=== PATIENT | female | born 1940 | race Caucasian/White ===

== ENCOUNTER 2016-06-22 13:06 | Inpatient (IN) | payer OTHER ==
--- NOTE | 2016-06-22 13:14 | PDOC ---
History of Present Illness - General Chief Complaint: Chest Pain Stated Complaint: CHEST PAIN Time Seen by Provider: 06/22/16 13:13 History Source: Patient - History of Present Illness Initial Comments: 06/22/16 14:48 75 year old female resident of [facility], presented to the ED with the chief complaints of left sided chest pain x 2 hours today. A/c to the patient, she never had chest pain before, chest pain lasting for an hour, on/off , its pressure type, non radiating, associated with nausea, no vomiting. Denies palpitation, SOB, Cough. No h/o cardiac problems in the past. Had complete cardiac workup done 2 yrs ago which was normal. Headache in the temporal area since yesterday, on/off. Denies dizziness, loc, trauma, abdominal pain. Past Medical Hx: Hypertension, HLD, Parkinsons Disease, Glaucoma Allergies: NKDA Past Surgical Hx: Back surgery x 10yrs ago Hospitalization: No recent hospitalization Social: Never smoked, no alcohol , no illicit drug use. PCP: Dr. Jake Marie Past History - Past Medical History Allergies/Adverse Reactions: Allergies Allergy/AdvReac Type Severity Reaction Status Date / Time No Known Drug Allergies Allergy Verified 01/21/14 00:40 Home Medications: Ambulatory Orders Acetylcyst/Wsrjijt17/Levomefol [Metafolbic Plus Caplet] 1 each PO DAILY Amlodipine Besylate [Norvasc -] 2.5 mg PO DAILY 06/22/16 Aspirin [ASA -] 81 mg PO DAILY 06/22/16 Carbidopa/Levodopa [Carbidopa-Levodopa 25-100 Tab] 1 each PO DAILY 06/22/16 Carbidopa/Levodopa/Entacapone [Xxjstbrlt-Gihxhhqs-Bjgw 125 mg] 06/22/16 Carbidopa/Levodopa/Entacapone [Eaapknfib-Bdnnhwbn-Lrwz 125 mg] 1 each PO DAILY 06/22/16 Cholecalciferol (Vitamin D3) [Vitamin D3] 400 unit PO DAILY 06/22/16 Donepezil HCl [Aricept -] 10 mg PO DAILY 06/22/16 Duloxetine HCl 60 mg PO DAILY 06/22/16 Gabapentin [Neurontin -] 400 mg PO Q8H 06/22/16 Hydrochlorothiazide 25 mg PO DAILY 06/22/16 Hydromorphone HCl [Exalgo] 16 mg PO DAILY 06/22/16 Latanoprost 0.005% Eye Drops [Xalatan 0.005% Eye Drops -] 1 drop HS 06/22/16 Magnesium Hydrox 2400MG/30Ml [Milk of Magnesia -] 30 ml PO ONCE 06/22/16 Mirtazapine [Remeron Soltab -] 15 mg PO DAILY 06/22/16 Rotigotine [Neupro] 1 each TD DAILY 06/22/16 Sennosides/Docusate Sodium [Senna S Tablet] 1 each PO TID 06/22/16 Simvastatin 20 mg PO DAILY 06/22/16 Tolterodine Tartrate LA [Detrol LA -] 2 mg PO DAILY 06/22/16 Tolterodine Tartrate LA [Detrol LA -] 4 mg PO DAILY 06/22/16 Anemia: No Asthma: No Cancer: No Cardiac Disorders: No CVA: No COPD: No CHF: No Dementia: Yes Diabetes: No GI Disorders: Yes Disorders: No HTN: Yes Hypercholesterolemia: Yes Liver Disease: No Seizures: No Thyroid Disease: No - Surgical History Abdominal Surgery: No Appendectomy: No Cardiac Surgery: No Cholecystectomy: No Lung Surgery: No Neurologic Surgery: No Orthopedic Surgery: No - Psycho/Social/Smoking Cessation Hx Anxiety: No Suicidal Ideation: No Smoking History: Never smoked 'Breaking Loose' booklet given: 05/28/13 Hx Alcohol Use: Yes (OCCASIONALLY) Drug/Substance Use Hx: No Substance Use Type: Alcohol Review of Systems - Review of Systems Able to Perform ROS?: Yes Comments:: ROS CONSTITUTIONAL: Absent: fever, chills, diaphoresis, generalized weakness, malaise, loss of appetite HEENT: Absent: rhinorrhea, nasal congestion, throat pain, throat swelling, difficulty swallowing, mouth swelling, ear pain, eye pain, visual Changes CARDIOVASCULAR: Present: Chest pain Absent: syncope, palpitations, irregular heart rate, lightheadedness, peripheral edema RESPIRATORY: Absent: cough, shortness of breath, dyspnea with exertion, orthopnea, wheezing, stridor, hemoptysis GASTROINTESTINAL: Absent: abdominal pain, abdominal distension, nausea, vomiting, diarrhea, constipation, melena, hematochezia GENITOURINARY: Absent: dysuria, frequency, urgency, hesitancy, hematuria, flank pain, genital pain MUSCULOSKELETAL: Absent: myalgia, arthralgia, joint swelling SKIN:~ Absent: rash, itching, pallor HEMATOLOGIC/IMMUNOLOGIC: Absent: easy bleeding, easy bruising, lymphadenopathy, frequent infections ENDOCRINE: Absent: unexplained weight gain, unexplained weight loss, heat intolerance, cold intolerance NEUROLOGIC: Absent: headache, focal weakness or paresthesias, dizziness, unsteady gait, seizure, mental status changes, bladder or bowel incontinence PSYCHIATRIC: Absent: anxiety, depression, suicidal or homicidal ideation, hallucinations. 06/22/16 15:11 PE: GENERAL: Head tremor, Awake, alert, and fully oriented, in no acute distress HEAD: No signs of trauma EYES: PERRLA, EOMI, sclera anicteric, conjunctiva clear ENT: Auricles normal inspection, hearing grossly normal, nares patent, oropharynx clear without exudates. Moist mucosa NECK: Normal ROM, supple, no lymphadenopathy, JVD, or masses LUNGS: Breath sounds equal, clear to auscultation bilaterally. No wheezes, and no crackles.. HEART: Regular rate and rhythm, normal S1 and S2, no murmurs, rubs or gallops ABDOMEN: Soft, nontender, normoactive bowel sounds. No guarding, no rebound. No masses EXTREMITIES: Cog wheel rigidity, no edema. No clubbing or cyanosis. No cords, erythema, or tenderness NEUROLOGICAL: Cranial nerves II through XII grossly intact. Normal speech, wheel chair bound SKIN: Warm, Dry, normal turgor, no rashes or lesions noted. Is the patient limited Guamanian proficient: No Heart Score/ECG Review - History History: Moderately suspicious - Electrocardiogram EKG: Normal - Age Age: >/= 65 - Risk Factors Risk Factors Heart Score: Yes Hx Hypercholesterolemia, Yes Hx Hypertension Based on the list above the patient has:: 1-2 risk factors - Troponin Troponin: </= normal limit - Score Heart Score - Total: 4 ED Treatment Course - LABORATORY CBC & Chemistry Diagram: 06/22/16 13:41 06/22/16 13:41 Medical Decision Making - Medical Decision Making 06/22/16 15:20 75 year old female resident of [facility], with PMHx of HTN, HLD, Parkinsons Disease, Glaucoma presented to the ED with the chief complaints of left sided chest pain x 2 hours today. # Chest pain Likely ACS: HEART score-4 Likely PE: H/o immobilization, chest pain Less likely Pneumonia-No cough, fever Less likely aortic dissection- BP no change in both arms, no symptoms suggestive Ordered CBC, CMP, UA, EKG, Cardiac enzymes 06/22/16 16:29 Patient reassessed. Chest pain resolved. Blood pressure improved, now normal. Sitting comfortably. Hemodynamically stable, saturation 95% on RA. EKG showed normal sinus. Would like to r/o PE-ordered CTA. # Chest pain- Now resolved Rule out ACS Rule out PE Discussed with Dr. Jake Marie As per Dr Marie's recommendation, ordered IV NS @ 75mls/hr, next set of cardiac enzymes ordered. Will admit the patient to telemetry for continuous cardiac monitoring Dr. Alonzo consult placed Would consider echo. Illness, Investigation and plan of care explained to the patient. She verbalized understanding. Case seen and discussed with Dr. Gunderson. *DC/Admit/Observation/Transfer Diagnosis at time of Disposition: Chest pain - Discharge Dispostion Condition at time of disposition: Guarded Admit: Yes
[2016-06-22 13:21] VITALS: BMI 24.3
[2016-06-22] MEDS ORDERED: ASPIRIN 325 MG TABLET PO ONE (13:35)
[2016-06-22] MEDS ORDERED: NITROGLYCERIN 2% OINTMENT - 1GM PACKET TD ONE ×2 (13:36→13:43)
[2016-06-22] MEDS ORDERED: ASPIRIN 325 MG TABLET ONE (13:43)
[2016-06-22 14:16] LABS: BASOPHIL 0.5 % (0-2.0); EOSINOPHIL 1.5 % (0-4.5); MCH 22.9 pg (25.7-33.7); MCHC 30.5 g/dl (32.0-36.0); MEAN PLT VOLUME 7.1 fl (7.5-11.1); NEUTROPHILS 73.2 % (42.8-82.8); PLATELET COUNT 502 K/MM3 (134-434); RDW 20.7 % (11.6-15.6); WHITE BLOOD COUNT 12.1 K/mm3 (4.0-10.0)
[2016-06-22 14:35] LABS: INR 1.2 (0.82-1.09); PROTHROMBIN TIME (PATIENT) 13.2 SEC (9.98-11.88)
[2016-06-22 14:37] LABS: ALBUMIN 2.8 g/dl (3.4-5.0); ANION GAP 11 (8-16); BILIRUBIN,TOTAL 0.4 mg/dL (0.2-1.0); CALCIUM 8.6 mg/dL (8.5-10.1); CO2 29 mmol/L (21-32); CREATININE 0.5 mg/dL (0.55-1.02); GLUCOSE,RANDOM 109 mg/dL (74-106); MAGNESIUM 2.3 mg/dL (1.8-2.4); SGPT/ALT < 6 U/L (12-78); TOT PROT 6.4 g/dl (6.4-8.2)
[2016-06-22 14:41] LABS: ALK PHOS 89 U/L (45-117); SGOT/AST 21 U/L (15-37); TROPONIN I < 0.02 ng/ml (0.00-0.05)
[2016-06-22] MEDS: SODIUM CHLORIDE 1,000 ML IV SCH (16:51)
--- NOTE | 2016-06-22 16:55 | PDOC ---
Attending Attestation - Resident Resident Name: Maryam Martinezny - ED Attending Attestation I have performed the following: I have examined & evaluated the patient, The case was reviewed & discussed with the resident, I agree w/resident's findings & plan, Exceptions are as noted - HPI HPI: 06/22/16 16:52 75-year-old female with history of advanced Parkinson's, hypertension and glaucoma presents with atraumatic, nonpleuritic chest pain and hypertension that had resolved upon arrival in the ER. - Physicial Exam PE: 06/22/16 16:53 Patient is awake and alert, hypertensive, afebrile with clear lungs, RRR, bilateral resting tremor and cogwheel rigidity to upper and lower extremities bilaterally. - Medical Decision Making 06/22/16 16:53 75-year-old female with history of Parkinson's disease, hypertension, poor mobility (wheelchair bound) presents with chest pain and hypertension. Differential diagnoses includes ACS versus PE versus pleurisy versus pneumonia. EKG shows no evidence of acute ischemia. Chest x-ray reveals no evidence of infiltrate or effusion. D-dimer is 1451. First set of cardiac enzymes is within normal limit. Patient has received aspirin and nitroglycerin with resolution of hypertension. Will obtain CTA of chest. Will admit for further evaluation and treatment.
[2016-06-22 19:09] LABS: ANISOCYTOSIS 2+; HYPOCHROMIA 1+; OVALOCYTES 1+; PLATELET ESTIMATE SLT INCREASED (NORMAL); POIKILOCYTOSIS 1+; POLYCHROMASIA 1+
--- NOTE | 2016-06-22 20:49 | HP ---
[id number] Chief Complaint: CP History of Present Illness: Pt developed SSCP at rest around 11 AM while sleeping in the wheelchair at [facility], Cp lasted for about 30 minutes, not associated with SOB, paipl, dizziness, radiation. Pt states that it is first time when has CP. Pt was transferred to ER. in ER pt had Chest CT with IV contrast and R/O PE. Pt was admitted to monitor bed. 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 - Smoking History Smoking history: Never smoked - Alcohol/Substance Use Hx Alcohol Use: Yes (OCCASIONALLY) Home Medications - Allergies Allergies/Adverse Reactions: Allergies Allergy/AdvReac Type Severity Reaction Status Date / Time No Known Drug Allergies Allergy Verified 01/21/14 00:40 - Home Medications Home Medications: Ambulatory Orders Acetylcyst/Nctgduz26/Levomefol [Metafolbic Plus Caplet] 1 each PO DAILY Amlodipine Besylate [Norvasc -] 2.5 mg PO DAILY 06/22/16 Aspirin [ASA -] 81 mg PO DAILY 06/22/16 Carbidopa/Levodopa [Carbidopa-Levodopa 25-100 Tab] 1 each PO DAILY 06/22/16 Carbidopa/Levodopa/Entacapone [Xnesxcedf-Qxepjfeg-Ktde 125 mg] 06/22/16 Carbidopa/Levodopa/Entacapone [Wrpfllndz-Qnkcmrqc-Fljb 125 mg] 1 each PO DAILY 06/22/16 Cholecalciferol (Vitamin D3) [Vitamin D3] 400 unit PO DAILY 06/22/16 Donepezil HCl [Aricept -] 10 mg PO DAILY 06/22/16 Duloxetine HCl 60 mg PO DAILY 06/22/16 Gabapentin [Neurontin -] 400 mg PO Q8H 06/22/16 Hydrochlorothiazide 25 mg PO DAILY 06/22/16 Hydromorphone HCl [Exalgo] 16 mg PO DAILY 06/22/16 Latanoprost 0.005% Eye Drops [Xalatan 0.005% Eye Drops -] 1 drop HS 06/22/16 Magnesium Hydrox 2400MG/30Ml [Milk of Magnesia -] 30 ml PO ONCE 06/22/16 Mirtazapine [Remeron Soltab -] 15 mg PO DAILY 06/22/16 Rotigotine [Neupro] 1 each TD DAILY 06/22/16 Sennosides/Docusate Sodium [Senna S Tablet] 1 each PO TID 06/22/16 Simvastatin 20 mg PO DAILY 06/22/16 Tolterodine Tartrate LA [Detrol LA -] 2 mg PO DAILY 06/22/16 Tolterodine Tartrate LA [Detrol LA -] 4 mg PO DAILY 06/22/16 Review of Systems - Review of Systems Constitutional: denies: Chills, Fever Eyes: denies: Blurred Vision, Recent Change in Vision HENT: denies: Ear Discharge, Ear Pain, Nasal Congestion, Throat Pain Neck: denies: Pain on Movement, Stiffness Cardiovascular: denies: Edema, Palpitations, Shortness of Breath Respiratory: denies: Cough, Hemoptysis, SOB, SOB on Exertion Gastrointestinal: reports: Vomiting. denies: Abdominal Pain, Diarrhea, Nausea Genitourinary: denies: Burning, Discharge Musculoskeletal: denies: Back Pain, Joint Swelling Integumentary: denies: Eczema, Pruritis, Rash Neurological: denies: Change in LOC, Confusion, Numbness, Tremors Endocrine: denies: Excessive Sweating, Intolerance to Cold Hematology/Lymphatic: denies: Easily Bruised, Excessive Bleeding Psychiatric: denies: Altered Sleep Pattern, Anxiety Physical Examination Vital Signs: Vital Signs Temperature 98 F 06/22/16 13:15 Pulse Rate 80 06/22/16 18:29 Respiratory Rate 18 06/22/16 18:29 Blood Pressure 112/64 06/22/16 18:29 O2 Sat by Pulse Oximetry (%) 92 L 06/22/16 18:29 Constitutional: Yes: No Distress, Calm Eyes: Yes: Conjunctiva Clear, EOM Intact, PERRL HENT: Yes: Normocephalic. No: Epistaxis, Rhinnorhea, Thrush Neck: Yes: Trachea Midline. No: Lymphadenopathy Cardiovascular: Yes: Regular Rate and Rhythm, S1, S2 Respiratory: Yes: Regular, CTA Bilaterally. No: Rales Gastrointestinal: Yes: Normal Bowel Sounds, Soft. No: Palpable Mass, Tenderness Musculoskeletal: No: Joint Stiffness, Joint Swelling Extremities: No: Cold, Cool, Cyanosis Edema: No Integumentary: No: Bruising, Erythema, Rash Neurological: Yes: Alert, Oriented, Other (motor and sensory symmetric bilat.) Psychiatric: Yes: Alert, Oriented Labs: reviewed Imaging - Results Chest X-ray: Report Reviewed Cat Scan: Report Reviewed Problem List - Problems (1) Chest pain Assessment/Plan: Admit to Telemetry Serial CE Cardiology Consult Check TSH Code(s): R07.9 - CHEST PAIN, UNSPECIFIED (2) HTN (hypertension) Assessment/Plan: to monitor Code(s): I10 - ESSENTIAL (PRIMARY) HYPERTENSION (3) Hyperlipemia Assessment/Plan: check level in AM Code(s): E78.5 - HYPERLIPIDEMIA, UNSPECIFIED (4) Parkinson disease Assessment/Plan: on treatment- to cont. Code(s): G20 - PARKINSON'S DISEASE (5) Impaired gait Assessment/Plan: Pt can transfer to wheelchair w/o help Code(s): R26.9 - UNSPECIFIED ABNORMALITIES OF GAIT AND MOBILITY
[2016-06-22] MEDS: HEPARIN NA (PORCINE) 5,000 UNITS/ML 1ML VIAL SQ SCH (21:39)
[2016-06-22] MEDS ORDERED: PATIENT'S OWN MEDICATION (NON-FORMULARY) (Magnesium Hydrox 2400mg/30ml 30 ML) PO SCH (22:30)
[2016-06-22 22:36] LABS: TROPONIN I < 0.02 ng/ml (0.00-0.05)
[2016-06-22] MEDS: LATANOPROST 0.005% OPHTH SOLN 2.5ML BOTTLE OU SCH (23:03)
[2016-06-22] MEDS: GABAPENTIN 400 MG CAPSULE (FP) PO SCH (23:03)
[2016-06-23] MEDS: GABAPENTIN 400 MG CAPSULE (FP) PO SCH ×3 (06:21→21:17)
[2016-06-23] MEDS: SENNOSIDES/DOCUSATE COMBO (SENNA PLUS) TABLET (UD) PO SCH ×3 (06:21→21:17)
[2016-06-23 08:11] LABS: MCH 22.8 pg (25.7-33.7); MCHC 30.8 g/dl (32.0-36.0); MEAN CELL VOLUME 74.1 fl (80-96); MEAN PLT VOLUME 7.3 fl (7.5-11.1); PLATELET COUNT 410 K/MM3 (134-434); RDW 21.2 % (11.6-15.6); WHITE BLOOD COUNT 8.6 K/mm3 (4.0-10.0)
[2016-06-23 08:53] LABS: CREATININE 0.4 mg/dL (0.55-1.02); FREE T4 1.08 ng/dl (0.76-1.46); THYROID STIMULATING HORMONE 1.58 uIU/ml (0.358-3.74)
--- NOTE | 2016-06-23 09:42 | CON.CARD ---
Consult Consult Specialty:: Cardiology Referred by:: Dr. Marie Reason for Consultation:: Chest pain - History of Present Illness Chief Complaint: chest pain History of Present Illness: 75 year old woman with a history of HTN, HLD, Parkinsons, sent from [facility] after complaining of chest pain. Pt. states that she was on her way to [facility] yesterday when she developed substernal/left sided chest pain. this lasted approx 2 hours and she was sent to the ER. She states that the pain resolved prior to arriving in the ER. she did have associated nausea and vomiting. also c /o constipation for the past few days. As per report she had some type of cardiac work up 2 years ago which was normal. 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 Cardio/Vascular: Yes: HTN - Alcohol/Substance Use Hx Alcohol Use: Yes (OCCASIONALLY) - Smoking History Smoking history: Never smoked - Social History Usual Living Arrangement: Half-Way ADL: Support Services History of Recent Travel: No Home Medications - Allergies Allergies/Adverse Reactions: Allergies Allergy/AdvReac Type Severity Reaction Status Date / Time No Known Drug Allergies Allergy Verified 01/21/14 00:40 - Home Medications Home Medications: Ambulatory Orders Acetylcyst/Qeehhse59/Levomefol [Metafolbic Plus Caplet] 1 each PO DAILY Amlodipine Besylate [Norvasc -] 2.5 mg PO DAILY 06/22/16 Aspirin [ASA -] 81 mg PO DAILY 06/22/16 Carbidopa/Levodopa [Carbidopa-Levodopa 25-100 Tab] 1 each PO DAILY 06/22/16 Carbidopa/Levodopa/Entacapone [Tvrwwwujd-Fiyvnxvj-Rchs 125 mg] 06/22/16 Carbidopa/Levodopa/Entacapone [Zhirbczol-Gxsjtmur-Fwxz 125 mg] 1 each PO DAILY 06/22/16 Cholecalciferol (Vitamin D3) [Vitamin D3] 400 unit PO DAILY 06/22/16 Donepezil HCl [Aricept -] 10 mg PO DAILY 06/22/16 Duloxetine HCl 60 mg PO DAILY 06/22/16 Gabapentin [Neurontin -] 400 mg PO Q8H 06/22/16 Hydrochlorothiazide 25 mg PO DAILY 06/22/16 Hydromorphone HCl [Exalgo] 16 mg PO DAILY 06/22/16 Latanoprost 0.005% Eye Drops [Xalatan 0.005% Eye Drops -] 1 drop HS 06/22/16 Magnesium Hydrox 2400MG/30Ml [Milk of Magnesia -] 30 ml PO ONCE 06/22/16 Mirtazapine [Remeron Soltab -] 15 mg PO DAILY 06/22/16 Rotigotine [Neupro] 1 each TD DAILY 06/22/16 Sennosides/Docusate Sodium [Senna S Tablet] 1 each PO TID 06/22/16 Simvastatin 20 mg PO DAILY 06/22/16 Tolterodine Tartrate LA [Detrol LA -] 2 mg PO DAILY 06/22/16 Tolterodine Tartrate LA [Detrol LA -] 4 mg PO DAILY 06/22/16 Family Disease History - Family Disease History Family History: Denies Review of Systems - Review of Systems Constitutional: denies: No Symptoms, Chills, Diaphoresis, Fever, Lethargy, Loss of Appetite, Malaise, Night Sweats, Unintentional Wgt. Loss, Weakness, Other Eyes: denies: No Symptoms, Blind Spots, Blurred Vision, Double Vision, Eye Pain , Floaters, Photophobia, Recent Change in Vision, Other HENT: denies: No Symptoms, Difficult Swallowing, Ear Discharge, Ear Pain, Epistaxis, Gingival Bleeding, Hearing Loss, Mouth Swelling, Nasal Congestion, Ocular Prosthesis, Throat Pain, Toothache, Ringing in Ears, Other Neck: denies: No Symptoms, Decreased ROM, Lumps, Pain on Movement, Stiffness, Swollen Glands, Tenderness, Other Cardiovascular: reports: Chest Pain. denies: No Symptoms, Edema, Palpitations, Shortness of Breath, Other Respiratory: denies: No Symptoms, Cough, Exercise Intolerance, Hemoptysis, Orthopnea, PND, Snoring, SOB, SOB on Exertion, Wheezing, Other Gastrointestinal: reports: Constipation, Nausea, Vomiting. denies: No Symptoms , Abdominal Pain, Bloating, Diarrhea, Dysphagia, Indigestion, Melena, Rectal Bleeding, Vomiting Blood, Other Genitourinary: denies: No Symptoms, Burning, Discharge, Dysuria, Flank Pain, Frequency, Hematuria, Incontinence, Lesions, Menses, Pain, Testicular Mass, Testicular Pain, Testicular Swelling, Urgency, Vaginal Bleeding, Other Breasts: denies: No Symptoms Reported, See HPI, Breast Implants, Discharge from Nipple, Lumps, Pain, Skin Changes, Other Musculoskeletal: denies: No Symptoms, Back Pain, Crepitus, Decreased ROM, Extremity Pain, Joint Pain, Joint Swelling, Muscle Pain, Muscle Cramps, Muscle Weakness, Other Integumentary: denies: No Symptoms, Blister, Bruising, Change in Color, Eczema, Erythema, Incision, Lesions, Lump, Pallor, Pruritis, Rash, Wound, Other Neurological: denies: No Symptoms, Change in LOC, Change in Speech, Confusion, Dizziness, Headache, Incoordination, Numbness, Parasthesia, Pre-Existing Deficit , Seizure, Syncope, Tremors, Unsteady Gait, Weakness, Other Endocrine: denies: No Symptoms, Excessive Sweating, Flushing, Increased Hunger, Increased Thirst, Intolerance to Cold, Intolerance to Heat, Unexplained Weight Gain, Unexplained Weight Loss, Other Hematology/Lymphatic: denies: No Symptoms, Easily Bruised, Excessive Bleeding, Swollen Glands, Other Psychiatric: denies: No Symptoms, Altered Sleep Pattern, Anxiety, Depression, Hallucinations, Panic, Paranoia, Suicidal, Other - Risk Factors Known Risk Factors: Yes: Age, Hypertension Vital Signs: Vital Signs Temperature 98.2 F 06/23/16 06:00 Pulse Rate 70 06/23/16 06:00 Respiratory Rate 16 06/23/16 06:00 Blood Pressure 139/69 06/23/16 06:00 O2 Sat by Pulse Oximetry (%) 98 06/23/16 04:50 Constitutional: Yes: Well Nourished, No Distress, Calm Eyes: Yes: WNL, Conjunctiva Clear, EOM Intact, PERRL HENT: Yes: WNL, Atraumatic, Normocephalic Neck: Yes: WNL, Supple, Trachea Midline Respiratory: Yes: Regular, CTA Bilaterally. No: Rales, Rhonchi, Wheezes Gastrointestinal: Yes: WNL, Normal Bowel Sounds, Soft. No: Distention, Tenderness Renal/: Yes: WNL Cardiovascular: Yes: Regular Rate and Rhythm. No: Bradycardia, Tachycardia, Pulse Irregular, Gallop, Rub, Varicosities JVD: No Carotid Bruit: No PMI: Non-Displaced Heart Sounds: Yes: S1, S2. No: Split S2, S3, S4, Clicks, Gallop, Rub, Bruit Murmur: No: Systolic Murmur, Diastolic Murmur Musculoskeletal: Yes: WNL Extremities: Yes: WNL Edema: No Peripheral Pulses WNL: Yes Peripheral Pulses: 2+ Left Doralis Pedis, 2+ Right Dorsalis Pedis Integumentary: Yes: WNL Neurological: Yes: Alert, Oriented Psychiatric: Yes: Alert, Oriented - Other Data Labs, Other Data: CBC, BMP 06/23/16 05:45 06/23/16 05:45 INR, PTT INR 1.20 (0.82-1.09) H 06/22/16 13:41 Troponin, BNP 06/22/16 22:05 Troponin I < 0.02 Troponin, BNP 06/22/16 22:05 Troponin I < 0.02 ekg-nsr 75bpm, IVCD, no sig ST abnl Imaging - Results Chest X-ray: Report Reviewed, Image Reviewed EKG: Report Reviewed, Image Reviewed Other: Report Reviewed, Image Reviewed (tele-nsr, pvcs, no sig arrhythmia) Problem List - Problems (1) Chest pain Code(s): R07.9 - CHEST PAIN, UNSPECIFIED (2) HTN (hypertension) Code(s): I10 - ESSENTIAL (PRIMARY) HYPERTENSION (3) Hyperlipemia Code(s): E78.5 - HYPERLIPIDEMIA, UNSPECIFIED Assessment/Plan 75 year old woman with a history of HTN, HLD, Parkinsons, sent from [facility] after complaining of chest pain, nausea, vomiting, constipation. Chest pain-atypical, but difficult to characterize, has several cardiac risk factors -no ischemia on ekg -no arrhythmia on telemetry -cardiac enzymes wnl x3 -cont tele for now -plan for echo and persantine nuclear stress test saturday to further evaluate for ischemia -cont ASA 81mg daily and Lipitor -would also treat constipation as may be contributing to symptoms HTN-well controlled -cont norvasc and HCTZ HLD -cont lipitor
[2016-06-23] MEDS ORDERED: PT OWN MED DRAWER 7, Y5N ONE (09:45)
[2016-06-23] MEDS: DONEPEZIL HCL 10 MG TABLET (FP) PO SCH (09:48)
[2016-06-23] MEDS: HEPARIN NA (PORCINE) 5,000 UNITS/ML 1ML VIAL SQ SCH ×2 (09:48→21:22)
[2016-06-23] MEDS: DULoxetine HCL 30 MG CAPSULE.DR (FP) PO SCH (09:48)
[2016-06-23] MEDS: amLODIPine BESYLATE 2.5 MG TABLET (FP) PO SCH (09:48)
[2016-06-23] MEDS: CARBIDOPA/LEVODOPA 25/100 TABLET (FP) PO SCH (09:48)
[2016-06-23] MEDS: HYDROCHLOROTHIAZIDE 25 MG TABLET (FP) PO SCH (09:49)
[2016-06-23] MEDS: ASPIRIN 81 MG CHEWABLE TABLETS PO SCH (09:49)
[2016-06-23] MEDS: TOLTERODINE TARTRATE LA 4 MG CAP.SR.24H (FP) PO SCH (09:49)
[2016-06-23] MEDS: CHOLECALCIFEROL (VITAMIN D3) 400 UNIT TABLET (FP) PO SCH (09:49)
[2016-06-23] MEDS ORDERED: HYDROMORPHONE HCL 16 MG PO SCH (10:00)
[2016-06-23] MEDS ORDERED: PATIENT'S OWN MEDICATION (NON-FORMULARY) (Rotigotine [Neupro] 1 EACH) TD SCH (10:00)
[2016-06-23] MEDS ORDERED: POLYETHYLENE GLYCOL 3350 119 GM BTL PO PRN (11:02)
--- NOTE | 2016-06-23 11:07 | PN ---
Progress Note, Physician Chief Complaint: in bed nad no CP or SOB currently; had BM no abdominal pain chart tests meds reviewed with pt - Current Medication List Current Medications: Active Medications Amlodipine Besylate (Norvasc -) 2.5 mg PO DAILY [facility] Last Admin: 06/23/16 09:48 Dose: 2.5 mg Aspirin (Asa -) 81 mg PO DAILY [facility] Last Admin: 06/23/16 09:49 Dose: 81 mg Atorvastatin Calcium (Lipitor -) 10 mg PO HS [facility] Carbidopa/Levodopa (Sinemet 25/100 -) 1 each PO DAILY [facility] Last Admin: 06/23/16 09:48 Dose: 1 each Cholecalciferol (Vitamin D3 -) 400 unit PO DAILY [facility] Last Admin: 06/23/16 09:49 Dose: 400 unit Donepezil HCl (Aricept -) 10 mg PO DAILY [facility] Last Admin: 06/23/16 09:48 Dose: 10 mg Duloxetine HCl (Cymbalta -) 60 mg PO DAILY [facility] Last Admin: 06/23/16 09:48 Dose: 60 mg Gabapentin (Neurontin -) 400 mg PO TID [facility] Last Admin: 06/23/16 06:21 Dose: 400 mg Heparin Sodium (Porcine) (Heparin -) 5,000 unit SQ BID [facility] Last Admin: 06/23/16 09:48 Dose: 5,000 unit Hydrochlorothiazide (Hctz -) 25 mg PO DAILY [facility] Last Admin: 06/23/16 09:49 Dose: 25 mg Sodium Chloride (Normal Saline -) 1,000 mls @ 75 mls/hr IV ASDIR [facility] Last Admin: 06/22/16 16:51 Dose: 75 mls/hr Latanoprost (Xalatan 0.005% Eye Drops -) 1 drop OU HS [facility] Last Admin: 06/22/16 23:03 Dose: Not Given Mirtazapine (Remeron -) 15 mg PO HS [facility] Non-Formulary Medication (Hydromorphone Hcl [Exalgo]) 16 mg PO DAILY [facility] Non-Formulary Medication (Rotigotine [Neupro]) 1 each TD DAILY [facility] Polyethylene Glycol (Miralax (For Daily Use) -) 17 gm PO DAILY PRN PRN Reason: CONSTIPATION Senna/Docusate Sodium (Pericolace -) 1 tablet PO TID [facility] Last Admin: 06/23/16 06:21 Dose: 1 tablet Tolterodine Tartrate (Detrol La -) 4 mg PO DAILY [facility] Last Admin: 06/23/16 09:49 Dose: 4 mg - Objective Vital Signs: Vital Signs Temperature 98.2 F 06/23/16 06:00 Pulse Rate 70 06/23/16 06:00 Respiratory Rate 16 06/23/16 06:00 Blood Pressure 139/69 06/23/16 06:00 O2 Sat by Pulse Oximetry (%) 98 06/23/16 04:50 Constitutional: Yes: No Distress, Calm Eyes: Yes: Conjunctiva Clear HENT: Yes: Atraumatic Neck: Yes: Supple Cardiovascular: Yes: Regular Rate and Rhythm Respiratory: Yes: CTA Bilaterally Gastrointestinal: Yes: Soft. No: Distention, Tenderness Genitourinary: No: CVA Tenderness - Left, CVA Tenderness - Right Musculoskeletal: No: Joint Stiffness, Joint Swelling Extremities: No: Cold, Cool Edema: No Peripheral Pulses WNL: Yes Integumentary: No: Rash, Venous Stasis Changes Neurological: Yes: WNL, Alert, Oriented ...Motor Strength: WNL Psychiatric: Yes: WNL, Alert, Oriented. No: Agitated, Suicidal Ideation Labs: CBC, BMP 06/23/16 05:45 06/23/16 05:45 INR, PTT INR 1.20 (0.82-1.09) H 06/22/16 13:41 - ....Imaging Other: Report Reviewed Assessment/Plan 75 year old woman with a history of HTN, HLD, Parkinson, sent from [facility] after complaining of chest pain, nausea, vomiting, constipation. Chest pain-atypical, but difficult to characterize, has several cardiac risk factors -no ischemia on ekg -no arrhythmia on telemetry -cardiac enzymes wnl x3 -cont tele for now -plan for echo and persantine nuclear stress test saturday to further evaluate for ischemia per cardiology -cont ASA 81mg daily and Lipitor -would also treat constipation as may be contributing to symptoms HTN-well controlled -cont norvasc and HCTZ HLD -cont lipitor Constipation: senna, miralax d/w pt and staff; d/w major case detective - suggested keep her in OBS until stress test done
--- NOTE | 2016-06-23 13:41 | EKG ---
Test Reason : Blood Pressure : / mmHG Vent. Rate : 078 BPM Atrial Rate : 078 BPM P-R Int : 160 ms QRS Dur : 104 ms QT Int : 382 ms P-R-T Axes : 074 -29 028 degrees QTc Int : 435 ms NORMAL SINUS RHYTHM NORMAL ECG NO PREVIOUS ECGS AVAILABLE Confirmed by BYRON LOPEZ MD ([id number]) on 06/23/2016 1:41:03 PM Referred By: Confirmed By:BYRON LOPEZ MD
[2016-06-23] MEDS: ATORVASTATIN CA 10 MG TABLET (FP) PO SCH (21:17)
[2016-06-23] MEDS: MIRTAZAPINE 15 MG TABLET (FP) PO SCH (21:17)
[2016-06-23] MEDS: LATANOPROST 0.005% OPHTH SOLN 2.5ML BOTTLE OU SCH (21:22)
[2016-06-23] MEDS: SODIUM CHLORIDE 1,000 ML IV SCH (23:37)
[2016-06-24] MEDS: GABAPENTIN 400 MG CAPSULE (FP) PO SCH ×3 (05:36→21:38)
[2016-06-24] MEDS: SENNOSIDES/DOCUSATE COMBO (SENNA PLUS) TABLET (UD) PO SCH ×3 (05:37→21:38)
[2016-06-24 08:39] LABS: BASOPHIL 0.6 % (0-2.0); EOSINOPHIL 2.3 % (0-4.5); MCH 22.8 pg (25.7-33.7); MCHC 30.6 g/dl (32.0-36.0); MEAN CELL VOLUME 74.3 fl (80-96); MEAN PLT VOLUME 7.3 fl (7.5-11.1); NEUTROPHILS 77.2 % (42.8-82.8); PLATELET COUNT 420 K/MM3 (134-434)
[2016-06-24 09:00] LABS: CALCIUM 8.1 mg/dL (8.5-10.1)
[2016-06-24 09:04] LABS: CREATININE 0.3 mg/dL (0.55-1.02)
[2016-06-24] MEDS: HEPARIN NA (PORCINE) 5,000 UNITS/ML 1ML VIAL SQ SCH ×2 (09:52→21:39)
[2016-06-24] MEDS: HYDROCHLOROTHIAZIDE 25 MG TABLET (FP) PO SCH (09:52)
[2016-06-24] MEDS: ASPIRIN 81 MG CHEWABLE TABLETS PO SCH (09:52)
[2016-06-24] MEDS: amLODIPine BESYLATE 2.5 MG TABLET (FP) PO SCH (09:52)
[2016-06-24] MEDS: CARBIDOPA/LEVODOPA 25/100 TABLET (FP) PO SCH (09:52)
[2016-06-24] MEDS: DULoxetine HCL 30 MG CAPSULE.DR (FP) PO SCH (09:52)
[2016-06-24] MEDS: DONEPEZIL HCL 10 MG TABLET (FP) PO SCH (09:52)
[2016-06-24] MEDS: CHOLECALCIFEROL (VITAMIN D3) 400 UNIT TABLET (FP) PO SCH (09:55)
[2016-06-24] MEDS: TOLTERODINE TARTRATE LA 4 MG CAP.SR.24H (FP) PO SCH (09:56)
--- NOTE | 2016-06-24 10:26 | PN ---
Progress Note, Physician History of Present Illness: seen and examined today in nad. no further chest pain. no overnight events. no new complaints. - Current Medication List Current Medications: Active Medications Amlodipine Besylate (Norvasc -) 2.5 mg PO DAILY [facility] Last Admin: 06/24/16 09:52 Dose: 2.5 mg Aspirin (Asa -) 81 mg PO DAILY [facility] Last Admin: 06/24/16 09:52 Dose: 81 mg Atorvastatin Calcium (Lipitor -) 10 mg PO HS [facility] Last Admin: 06/23/16 21:17 Dose: 10 mg Carbidopa/Levodopa (Sinemet 25/100 -) 1 each PO DAILY [facility] Last Admin: 06/24/16 09:52 Dose: 1 each Cholecalciferol (Vitamin D3 -) 400 unit PO DAILY [facility] Last Admin: 06/24/16 09:55 Dose: 400 unit Donepezil HCl (Aricept -) 10 mg PO DAILY [facility] Last Admin: 06/24/16 09:52 Dose: 10 mg Duloxetine HCl (Cymbalta -) 60 mg PO DAILY [facility] Last Admin: 06/24/16 09:52 Dose: 60 mg Gabapentin (Neurontin -) 400 mg PO TID [facility] Last Admin: 06/24/16 05:36 Dose: 400 mg Heparin Sodium (Porcine) (Heparin -) 5,000 unit SQ BID [facility] Last Admin: 06/24/16 09:52 Dose: 5,000 unit Hydrochlorothiazide (Hctz -) 25 mg PO DAILY [facility] Last Admin: 06/24/16 09:52 Dose: 25 mg Sodium Chloride (Normal Saline -) 1,000 mls @ 75 mls/hr IV ASDIR [facility] Last Admin: 06/23/16 23:37 Dose: 75 mls/hr Latanoprost (Xalatan 0.005% Eye Drops -) 1 drop OU HS [facility] Last Admin: 06/23/16 21:22 Dose: 1 drop Mirtazapine (Remeron -) 15 mg PO HS [facility] Last Admin: 06/23/16 21:17 Dose: 15 mg Non-Formulary Medication (Hydromorphone Hcl [Exalgo]) 16 mg PO DAILY [facility] Non-Formulary Medication (Rotigotine [Neupro]) 1 each TD DAILY [facility] Polyethylene Glycol (Miralax (For Daily Use) -) 17 gm PO DAILY PRN PRN Reason: CONSTIPATION Senna/Docusate Sodium (Pericolace -) 1 tablet PO TID [facility] Last Admin: 06/24/16 05:37 Dose: 1 tablet Tolterodine Tartrate (Detrol La -) 4 mg PO DAILY [facility] Last Admin: 06/24/16 09:56 Dose: 4 mg - Objective Vital Signs: Vital Signs Temperature 98.2 F 06/24/16 06:00 Pulse Rate 73 06/24/16 06:00 Respiratory Rate 16 06/24/16 06:00 Blood Pressure 140/70 06/24/16 06:00 O2 Sat by Pulse Oximetry (%) 98 06/23/16 20:46 Constitutional: Yes: Well Nourished, No Distress, Calm Eyes: Yes: WNL, Conjunctiva Clear, EOM Intact, PERRL HENT: Yes: WNL, Atraumatic, Normocephalic Neck: Yes: WNL, Supple, Trachea Midline Cardiovascular: Yes: Regular Rate and Rhythm, S1, S2. No: Bradycardia, Tachycardia, Pulse Irregular, Bruit, JVD, Gallop, Murmur, Rub, S3, S4, Varicosities Respiratory: Yes: Regular, CTA Bilaterally. No: Rales, Rhonchi, Wheezes Gastrointestinal: Yes: WNL, Normal Bowel Sounds, Soft. No: Distention, Tenderness Musculoskeletal: Yes: WNL Extremities: Yes: WNL Edema: No Peripheral Pulses WNL: Yes Peripheral Pulses: Left Doralis Pedis: 2+, Right Dorsalis Pedis: 2+ Integumentary: Yes: WNL Neurological: Yes: Alert, Oriented Psychiatric: Yes: Alert, Oriented Labs: CBC, BMP 06/24/16 05:45 06/24/16 05:45 INR, PTT INR 1.20 (0.82-1.09) H 06/22/16 13:41 - ....Imaging Chest X-ray: Report Reviewed, Image Reviewed EKG: Report Reviewed, Image Reviewed Other: Report Reviewed, Image Reviewed (tele-nsr, pvcs, couplets) Problem List - Problems (1) Chest pain Code(s): R07.9 - CHEST PAIN, UNSPECIFIED (2) HTN (hypertension) Code(s): I10 - ESSENTIAL (PRIMARY) HYPERTENSION (3) Hyperlipemia Code(s): E78.5 - HYPERLIPIDEMIA, UNSPECIFIED Assessment/Plan 75 year old woman with a history of HTN, HLD, Parkinsons, sent from [facility] after complaining of chest pain, nausea, vomiting, constipation. Chest pain-atypical, but difficult to characterize, has several cardiac risk factors -no ischemia on ekg -no sig arrhythmia on telemetry -cardiac enzymes wnl x3 -cont tele for now -plan for echo and persantine nuclear stress test tomorrow to further evaluate for ischemia -cont ASA 81mg daily and Lipitor HTN-well controlled -cont norvasc and HCTZ HLD -cont lipitor
[2016-06-24] MEDS: SODIUM CHLORIDE 1,000 ML IV SCH (19:04)
--- NOTE | 2016-06-24 20:06 | PN ---
Progress Note, Physician History of Present Illness: Pt. w/o CP, palp, SOB, dizziness, abd pain. - Current Medication List Current Medications: Active Medications Amlodipine Besylate (Norvasc -) 2.5 mg PO DAILY [facility] Last Admin: 06/24/16 09:52 Dose: 2.5 mg Aspirin (Asa -) 81 mg PO DAILY [facility] Last Admin: 06/24/16 09:52 Dose: 81 mg Atorvastatin Calcium (Lipitor -) 10 mg PO HS [facility] Last Admin: 06/23/16 21:17 Dose: 10 mg Carbidopa/Levodopa (Sinemet 25/100 -) 1 each PO DAILY [facility] Last Admin: 06/24/16 09:52 Dose: 1 each Cholecalciferol (Vitamin D3 -) 400 unit PO DAILY [facility] Last Admin: 06/24/16 09:55 Dose: 400 unit Donepezil HCl (Aricept -) 10 mg PO DAILY [facility] Last Admin: 06/24/16 09:52 Dose: 10 mg Duloxetine HCl (Cymbalta -) 60 mg PO DAILY [facility] Last Admin: 06/24/16 09:52 Dose: 60 mg Gabapentin (Neurontin -) 400 mg PO TID [facility] Last Admin: 06/24/16 14:03 Dose: 400 mg Heparin Sodium (Porcine) (Heparin -) 5,000 unit SQ BID [facility] Last Admin: 06/24/16 09:52 Dose: 5,000 unit Hydrochlorothiazide (Hctz -) 25 mg PO DAILY [facility] Last Admin: 06/24/16 09:52 Dose: 25 mg Sodium Chloride (Normal Saline -) 1,000 mls @ 75 mls/hr IV ASDIR [facility] Last Admin: 06/24/16 19:04 Dose: Not Given Latanoprost (Xalatan 0.005% Eye Drops -) 1 drop OU HS [facility] Last Admin: 06/23/16 21:22 Dose: 1 drop Mirtazapine (Remeron -) 15 mg PO HS [facility] Last Admin: 06/23/16 21:17 Dose: 15 mg Non-Formulary Medication (Hydromorphone Hcl [Exalgo]) 16 mg PO DAILY [facility] Non-Formulary Medication (Rotigotine [Neupro]) 1 each TD DAILY [facility] Polyethylene Glycol (Miralax (For Daily Use) -) 17 gm PO DAILY PRN PRN Reason: CONSTIPATION Senna/Docusate Sodium (Pericolace -) 1 tablet PO TID [facility] Last Admin: 06/24/16 14:03 Dose: 1 tablet Tolterodine Tartrate (Detrol La -) 4 mg PO DAILY [facility] Last Admin: 06/24/16 09:56 Dose: 4 mg - Objective Vital Signs: Vital Signs Temperature 97.9 F 06/24/16 17:15 Pulse Rate 82 06/24/16 17:15 Respiratory Rate 18 06/24/16 17:15 Blood Pressure 135/69 06/24/16 17:15 O2 Sat by Pulse Oximetry (%) 98 06/24/16 09:00 Constitutional: Yes: No Distress, Calm Cardiovascular: Yes: Regular Rate and Rhythm, S1, S2 Respiratory: Yes: Regular, CTA Bilaterally. No: Rales Gastrointestinal: Yes: Normal Bowel Sounds, Soft. No: Palpable Mass, Tenderness Edema: No Labs: CBC, BMP 06/24/16 05:45 06/24/16 05:45 INR, PTT INR 1.20 (0.82-1.09) H 06/22/16 13:41 Problem List - Problems (1) Chest pain Assessment/Plan: Admit to Telemetry Serial CE- negative Cardiology Consult and f/u appreciated Normal TSH, F t4 For ECHO and stress test in AM Code(s): R07.9 - CHEST PAIN, UNSPECIFIED (2) HTN (hypertension) Assessment/Plan: to monitor Code(s): I10 - ESSENTIAL (PRIMARY) HYPERTENSION (3) Hyperlipemia Assessment/Plan: check level in AM Code(s): E78.5 - HYPERLIPIDEMIA, UNSPECIFIED (4) Anemia Assessment/Plan: chronic Code(s): D64.9 - ANEMIA, UNSPECIFIED (5) Parkinson disease Code(s): G20 - PARKINSON'S DISEASE Assessment/Plan AM labs
[2016-06-24] MEDS: MIRTAZAPINE 15 MG TABLET (FP) PO SCH (21:38)
[2016-06-24] MEDS: ATORVASTATIN CA 10 MG TABLET (FP) PO SCH (21:38)
[2016-06-24] MEDS: LATANOPROST 0.005% OPHTH SOLN 2.5ML BOTTLE OU SCH (21:39)
[2016-06-25] MEDS: SENNOSIDES/DOCUSATE COMBO (SENNA PLUS) TABLET (UD) PO SCH ×3 (05:36→22:08)
[2016-06-25] MEDS: GABAPENTIN 400 MG CAPSULE (FP) PO SCH ×3 (05:38→22:08)
[2016-06-25 07:38] LABS: CALCIUM 8.3 mg/dL (8.5-10.1); CREATININE 0.4 mg/dL (0.55-1.02)
--- NOTE | 2016-06-25 10:26 | CONSULT ---
Consultation: REQUESTING PROVIDER: Dr Marie Neurology Consult CONSULT REQUEST: We have been asked to medically evaluate this patient for ( Altered mental status). HISTORY OF PRESENT ILLNESS: 76 year old female with pmh of HTN, HPLD, Parkinson, Glaucoma from [facility] recently admitted for Chest pain. We were consulted for change in mental status. Per nursing staff patient was sleepy, barely responding to verbal and tactile stimuli. By the time we saw the patient she was awake, alert and oriented to time, place and person. Denies new focal weakness, slurred speech, blurred vision, double vision, numbness, tingling, dizziness, nausea, vomiting. Pt said she has had weakness in right arm but does not recall for how long, she has had generalized weakness and need major assistance to get out of bed to chair. No fever, chills, no diarrhea, no cough, no dysuria, no chest pain, palpitation, no witnessed seizure like activity. PMH: HTN, HPLD, Parkinson, Glaucoma PSH: Back surgery 10 years ago Social History: No alcohol, no recreational drug, No smoking NKA Active Medications Generic Name Dose Route Start Last Admin Trade Name Freq PRN Reason Stop Dose Admin Amlodipine Besylate 2.5 mg 06/23/16 10:00 06/24/16 09:52 Norvasc - PO 2.5 mg DAILY [facility] Administration Aspirin 81 mg 06/23/16 10:00 06/24/16 09:52 Asa - PO 81 mg DAILY [facility] Administration Atorvastatin Calcium 10 mg 06/23/16 22:00 06/24/16 21:38 Lipitor - PO 10 mg HS [facility] Administration Carbidopa/Levodopa 1 each 06/23/16 10:00 06/24/16 09:52 Sinemet 25/100 - PO 1 each DAILY [facility] Administration Cholecalciferol 400 unit 06/23/16 10:00 06/24/16 09:55 Vitamin D3 - PO 400 unit DAILY [facility] Administration Donepezil HCl 10 mg 06/23/16 10:00 06/24/16 09:52 Aricept - PO 10 mg DAILY [facility] Administration Duloxetine HCl 60 mg 06/23/16 10:00 06/24/16 09:52 Cymbalta - PO 60 mg DAILY [facility] Administration Gabapentin 400 mg 06/22/16 23:00 06/25/16 05:38 Neurontin - PO 400 mg TID [facility] Administration Heparin Sodium (Porcine) 5,000 unit 06/22/16 22:00 06/24/16 21:39 Heparin - SQ 5,000 unit BID [facility] Administration Hydrochlorothiazide 25 mg 06/23/16 10:00 06/24/16 09:52 Hctz - PO 25 mg DAILY [facility] Administration Sodium Chloride 1,000 mls @ 75 mls/hr 06/22/16 16:30 06/24/16 19:04 Normal Saline - IV Not Given ASDIR [facility] Latanoprost 1 drop 06/22/16 23:00 06/24/16 21:39 Xalatan 0.005% Eye Drops - OU 1 drop HS [facility] Administration Mirtazapine 15 mg 06/23/16 22:00 06/24/16 21:38 Remeron - PO 15 mg HS [facility] Administration Non-Formulary Medication 16 mg 06/23/16 10:00 Hydromorphone Hcl [Exalgo] PO DAILY [facility] Non-Formulary Medication 1 each 06/23/16 10:00 Rotigotine [Neupro] TD DAILY [facility] Polyethylene Glycol 17 gm 06/23/16 11:02 Miralax (For Daily Use) - PO DAILY PRN CONSTIPATION Senna/Docusate Sodium 1 tablet 06/23/16 06:00 06/25/16 05:36 Pericolace - PO 1 tablet TID [facility] Administration Tolterodine Tartrate 4 mg 06/23/16 10:00 06/24/16 09:56 Detrol La - PO 4 mg DAILY [facility] Administration REVIEW OF SYSTEMS: CONSTITUTIONAL: Absent: fever, chills, diaphoresis, generalized weakness, malaise, loss of appetite, weight change HEENT: Absent: rhinorrhea, nasal congestion, throat pain, throat swelling, difficulty swallowing, mouth swelling, ear pain, eye pain, visual changes CARDIOVASCULAR: Absent: chest pain, syncope, palpitations, irregular heart rate, lightheadedness , peripheral edema RESPIRATORY: Absent: cough, shortness of breath, dyspnea with exertion, orthopnea, wheezing, stridor, hemoptysis GASTROINTESTINAL: Absent: abdominal pain, abdominal distension, nausea, vomiting, diarrhea, constipation, melena, hematochezia GENITOURINARY: Absent: dysuria, frequency, urgency, hesitancy, hematuria, flank pain, genital pain MUSCULOSKELETAL: Absent: myalgia, arthralgia, joint swelling, back pain, neck pain SKIN: Absent: rash, itching, pallor NEUROLOGIC: Absent: headache, focal weakness or paresthesias, dizziness, unsteady gait, seizure, mental status changes, bladder or bowel incontinence PSYCHIATRIC: Absent: anxiety, depression, suicidal or homicidal ideation, hallucinations. PHYSICAL EXAMINATION Vital Signs - 24 hr 06/24/16 06/24/16 06/24/16 15:25 17:15 20:36 Temperature 97.8 F 97.9 F Pulse Rate 78 82 Respiratory 20 18 18 Rate Blood Pressure 132/75 135/69 O2 Sat by Pulse 98 Oximetry (%) 06/24/16 06/25/16 20:37 04:46 Temperature 97.9 F 99.0 F Pulse Rate 76 78 Respiratory 16 18 Rate Blood Pressure 142/74 133/72 O2 Sat by Pulse Oximetry (%) GENERAL: Awake, alert, and fully oriented, in no acute distress. HEAD: Normal with no signs of trauma. EYES: Pupils unequal, right pupil round and sluggish reactive to light 4mm, Left Pupil oval shaped midpoint non-reative. extraocular movements intact, sclera anicteric, conjunctiva clear. No lid lag. EARS, NOSE, THROAT: Ears normal, nares patent, oropharynx clear without exudates. dry mucous membranes. NECK: Normal range of motion, supple without lymphadenopathy, JVD, or masses. LUNGS: Breath sounds equal, clear to auscultation bilaterally. No wheezes, and no crackles. No accessory muscle use. HEART: Regular rate and rhythm, normal S1 and S2 without murmur, rub or gallop. ABDOMEN: Soft, nontender, not distended, normoactive bowel sounds, no guarding, no rebound, no masses. No hepatomegaly or splenomegaly. Calix in place. MUSCULOSKELETAL: Swollen joints. Decreased range of motion at all joints. No bony deformities or tenderness. No CVA tenderness. UPPER EXTREMITIES: 2+ pulses, warm, well-perfused. No cyanosis. No clubbing. Cap refill <2 seconds. No peripheral edema. LOWER EXTREMITIES: 2+ pulses, warm, well-perfused. No calf tenderness. b/l knee swelling. No peripheral edema. NEUROLOGICAL: facial asymmetry, Cranial nerves II-XII intact otherwise. Normal speech. Strength 4/5 in b/l upper ext. Strength in b/l lower ext 3/5. resting tremors, bradykinesia and rigidity. No alteration in touch sensation in all ext. normoreflexic in all ext. Gait not observed. PSYCHIATRIC: Cooperative. Good eye contact. Appropriate mood and affect. SKIN: Warm, dry, normal turgor, no rashes or lesions noted. Laboratory Results - last 24 hr 06/25/16 05:35 Sodium 145 Potassium 3.9 Chloride 107 Carbon Dioxide 29 Anion Gap 9 BUN 10 D Creatinine 0.4 L D Random Glucose 104 Calcium 8.3 L Active Medications Generic Name Dose Route Start Last Admin Trade Name Freq PRN Reason Stop Dose Admin Amlodipine Besylate 2.5 mg 06/23/16 10:00 06/24/16 09:52 Norvasc - PO 2.5 mg DAILY [facility] Administration Aspirin 81 mg 06/23/16 10:00 06/24/16 09:52 Asa - PO 81 mg DAILY [facility] Administration Atorvastatin Calcium 10 mg 06/23/16 22:00 06/24/16 21:38 Lipitor - PO 10 mg HS [facility] Administration Carbidopa/Levodopa 1 each 06/23/16 10:00 06/24/16 09:52 Sinemet 25/100 - PO 1 each DAILY [facility] Administration Cholecalciferol 400 unit 06/23/16 10:00 06/24/16 09:55 Vitamin D3 - PO 400 unit DAILY [facility] Administration Donepezil HCl 10 mg 06/23/16 10:00 06/24/16 09:52 Aricept - PO 10 mg DAILY [facility] Administration Duloxetine HCl 60 mg 06/23/16 10:00 06/24/16 09:52 Cymbalta - PO 60 mg DAILY [facility] Administration Gabapentin 400 mg 06/22/16 23:00 06/25/16 05:38 Neurontin - PO 400 mg TID [facility] Administration Heparin Sodium (Porcine) 5,000 unit 06/22/16 22:00 06/24/16 21:39 Heparin - SQ 5,000 unit BID [facility] Administration Hydrochlorothiazide 25 mg 06/23/16 10:00 06/24/16 09:52 Hctz - PO 25 mg DAILY [facility] Administration Sodium Chloride 1,000 mls @ 75 mls/hr 06/22/16 16:30 06/24/16 19:04 Normal Saline - IV Not Given ASDIR [facility] Latanoprost 1 drop 06/22/16 23:00 06/24/16 21:39 Xalatan 0.005% Eye Drops - OU 1 drop HS [facility] Administration Mirtazapine 15 mg 06/23/16 22:00 06/24/16 21:38 Remeron - PO 15 mg HS [facility] Administration Non-Formulary Medication 16 mg 06/23/16 10:00 Hydromorphone Hcl [Exalgo] PO DAILY [facility] Non-Formulary Medication 1 each 06/23/16 10:00 Rotigotine [Neupro] TD DAILY [facility] Polyethylene Glycol 17 gm 06/23/16 11:02 Miralax (For Daily Use) - PO DAILY PRN CONSTIPATION Senna/Docusate Sodium 1 tablet 06/23/16 06:00 06/25/16 05:36 Pericolace - PO 1 tablet TID [facility] Administration Tolterodine Tartrate 4 mg 06/23/16 10:00 06/24/16 09:56 Detrol La - PO 4 mg DAILY [facility] Administration CBC, BMP 06/24/16 05:45 06/25/16 05:35 Chest PA 06/22/16: No evidence of pulmonary embolism or acute pathology within the chest. ASSESSMENT/PLAN: 76 year old female with pmh of HTN, HPLD, Parkinson, Glaucoma from [facility] recently admitted for Chest pain with temporary episode of increased sleepiness and poorly response. Worry about metabolic encephalopathy rt to infection. R/o CVA, pt has risk factors including HTN, HPLD, old age and possible prior CVA with Right arm weakness, facial asymmetry. Plan UA CT head w/o contrast r/o CVA neuro check q4h Continuous cardiac monitoring Vitals per Unit protocol MRI brain to rule CVA Avoid sedating medication Dispo: We will continue to follow the patient. Thank you for this consultative opportunity. Visit type - Emergency Visit Emergency Visit: Yes ED Registration Date: 06/22/16 Care time: The patient presented to the Emergency Department on the above date and was hospitalized for further evaluation of their emergent condition. - New Patient This patient is new to me today: Yes Date on this admission: 06/25/16 - Critical Care Critical Care patient: No
--- NOTE | 2016-06-25 11:27 | PN ---
Progress Note, Physician History of Present Illness: pt seen and examined this am. Pt difficult to wake up, opens eyes very briefly, limited responses to questions. - Current Medication List Current Medications: Active Medications Amlodipine Besylate (Norvasc -) 2.5 mg PO DAILY [facility] Last Admin: 06/24/16 09:52 Dose: 2.5 mg Aspirin (Asa -) 81 mg PO DAILY [facility] Last Admin: 06/24/16 09:52 Dose: 81 mg Atorvastatin Calcium (Lipitor -) 10 mg PO HS [facility] Last Admin: 06/24/16 21:38 Dose: 10 mg Carbidopa/Levodopa (Sinemet 25/100 -) 1 each PO DAILY [facility] Last Admin: 06/24/16 09:52 Dose: 1 each Cholecalciferol (Vitamin D3 -) 400 unit PO DAILY [facility] Last Admin: 06/24/16 09:55 Dose: 400 unit Donepezil HCl (Aricept -) 10 mg PO DAILY [facility] Last Admin: 06/24/16 09:52 Dose: 10 mg Duloxetine HCl (Cymbalta -) 60 mg PO DAILY [facility] Last Admin: 06/24/16 09:52 Dose: 60 mg Gabapentin (Neurontin -) 400 mg PO TID [facility] Last Admin: 06/25/16 05:38 Dose: 400 mg Heparin Sodium (Porcine) (Heparin -) 5,000 unit SQ BID [facility] Last Admin: 06/24/16 21:39 Dose: 5,000 unit Hydrochlorothiazide (Hctz -) 25 mg PO DAILY [facility] Last Admin: 06/24/16 09:52 Dose: 25 mg Sodium Chloride (Normal Saline -) 1,000 mls @ 75 mls/hr IV ASDIR [facility] Last Admin: 06/24/16 19:04 Dose: Not Given Latanoprost (Xalatan 0.005% Eye Drops -) 1 drop OU HS [facility] Last Admin: 06/24/16 21:39 Dose: 1 drop Mirtazapine (Remeron -) 15 mg PO HS [facility] Last Admin: 06/24/16 21:38 Dose: 15 mg Non-Formulary Medication (Hydromorphone Hcl [Exalgo]) 16 mg PO DAILY [facility] Non-Formulary Medication (Rotigotine [Neupro]) 1 each TD DAILY [facility] Polyethylene Glycol (Miralax (For Daily Use) -) 17 gm PO DAILY PRN PRN Reason: CONSTIPATION Senna/Docusate Sodium (Pericolace -) 1 tablet PO TID [facility] Last Admin: 06/25/16 05:36 Dose: 1 tablet Tolterodine Tartrate (Detrol La -) 4 mg PO DAILY [facility] Last Admin: 06/24/16 09:56 Dose: 4 mg - Objective Vital Signs: Vital Signs Temperature 99.0 F 06/25/16 04:46 Pulse Rate 78 06/25/16 04:46 Respiratory Rate 18 06/25/16 04:46 Blood Pressure 133/72 06/25/16 04:46 O2 Sat by Pulse Oximetry (%) 98 06/24/16 20:36 Constitutional: Yes: Well Nourished, No Distress, Calm Eyes: Yes: WNL, Conjunctiva Clear, EOM Intact, PERRL HENT: Yes: WNL, Atraumatic, Normocephalic Neck: Yes: WNL, Supple, Trachea Midline Cardiovascular: Yes: Regular Rate and Rhythm, S1, S2. No: Bradycardia, Tachycardia, Pulse Irregular, Bruit, JVD, Gallop, Murmur, Rub, S3, S4, Varicosities Respiratory: Yes: Regular, CTA Bilaterally. No: Rales, Rhonchi, Wheezes Gastrointestinal: Yes: WNL, Normal Bowel Sounds, Soft. No: Distention, Tenderness Musculoskeletal: Yes: Muscle Weakness Extremities: Yes: WNL Edema: No Peripheral Pulses WNL: Yes Peripheral Pulses: Left Doralis Pedis: 2+, Right Dorsalis Pedis: 2+ Integumentary: Yes: WNL Neurological: Yes: Lethargy. No: Alert, Oriented Psychiatric: No: Alert, Oriented Labs: CBC, BMP 06/24/16 05:45 06/25/16 05:35 INR, PTT INR 1.20 (0.82-1.09) H 06/22/16 13:41 - ....Imaging Chest X-ray: Report Reviewed, Image Reviewed EKG: Report Reviewed, Image Reviewed Other: Report Reviewed, Image Reviewed (tele-nsr, frequent pvcs, no sig arrhythmia) Problem List - Problems (1) Chest pain Code(s): R07.9 - CHEST PAIN, UNSPECIFIED (2) HTN (hypertension) Code(s): I10 - ESSENTIAL (PRIMARY) HYPERTENSION (3) Hyperlipemia Code(s): E78.5 - HYPERLIPIDEMIA, UNSPECIFIED Assessment/Plan 75 year old woman with a history of HTN, HLD, Parkinsons, sent from [facility] after complaining of chest pain, nausea, vomiting, constipation. AMS-change in mental status today from what it was each of past few days, pt lethargic today -stat head CT -neuro evaluation -monitor VS -check FS Chest pain-atypical, but difficult to characterize, has several cardiac risk factors -no ischemia on ekg -no sig arrhythmia on telemetry -cardiac enzymes wnl x3 -cont tele for now -plan was for echo and persantine nuclear stress test today to further evaluate for ischemia but will need to hold off on stress test until AMS is evaluated -cont ASA 81mg daily and Lipitor HTN-well controlled -cont norvasc and HCTZ HLD -cont lipitor
[2016-06-25 11:47] LABS: URINE APPEARANCE CLOUDY; URINE BILIRUBIN NEGATIVE (NEGATIVE); URINE BLOOD NEGATIVE (NEGATIVE); URINE COLOR YELLOW; URINE GLUCOSE (UA) NEGATIVE (NEGATIVE); URINE KETONE NEGATIVE (NEGATIVE); URINE NITRITE POSITIVE (NEGATIVE); URINE PROTEIN NEGATIVE (NEGATIVE); URINE UROBILINOGEN NEGATIVE E.U./dl (0.2-1.0)
--- NOTE | 2016-06-25 11:47 | CONSULT ---
Consult Consult Specialty:: Neurology Reason for Consultation:: Altered mental status - History of Present Illness History of Present Illness: 76 year old woman with history of parkinsons disease on sinemet, hypertension, glaucoma, admitted for chest pain. Neurology consulted for change in mental status. Per nursing staff patient was sleepy, barely responding to verbal and tactile stimuli. On examination, patient was awake, alert, oriented to time, place and person. Some right arm weakness was noted but unclear chronicity of symptoms. Patient underwent CT head which showed no acute changes. Appears to almost be at baseline now. - Past Medical History [employer]: Yes: Parkinson's Cardio/Vascular: Yes: HTN - Alcohol/Substance Use Hx Alcohol Use: Yes (OCCASIONALLY) - Smoking History Smoking history: Never smoked - Social History Usual Living Arrangement: [facility] ADL: Support Services History of Recent Travel: No Home Medications - Allergies Allergies/Adverse Reactions: Allergies Allergy/AdvReac Type Severity Reaction Status Date / Time No Known Drug Allergies Allergy Verified 01/21/14 00:40 - Home Medications Home Medications: Ambulatory Orders Acetylcyst/Dfcusfc67/Levomefol [Metafolbic Plus Caplet] 1 each PO DAILY Amlodipine Besylate [Norvasc -] 2.5 mg PO DAILY 06/22/16 Aspirin [ASA -] 81 mg PO DAILY 06/22/16 Carbidopa/Levodopa [Carbidopa-Levodopa 25-100 Tab] 1 each PO DAILY 06/22/16 Carbidopa/Levodopa/Entacapone [Yidiamrxv-Xrluqxok-Zftv 125 mg] 06/22/16 Carbidopa/Levodopa/Entacapone [Udhhnlxvk-Yrgdldia-Yivp 125 mg] 1 each PO DAILY 06/22/16 Cholecalciferol (Vitamin D3) [Vitamin D3] 400 unit PO DAILY 06/22/16 Donepezil HCl [Aricept -] 10 mg PO DAILY 06/22/16 Duloxetine HCl 60 mg PO DAILY 06/22/16 Gabapentin [Neurontin -] 400 mg PO Q8H 06/22/16 Hydrochlorothiazide 25 mg PO DAILY 06/22/16 Hydromorphone HCl [Exalgo] 16 mg PO DAILY 06/22/16 Latanoprost 0.005% Eye Drops [Xalatan 0.005% Eye Drops -] 1 drop HS 06/22/16 Magnesium Hydrox 2400MG/30Ml [Milk of Magnesia -] 30 ml PO ONCE 06/22/16 Mirtazapine [Remeron Soltab -] 15 mg PO DAILY 06/22/16 Rotigotine [Neupro] 1 each TD DAILY 06/22/16 Sennosides/Docusate Sodium [Senna S Tablet] 1 each PO TID 06/22/16 Simvastatin 20 mg PO DAILY 06/22/16 Tolterodine Tartrate LA [Detrol LA -] 2 mg PO DAILY 06/22/16 Tolterodine Tartrate LA [Detrol LA -] 4 mg PO DAILY 06/22/16 Review of Systems - Review of Systems Constitutional: reports: No Symptoms Eyes: reports: No Symptoms HENT: reports: No Symptoms Neck: reports: No Symptoms Cardiovascular: reports: No Symptoms Respiratory: reports: No Symptoms Musculoskeletal: reports: No Symptoms Neurological: reports: Change in LOC Physical Exam Vital Signs: Vital Signs Temperature 99.0 F 06/25/16 04:46 Pulse Rate 78 06/25/16 04:46 Respiratory Rate 18 06/25/16 04:46 Blood Pressure 133/72 06/25/16 04:46 O2 Sat by Pulse Oximetry (%) 98 06/24/16 20:36 Constitutional: Yes: No Distress, Calm HENT: Yes: Atraumatic, Normocephalic Respiratory: Yes: Regular Neurological: Yes: Other (Awake, alert, oriented to person and time CNII-XII mild asymmetric right facial, EOMI, visual gallagher full Motor mild weakness right upper extremity, slight drift of right arm, unclear chronicity of symptoms , bilateral resting tremor noted, mild rigidity bilateral upper extremities Sensory intact to light tough) Labs: CBC, BMP 06/24/16 05:45 06/25/16 05:35 Assessment/Plan 76 year old woman with history of parkinsons disease on sinemet, hypertension, glaucoma, admitted for chest pain. Neurology consulted for change in mental status. Per nursing staff patient was sleepy, barely responding to verbal and tactile stimuli. On examination, patient was awake, alert, oriented to time, place and person. Some right arm weakness was noted but unclear chronicity of symptoms. Patient underwent CT head which showed no acute changes. Mentation appears to be at baseline. Altered mental status Patients mental status improved, appears to be at baseline CT head no acute changes Recommend MRI brain without contrast given ?right arm weakness unclear chronicity, if MRI brain negative no further neuro workup needed Recommend avoiding polypharmacy, limiting pain meds which can contribute to AMS Infectious workup u/a, chest xray
[2016-06-25 11:51] LABS: URINE LEUK ESTERASE 3+ (NEGATIVE)
[2016-06-25 11:59] LABS: URINE RBC 2 /hpf (0-3); URINE WBC 114 /hpf (3-5)
[2016-06-25] MEDS ORDERED: PT OWN MED DRAWER 7, Y5N ONE ×3 (14:41→21:56)
--- NOTE | 2016-06-25 14:49 | PN ---
Progress Note, Physician History of Present Illness: Pt. w/o CP, palp, SOB, dizziness, nausea, vomiting. Pt with abd discomfort, feel then needs to go for BM but not able. I was aware of AM events - Current Medication List Current Medications: Active Medications Amlodipine Besylate (Norvasc -) 2.5 mg PO DAILY [facility] Last Admin: 06/24/16 09:52 Dose: 2.5 mg Aspirin (Asa -) 81 mg PO DAILY [facility] Last Admin: 06/24/16 09:52 Dose: 81 mg Atorvastatin Calcium (Lipitor -) 10 mg PO HS [facility] Last Admin: 06/24/16 21:38 Dose: 10 mg Carbidopa/Levodopa (Sinemet 25/100 -) 1 each PO DAILY [facility] Last Admin: 06/24/16 09:52 Dose: 1 each Ceftriaxone Sodium (Rocephin 1gm Ivpb (Pre-Docked)) 1 gm IVPB DAILY [facility] PRN Reason: Protocol Cholecalciferol (Vitamin D3 -) 400 unit PO DAILY [facility] Last Admin: 06/24/16 09:55 Dose: 400 unit Donepezil HCl (Aricept -) 10 mg PO DAILY [facility] Last Admin: 06/24/16 09:52 Dose: 10 mg Duloxetine HCl (Cymbalta -) 60 mg PO DAILY [facility] Last Admin: 06/24/16 09:52 Dose: 60 mg Gabapentin (Neurontin -) 400 mg PO TID [facility] Last Admin: 06/25/16 05:38 Dose: 400 mg Heparin Sodium (Porcine) (Heparin -) 5,000 unit SQ BID [facility] Last Admin: 06/24/16 21:39 Dose: 5,000 unit Hydrochlorothiazide (Hctz -) 25 mg PO DAILY [facility] Last Admin: 06/24/16 09:52 Dose: 25 mg Sodium Chloride (Normal Saline -) 1,000 mls @ 75 mls/hr IV ASDIR [facility] Last Admin: 06/24/16 19:04 Dose: Not Given Latanoprost (Xalatan 0.005% Eye Drops -) 1 drop OU HS [facility] Last Admin: 06/24/16 21:39 Dose: 1 drop Mirtazapine (Remeron -) 15 mg PO HS [facility] Last Admin: 06/24/16 21:38 Dose: 15 mg Non-Formulary Medication (Hydromorphone Hcl [Exalgo]) 16 mg PO DAILY [facility] Non-Formulary Medication (Rotigotine [Neupro]) 1 each TD DAILY [facility] Polyethylene Glycol (Miralax (For Daily Use) -) 17 gm PO DAILY PRN PRN Reason: CONSTIPATION Senna/Docusate Sodium (Pericolace -) 1 tablet PO TID [facility] Last Admin: 06/25/16 05:36 Dose: 1 tablet Tolterodine Tartrate (Detrol La -) 4 mg PO DAILY [facility] Last Admin: 06/24/16 09:56 Dose: 4 mg - Objective Vital Signs: Vital Signs Temperature 98.8 F 06/25/16 10:00 Pulse Rate 66 06/25/16 10:00 Respiratory Rate 18 06/25/16 10:00 Blood Pressure 128/63 06/25/16 10:00 O2 Sat by Pulse Oximetry (%) 98 06/24/16 20:36 Constitutional: Yes: No Distress, Calm Cardiovascular: Yes: Regular Rate and Rhythm, S1, S2 Respiratory: Yes: Regular, CTA Bilaterally Gastrointestinal: Yes: Normal Bowel Sounds, Soft. No: Palpable Mass, Tenderness Edema: No Neurological: Yes: Alert, Oriented, Other (MS at baseline now- Sr. Annia at bedside and confirms it) Labs: CBC, BMP 06/24/16 05:45 06/25/16 05:35 INR, PTT INR 1.20 (0.82-1.09) H 06/22/16 13:41 - ....Imaging Cat Scan: Report Reviewed Problem List - Problems (1) Chest pain Assessment/Plan: Admit to Telemetry Serial CE Cardiology Consult Check TSH Code(s): R07.9 - CHEST PAIN, UNSPECIFIED (2) HTN (hypertension) Assessment/Plan: to monitor Code(s): I10 - ESSENTIAL (PRIMARY) HYPERTENSION (3) Hyperlipemia Assessment/Plan: check level in AM Code(s): E78.5 - HYPERLIPIDEMIA, UNSPECIFIED (4) Parkinson disease Assessment/Plan: on treatment- to cont. Code(s): G20 - PARKINSON'S DISEASE (5) Impaired gait Assessment/Plan: Pt can transfer to wheelchair w/o help Code(s): R26.9 - UNSPECIFIED ABNORMALITIES OF GAIT AND MOBILITY (6) Altered mental state Assessment/Plan: Pt. with negative Head CT scan Neuro consult apreciated. To monitor Code(s): R41.82 - ALTERED MENTAL STATUS, UNSPECIFIED (7) UTI (urinary tract infection) Assessment/Plan: Start abtx; to monitor UCX Code(s): N39.0 - URINARY TRACT INFECTION, SITE NOT SPECIFIED
[2016-06-25] MEDS: DULoxetine HCL 30 MG CAPSULE.DR (FP) PO SCH (14:52)
[2016-06-25] MEDS: cefTRIAXone 1 GM/50 ML BAG (PRE-DOCKED) IVPB SCH (14:52)
[2016-06-25] MEDS: HEPARIN NA (PORCINE) 5,000 UNITS/ML 1ML VIAL SQ SCH ×2 (14:53→22:08)
[2016-06-25] MEDS: DONEPEZIL HCL 10 MG TABLET (FP) PO SCH (14:53)
[2016-06-25] MEDS: amLODIPine BESYLATE 2.5 MG TABLET (FP) PO SCH (14:53)
[2016-06-25] MEDS: HYDROCHLOROTHIAZIDE 25 MG TABLET (FP) PO SCH (14:53)
[2016-06-25] MEDS: ASPIRIN 81 MG CHEWABLE TABLETS PO SCH (14:53)
[2016-06-25] MEDS: CARBIDOPA/LEVODOPA 25/100 TABLET (FP) PO SCH (14:53)
[2016-06-25] MEDS: TOLTERODINE TARTRATE LA 4 MG CAP.SR.24H (FP) PO SCH (14:56)
[2016-06-25] MEDS: CHOLECALCIFEROL (VITAMIN D3) 400 UNIT TABLET (FP) PO SCH (14:56)
[2016-06-25] MEDS ORDERED: ACETAMINOPHEN 325 MG TABLET (FP) PO PRN (15:13)
[2016-06-25] MEDS: SODIUM CHLORIDE 1,000 ML IV SCH (19:30)
[2016-06-25] MEDS: ATORVASTATIN CA 10 MG TABLET (FP) PO SCH (22:08)
[2016-06-25] MEDS: MIRTAZAPINE 15 MG TABLET (FP) PO SCH (22:08)
[2016-06-25] MEDS: LATANOPROST 0.005% OPHTH SOLN 2.5ML BOTTLE OU SCH (22:16)
[2016-06-26] MEDS: GABAPENTIN 400 MG CAPSULE (FP) PO SCH ×3 (05:23→22:04)
[2016-06-26] MEDS: SENNOSIDES/DOCUSATE COMBO (SENNA PLUS) TABLET (UD) PO SCH ×3 (05:23→22:04)
[2016-06-26 07:15] LABS: MCH 23.3 pg (25.7-33.7); MCHC 31.4 g/dl (32.0-36.0); MEAN CELL VOLUME 73.9 fl (80-96); MEAN PLT VOLUME 7.1 fl (7.5-11.1); PLATELET COUNT 432 K/MM3 (134-434); RDW 21.9 % (11.6-15.6); WHITE BLOOD COUNT 10.5 K/mm3 (4.0-10.0)
[2016-06-26 07:50] LABS: CALCIUM 8.6 mg/dL (8.5-10.1); CREATININE 0.4 mg/dL (0.55-1.02)
--- NOTE | 2016-06-26 09:23 | PN ---
Physical Exam: Neurology Progress Note SUBJECTIVE: Patient seen and examined Pt is awake, alert now . Was sleeping after the stress test but is easily arousable and respond verbal stimuli No s/s of acute distress No event overnight No fever, chills, n/v No dizziness, confusion, lethargy, no new focal weakness neurological deficit OBJECTIVE: Vital Signs Period Temp Pulse Resp BP Sys/[place] Pulse Ox Last 24 Hr 97.2 F-98.8 F 66-88 18-20 110-148/62-84 96-98 GENERAL: Awake, alert, and fully oriented, in no acute distress. HEAD: Normal with no signs of trauma. EYES: Pupils unequal, right pupil round and sluggish reactive to light 4mm, Left Pupil oval shaped midpoint non-reative. extraocular movements intact, sclera anicteric, conjunctiva clear. No lid lag. LUNGS: Breath sounds equal, clear to auscultation bilaterally. No wheezes, and no crackles. No accessory muscle use. HEART: Regular rate and rhythm, normal S1 and S2 without murmur, rub or gallop. ABDOMEN: Soft, nontender, not distended, normoactive bowel sounds, no guarding, no rebound, no masses. No hepatomegaly or splenomegaly. Calix in place. NEUROLOGICAL: facial asymmetry, Cranial nerves II-XII intact otherwise. Normal speech. Strength 4/5 in b/l upper ext. Strength in b/l lower ext 3/5. resting tremors, bradykinesia and rigidity. No alteration in touch sensation in all ext. Normoreflexic in all ext. Gait not observed. PSYCHIATRIC: Cooperative. Good eye contact. Appropriate mood and affect. SKIN: Warm, dry, normal turgor, no rashes or lesions noted. Laboratory Results - last 24 hr 06/25/16 06/26/16 06/26/16 10:00 05:35 05:35 WBC 10.5 H D RBC 4.50 Hgb 10.5 L Hct 33.2 MCV 73.9 L MCHC 31.4 L RDW 21.9 H Plt Count 432 MPV 7.1 L Sodium 146 H Potassium 3.8 Chloride 108 H Carbon Dioxide 30 Anion Gap 8 BUN 13 D Creatinine 0.4 L Random Glucose 105 Calcium 8.6 Urine Color Yellow Urine Appearance Cloudy Urine pH 7.0 Ur Specific [place] 1.012 Urine Protein Negative Urine Glucose (UA) Negative Urine Ketones Negative Urine Blood Negative Urine Nitrite Positive Urine Bilirubin Negative Urine Urobilinogen Negative Ur Leukocyte Esterase 3+ H Urine RBC 2 Urine WBC 114 Ur Epithelial Cells Rare Active Medications Generic Name Dose Route Start Last Admin Trade Name Prashanth PRN Reason Stop Dose Admin Acetaminophen 650 mg 06/25/16 15:13 Tylenol - PO Q6H PRN BACK PAIN Amlodipine Besylate 2.5 mg 06/23/16 10:00 06/25/16 14:53 Norvasc - PO 2.5 mg DAILY [facility] Administration Aspirin 81 mg 06/23/16 10:00 06/25/16 14:53 Asa - PO 81 mg DAILY [facility] Administration Atorvastatin Calcium 10 mg 06/23/16 22:00 06/25/16 22:08 Lipitor - PO 10 mg HS [facility] Administration Carbidopa/Levodopa 1 each 06/23/16 10:00 06/25/16 14:53 Sinemet 25/100 - PO 1 each DAILY [facility] Administration Ceftriaxone Sodium 1 gm 06/25/16 13:15 06/25/16 14:52 Rocephin 1gm Ivpb (Pre-Docked) IVPB 1 gm DAILY [facility] Administration Protocol Cholecalciferol 400 unit 06/23/16 10:00 06/25/16 14:56 Vitamin D3 - PO 400 unit DAILY [facility] Administration Donepezil HCl 10 mg 06/23/16 10:00 06/25/16 14:53 Aricept - PO 10 mg DAILY [facility] Administration Duloxetine HCl 60 mg 06/23/16 10:00 06/25/16 14:52 Cymbalta - PO 60 mg DAILY [facility] Administration Gabapentin 400 mg 06/22/16 23:00 06/26/16 05:23 Neurontin - PO 400 mg TID [facility] Administration Heparin Sodium (Porcine) 5,000 unit 06/22/16 22:00 06/25/16 22:08 Heparin - SQ 5,000 unit BID [facility] Administration Hydrochlorothiazide 25 mg 06/23/16 10:00 06/25/16 14:53 Hctz - PO 25 mg DAILY [facility] Administration Sodium Chloride 1,000 mls @ 42 mls/hr 06/25/16 14:50 06/25/16 19:30 Normal Saline - IV 42 mls/hr ASDIR [facility] Administration Dipyridamole 44 mg/ Dextrose 44 mls @ 660 mls/hr 06/26/16 10:00 IVPB 02/21/17 10:03 ONCE ONE Latanoprost 1 drop 06/22/16 23:00 06/25/16 22:16 Xalatan 0.005% Eye Drops - OU 1 drop HS [facility] Administration Mirtazapine 15 mg 06/23/16 22:00 06/25/16 22:08 Remeron - PO 15 mg HS [facility] Administration Non-Formulary Medication 16 mg 06/23/16 10:00 Hydromorphone Hcl [Exalgo] PO DAILY [facility] Non-Formulary Medication 1 each 06/23/16 10:00 Rotigotine [Neupro] TD DAILY [facility] Polyethylene Glycol 17 gm 06/23/16 11:02 Miralax (For Daily Use) - PO DAILY PRN CONSTIPATION Senna/Docusate Sodium 1 tablet 06/23/16 06:00 06/26/16 05:23 Pericolace - PO 1 tablet TID [facility] Administration Tolterodine Tartrate 4 mg 06/23/16 10:00 06/25/16 14:56 Detrol La - PO 4 mg DAILY [facility] Administration CBC, BMP 06/26/16 05:35 06/26/16 05:35 Laboratory Tests 06/22/16 06/22/16 06/22/16 13:41 14:05 22:05 WBC Troponin I < 0.02 < 0.02 < 0.02 Total LDL Cholesterol HDL Cholesterol TSH Free T4 Urine Nitrite Ur Leukocyte Esterase Urine WBC 06/23/16 06/25/16 06/26/16 05:45 10:00 05:35 WBC 10.5 H D Troponin I Total LDL Cholesterol 64 HDL Cholesterol 44 TSH 1.58 Free T4 1.08 Urine Nitrite Positive Ur Leukocyte Esterase 3+ H Urine WBC 114 Microbiology 06/25/16 10:00 Urine - Urine - Catheterized Urine Culture - Preliminary Lactose Fermenting Neg Bacilli CT head w/o Contrast 06/22/16: No evidence of acute intracranial hemorrhage, edema, midline shift, mass effect, or skull fracture. No CT evidence of acute territorial infarction. MRI brain 06/22/16: Moderate atrophy and mild chronic microvascular ischemic changes without evidence of acute intracranial pathology. Right and a trace of left mastoid effusion are present ASSESSMENT/PLAN: 76 year old female with pmh of HTN, HPLD, Parkinson, Glaucoma from [facility] recently admitted for Chest pain with temporary episode of increased sleepiness and poorly response. Worry about metabolic encephalopathy rt to infection, UA showed positive Nitrite, leuk est 3+, WBC 114 which is consistent with UTI. Even if pt has risk factors including HTN, HPLD, old age and possible prior CVA with Right arm weakness, facial asymmetry, CVA was rule out by CT head w/o contrast showed no acute disease, MRI brain showed no acute acute disease. Metabolic Encephalopathy rt UTI Plan Follow Urine culture Continue Rocephin pending sensitivity Continuous cardiac monitoring Vitals per Unit protocol Avoid sedating medication Disposition: Thank you for the opportunity to consult on this patient. Neurology is signing out. Please recall us if any concerns, questions, or if we can be of any assistance in the care of this jeramy patient. Visit type - Emergency Visit Emergency Visit: Yes ED Registration Date: 06/26/16 Care time: The patient presented to the Emergency Department on the above date and was hospitalized for further evaluation of their emergent condition. - New Patient This patient is new to me today: No - Critical Care Critical Care patient: No - Discharge Referral [facility] No
[2016-06-26] MEDS ORDERED: WATER IVPB ONE (10:00)
[2016-06-26] MEDS ORDERED: DEXTROSE 5% IVPB ONE (10:00)
[2016-06-26] MEDS ORDERED: DIPYRIDAMOLE STRESS TEST IVPB ONE (10:00)
[2016-06-26] MEDS ORDERED: SODIUM PHOSPHATE/NA BIPHOS 133 ML ENEMA PR ONE (10:30)
[2016-06-26] MEDS: DULoxetine HCL 30 MG CAPSULE.DR (FP) PO SCH (11:25)
[2016-06-26] MEDS: HYDROCHLOROTHIAZIDE 25 MG TABLET (FP) PO SCH (11:25)
[2016-06-26] MEDS: ASPIRIN 81 MG CHEWABLE TABLETS PO SCH (11:26)
[2016-06-26] MEDS: HEPARIN NA (PORCINE) 5,000 UNITS/ML 1ML VIAL SQ SCH ×2 (11:26→22:04)
[2016-06-26] MEDS: TOLTERODINE TARTRATE LA 4 MG CAP.SR.24H (FP) PO SCH (11:26)
[2016-06-26] MEDS: DONEPEZIL HCL 10 MG TABLET (FP) PO SCH (11:26)
[2016-06-26] MEDS: cefTRIAXone 1 GM/50 ML BAG (PRE-DOCKED) IVPB SCH (11:27)
[2016-06-26] MEDS: amLODIPine BESYLATE 2.5 MG TABLET (FP) PO SCH (11:27)
[2016-06-26] MEDS: CARBIDOPA/LEVODOPA 25/100 TABLET (FP) PO SCH (11:27)
[2016-06-26] MEDS: CHOLECALCIFEROL (VITAMIN D3) 400 UNIT TABLET (FP) PO SCH (11:27)
[2016-06-26] MEDS: SODIUM CHLORIDE 1,000 ML IV SCH (14:21)
--- NOTE | 2016-06-26 17:29 | PN ---
Progress Note, Physician History of Present Illness: pt was seen and examined this am in nad. again lethargic and difficult to awaken. no overnight events. no new complaints. - Current Medication List Current Medications: Active Medications Acetaminophen (Tylenol -) 650 mg PO Q6H PRN PRN Reason: BACK PAIN Last Admin: 06/26/16 11:26 Dose: 650 mg Amlodipine Besylate (Norvasc -) 2.5 mg PO DAILY [facility] Last Admin: 06/26/16 11:27 Dose: 2.5 mg Aspirin (Asa -) 81 mg PO DAILY [facility] Last Admin: 06/26/16 11:26 Dose: 81 mg Atorvastatin Calcium (Lipitor -) 10 mg PO HS [facility] Last Admin: 06/25/16 22:08 Dose: 10 mg Carbidopa/Levodopa (Sinemet 25/100 -) 1 each PO DAILY [facility] Last Admin: 06/26/16 11:27 Dose: 1 each Ceftriaxone Sodium (Rocephin 1gm Ivpb (Pre-Docked)) 1 gm IVPB DAILY [facility] PRN Reason: Protocol Last Admin: 06/26/16 11:27 Dose: 1 gm Cholecalciferol (Vitamin D3 -) 400 unit PO DAILY [facility] Last Admin: 06/26/16 11:27 Dose: 400 unit Donepezil HCl (Aricept -) 10 mg PO DAILY [facility] Last Admin: 06/26/16 11:26 Dose: 10 mg Duloxetine HCl (Cymbalta -) 60 mg PO DAILY [facility] Last Admin: 06/26/16 11:25 Dose: 60 mg Gabapentin (Neurontin -) 400 mg PO TID [facility] Last Admin: 06/26/16 14:19 Dose: 400 mg Heparin Sodium (Porcine) (Heparin -) 5,000 unit SQ BID [facility] Last Admin: 06/26/16 11:26 Dose: 5,000 unit Hydrochlorothiazide (Hctz -) 25 mg PO DAILY [facility] Last Admin: 06/26/16 11:25 Dose: 25 mg Sodium Chloride (Normal Saline -) 1,000 mls @ 42 mls/hr IV ASDIR [facility] Last Admin: 06/26/16 14:21 Dose: 42 mls/hr Latanoprost (Xalatan 0.005% Eye Drops -) 1 drop OU HS [facility] Last Admin: 06/25/16 22:16 Dose: 1 drop Mirtazapine (Remeron -) 15 mg PO HS [facility] Last Admin: 06/25/16 22:08 Dose: 15 mg Non-Formulary Medication (Hydromorphone Hcl [Exalgo]) 16 mg PO DAILY [facility] Non-Formulary Medication (Rotigotine [Neupro]) 1 each TD DAILY [facility] Polyethylene Glycol (Miralax (For Daily Use) -) 17 gm PO DAILY [facility] Senna/Docusate Sodium (Pericolace -) 1 tablet PO TID [facility] Last Admin: 06/26/16 14:19 Dose: 1 tablet Tolterodine Tartrate (Detrol La -) 4 mg PO DAILY [facility] Last Admin: 06/26/16 11:26 Dose: 4 mg - Objective Vital Signs: Vital Signs Temperature 98.1 F 06/26/16 07:49 Pulse Rate 68 06/26/16 14:59 Respiratory Rate 20 06/26/16 14:59 Blood Pressure 125/67 06/26/16 14:59 O2 Sat by Pulse Oximetry (%) 98 06/26/16 08:00 Constitutional: Yes: Well Nourished, No Distress, Calm Eyes: Yes: WNL, Conjunctiva Clear, EOM Intact, PERRL HENT: Yes: WNL, Atraumatic, Normocephalic Neck: Yes: WNL, Supple, Trachea Midline Cardiovascular: Yes: Regular Rate and Rhythm. No: Bradycardia, Tachycardia Respiratory: Yes: Regular, CTA Bilaterally. No: Rales, Rhonchi, Wheezes Gastrointestinal: Yes: WNL, Normal Bowel Sounds, Soft. No: Distention, Tenderness Musculoskeletal: Yes: Muscle Weakness Extremities: Yes: WNL Edema: No Peripheral Pulses WNL: Yes Peripheral Pulses: Left Doralis Pedis: 2+, Right Dorsalis Pedis: 2+ Integumentary: Yes: WNL Neurological: Yes: Lethargy Psychiatric: No: Alert, Oriented Labs: INR, PTT INR 1.20 (0.82-1.09) H 06/22/16 13:41 - ....Imaging Chest X-ray: Report Reviewed, Image Reviewed EKG: Report Reviewed, Image Reviewed Other: Report Reviewed, Image Reviewed (tele-nsr, sinus tach, apcs, pvcs, no sig arrhythmia) Problem List - Problems (1) Chest pain Code(s): R07.9 - CHEST PAIN, UNSPECIFIED (2) HTN (hypertension) Code(s): I10 - ESSENTIAL (PRIMARY) HYPERTENSION (3) Hyperlipemia Code(s): E78.5 - HYPERLIPIDEMIA, UNSPECIFIED Assessment/Plan 75 year old woman with a history of HTN, HLD, Parkinsons, sent from [facility] after complaining of chest pain, nausea, vomiting, constipation. Chest pain-atypical, but difficult to characterize, has several cardiac risk factors -no ischemia on ekg -no sig arrhythmia on telemetry -cardiac enzymes wnl x3 -cont tele for now -nuclear stress test today showed no ischemia -echo showed grossly mild to moderately reduced LV systolic function, unable to full assess valvular function -cont ASA 81mg daily and Lipitor -at this time, no additional inpatient cardiac work up is needed, pt is acceptable for discharge when medically ready HTN-adequately controlled -cont norvasc and HCTZ HLD -cont lipitor
[2016-06-26] MEDS ORDERED: PT OWN MED DRAWER 7, Y5N ONE (20:46)
[2016-06-26] MEDS: ATORVASTATIN CA 10 MG TABLET (FP) PO SCH (22:04)
[2016-06-26] MEDS: MIRTAZAPINE 15 MG TABLET (FP) PO SCH (22:04)
[2016-06-26] MEDS: LATANOPROST 0.005% OPHTH SOLN 2.5ML BOTTLE OU SCH (22:05)
--- NOTE | 2016-06-26 22:26 | PN ---
Progress Note, Physician Chief Complaint: alert awake in bed NAD afebrile, s/p stress test - Current Medication List Current Medications: Active Medications Acetaminophen (Tylenol -) 650 mg PO Q6H PRN PRN Reason: BACK PAIN Last Admin: 06/26/16 11:26 Dose: 650 mg Amlodipine Besylate (Norvasc -) 2.5 mg PO DAILY [facility] Last Admin: 06/26/16 11:27 Dose: 2.5 mg Aspirin (Asa -) 81 mg PO DAILY [facility] Last Admin: 06/26/16 11:26 Dose: 81 mg Atorvastatin Calcium (Lipitor -) 10 mg PO HS [facility] Last Admin: 06/26/16 22:04 Dose: 10 mg Carbidopa/Levodopa (Sinemet 25/100 -) 1 each PO DAILY [facility] Last Admin: 06/26/16 11:27 Dose: 1 each Ceftriaxone Sodium (Rocephin 1gm Ivpb (Pre-Docked)) 1 gm IVPB DAILY [facility] PRN Reason: Protocol Last Admin: 06/26/16 11:27 Dose: 1 gm Cholecalciferol (Vitamin D3 -) 400 unit PO DAILY [facility] Last Admin: 06/26/16 11:27 Dose: 400 unit Donepezil HCl (Aricept -) 10 mg PO DAILY [facility] Last Admin: 06/26/16 11:26 Dose: 10 mg Duloxetine HCl (Cymbalta -) 60 mg PO DAILY [facility] Last Admin: 06/26/16 11:25 Dose: 60 mg Gabapentin (Neurontin -) 400 mg PO TID [facility] Last Admin: 06/26/16 22:04 Dose: 400 mg Heparin Sodium (Porcine) (Heparin -) 5,000 unit SQ BID [facility] Last Admin: 06/26/16 22:04 Dose: 5,000 unit Hydrochlorothiazide (Hctz -) 25 mg PO DAILY [facility] Last Admin: 06/26/16 11:25 Dose: 25 mg Sodium Chloride (Normal Saline -) 1,000 mls @ 42 mls/hr IV ASDIR [facility] Last Admin: 06/26/16 14:21 Dose: 42 mls/hr Latanoprost (Xalatan 0.005% Eye Drops -) 1 drop OU HS [facility] Last Admin: 06/26/16 22:05 Dose: 1 drop Mirtazapine (Remeron -) 15 mg PO HS [facility] Last Admin: 06/26/16 22:04 Dose: 15 mg Non-Formulary Medication (Hydromorphone Hcl [Exalgo]) 16 mg PO DAILY [facility] Non-Formulary Medication (Rotigotine [Neupro]) 1 each TD DAILY [facility] Polyethylene Glycol (Miralax (For Daily Use) -) 17 gm PO DAILY [facility] Senna/Docusate Sodium (Pericolace -) 1 tablet PO TID [facility] Last Admin: 06/26/16 22:04 Dose: 1 tablet Tolterodine Tartrate (Detrol La -) 4 mg PO DAILY [facility] Last Admin: 06/26/16 11:26 Dose: 4 mg - Objective Vital Signs: Vital Signs Temperature 98.8 F 06/26/16 17:00 Pulse Rate 81 06/26/16 17:00 Respiratory Rate 18 06/26/16 17:00 Blood Pressure 118/60 06/26/16 17:00 O2 Sat by Pulse Oximetry (%) 98 06/26/16 08:00 Constitutional: Yes: No Distress, Calm Eyes: Yes: Conjunctiva Clear HENT: Yes: Atraumatic Neck: Yes: Supple Cardiovascular: Yes: Regular Rate and Rhythm Respiratory: Yes: CTA Bilaterally Gastrointestinal: Yes: Soft. No: Distention, Tenderness Musculoskeletal: No: Joint Stiffness, Joint Swelling Extremities: No: Cold, Cool Edema: No Peripheral Pulses WNL: Yes Integumentary: No: Rash, Venous Stasis Changes Neurological: Yes: Alert, Oriented Psychiatric: Yes: Alert, Oriented. No: Agitated Labs: INR, PTT INR 1.20 (0.82-1.09) H 06/22/16 13:41 - ....Imaging Other: Report Reviewed Assessment/Plan 75 year old woman with a history of HTN, HLD, Parkinson, sent from [facility] after complaining of chest pain, nausea, vomiting, constipation. Chest pain-atypical, but difficult to characterize, has several cardiac risk factors -no ischemia on ekg -no arrhythmia on telemetry -cardiac enzymes wnl x3 -cont tele for now -s/p echo and persantine nuclear stress test -cont ASA 81mg daily and Lipitor -would also treat constipation as may be contributing to symptoms HTN-well controlled -cont norvasc and HCTZ HLD -cont lipitor Constipation: senna, miralax UTI: on IV ceftiraxone DC to [place] when cleared by cardiology d.w pt and staff
[2016-06-27] MEDS: GABAPENTIN 400 MG CAPSULE (FP) PO SCH ×3 (06:33→21:38)
[2016-06-27] MEDS: SENNOSIDES/DOCUSATE COMBO (SENNA PLUS) TABLET (UD) PO SCH ×3 (06:33→21:38)
[2016-06-27 07:24] LABS: MCH 23.1 pg (25.7-33.7); MCHC 31.1 g/dl (32.0-36.0); MEAN CELL VOLUME 74.2 fl (80-96); MEAN PLT VOLUME 7.1 fl (7.5-11.1); PLATELET COUNT 455 K/MM3 (134-434); RDW 21.7 % (11.6-15.6)
[2016-06-27 07:47] LABS: CALCIUM 8.8 mg/dL (8.5-10.1)
[2016-06-27 07:48] LABS: CREATININE 0.5 mg/dL (0.55-1.02)
--- NOTE | 2016-06-27 09:55 | PN ---
Progress Note, Physician History of Present Illness: seen and examined this am in nad. awake and alert. no overnight events. no new complaints. - Current Medication List Current Medications: Active Medications Acetaminophen (Tylenol -) 650 mg PO Q6H PRN PRN Reason: BACK PAIN Last Admin: 06/26/16 11:26 Dose: 650 mg Amlodipine Besylate (Norvasc -) 2.5 mg PO DAILY [facility] Last Admin: 06/26/16 11:27 Dose: 2.5 mg Aspirin (Asa -) 81 mg PO DAILY [facility] Last Admin: 06/26/16 11:26 Dose: 81 mg Atorvastatin Calcium (Lipitor -) 10 mg PO HS [facility] Last Admin: 06/26/16 22:04 Dose: 10 mg Carbidopa/Levodopa (Sinemet 25/100 -) 1 each PO DAILY [facility] Last Admin: 06/26/16 11:27 Dose: 1 each Ceftriaxone Sodium (Rocephin 1gm Ivpb (Pre-Docked)) 1 gm IVPB DAILY [facility] PRN Reason: Protocol Last Admin: 06/26/16 11:27 Dose: 1 gm Cholecalciferol (Vitamin D3 -) 400 unit PO DAILY [facility] Last Admin: 06/26/16 11:27 Dose: 400 unit Donepezil HCl (Aricept -) 10 mg PO DAILY [facility] Last Admin: 06/26/16 11:26 Dose: 10 mg Duloxetine HCl (Cymbalta -) 60 mg PO DAILY [facility] Last Admin: 06/26/16 11:25 Dose: 60 mg Gabapentin (Neurontin -) 400 mg PO TID [facility] Last Admin: 06/27/16 06:33 Dose: 400 mg Heparin Sodium (Porcine) (Heparin -) 5,000 unit SQ BID [facility] Last Admin: 06/26/16 22:04 Dose: 5,000 unit Hydrochlorothiazide (Hctz -) 25 mg PO DAILY [facility] Last Admin: 06/26/16 11:25 Dose: 25 mg Sodium Chloride (Normal Saline -) 1,000 mls @ 42 mls/hr IV ASDIR [facility] Last Admin: 06/26/16 14:21 Dose: 42 mls/hr Latanoprost (Xalatan 0.005% Eye Drops -) 1 drop OU HS [facility] Last Admin: 06/26/16 22:05 Dose: 1 drop Mirtazapine (Remeron -) 15 mg PO HS [facility] Last Admin: 06/26/16 22:04 Dose: 15 mg Non-Formulary Medication (Hydromorphone Hcl [Exalgo]) 16 mg PO DAILY [facility] Non-Formulary Medication (Rotigotine [Neupro]) 1 each TD DAILY [facility] Polyethylene Glycol (Miralax (For Daily Use) -) 17 gm PO DAILY [facility] Senna/Docusate Sodium (Pericolace -) 1 tablet PO TID [facility] Last Admin: 06/27/16 06:33 Dose: 1 tablet Tolterodine Tartrate (Detrol La -) 4 mg PO DAILY [facility] Last Admin: 06/26/16 11:26 Dose: 4 mg - Objective Vital Signs: Vital Signs Temperature 97.8 F 06/27/16 06:00 Pulse Rate 81 06/27/16 09:16 Respiratory Rate 20 06/27/16 09:16 Blood Pressure 124/64 06/27/16 09:16 O2 Sat by Pulse Oximetry (%) 97 06/26/16 20:00 Constitutional: Yes: Well Nourished, No Distress, Calm Eyes: Yes: WNL, Conjunctiva Clear, EOM Intact, PERRL HENT: Yes: WNL, Atraumatic, Normocephalic Neck: Yes: WNL, Supple, Trachea Midline Cardiovascular: Yes: Regular Rate and Rhythm, S1, S2. No: Bradycardia, Tachycardia, Pulse Irregular, Bruit, JVD, Gallop, Murmur, Rub, S3, S4, Varicosities Respiratory: Yes: Regular, CTA Bilaterally. No: Rales, Rhonchi, Wheezes Gastrointestinal: Yes: WNL, Normal Bowel Sounds, Soft. No: Distention, Tenderness Musculoskeletal: Yes: WNL Extremities: Yes: WNL Edema: No Peripheral Pulses WNL: Yes Peripheral Pulses: Left Doralis Pedis: 2+, Right Dorsalis Pedis: 2+ Integumentary: Yes: WNL Neurological: Yes: Alert, Oriented Psychiatric: Yes: Alert, Oriented Labs: CBC, BMP 06/27/16 05:35 06/27/16 05:35 INR, PTT INR 1.20 (0.82-1.09) H 06/22/16 13:41 - ....Imaging Chest X-ray: Report Reviewed, Image Reviewed EKG: Report Reviewed, Image Reviewed Other: Report Reviewed, Image Reviewed (tele-nsr, pvcs, couplets) Problem List - Problems (1) Chest pain Code(s): R07.9 - CHEST PAIN, UNSPECIFIED (2) HTN (hypertension) Code(s): I10 - ESSENTIAL (PRIMARY) HYPERTENSION (3) Hyperlipemia Code(s): E78.5 - HYPERLIPIDEMIA, UNSPECIFIED Assessment/Plan 75 year old woman with a history of HTN, HLD, Parkinsons, sent from [facility] after complaining of chest pain, nausea, vomiting, constipation. Chest pain-atypical, but difficult to characterize, has several cardiac risk factors -no ischemia on ekg -no sig arrhythmia on telemetry -cardiac enzymes wnl x3 -nuclear stress test today showed no ischemia -echo showed grossly mild to moderately reduced LV systolic function, unable to full assess valvular function -cont ASA 81mg daily and Lipitor -at this time, no additional inpatient cardiac work up is needed, pt is acceptable for discharge when medically ready -Dc tele if remains inpatient HTN-adequately controlled -cont norvasc and HCTZ HLD -cont lipitor
--- NOTE | 2016-06-27 11:30 | PN ---
Progress Note, Physician History of Present Illness: Pt very sleepy this AM, until lunch time Pt. w/o CP, palp, SOB, dizziness, nausea, vomiting. - Current Medication List Current Medications: Active Medications Acetaminophen (Tylenol -) 650 mg PO Q6H PRN PRN Reason: BACK PAIN Last Admin: 06/26/16 11:26 Dose: 650 mg Amlodipine Besylate (Norvasc -) 2.5 mg PO DAILY [facility] Last Admin: 06/26/16 11:27 Dose: 2.5 mg Aspirin (Asa -) 81 mg PO DAILY [facility] Last Admin: 06/26/16 11:26 Dose: 81 mg Atorvastatin Calcium (Lipitor -) 10 mg PO HS [facility] Last Admin: 06/26/16 22:04 Dose: 10 mg Carbidopa/Levodopa (Sinemet 25/100 -) 1 each PO DAILY [facility] Ceftriaxone Sodium (Rocephin 1gm Ivpb (Pre-Docked)) 1 gm IVPB DAILY [facility] PRN Reason: Protocol Last Admin: 06/26/16 11:27 Dose: 1 gm Cholecalciferol (Vitamin D3 -) 400 unit PO DAILY [facility] Last Admin: 06/26/16 11:27 Dose: 400 unit Donepezil HCl (Aricept -) 10 mg PO DAILY [facility] Last Admin: 06/26/16 11:26 Dose: 10 mg Duloxetine HCl (Cymbalta -) 60 mg PO DAILY [facility] Last Admin: 06/26/16 11:25 Dose: 60 mg Gabapentin (Neurontin -) 400 mg PO TID [facility] Last Admin: 06/27/16 06:33 Dose: 400 mg Heparin Sodium (Porcine) (Heparin -) 5,000 unit SQ BID [facility] Last Admin: 06/26/16 22:04 Dose: 5,000 unit Hydrochlorothiazide (Hctz -) 25 mg PO DAILY [facility] Last Admin: 06/26/16 11:25 Dose: 25 mg Sodium Chloride (Normal Saline -) 1,000 mls @ 42 mls/hr IV ASDIR [facility] Last Admin: 06/26/16 14:21 Dose: 42 mls/hr Latanoprost (Xalatan 0.005% Eye Drops -) 1 drop OU HS [facility] Last Admin: 06/26/16 22:05 Dose: 1 drop Mirtazapine (Remeron -) 15 mg PO HS [facility] Last Admin: 06/26/16 22:04 Dose: 15 mg Non-Formulary Medication (Hydromorphone Hcl [Exalgo]) 16 mg PO DAILY [facility] Non-Formulary Medication (Rotigotine [Neupro]) 1 each TD DAILY [facility] Non-Formulary Medication (Carbidopa/Levodopa/Entacapone [Carbidopa-Levodopa- Enta 125 Mg]) 1 each PO TID [facility] Polyethylene Glycol (Miralax (For Daily Use) -) 17 gm PO DAILY [facility] Senna/Docusate Sodium (Pericolace -) 1 tablet PO TID [facility] Last Admin: 06/27/16 06:33 Dose: 1 tablet Tolterodine Tartrate (Detrol La -) 4 mg PO DAILY [facility] Last Admin: 06/26/16 11:26 Dose: 4 mg - Objective Vital Signs: Vital Signs Temperature 97.8 F 06/27/16 06:00 Pulse Rate 81 06/27/16 09:16 Respiratory Rate 20 06/27/16 09:16 Blood Pressure 124/64 06/27/16 09:16 O2 Sat by Pulse Oximetry (%) 97 06/26/16 20:00 Constitutional: Yes: No Distress, Calm Respiratory: Yes: Regular, CTA Bilaterally, Other (corse BS). No: Rales Gastrointestinal: Yes: Normal Bowel Sounds, Soft. No: Palpable Mass, Tenderness Edema: No Neurological: Yes: Alert, Oriented Labs: CBC, BMP 06/27/16 05:35 06/27/16 05:35 INR, PTT INR 1.20 (0.82-1.09) H 06/22/16 13:41 Problem List - Problems (1) Chest pain Assessment/Plan: Admit to Telemetry Serial CE Cardiology Consult and f/u appreciated TSH w/i NL Code(s): R07.9 - CHEST PAIN, UNSPECIFIED (2) HTN (hypertension) Assessment/Plan: to monitor Code(s): I10 - ESSENTIAL (PRIMARY) HYPERTENSION (3) Hyperlipemia Assessment/Plan: check level in AM Code(s): E78.5 - HYPERLIPIDEMIA, UNSPECIFIED (4) Parkinson disease Assessment/Plan: on treatment- to cont. Code(s): G20 - PARKINSON'S DISEASE (5) Impaired gait Assessment/Plan: Pt can transfer to wheelchair w/o help Code(s): R26.9 - UNSPECIFIED ABNORMALITIES OF GAIT AND MOBILITY (6) Altered mental state Assessment/Plan: Pt. with negative Head CT scan Neuro consult and f/u appreciated. uncleare reason for today sleepinees, to change Neurontin dose if pt continues to be sleepy Code(s): R41.82 - ALTERED MENTAL STATUS, UNSPECIFIED (7) UTI (urinary tract infection) Assessment/Plan: on IVabtx; to monitor UCX Code(s): N39.0 - URINARY TRACT INFECTION, SITE NOT SPECIFIED
[2016-06-27] MEDS: cefTRIAXone 1 GM/50 ML BAG (PRE-DOCKED) IVPB SCH (11:46)
[2016-06-27] MEDS ORDERED: PT OWN MED DRAWER 7, Y5N ONE ×2 (13:10→19:32)
[2016-06-27] MEDS: CHOLECALCIFEROL (VITAMIN D3) 400 UNIT TABLET (FP) PO SCH (13:14)
[2016-06-27] MEDS: TOLTERODINE TARTRATE LA 4 MG CAP.SR.24H (FP) PO SCH (13:14)
[2016-06-27] MEDS: DONEPEZIL HCL 10 MG TABLET (FP) PO SCH (13:15)
[2016-06-27] MEDS: ASPIRIN 81 MG CHEWABLE TABLETS PO SCH (13:15)
[2016-06-27] MEDS: DULoxetine HCL 30 MG CAPSULE.DR (FP) PO SCH (13:16)
[2016-06-27] MEDS: HYDROCHLOROTHIAZIDE 25 MG TABLET (FP) PO SCH (13:17)
[2016-06-27] MEDS: amLODIPine BESYLATE 2.5 MG TABLET (FP) PO SCH (13:18)
[2016-06-27] MEDS: HEPARIN NA (PORCINE) 5,000 UNITS/ML 1ML VIAL SQ SCH ×2 (13:19→21:38)
[2016-06-27] MEDS: SODIUM CHLORIDE 1,000 ML IV SCH (15:18)
[2016-06-27] MEDS: POLYETHYLENE GLYCOL 3350 119 GM BTL PO SCH (15:19)
--- NOTE | 2016-06-27 15:26 | PN ---
Progress Note (short form) - Note Progress Note: Reconsulted on case for lethargy Pt had an episode of sleepiness and poor responsiveness this morning per nursing staff This afternoon, pt is awake, alert and oriented to time, place and person Pt follow directions and answers all question adequately moves all ext No current dizziness, confusion, no lethargy no fever, no chills, no dysuria Physical Exam GENERAL: Awake, alert, and fully oriented, in no acute distress. HEAD: Normal with no signs of trauma. HEART: Regular rate and rhythm, normal S1 and S2 without murmur, rub or gallop. ABDOMEN: Soft, nontender, not distended, NEUROLOGICAL: Cranial nerves II-XII intact. Normal speech. Strength 4/5 in left upper ext, 3/5 right upper ext. Strength in b/l lower ext 3/5. resting tremors, bradykinesia and rigidity. Gait not observed. Musk: Right arm swelling PSYCHIATRIC: Cooperative. Good eye contact. Appropriate mood and affect. CBC, BMP 06/27/16 05:35 06/27/16 05:35 Microbiology 06/25/16 10:00 Urine - Urine - Catheterized Urine Culture - Final Escherichia Coli CT head w/o Contrast 06/22/16: No evidence of acute intracranial hemorrhage, edema, midline shift, mass effect, or skull fracture. No CT evidence of acute territorial infarction. MRI brain 06/22/16: Moderate atrophy and mild chronic microvascular ischemic changes without evidence of acute intracranial pathology. Right and a trace of left mastoid effusion are present ASSESSMENT/PLAN: 76 year old female with pmh of HTN, HPLD, Parkinson, Glaucoma from [facility] recently admitted for Chest pain with temporary episode of increased sleepiness and poorly response. Worry about metabolic encephalopathy rt to infection, UA showed positive Nitrite, leuk est 3+, WBC 114 which is consistent with UTI, urine culture was positive for E. coli. Even if pt has risk factors including HTN, HPLD, old age and possible prior CVA with Right arm weakness, facial asymmetry, CVA was rule out by CT head w/o contrast showed no acute disease, MRI brain showed no acute acute disease. Pt was on Neupro at home which is a medication for parkison disease, the patient has not been receiving it while in the hospital since pharmacy does not have it. Pt was on Stalevo (levodopa/carbidopa/entacapone) TID which pharmacy does not have. Pt was placed on Sinnemet (levodopa/carbidopa 25/100) once a day, which likely provide inadequate amount dopamine to brain, frequency should be increase to 3 times per day as inadequate medication can contribute to the patient change in mental status. Impression Metabolic Encephalopathy rt UTI AMS rt missing medication Plan Urine culture with E. coli Continue antibiotic per primary team, currently on Rocephin Avoid sedating medication Increase Sinnemet (25/100) 1 tab TID while waiting on family to bring Stalevo Family to Obtain home medications (Neupro and Stalevo) and bring it to pharmacy. Right arm swelling mgt per primary team, consider US to r/o DVT, Xray right arm Thank you for the consulting opportunity. We will continue to follow this patient Case Discussed with Dr Kenyon, neurology Attending, Final recommendations to follow in her note.
--- NOTE | 2016-06-27 15:51 | PN ---
Progress Note, Physician History of Present Illness: 76 year old woman with history of parkinsons disease on sinemet, hypertension, glaucoma, admitted for chest pain. Neurology consulted for change in mental status. Per nursing staff patient was sleepy, barely responding to verbal and tactile stimuli. On examination, patient was awake, alert, oriented to time, place and person. Some right arm weakness was noted but unclear chronicity of symptoms. Patient underwent CT head which showed no acute changes. MRI brain no acute changes Patient awake, alert, oriented to time, place and person No obvious tremor or rigidity - Current Medication List Current Medications: Active Medications Acetaminophen (Tylenol -) 650 mg PO Q6H PRN PRN Reason: BACK PAIN Last Admin: 06/26/16 11:26 Dose: 650 mg Amlodipine Besylate (Norvasc -) 2.5 mg PO DAILY [facility] Last Admin: 06/27/16 13:18 Dose: 2.5 mg Aspirin (Asa -) 81 mg PO DAILY [facility] Last Admin: 06/27/16 13:15 Dose: 81 mg Atorvastatin Calcium (Lipitor -) 10 mg PO HS [facility] Last Admin: 06/26/16 22:04 Dose: 10 mg Carbidopa/Levodopa (Sinemet 25/100 -) 1 each PO TID@0830,1230,1630 [facility] Ceftriaxone Sodium (Rocephin 1gm Ivpb (Pre-Docked)) 1 gm IVPB DAILY [facility] PRN Reason: Protocol Last Admin: 06/27/16 11:46 Dose: 1 gm Cholecalciferol (Vitamin D3 -) 400 unit PO DAILY [facility] Last Admin: 06/27/16 13:14 Dose: 400 unit Donepezil HCl (Aricept -) 10 mg PO DAILY [facility] Last Admin: 06/27/16 13:15 Dose: 10 mg Duloxetine HCl (Cymbalta -) 60 mg PO DAILY [facility] Last Admin: 06/27/16 13:16 Dose: 60 mg Gabapentin (Neurontin -) 400 mg PO TID [facility] Last Admin: 06/27/16 15:19 Dose: 400 mg Heparin Sodium (Porcine) (Heparin -) 5,000 unit SQ BID [facility] Last Admin: 06/27/16 13:19 Dose: 5,000 unit Hydrochlorothiazide (Hctz -) 25 mg PO DAILY [facility] Last Admin: 06/27/16 13:17 Dose: 25 mg Sodium Chloride (Normal Saline -) 1,000 mls @ 42 mls/hr IV ASDIR [facility] Last Admin: 06/27/16 15:18 Dose: 42 mls/hr Latanoprost (Xalatan 0.005% Eye Drops -) 1 drop OU HS [facility] Last Admin: 06/26/16 22:05 Dose: 1 drop Mirtazapine (Remeron -) 15 mg PO HS [facility] Last Admin: 06/26/16 22:04 Dose: 15 mg Non-Formulary Medication (Rotigotine [Neupro]) 1 each TD DAILY [facility] Non-Formulary Medication (Carbidopa/Levodopa/Entacapone [Carbidopa-Levodopa- Enta 125 Mg]) 1 each PO TID@0830,1230,1630 [facility] Polyethylene Glycol (Miralax (For Daily Use) -) 17 gm PO DAILY [facility] Last Admin: 06/27/16 15:19 Dose: 17 gm Senna/Docusate Sodium (Pericolace -) 1 tablet PO TID [facility] Last Admin: 06/27/16 13:18 Dose: 1 tablet Tolterodine Tartrate (Detrol La -) 4 mg PO DAILY [facility] Last Admin: 06/27/16 13:14 Dose: 4 mg - Objective Vital Signs: Vital Signs Temperature 98.2 F 06/27/16 14:27 Pulse Rate 74 06/27/16 14:27 Respiratory Rate 20 06/27/16 14:27 Blood Pressure 114/69 06/27/16 14:27 O2 Sat by Pulse Oximetry (%) 97 06/26/16 20:00 Constitutional: Yes: No Distress Eyes: Yes: Conjunctiva Clear, EOM Intact HENT: Yes: Atraumatic, Normocephalic Cardiovascular: Yes: S1, S2 Neurological: Yes: Alert, Oriented, Cran Nerves II-XII Intact ...Motor Strength: WNL Labs: CBC, BMP 06/27/16 05:35 06/27/16 05:35 INR, PTT INR 1.20 (0.82-1.09) H 06/22/16 13:41 Assessment/Plan 76 year old woman with history of parkinsons disease on sinemet, hypertension, glaucoma, admitted for chest pain. Neurology consulted for change in mental status. Per nursing staff patient was sleepy, barely responding to verbal and tactile stimuli. On examination, patient was awake, alert, oriented to time, place and person. Some right arm weakness was noted but unclear chronicity of symptoms. Patient underwent CT head which showed no acute changes. Mentation appears to be at baseline. Altered mental status, resolved MRI brain no acute abnormalities Patient was previously on stalevo as outpatient- pharmacy does not carry. Would recommend having patient's family bring medication in if possible, in meantime would recommend increasing sinemet to 25/100 TID as change in medication could be contributing to her mental status Continue supportive care
[2016-06-27] MEDS ORDERED: CARBIDOPA/LEVODOPA 25/100 TABLET (FP) PO SCH (16:30)
[2016-06-27] MEDS: ATORVASTATIN CA 10 MG TABLET (FP) PO SCH (21:38)
[2016-06-27] MEDS: MIRTAZAPINE 15 MG TABLET (FP) PO SCH (21:38)
[2016-06-27] MEDS: LATANOPROST 0.005% OPHTH SOLN 2.5ML BOTTLE OU SCH (21:43)
[2016-06-28] MEDS ORDERED: CARBIDOPA/LEVODOPA 25/100 TABLET (FP) PO SCH (06:00)
[2016-06-28] MEDS: SENNOSIDES/DOCUSATE COMBO (SENNA PLUS) TABLET (UD) PO SCH ×2 (06:05→13:46)
[2016-06-28] MEDS: GABAPENTIN 400 MG CAPSULE (FP) PO SCH ×2 (06:05→13:46)
[2016-06-28 07:36] LABS: MCH 23.4 pg (25.7-33.7); MCHC 31.5 g/dl (32.0-36.0); MEAN CELL VOLUME 74.4 fl (80-96); MEAN PLT VOLUME 7.1 fl (7.5-11.1); PLATELET COUNT 394 K/MM3 (134-434); RDW 21.7 % (11.6-15.6); WHITE BLOOD COUNT 9.7 K/mm3 (4.0-10.0)
[2016-06-28 08:08] LABS: ALBUMIN 2.3 g/dl (3.4-5.0); ALK PHOS 80 U/L (45-117); ANION GAP 9 (8-16); BILIRUBIN,TOTAL 0.3 mg/dL (0.2-1.0); CALCIUM 8.5 mg/dL (8.5-10.1); CO2 29 mmol/L (21-32); CREATININE 0.4 mg/dL (0.55-1.02); GLUCOSE,RANDOM 103 mg/dL (74-106); SGOT/AST 10 U/L (15-37); SGPT/ALT 10 U/L (12-78); TOT PROT 5.5 g/dl (6.4-8.2)
[2016-06-28] MEDS: CHOLECALCIFEROL (VITAMIN D3) 400 UNIT TABLET (FP) PO SCH (09:00)
[2016-06-28] MEDS: TOLTERODINE TARTRATE LA 4 MG CAP.SR.24H (FP) PO SCH (09:00)
[2016-06-28] MEDS: DULoxetine HCL 30 MG CAPSULE.DR (FP) PO SCH (09:01)
[2016-06-28] MEDS: HEPARIN NA (PORCINE) 5,000 UNITS/ML 1ML VIAL SQ SCH (09:01)
[2016-06-28] MEDS: DONEPEZIL HCL 10 MG TABLET (FP) PO SCH (09:02)
[2016-06-28] MEDS: LEVODOPA PO SCH ×2 (09:02→13:46)
[2016-06-28] MEDS: HYDROCHLOROTHIAZIDE 25 MG TABLET (FP) PO SCH (09:02)
[2016-06-28] MEDS: CARBIDOPA PO SCH ×2 (09:02→13:46)
[2016-06-28] MEDS: ASPIRIN 81 MG CHEWABLE TABLETS PO SCH (09:02)
[2016-06-28] MEDS: [UNRECOGNIZED DRUG - OTHER] PO SCH ×2 (09:02→13:46)
[2016-06-28] MEDS: amLODIPine BESYLATE 2.5 MG TABLET (FP) PO SCH (09:02)
[2016-06-28] MEDS: ENTACAPONE PO SCH ×2 (09:02→13:46)
[2016-06-28] MEDS: cefTRIAXone 1 GM/50 ML BAG (PRE-DOCKED) IVPB SCH (09:03)
[2016-06-28] MEDS: POLYETHYLENE GLYCOL 3350 119 GM BTL PO SCH (09:03)
[2016-06-28 10:30] VITALS: BP 135/76; PULSE 77; TEMP 98.2
--- NOTE | 2016-06-28 10:47 | PN ---
Physical Exam: SUBJECTIVE: Patient seen and examined Pt is awake, alert and oriented No episode of lethargy this morning Move all ext no s/s of distress OBJECTIVE: Vital Signs Period Temp Pulse Resp BP Sys/[place] Pulse Ox Last 24 Hr 97.7 F-98.8 F 73-78 18-20 114-136/69-76 97-98 GENERAL: Awake, alert, and fully oriented, in no acute distress. HEAD: Normal with no signs of trauma. left pupil non reactive 5mn, right pupil 3 mn reactive, EOM intact HEART: Regular rate and rhythm, normal S1 and S2 without murmur, rub or gallop. ABDOMEN: Soft, nontender, not distended, NEUROLOGICAL: Cranial nerves II-XII intact. Normal speech. Strength 4/5 in left upper ext, 3/5 right upper ext. Strength in b/l lower ext 3/5. resting tremors, bradykinesia and rigidity. Gait not observed. Musk: Right arm swelling PSYCHIATRIC: Cooperative. Good eye contact. Appropriate mood and affect. Laboratory Results - last 24 hr 06/27/16 06/28/16 06/28/16 10:25 05:35 05:35 WBC 9.7 RBC 4.39 Hgb 10.3 L Hct 32.6 MCV 74.4 L MCHC 31.5 L RDW 21.7 H Plt Count 394 MPV 7.1 L Sodium 144 Potassium 4.0 Chloride 106 Carbon Dioxide 29 Anion Gap 9 BUN 13 Creatinine 0.4 L Creat Clearance w eGFR > 60 POC Glucometer 105 Random Glucose 103 Calcium 8.5 Total Bilirubin 0.3 D AST 10 L D ALT 10 L D Alkaline Phosphatase 80 Total Protein 5.5 L Albumin 2.3 L Active Medications Generic Name Dose Route Start Last Admin Trade Name Freq PRN Reason Stop Dose Admin Acetaminophen 650 mg 06/25/16 15:13 06/26/16 11:26 Tylenol - PO 650 mg Q6H PRN Administration BACK PAIN Amlodipine Besylate 2.5 mg 06/23/16 10:00 06/28/16 09:02 Norvasc - PO 2.5 mg DAILY [facility] Administration Aspirin 81 mg 06/23/16 10:00 06/28/16 09:02 Asa - PO 81 mg DAILY [facility] Administration Atorvastatin Calcium 10 mg 06/23/16 22:00 06/27/16 21:38 Lipitor - PO 10 mg HS [facility] Administration Ceftriaxone Sodium 1 gm 06/25/16 13:15 06/28/16 09:03 Rocephin 1gm Ivpb (Pre-Docked) IVPB 1 gm DAILY [facility] Administration Protocol Cholecalciferol 400 unit 06/23/16 10:00 06/28/16 09:00 Vitamin D3 - PO 400 unit DAILY [facility] Administration Donepezil HCl 10 mg 06/23/16 10:00 06/28/16 09:02 Aricept - PO 10 mg DAILY [facility] Administration Duloxetine HCl 60 mg 06/23/16 10:00 06/28/16 09:01 Cymbalta - PO 60 mg DAILY [facility] Administration Gabapentin 400 mg 06/22/16 23:00 06/28/16 06:05 Neurontin - PO 400 mg TID [facility] Administration Heparin Sodium (Porcine) 5,000 unit 06/22/16 22:00 06/28/16 09:01 Heparin - SQ 5,000 unit BID [facility] Administration Hydrochlorothiazide 25 mg 06/23/16 10:00 06/28/16 09:02 Hctz - PO 25 mg DAILY [facility] Administration Latanoprost 1 drop 06/22/16 23:00 06/27/16 21:43 Xalatan 0.005% Eye Drops - OU 1 drop HS [facility] Administration Mirtazapine 15 mg 06/23/16 22:00 06/27/16 21:38 Remeron - PO 15 mg HS [facility] Administration Non-Formulary Medication 1 each 06/23/16 10:00 Rotigotine [Neupro] TD DAILY [facility] Non-Formulary Medication 1 each 06/28/16 08:30 06/28/16 09:02 Carbidopa/Levodopa/Entacapone [Iruueiavf-Vwfqqgub-Bljj 125 Mg] PO 1 each TID@0830,1230,1630 [facility] Administration Polyethylene Glycol 17 gm 06/27/16 10:00 06/28/16 09:03 Miralax (For Daily Use) - PO 17 gm DAILY [facility] Administration Senna/Docusate Sodium 1 tablet 06/23/16 06:00 06/28/16 06:05 Pericolace - PO 1 tablet TID [facility] Administration Tolterodine Tartrate 4 mg 06/23/16 10:00 06/28/16 09:00 Detrol La - PO 4 mg DAILY [facility] Administration CBC, BMP 06/28/16 05:35 06/28/16 05:35 ASSESSMENT/PLAN: 76 year old female with pmh of HTN, HPLD, Parkinson, Glaucoma from [facility] recently admitted for Chest pain with temporary episode of increased sleepiness and poorly response Impression Metabolic Encephalopathy rt UTI AMS rt missing medication Plan Urine culture with E. coli Continue antibiotic per primary team, currently on Rocephin Avoid sedating medication Stalevo 1 tab TID Swelling in right arm resolved Disposition Case discussed with Dr Kenyon Neurology attending. Neurology is signing out a no further work up is necessary at this point. Please call back if any questions. Pablito Rios MD, Internal medicine resident Visit type - Emergency Visit Emergency Visit: Yes ED Registration Date: 06/26/16 Care time: The patient presented to the Emergency Department on the above date and was hospitalized for further evaluation of their emergent condition. - New Patient This patient is new to me today: No - Critical Care Critical Care patient: No
--- NOTE | 2016-06-28 11:14 | PN ---
Progress Note, Physician History of Present Illness: 76 year old woman with history of parkinsons disease on sinemet, hypertension, glaucoma, admitted for chest pain. Neurology consulted for change in mental status. Per nursing staff patient was sleepy, barely responding to verbal and tactile stimuli. On examination, patient was awake, alert, oriented to time, place and person. Some right arm weakness was noted but unclear chronicity of symptoms. Patient underwent CT head which showed no acute changes. MRI brain no acute changes Patient awake, alert, oriented to time, place and person No obvious tremor or rigidity - Current Medication List Current Medications: Active Medications Acetaminophen (Tylenol -) 650 mg PO Q6H PRN PRN Reason: BACK PAIN Last Admin: 06/26/16 11:26 Dose: 650 mg Amlodipine Besylate (Norvasc -) 2.5 mg PO DAILY [facility] Last Admin: 06/28/16 09:02 Dose: 2.5 mg Aspirin (Asa -) 81 mg PO DAILY [facility] Last Admin: 06/28/16 09:02 Dose: 81 mg Atorvastatin Calcium (Lipitor -) 10 mg PO HS [facility] Last Admin: 06/27/16 21:38 Dose: 10 mg Ceftriaxone Sodium (Rocephin 1gm Ivpb (Pre-Docked)) 1 gm IVPB DAILY [facility] PRN Reason: Protocol Last Admin: 06/28/16 09:03 Dose: 1 gm Cholecalciferol (Vitamin D3 -) 400 unit PO DAILY [facility] Last Admin: 06/28/16 09:00 Dose: 400 unit Donepezil HCl (Aricept -) 10 mg PO DAILY [facility] Last Admin: 06/28/16 09:02 Dose: 10 mg Duloxetine HCl (Cymbalta -) 60 mg PO DAILY [facility] Last Admin: 06/28/16 09:01 Dose: 60 mg Gabapentin (Neurontin -) 400 mg PO TID [facility] Last Admin: 06/28/16 06:05 Dose: 400 mg Heparin Sodium (Porcine) (Heparin -) 5,000 unit SQ BID [facility] Last Admin: 06/28/16 09:01 Dose: 5,000 unit Hydrochlorothiazide (Hctz -) 25 mg PO DAILY [facility] Last Admin: 06/28/16 09:02 Dose: 25 mg Latanoprost (Xalatan 0.005% Eye Drops -) 1 drop OU HS [facility] Last Admin: 06/27/16 21:43 Dose: 1 drop Mirtazapine (Remeron -) 15 mg PO HS [facility] Last Admin: 06/27/16 21:38 Dose: 15 mg Non-Formulary Medication (Rotigotine [Neupro]) 1 each TD DAILY [facility] Non-Formulary Medication (Carbidopa/Levodopa/Entacapone [Carbidopa-Levodopa- Enta 125 Mg]) 1 each PO TID@0830,1230,1630 [facility] Last Admin: 06/28/16 09:02 Dose: 1 each Polyethylene Glycol (Miralax (For Daily Use) -) 17 gm PO DAILY [facility] Last Admin: 06/28/16 09:03 Dose: 17 gm Senna/Docusate Sodium (Pericolace -) 1 tablet PO TID [facility] Last Admin: 06/28/16 06:05 Dose: 1 tablet Tolterodine Tartrate (Detrol La -) 4 mg PO DAILY [facility] Last Admin: 06/28/16 09:00 Dose: 4 mg - Objective Vital Signs: Vital Signs Temperature 98.2 F 06/28/16 08:15 Pulse Rate 77 06/28/16 08:15 Respiratory Rate 19 06/28/16 08:15 Blood Pressure 135/76 06/28/16 08:15 O2 Sat by Pulse Oximetry (%) 97 06/28/16 04:00 Constitutional: Yes: Calm Eyes: Yes: Conjunctiva Clear, EOM Intact Neurological: Yes: Alert, Oriented, Cran Nerves II-XII Intact ...Motor Strength: WNL Labs: CBC, BMP 06/28/16 05:35 06/28/16 05:35 INR, PTT INR 1.20 (0.82-1.09) H 06/22/16 13:41 Assessment/Plan 76 year old woman with history of parkinsons disease on sinemet, hypertension, glaucoma, admitted for chest pain. Neurology consulted for change in mental status. Altered mental status, improved MRI brain no acute abnormalities Continue patient's outpatient home meds of stasilver and ermias as altered mentation could be related to changes in parkinsons medication Patient should follow up with neurologist as outpatient
[2016-06-28] MEDS ORDERED: PT OWN MED DRAWER 7, Y5N ONE (13:43)
--- NOTE | 2016-06-28 14:01 | DS ---
Physical Examination Vital Signs: Vital Signs Temperature 98.2 F 06/28/16 08:15 Pulse Rate 77 06/28/16 08:15 Respiratory Rate 19 06/28/16 08:15 Blood Pressure 135/76 06/28/16 08:15 O2 Sat by Pulse Oximetry (%) 97 06/28/16 04:00 Findings/Remarks: NO fever, chills, SOB, CP, palp., abd pain. Pt. with weakness, better than yesterday. Sister Annia at bed side, Dr. Kenyon at bedside; pt. case was reviewed; Sister Annia questions were answered. Time spent for managing discharge: over 40 min Constitutional: Yes: No Distress, Calm Cardiovascular: Yes: Regular Rate and Rhythm, S1, S2 Respiratory: Yes: Regular, CTA Bilaterally. No: Rales Gastrointestinal: Yes: Normal Bowel Sounds, Soft. No: Palpable Mass, Tenderness Edema: No Neurological: Yes: Alert, Oriented Labs: CBC, BMP 06/28/16 05:35 06/28/16 05:35 Discharge Summary Reason For Visit: CHEST PAIN Current Active Problems Altered mental state (Acute) Anemia (Acute) Chest pain (Acute) HTN (hypertension) (Acute) Hyperlipemia (Acute) Impaired gait (Acute) Parkinson disease (Acute) Parkinsonian features (Acute) UTI (urinary tract infection) (Acute) Procedures: Principal: Brain MRI. Head CT. Nuclear Stress Test Other Procedures: CXR. Abd. XR Hospital Course: PT was stransferd from OR for CP. Pt. had cardiac workup, including Nuclear stress test, all negative for acute ischemia. Pt developed ASM, had Head CT scan and Brain MRI- both negative for stroke. Pt was noticed to have UTI, started on IV abtx. with improvement in her condition. Pt to be DC'ed to OR on PO abtx. - Instructions Diet, Activity, Other Instructions: Resume diet. PT evaluation. Disposition: ASSISTED FACILITY - Home Medications Comprehensive Discharge Medication List: Ambulatory Orders Acetylcyst/Flglfck07/Levomefol [Metafolbic Plus Caplet] 1 each PO DAILY Amlodipine Besylate [Norvasc -] 2.5 mg PO DAILY 06/22/16 Aspirin [ASA -] 81 mg PO DAILY 06/22/16 Cholecalciferol (Vitamin D3) [Vitamin D3] 400 unit PO DAILY 06/22/16 Donepezil HCl [Aricept -] 10 mg PO DAILY 06/22/16 Duloxetine HCl 60 mg PO DAILY 06/22/16 Gabapentin [Neurontin -] 400 mg PO Q8H 06/22/16 Hydrochlorothiazide 25 mg PO DAILY 06/22/16 Hydromorphone HCl [Exalgo] 16 mg PO DAILY 06/22/16 Latanoprost 0.005% Eye Drops [Xalatan 0.005% Eye Drops -] 1 drop HS 06/22/16 Mirtazapine [Remeron Soltab -] 15 mg PO DAILY 06/22/16 Rotigotine [Neupro] 1 each TD DAILY 06/22/16 Sennosides/Docusate Sodium [Senna S Tablet] 1 each PO TID 06/22/16 Simvastatin 20 mg PO DAILY 06/22/16 Tolterodine Tartrate LA [Detrol LA -] 4 mg PO DAILY 06/22/16 Acetaminophen [Tylenol .Regular Strength -] 650 mg PO Q6H PRN #0 tablet Carbidopa/Levodopa 25/100 [Sinemet 25/100 -] 1 each PO DAILY@0600 tablet Carbidopa/Levodopa/Entacapone [Cjaxbemba-Poavympx-Xulz 125 mg] 1 each PO TID@ 0830,1230,1630 06/28/16 Cephalexin Monohydrate [Keflex -] 500 mg PO BID #8 capsule 06/28/16 Heparin - 5,000 unit SQ BID vial 06/28/16 Polyethylene Glycol 3350 [Miralax 119 gm Btl -] 17 gm PO DAILY bottle 06/28/16
[2016-06-29] MEDS ORDERED: CEPHALEXIN MONOHYDRATE 500 MG CAPSULE (UD) PO SCH (10:00)
== END 2016-06-28 14:36 | DRG 689 ==
LOC: JER 13:06 → INTOOBSV 17:20 → UNDOADMOB 17:20 → JERBED 17:20 → J4W 19:44 → JERBED 19:44 → J4W 20:49 → OBSVTOIN 06-26 10:54
PROVIDERS: ADMIT Specialist; ATTEND Specialist
DX: N39.0 Urinary tract infection, site not specified (principal); G93.41 Metabolic encephalopathy; R07.9 Chest pain, unspecified; I10 Essential (primary) hypertension; E78.5 Hyperlipidemia, unspecified; H40.9 Unspecified glaucoma; G20 Parkinson's disease; F03.90 Unspecified dementia, unspecified severity, without behavioral disturbance, psychotic disturbance, mood disturbance, and anxiety; K59.00 Constipation, unspecified; D64.9 Anemia, unspecified; Z99.3 Dependence on wheelchair; R41.82 Altered mental status, unspecified; R26.9 Unspecified abnormalities of gait and mobility; B96.20 Unspecified Escherichia coli [E. coli] as the cause of diseases classified elsewhere
CPT/HCPCS: 36415; 70450-TC; 70551-TC; 71010-TC; 71260-TC; 74000-TC; 78452-TC; 80048; 80053; 80061; 81003; 81015; 82550; 83721; 83735; 84439; 84443; 84484; 85025; 85027; 85379; 85610; 87086; 87186; 93005; 93010; 93017; 93306-TC; 97161-GP; 99284-25; A9502; G0378; J1644

== ENCOUNTER 2016-07-06 04:11 | Emergency (ER) | payer OTHER ==
--- NOTE | 2016-07-06 04:24 | PDOC ---
History of Present Illness - General Chief Complaint: Injury Stated Complaint: FALL Time Seen by Provider: 07/06/16 04:21 History Source: Patient Exam Limitations: No Limitations - History of Present Illness Occurred: reports: just prior to arrival Pain Location: reports: none Method of Injury: Yes: fall Loss of Consciousness: no loss of consciousness Associated Symptoms (Fall): denies symptoms Past History - Travel Traveled outside of the country in the last 30 days: No Close contact w/someone who was outside of country & ill: No - Past Medical History Allergies/Adverse Reactions: Allergies Allergy/AdvReac Type Severity Reaction Status Date / Time No Known Drug Allergies Allergy Verified 07/06/16 04:24 Home Medications: Ambulatory Orders Acetylcyst/Ylecxse31/Levomefol [Metafolbic Plus Caplet] 1 each PO DAILY Amlodipine Besylate [Norvasc -] 2.5 mg PO DAILY 06/22/16 Aspirin [ASA -] 81 mg PO DAILY 06/22/16 Cholecalciferol (Vitamin D3) [Vitamin D3] 400 unit PO DAILY 06/22/16 Donepezil HCl [Aricept -] 10 mg PO DAILY 06/22/16 Duloxetine HCl 60 mg PO DAILY 06/22/16 Gabapentin [Neurontin -] 400 mg PO Q8H 06/22/16 Hydrochlorothiazide 25 mg PO DAILY 06/22/16 Hydromorphone HCl [Exalgo] 16 mg PO DAILY 06/22/16 Latanoprost 0.005% Eye Drops [Xalatan 0.005% Eye Drops -] 1 drop HS 06/22/16 Mirtazapine [Remeron Soltab -] 15 mg PO DAILY 06/22/16 Rotigotine [Neupro] 1 each TD DAILY 06/22/16 Sennosides/Docusate Sodium [Senna S Tablet] 1 each PO TID 06/22/16 Simvastatin 20 mg PO DAILY 06/22/16 Tolterodine Tartrate LA [Detrol LA -] 4 mg PO DAILY 06/22/16 Acetaminophen [Tylenol .Regular Strength -] 650 mg PO Q6H PRN #0 tablet Carbidopa/Levodopa 25/100 [Sinemet 25/100 -] 1 each PO DAILY@0600 tablet Cephalexin Monohydrate [Keflex -] 500 mg PO BID #8 capsule 06/28/16 Heparin - 5,000 unit SQ BID vial 06/28/16 Polyethylene Glycol 3350 [Miralax 119 gm Btl -] 17 gm PO DAILY bottle 06/28/16 Carbidopa/Levodopa/Entacapone [Qzrbufkwu-Pqcpazja-Clxk 125 mg] 1 each PO TID 07/20 Anemia: No Asthma: No Cancer: No Cardiac Disorders: No CVA: No COPD: No CHF: No Dementia: Yes Diabetes: No GI Disorders: Yes Disorders: No HTN: Yes Hypercholesterolemia: Yes Liver Disease: No Seizures: No Thyroid Disease: No - Surgical History Abdominal Surgery: No Appendectomy: No Cardiac Surgery: No Cholecystectomy: No Lung Surgery: No Neurologic Surgery: No Orthopedic Surgery: No - Psycho/Social/Smoking Cessation Hx Anxiety: No Suicidal Ideation: No Smoking History: Never smoked 'Breaking Loose' booklet given: 05/28/13 Hx Alcohol Use: Yes (OCCASIONALLY) Drug/Substance Use Hx: No Substance Use Type: Alcohol Trauma Specific PMHX - Complaint Specific PMHX Neck Injury: No Review of Systems - Review of Systems Able to Perform ROS?: Yes Comments:: 07/06/16 04:23 CONSTITUTIONAL: Absent: fever, chills, diaphoresis, generalized weakness, malaise, loss of appetite HEENT: Right eyebrow lac Absent: rhinorrhea, nasal congestion, throat pain, throat swelling, difficulty swallowing, mouth swelling, ear pain, eye pain, visual Changes CARDIOVASCULAR: Absent: chest pain, loss of consciousness, palpitations, irregular heart rate, peripheral edema RESPIRATORY: Absent: cough, shortness of breath, dyspnea with exertion, orthopnea, wheezing, stridor, hemoptysis GASTROINTESTINAL: Absent: abdominal pain, abdominal distension, nausea, vomiting, diarrhea, constipation, melena, hematochezia GENITOURINARY: Absent: dysuria, frequency, urgency, hesitancy, hematuria, flank pain, genital pain MUSCULOSKELETAL: Absent: myalgia, arthralgia, joint swelling SKIN: Absent: rash, itching, pallor HEMATOLOGIC/IMMUNOLOGIC: Absent: easy bleeding, easy bruising, lymphadenopathy, frequent infections ENDOCRINE: Absent: unexplained weight gain, unexplained weight loss, heat intolerance, cold intolerance NEUROLOGIC: Absent: headache, focal weakness or paresthesias, dizziness, unsteady gait, seizure, mental status changes, bladder or bowel incontinence PSYCHIATRIC: Absent: anxiety, depression, suicidal or homicidal ideation, hallucinations. Is the patient limited Armenian proficient: No *Physical Exam - Physical Exam Comments: 07/06/16 04:23 GENERAL: Well developed, well nourished. Awake and alert. No acute distress. HEENT: Normocephalic, atraumatic. PERRLA, EOMI. No conjunctival pallor. Sclera are non- icteric. Moist mucous membranes. Oropharynx is clear. NECK: Supple. Full ROM. No JVD. Carotid pulses 2+ and symmetric, without bruits. No thyromegaly. No lymphadenopathy. CARDIOVASCULAR: Regular rate and rhythm. No murmurs, rubs, or gallops. Distal pulses are 2+ and symmetric. PULMONARY: No evidence of respiratory distress. Lungs clear to auscultation bilaterally. No wheezing, rales or rhonchi. ABDOMINAL: Soft. Non-tender. Non-distended. No rebound or guarding. No organomegaly. Normoactive bowel sounds. MUSCULOSKELETAL Normal range of motion at all joints. No bony deformities or tenderness. No CVA tenderness. EXTREMITIES: No cyanosis. No clubbing. No edema. No calf tenderness. SKIN: Warm and dry. Normal capillary refill. No rashes. No jaundice. NEUROLOGICAL: Alert, awake, appropriate. Cranial nerves 2-12 intact. No deficits to light touch and temperature in face, upper extremities and lower extremities. No motor deficits in the in face, upper extremities and lower extremities. Normoreflexic in the upper and lower extremities. Normal speech. Toes are down- going bilaterally. Gait is normal without ataxia. PSYCHIATRIC: Cooperative. Good eye contact. Appropriate mood and affect. 3cm right eyebrow 3cm horizontal lac Mild swelling Progress Note - Progress Note Progress Note: 76-year-old female/[facility] resident presents to the emergency department complaining of a laceration to her right eyebrow after she slipped and fell off her chair. Patient denies any loss of consciousness, headache, dizziness, lightheadedness, visual disturbance, blurry vision, facial pain, neck pains, back pains, chest pain, shortness of breath, abdominal pains, extremity numbness or tingling sensation. Pt is on Heparin 5000mg sq bid Last tetanus: unk Right eyebrow 3cm horizontal lac Betadine prep 1% lidocaine 3cc NS irrigation Betadine prep (3) 5.0 vicryl simple interupted/sq (5) 5.0 prolene simple interrupted (skin) Bacitracin Bandaid Will call Dr. Marie for admit/obs Medical Decision Making - Medical Decision Making 07/06/16 05:32 Ct scan head Right eyebrow: suture repair Will admit to hospitalist/observation because pt is currently on Heparing 5000mg sq BID *DC/Admit/Observation/Transfer Diagnosis at time of Disposition: Head injury Qualifiers: Encounter type: initial encounter Qualified Code(s): S09.90XA - Unspecified injury of head, initial encounter Forehead laceration Qualifiers: Encounter type: initial encounter Qualified Code(s): S01.81XA - Laceration without foreign body of other part of head, initial encounter - Discharge Dispostion Condition at time of disposition: Fair - Referrals Referrals: Jake Marie MD [Primary Care Provider] - - Patient Instructions Printed Discharge Instructions: DI for Closed Head Injury, DI for Laceration Repair Additional Instructions: Upon discharge from the hospital, Keep the incision clean and dry for 24 hours. After 24 hours, you may allow the soap and water to rinse off your incision. Avoid direct pressure of the water to the incision. Pat the incision dry with a clean clothe. Apply a small amount of bacitracin onto the incision. Cover the incision loosely with a bandaid. Take tylenol/motrin as needed for pain. Follow up with your physician or the ER in 48 hours for a wound check. Return to the ER if you notice red streaks, increase redness/swelling/severe pain to the incision. Suture removal in 6-7 days.
[2016-07-06 04:25] VITALS: BP 123/60; PULSE 78; TEMP 97.7; BMI 30.6
[2016-07-06] MEDS ORDERED: TETANUS AND DIPHTHERIA TOXOID 0.5 ML DISP.SYRIN IM ONE (04:28)
--- NOTE | 2016-07-06 04:35 | PDOC ---
*Physical Exam - Vital Signs Last Vital Signs Temp Pulse Resp BP Pulse Ox 97.7 F 78 18 123/60 98 07/06/16 04:19 07/06/16 04:19 07/06/16 04:19 07/06/16 04:19 07/06/16 04:19 <Jennifer Lyles - Last Filed: 07/06/16 06:04> - Vital Signs Last Vital Signs Temp Pulse Resp BP Pulse Ox 97.7 F 78 18 123/60 98 07/06/16 04:19 07/06/16 04:19 07/06/16 04:19 07/06/16 04:19 07/06/16 04:19 <Jaspal Griffin - Last Filed: 07/06/16 06:15> ED Treatment Course - Medications Given in the ED: ED Medications Discontinued Medications Generic Name Dose Route Start Last Admin Trade Name Freq PRN Reason Stop Dose Admin Tetanus/Diphtheria Toxoids Adsorbed 0.5 ml 07/06/16 04:28 07/06/16 04:40 Decavac - IM 07/06/16 04:29 0.5 ml .ONCE ONE Administration <Jennifer Lyles - Last Filed: 07/06/16 06:04> Medical Decision Making - Medical Decision Making 07/06/16 06:[address] Jake Marie (via answering service) at 6:04 Awaiting call back Patient's case discussed with Dr. Marie at 6:05 <Jennifer Lyles - Last Filed: 07/06/16 06:04> - Medical Decision Making 07/06/16 04:35 agree with care from [facility] <Jaspal Griffin - Last Filed: 07/06/16 06:15> *DC/Admit/Observation/Transfer <Jennifer Lyles - Last Filed: 07/06/16 06:04> - Discharge Dispostion Admit: No <Jaspal Griffin - Last Filed: 07/06/16 06:15> Diagnosis at time of Disposition: Head injury Qualifiers: Encounter type: initial encounter Qualified Code(s): S09.90XA - Unspecified injury of head, initial encounter Forehead laceration Qualifiers: Encounter type: initial encounter Qualified Code(s): S01.81XA - Laceration without foreign body of other part of head, initial encounter - Discharge Dispostion Disposition: HOME Condition at time of disposition: Stable - Referrals Referrals: Jake Marie MD [Primary Care Provider] - - Patient Instructions Printed Discharge Instructions: DI for Laceration Repair, DI for Closed Head Injury Additional Instructions: Upon discharge from the hospital, Keep the incision clean and dry for 24 hours. After 24 hours, you may allow the soap and water to rinse off your incision. Avoid direct pressure of the water to the incision. Pat the incision dry with a clean clothe. Apply a small amount of bacitracin onto the incision. Cover the incision loosely with a bandaid. Take tylenol/motrin as needed for pain. Follow up with your physician or the ER in 48 hours for a wound check. Return to the ER if you notice red streaks, increase redness/swelling/severe pain to the incision. Suture removal in 6-7 days. - Post Discharge Activity
== END 2016-07-06 06:52 | disposition home or self-care (01) ==
LOC: JER 04:11 → SUPCPDRO 04:11 → JER 06:52
PROC: 0HQ1XZZ Repair Face Skin, External Approach (ICD-10-PCS; principal; 2016-07-06)
PROC: 3E0234Z Introduction of Serum, Toxoid and Vaccine into Muscle, Percutaneous Approach (ICD-10-PCS; 2016-07-06)
DX: S01.111A Laceration without foreign body of right eyelid and periocular area, initial encounter (principal); W07.XXXA Fall from chair, initial encounter; Y93.89 Activity, other specified; Y92.128 Other place in nursing home as the place of occurrence of the external cause; I10 Essential (primary) hypertension; E78.00 Pure hypercholesterolemia, unspecified; F03.90 Unspecified dementia, unspecified severity, without behavioral disturbance, psychotic disturbance, mood disturbance, and anxiety
CPT/HCPCS: 12013-25; 70450-TC; 71010-TC; 90471; 90715; 99282-25

== ENCOUNTER 2016-11-02 20:41 | Inpatient (IN) | payer OTHER ==
[2016-11-02] MEDS ORDERED: SODIUM CHLORIDE 1,000 ML IV STA (21:16)
--- NOTE | 2016-11-02 21:34 | PDOC ---
History of Present Illness <Sara Bennett - Last Filed: 11/03/16 01:23> - History of Present Illness Initial Comments: 11/02/16 22:24 Patient is a 76 year old female from [facility] with significant medical hx of Parkinsons, HLD, and HTN who is presenting to the ED with confusion and lethargy for three days. Patient was recently diagnosed with a UTI three days ago after being found lethargic at the residential. Since then shes had increased lethargy and had some confusion today, as per accompanying family members. Family members also report the patient has had intermittent fevers, diaphoresis, and cough that is occasionally productive. Allergies: NKDA Past Surgical Hx: Back surgery (10 yrs ago) Social Hx: Denies tobacco use, alcohol use, illicit drug use. PCP: Jake Marie MD <Delfina Mijares - Last Filed: 11/03/16 01:42> - General Chief Complaint: Difficulty with Vision Stated Complaint: BLURRED VISION Time Seen by Provider: 11/02/16 20:47 NIH Stroke Scale - Last Known Well Date/Time & Onset Date Last Known Well: 10/31/16 - Initial Evaluation Level of consciousness: Alert Ask patient the month and their age: Answers one correctly Ask patient to open & close eyes; make fist and let go: Obeys both correctly Best gaze (horizontal eye movement): Normal Visual field testing: No visual field loss Facial paresis (Show teeth/raise eyebrows/close eyes tight): Normal symmetrical movement Motor Function: Left Arm: Normal Motor Function: Right Arm: Normal (extends arm 90 (or 45) degrees for 10 seconds without drift Motor Function: Left Leg: Normal (extends leg 30 degrees for 5 seconds without drift) (1) Motor Function: Right Leg: Normal (extends leg 30 degrees for 5 seconds without drift) Limb Ataxia: No ataxia Sensory(Use pinprick test arms,legs,trunk,face/side to side): Normal Best language (Describe picture, name items, read sentences): No Aphasia Dysarthria (read several words): Normal articulation Extinction and Inattention: No abnormality - Total Score NIH Stroke Scale Score: 1 <Sara Bennett - Last Filed: 11/03/16 01:23> Past History - Past Medical History Anemia: No Asthma: No Cancer: No Cardiac Disorders: No CVA: No COPD: No CHF: No Dementia: Yes Diabetes: No GI Disorders: Yes Disorders: No HTN: Yes Hypercholesterolemia: Yes Liver Disease: No Seizures: No Thyroid Disease: No - Surgical History Abdominal Surgery: No Appendectomy: No Cardiac Surgery: No Cholecystectomy: No Lung Surgery: No Neurologic Surgery: No Orthopedic Surgery: No - Immunization History Immunization Up to Date: Yes - Psycho/Social/Smoking Cessation Hx Anxiety: No Suicidal Ideation: No Smoking History: Unknown if ever smoked Have you smoked in the past 12 months: No 'Breaking Loose' booklet given: 05/28/13 Hx Alcohol Use: Yes (OCCASIONALLY) Drug/Substance Use Hx: No Substance Use Type: Alcohol <CirilliSara - Last Filed: 11/03/16 01:23> <Delfina Mijares - Last Filed: 11/03/16 01:42> - Past Medical History Allergies/Adverse Reactions: Allergies Allergy/AdvReac Type Severity Reaction Status Date / Time No Known Drug Allergies Allergy Verified 11/02/16 20:54 Home Medications: Ambulatory Orders Amlodipine Besylate [Norvasc -] 2.5 mg PO DAILY 06/22/16 Aspirin [ASA -] 81 mg PO DAILY 06/22/16 Donepezil HCl [Aricept -] 10 mg PO DAILY 06/22/16 Duloxetine HCl 60 mg PO DAILY 06/22/16 Gabapentin [Neurontin -] 400 mg PO Q8H 06/22/16 Hydrochlorothiazide 25 mg PO DAILY 06/22/16 Latanoprost 0.005% Eye Drops [Xalatan 0.005% Eye Drops -] 1 drop OU HS 06/22/16 Mirtazapine [Remeron Soltab -] 15 mg PO DAILY 06/22/16 Sennosides/Docusate Sodium [Senna S Tablet] 1 each PO TID 06/22/16 Simvastatin 20 mg PO DAILY 06/22/16 Tolterodine Tartrate LA [Detrol LA -] 4 mg PO DAILY 06/22/16 Acetaminophen [Tylenol .Regular Strength -] 650 mg PO Q6H PRN #0 tablet Carbidopa/Levodopa 25/100 [Sinemet 25/100 -] 1 each PO DAILY@0600 tablet Polyethylene Glycol 3350 [Miralax 119 gm Btl -] 17 gm PO DAILY bottle 06/28/16 Carbidopa/Levodopa/Entacapone [Xhnpsmirg-Dxkfggzc-Xazt 125 mg] 1 each PO TID 07/20 Albuterol Sulfate 0.5% [Ventolin 0.5% -] 1 amp NEB QID PRN 11/02/16 Ascorbate Calcium [Vitamin C] 500 mg PO DAILY 11/02/16 Buspirone HCl [Buspar -] 5 mg PO BID 11/02/16 Cholecalciferol (Vitamin D3) [Vitamin D3] 400 unit PO DAILY 11/02/16 Ferrous Sulfate [Feosol] 325 mg PO BID 11/02/16 Levofloxacin [Levaquin -] 500 mg PO DAILY 11/02/16 Rotigotine [Neupro] 1 each TD DAILY 11/02/16 Review of Systems - Review of Systems Comments:: 11/02/16 22:26 GENERAL/CONSTITUTIONAL: Lethargic. Fevers, chills, diaphoresis. HEAD, EYES, EARS, NOSE AND THROAT: No change in vision. No ear pain or discharge. No sore throat. CARDIOVASCULAR: No chest pain or shortness of breath. RESPIRATORY: Cough. No wheezing, or hemoptysis. GASTROINTESTINAL: No nausea, vomiting, diarrhea or constipation. GENITOURINARY: UTI. No hematuria. MUSCULOSKELETAL: No joint or muscle swelling or pain. No neck or back pain. ENDOCRINE: No increased thirst. No abnormal weight change. SKIN: No rash NEUROLOGIC: Confusion. No headache, vertigo, loss of consciousness, or change in strength/sensation. <Delfina Mijares - Last Filed: 11/03/16 01:42> *Physical Exam - Vital Signs Last Vital Signs Temp Pulse Resp BP Pulse Ox 98.4 F 72 22 98/61 92 L 11/02/16 21:02 11/02/16 21:02 11/02/16 21:02 11/02/16 21:02 11/02/16 21:02 <Sara Bennett - Last Filed: 11/03/16 01:23> - Vital Signs Last Vital Signs Temp Pulse Resp BP Pulse Ox 98.4 F 72 22 98/61 92 L 11/02/16 21:02 11/02/16 21:02 11/02/16 21:02 11/02/16 21:02 11/02/16 21:02 - Physical Exam Comments: 11/02/16 22:30 GENERAL: Awake but drowsy, in no acute distress HEAD: No signs of trauma EYES: PERRLA, EOMI, sclera anicteric, conjunctiva clear ENT: Auricles normal inspection, hearing grossly normal, nares patent, oropharynx clear without exudates. Dry mucosa NECK: Normal ROM, supple, no lymphadenopathy, JVD, or masses LUNGS: Crackles left lung base. No wheezes, no rales. HEART: Tachycardia, regular, normal S1 and S2, no murmurs, rubs or gallops ABDOMEN: Soft, nontender, normoactive bowel sounds. No guarding, no rebound. No masses EXTREMITIES: Warm, well profused. Normal range of motion, no edema. Some stiffness (old). No clubbing or cyanosis. No cords, erythema, or tenderness. NEUROLOGICAL: AAO x 2. Bilateral 5/5 strength upper and lower extremities. Mild tremor (old). Face symmetric. Cranial nerves II through XII grossly intact. Normal speech SKIN: Flushed. Warm, Dry, normal turgor, no rashes or lesions noted. HEMATOLOGIC/LYMPHATIC: No anemia, easy bleeding, or history of blood clots. ALLERGIC/IMMUNOLOGIC: No hives or skin allergy. <Delfina Mijares - Last Filed: 11/03/16 01:42> Heart Score/ECG Review #1 11/02/16 22:45 Sinus rhythm at 78 bpm with occasional premature ventricular complexes Possible Left atrial enlargement Incomplete right bundle branch block Borderline ECG <Delfina Mijares - Last Filed: 11/03/16 01:42> ED Treatment Course - LABORATORY CBC & Chemistry Diagram: 11/02/16 21:38 11/02/16 21:38 - RADIOLOGY Radiology Studies Ordered: Category Date Time Status CHEST X-RAY PORTABLE* [RAD] Stat Radiology 11/02/16 21:16 Ordered <Sara Bennett - Last Filed: 11/03/16 01:23> - LABORATORY CBC & Chemistry Diagram: 11/02/16 21:38 11/02/16 21:38 - ADDITIONAL ORDERS Additional order review: 11/02/16 21:38 RBC 4.14 MCV 72.7 L MCHC 29.3 L RDW 21.5 H MPV 6.9 L Neutrophils % Y Lymphocytes % Y - RADIOLOGY Radiograph Interpretation: 11/03/16 01:41 Estate Attorney: ([email or web address]) Report Date: 11/03/2016 00:59:00 Report Status: Preliminary Begin of Report Content Referring Physician: Sara Bennett Patient Name: Radha Hodges This is a preliminary report by imaging energy professional Exam: Noncontrast CT head Images: 178 Clinical indication: Altered mental status. Reformatted coronal and sagittal images were provided. Findings: Multiple axial images were obtained of the brain without contrast. There is no mass-effect, midline shift or hemorrhage. There is no intra-axial or extra-axial fluid collection. Atrophic involutional changes and chronic ischemic periventricular white matter changes are noted. Mild hypoattenuation and loss of [place]-white matter differentiation is seen in the occipital lobe on the left. The visualized portions of the paranasal sinuses are clear. The middle ear cavities and mastoids are clear. Impression: No mass effect or intracranial hemorrhage. Parenchymal hypoattenuation and loss of [place]-white matter differentiation in the left occipital lobe, consistent with infarct it may be acute/subacute. THIS DOCUMENT HAS BEEN ELECTRONICALLY SIGNED Mario Mendes M.D. 11/03/2016 01:19 [place] Alicia Please call Imaging Strategy Lead [phone] ([phone]) with questions. End of Report Content <Delfina Mijares - Last Filed: 11/03/16 01:42> Medical Decision Making - Medical Decision Making 11/02/16 21:27 76 yo F with h/o parkinsons, HLD, depression, HTN currently at [facility], here with recent diagnosis of UTI, started on levaquin today, now with AMS since saturday x 2 days. no focal weakness, more sleepy, and more confused , normally can answer questions without difficulty and oriented x 3. no trauma. has also noted to have had a fever 99, and cough productive phlegm, has been getting breathing treatments at residential. no n/v no other complaints of pain. on exam pt awake and but drowsy, answer questions, lungs with crackles left base , normal effort. heart tachycardia, regular, abd soft NT. nuero alert and oriented x 2 ( can tell year, not month) , symmetric strenth all for ext. skin warm , flushed, dry. dry mucous membranes. plan: differential pna, sepsis, uti, pyelo, renal failure, plan labs septic workup, iv hydration oxygen, tylenol, cxr will require admission. pt is DNR per outside papers. corie d/w dr Jake Marie 11/03/16 01:27 pt with subactue/ acute infarct on CT scan. d/w dr. [place]. will see pt in am. sxs since saturday of confusion, lethargy. not tpa candidate as delayed presentation. <Sara Bennett - Last Filed: 11/03/16 01:23> *DC/Admit/Observation/Transfer - Discharge Dispostion Admit: Yes <Sara Bennett - Last Filed: 11/03/16 01:23> - Attestations Scribe Attestion: 11/02/16 22:34 Documentation prepared by Delfina Mijares, acting as pesticide use medical coordinator for Sara Bennett MD. <Delfina Mijares - Last Filed: 11/03/16 01:42> Diagnosis at time of Disposition: Pyelonephritis, Pneumonia, NSTEMI (non-ST elevated myocardial infarction), UTI (urinary tract infection), Altered mental state
[2016-11-02 22:08] LABS: MEAN PLT VOLUME 6.9 fl (7.5-11.1)
[2016-11-02 22:11] LABS: MCH 21.3 pg (25.7-33.7); MCHC 29.3 g/dl (32.0-36.0); MEAN CELL VOLUME 72.7 fl (80-96); PLATELET COUNT 549 K/MM3 (134-434); RDW 21.5 % (11.6-15.6)
[2016-11-02 22:22] LABS: URINE APPEARANCE CLOUDY; URINE BILIRUBIN NEGATIVE (NEGATIVE); URINE BLOOD NEGATIVE (NEGATIVE); URINE COLOR AMBER; URINE GLUCOSE (UA) NEGATIVE (NEGATIVE); URINE KETONE TRACE (NEGATIVE); URINE NITRITE NEGATIVE (NEGATIVE); URINE UROBILINOGEN NEGATIVE E.U./dl (0.2-1.0)
[2016-11-02 22:25] LABS: URINE LEUK ESTERASE 3+ (NEGATIVE); URINE PROTEIN 1+ (NEGATIVE)
[2016-11-02 22:26] LABS: CALCIUM OXALATE CRYSTALS FEW /hpf (NONE SEEN); URINE BACTERIA MODERATE /hpf (NONE SEEN); URINE HYALINE CAST 11 /lpf; URINE MUCUS RARE; URINE RBC 13 /hpf (0-3); URINE WBC 664 /hpf (3-5); YEAST FEW
[2016-11-02 22:42] LABS: INR 1.56 (0.82-1.09); PROTHROMBIN TIME (PATIENT) 17.3 SEC (9.98-11.88)
[2016-11-02 22:45] LABS: ALBUMIN 2.2 g/dl (3.4-5.0); ANION GAP 10 (8-16); BILIRUBIN,TOTAL 0.3 mg/dL (0.2-1.0); CALCIUM 8.3 mg/dL (8.5-10.1); CO2 31 mmol/L (21-32); CREATININE 0.7 mg/dL (0.55-1.02); GLUCOSE,RANDOM 102 mg/dL (74-106); SGOT/AST 18 U/L (15-37); SGPT/ALT < 6 U/L (12-78); TOT PROT 5.6 g/dl (6.4-8.2)
[2016-11-02 22:47] LABS: ALK PHOS 139 U/L (45-117); TROPONIN I 0.44 ng/ml (0.00-0.05)
[2016-11-02 22:51] LABS: VENOUS PH 7.4 (7.32-7.42)
[2016-11-02] MEDS ORDERED: VANCOMYCIN 1,000 MG in DEXTROSE 5%-WATER - 250 ML IVPB ONE (23:06)
[2016-11-02] MEDS ORDERED: PIPERACILLIN/TAZOB 3.375 GM 3.375 GM in DEXTROSE 5%-WATER - 50 ML IVPB ONE (23:07)
[2016-11-02 23:12] VITALS: BMI 24.3
[2016-11-02] MEDS ORDERED: PIPERACILLIN/TAZOB 3.375 GM 50 ML IVPB ONE (23:34)
[2016-11-02] MEDS ORDERED: VANCOMYCIN 1 GRAM (PRE-DOCKED) 250 ML IVPB ONE (23:34)
[2016-11-03] MEDS ORDERED: ASPIRIN 81 MG CHEWABLE TABLETS PO ONE (00:02)
[2016-11-03] MEDS ORDERED: ACETAMINOPHEN 325 MG TABLET (FP) PO PRN (00:03)
[2016-11-03] MEDS ORDERED: ASPIRIN 81 MG CHEWABLE TABLETS ONE (00:11)
[2016-11-03 02:46] LABS: ANISOCYTOSIS 2+; HYPOCHROMIA 2+; MICROCYTOSIS 1+; PLATELET COMMENT2 NO CLOTTING DETECTED; PLATELET COMMENT3 FEW LARGE PLTS; PLATELET ESTIMATE INCREASED (NORMAL); POIKILOCYTOSIS 1+; POLYCHROMASIA 1+
[2016-11-03 03:55] LABS: TROPONIN I 0.42 ng/ml (0.00-0.05)
[2016-11-03] MEDS ORDERED: PIPERACILLIN/TAZOB 3.375 GM/50 ML PRE-DOCKED IV ONE (05:00)
[2016-11-03] MEDS ORDERED: PIPERACILLIN/TAZOB 3.375 GM 50 ML IVPB ONE (05:33)
[2016-11-03] MEDS ORDERED: CARBIDOPA/LEVODOPA 25/100 TABLET (FP) ONE (05:33)
[2016-11-03] MEDS ORDERED: ALBUTEROL SO4 0.083% IH SOL 2.5 MG/3 ML VIAL.NEB. NEB ONE ×2 (05:37→21:55)
[2016-11-03] MEDS: CARBIDOPA/LEVODOPA 25/100 TABLET (FP) PO SCH (05:42)
[2016-11-03] MEDS: ALBUTEROL SO4 0.5 % INH SOLN 2.5 MG/0.5 ML VIAL.NEB. NEB PRN (05:42)
[2016-11-03] MEDS: SENNOSIDES/DOCUSATE COMBO (SENNA PLUS) TABLET (UD) PO SCH ×3 (06:30→21:10)
[2016-11-03 06:40] LABS: MCH 21.8 pg (25.7-33.7); MCHC 29.9 g/dl (32.0-36.0); MEAN CELL VOLUME 72.8 fl (80-96); MEAN PLT VOLUME 6.8 fl (7.5-11.1); PLATELET COUNT 576 K/MM3 (134-434); RDW 21.3 % (11.6-15.6); WHITE BLOOD COUNT 21.6 K/mm3 (4.0-10.0)
[2016-11-03 07:00] LABS: ALK PHOS 127 U/L (45-117); ANION GAP 8 (8-16); BILIRUBIN,TOTAL 0.3 mg/dL (0.2-1.0); CALCIUM 8.3 mg/dL (8.5-10.1); CO2 34 mmol/L (21-32); CREATININE 0.4 mg/dL (0.55-1.02); GLUCOSE,RANDOM 95 mg/dL (74-106); SGOT/AST 16 U/L (15-37); SGPT/ALT < 6 U/L (12-78); TOT PROT 5.1 g/dl (6.4-8.2)
[2016-11-03] MEDS: FERROUS SO4 325 MG TABLET (FP) PO SCH ×2 (10:26→17:48)
[2016-11-03] MEDS: amLODIPine BESYLATE 2.5 MG TABLET (FP) PO SCH (10:26)
[2016-11-03] MEDS: ASCORBIC ACID 500 MG TABLET (FP) PO SCH (10:27)
[2016-11-03] MEDS: DULoxetine HCL 30 MG CAPSULE.DR (FP) PO SCH (10:27)
[2016-11-03] MEDS: busPIRone HCL 5 MG TABLET PO SCH ×2 (10:27→21:10)
[2016-11-03] MEDS: DONEPEZIL HCL 10 MG TABLET (FP) PO SCH (10:27)
[2016-11-03] MEDS: POLYETHYLENE GLYCOL 3350 119 GM BTL PO SCH (10:27)
[2016-11-03] MEDS: ASPIRIN 81 MG CHEWABLE TABLETS PO SCH (10:27)
--- NOTE | 2016-11-03 11:46 | PN ---
Progress Note, Physician Chief Complaint: ID Full note dictated Confusion Lethargy but NAD - Current Medication List Current Medications: Active Medications Acetaminophen (Tylenol -) 650 mg PO Q6H PRN PRN Reason: BACK PAIN Last Admin: 11/03/16 10:49 Dose: 650 mg Albuterol Sulfate (Ventolin 0.5% -) 1 amp NEB Q6H PRN PRN Reason: SHORTNESS OF BREATH Last Admin: 11/03/16 05:42 Dose: 1 amp Amlodipine Besylate (Norvasc -) 2.5 mg PO DAILY PENDING SALE TO [facility] Last Admin: 11/03/16 10:26 Dose: 2.5 mg Ascorbic Acid (Vitamin C -) 500 mg PO DAILY PENDING SALE TO [facility] Last Admin: 11/03/16 10:27 Dose: 500 mg Aspirin (Asa -) 81 mg PO DAILY PENDING SALE TO [facility] Last Admin: 11/03/16 10:27 Dose: 81 mg Atorvastatin Calcium (Lipitor -) 10 mg PO HS PENDING SALE TO [facility] Buspirone HCl (Buspar -) 5 mg PO BID PENDING SALE TO [facility] Last Admin: 11/03/16 10:27 Dose: 5 mg Carbidopa/Levodopa (Sinemet 25/100 -) 1 each PO DAILY@0600 PENDING SALE TO [facility] Last Admin: 11/03/16 05:42 Dose: 1 each Donepezil HCl (Aricept -) 10 mg PO DAILY PENDING SALE TO [facility] Last Admin: 11/03/16 10:27 Dose: 10 mg Duloxetine HCl (Cymbalta -) 60 mg PO DAILY PENDING SALE TO [facility] Last Admin: 11/03/16 10:27 Dose: 60 mg Ferrous Sulfate (Feosol -) 325 mg PO BIDWM PENDING SALE TO [facility] Last Admin: 11/03/16 10:26 Dose: 325 mg Latanoprost (Xalatan 0.005% Eye Drops -) 1 drop OU HS PENDING SALE TO [facility] Non-Formulary Medication (Carbidopa/Levodopa/Entacapone [Carbidopa-Levodopa- Enta 125 Mg]) 1 each PO TID PENDING SALE TO [facility] Non-Formulary Medication (Rotigotine [Neupro]) 1 each TD DAILY PENDING SALE TO [facility] Polyethylene Glycol (Miralax (For Daily Use) -) 17 gm PO DAILY PENDING SALE TO [facility] Last Admin: 11/03/16 10:27 Dose: 17 gm Senna/Docusate Sodium (Pericolace -) 1 tablet PO TID PENDING SALE TO [facility] Last Admin: 11/03/16 06:30 Dose: Not Given Tolterodine Tartrate (Detrol La -) 4 mg PO DAILY ARCHIE - Objective Vital Signs: Vital Signs Temperature 98.2 F 11/03/16 10:30 Pulse Rate 82 11/03/16 10:30 Respiratory Rate 14 11/03/16 10:30 Blood Pressure 124/68 11/03/16 10:30 O2 Sat by Pulse Oximetry (%) 96 11/03/16 10:30 Constitutional: Yes: Well Nourished, No Distress, Other (Diaphertetic) Neck: Yes: WNL, Supple Cardiovascular: Yes: S1, S2 Respiratory: Yes: WNL, Regular, CTA Bilaterally. No: Rales, Rhonchi Gastrointestinal: Yes: Abdomen, Obese. No: Tenderness, Tenderness, Epigastrium Edema: No Labs: CBC, BMP 11/03/16 06:00 11/03/16 06:00 INR, PTT INR 1.56 (0.82-1.09) H 11/02/16 21:38 Problem List - Problems (1) UTI (urinary tract infection) with pyuria Code(s): N39.0 - URINARY TRACT INFECTION, SITE NOT SPECIFIED (2) Altered mental state Code(s): R41.82 - ALTERED MENTAL STATUS, UNSPECIFIED Assessment/Plan Laboratory Tests 11/02/16 11/02/16 11/03/16 21:38 23:57 06:00 WBC 21.6 H Hgb 9.0 L Hct 30.1 L Plt Count 576 H Creatinine Lactic Acid 1.0 0.9 Total Bilirubin AST ALT Alkaline Phosphatase 11/03/16 06:00 WBC Hgb Hct Plt Count Creatinine 0.4 L D Lactic Acid Total Bilirubin 0.3 AST 16 ALT < 6 L Alkaline Phosphatase 127 H Assessment Altered mental status Subacute CVA UTI/ leukocytosis Plan Blood urine c/s Ceftriaxone Neuro evaluation Grover ONOFRE
--- NOTE | 2016-11-03 12:37 | CONS ---
DATE OF CONSULTATION: DATE OF DICTATION: 11/03/2016 HISTORY OF PRESENT ILLNESS: This is a 76-year-old female from [facility] brought with chief complaint of lethargy and confusion. She had recently been diagnosed with a urinary tract infection and has had E. coli pansensitive cultured in the urine at [facility] most recently. She had no fever here but had a markedly elevated WBC count. The patient is alert and in no distress currently. She is conversive and can answer questions but is clearly confused. Her CAT scan of the head done on admission now suggests the possibility of a subacute infarct. The patient was given a dose of vancomycin and Zosyn in the ER and I am asked to see her for further evaluation. PAST MEDICAL HISTORY: Include Parkinson disease, hyperlipidemia, hypertension. MEDICATIONS:1. Amlodipine. 2. Aspirin. 3. Aricept. 4. Remeron. 5. Simvastatin. 6. Sinemet. 7. Buspar. 8. Iron. 9. Levofloxacin possibly given November 02. ALLERGIES: None known. SOCIAL HISTORY: Unknown if ever smoked. No history of alcohol use. FAMILY HISTORY: Unobtainable from patient. REVIEW OF SYSTEMS: Respiratory: No cough, shortness of breath. Cardiac: No chest pain, palpitations. Gastrointestinal: No nausea, vomiting, abdominal pain. Genitourinary: Denies dysuria, hematuria, urinary frequency. PHYSICAL EXAMINATION:General: Revealed an elderly woman who appeared alert and in no distress, albeit diaphoretic appearing. Vital Signs: Her temperature was 98.2, pulse 82, blood pressure 124/68, respirations 14, oxygen saturation 95%, 3 L. Neck: Supple. No adenopathy. Lungs: Clear to percussion and auscultation. Heart: S1, S2. Regular rhythm. No murmur or gallop. Abdomen: Soft, nontender, without hepatosplenomegaly. Extremities: Without clubbing, cyanosis, or edema. LABORATORY DATA: The white count 27,000, hemoglobin 8.8, platelets 549, left shift, 5% bands. INR 1.56. BUN 38, creatinine 0.7, alkaline phosphatase 139, AST 18. Urinalysis with 660 , 13 , 3+ leukocyte esterase. Chest x-ray was reviewed, shows no acute infiltrate, congestive changes seen. ASSESSMENT: A 76-year-old female presents with confusion and lethargy. Source of infection to account for leukocytosis most likely urinary tract. Pulmonary congestive changes seen on x-ray but no definite infiltrate noted. Head computed tomography scan with subacute left occipital infarct. PLAN: Blood and urine cultures. Neurology evaluation suggested. Empiric therapy with ceftriaxone 1 g q.24 hours. ELADIO SEVERINO M.D. [id number]
--- NOTE | 2016-11-03 13:30 | HP ---
Admitting History and Physical - Primary Care Physician PCP: Jake Marie - Admission Chief Complaint: Confusion. Visual Changes History of Present Illness: Pt is a resident of [facility], noticed to have UTI yesterday and started on PO Levaqiune (UCX pending). In the evening pt couldn't see; she was sent to ER, found to be confused, abnormal Head CT scan (possible acute/ subacute stroke ), UTI, possible PNA. Pt was admitted, started on IV abtx; she was admitted to Telemetry secondary to elevated Trop I. Pt's health palliative care nurse (sister Annia) at bed side now, states that pt is improved in her MS, eye sight. 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, Other (Gait impairment Back pain Glaucoma [place]) Cardiovascular: Yes: HTN, Hyperlipdemia - Smoking History Smoking history: Unknown if ever smoked Have you smoked in the past 12 months: No - Alcohol/Substance Use Hx Alcohol Use: Yes (OCCASIONALLY) - Social History ADL: Support Services History of Recent Travel: No Home Medications - Allergies Allergies/Adverse Reactions: Allergies Allergy/AdvReac Type Severity Reaction Status Date / Time No Known Drug Allergies Allergy Verified 11/02/16 20:54 - Home Medications Home Medications: Ambulatory Orders Amlodipine Besylate [Norvasc -] 2.5 mg PO DAILY 06/22/16 Aspirin [ASA -] 81 mg PO DAILY 06/22/16 Donepezil HCl [Aricept -] 10 mg PO DAILY 06/22/16 Duloxetine HCl 60 mg PO DAILY 06/22/16 Gabapentin [Neurontin -] 400 mg PO Q8H 06/22/16 Hydrochlorothiazide 25 mg PO DAILY 06/22/16 Latanoprost 0.005% Eye Drops [Xalatan 0.005% Eye Drops -] 1 drop OU HS 06/22/16 Mirtazapine [Remeron Soltab -] 15 mg PO DAILY 06/22/16 Sennosides/Docusate Sodium [Senna S Tablet] 1 each PO TID 06/22/16 Simvastatin 20 mg PO DAILY 06/22/16 Tolterodine Tartrate LA [Detrol LA -] 4 mg PO DAILY 06/22/16 Acetaminophen [Tylenol .Regular Strength -] 650 mg PO Q6H PRN #0 tablet Carbidopa/Levodopa 25/100 [Sinemet 25/100 -] 1 each PO DAILY@0600 tablet Polyethylene Glycol 3350 [Miralax 119 gm Btl -] 17 gm PO DAILY bottle 06/28/16 Carbidopa/Levodopa/Entacapone [Copqyoomg-Afeavswk-Nejk 125 mg] 1 each PO TID 07/20 Albuterol Sulfate 0.5% [Ventolin 0.5% -] 1 amp NEB QID PRN 11/02/16 Ascorbate Calcium [Vitamin C] 500 mg PO DAILY 11/02/16 Buspirone HCl [Buspar -] 5 mg PO BID 11/02/16 Cholecalciferol (Vitamin D3) [Vitamin D3] 400 unit PO DAILY 11/02/16 Ferrous Sulfate [Feosol] 325 mg PO BID 11/02/16 Levofloxacin [Levaquin -] 500 mg PO DAILY 11/02/16 Rotigotine [Neupro] 1 each TD DAILY 11/02/16 Review of Systems - Review of Systems Constitutional: denies: Chills, Fever Eyes: reports: Blurred Vision. denies: Eye Pain HENT: denies: Difficult Swallowing, Ear Discharge, Ear Pain, Throat Pain Neck: denies: Pain on Movement, Stiffness Cardiovascular: denies: Chest Pain, Edema, Palpitations Respiratory: reports: Cough, SOB. denies: Hemoptysis, Wheezing Gastrointestinal: denies: Abdominal Pain, Constipation, Diarrhea, Nausea, Vomiting Genitourinary: denies: Burning, Dysuria Musculoskeletal: denies: Back Pain, Joint Pain, Joint Swelling Integumentary: denies: Blister, Bruising Neurological: reports: Confusion (yesterday), Tremors (old) Endocrine: denies: Excessive Sweating, Intolerance to Cold Hematology/Lymphatic: denies: Easily Bruised, Excessive Bleeding Physical Examination Vital Signs: Vital Signs Temperature 98.2 F 11/03/16 10:30 Pulse Rate 82 11/03/16 10:30 Respiratory Rate 14 11/03/16 10:30 Blood Pressure 124/68 11/03/16 10:30 O2 Sat by Pulse Oximetry (%) 96 11/03/16 10:30 Constitutional: Yes: No Distress, Calm Eyes: Yes: Conjunctiva Clear, EOM Intact HENT: Yes: Normocephalic. No: Pharyngeal Erythema, Rhinnorhea Neck: Yes: Trachea Midline. No: Supple, Tenderness Cardiovascular: Yes: Regular Rate and Rhythm, S1, S2 Respiratory: Yes: Regular, Rhonchi (at bases) Gastrointestinal: Yes: Normal Bowel Sounds, Soft. No: Palpable Mass, Tenderness ...Rectal Exam: Yes: Deferred Breast(s): Yes: Other (deferred) Musculoskeletal: No: Joint Stiffness, Joint Swelling, Muscle Weakness Edema: No Neurological: Yes: Alert, Oriented, Facial Droop (mild right mouth corner- old) , Other (motor and sensory evaluation in UE/ LE/ face symmetric) ...Motor Strength: WNL Psychiatric: Yes: Alert Labs: CBC, BMP 11/03/16 06:00 11/03/16 06:00 Imaging - Results Chest X-ray: Report Reviewed, Image Reviewed Cat Scan: Report Reviewed Problem List - Problems (1) Altered mental state Code(s): R41.82 - ALTERED MENTAL STATUS, UNSPECIFIED (2) Sepsis Code(s): A41.9 - SEPSIS, UNSPECIFIED ORGANISM (3) UTI (urinary tract infection) with pyuria Code(s): N39.0 - URINARY TRACT INFECTION, SITE NOT SPECIFIED (4) Pneumonia Code(s): J18.9 - PNEUMONIA, UNSPECIFIED ORGANISM (5) CVA (cerebral vascular accident) Code(s): I63.9 - CEREBRAL INFARCTION, UNSPECIFIED (6) Parkinson disease Code(s): G20 - PARKINSON'S DISEASE (7) Impaired gait Code(s): R26.9 - UNSPECIFIED ABNORMALITIES OF GAIT AND MOBILITY (8) Elevated troponin I level Code(s): R74.8 - ABNORMAL LEVELS OF OTHER SERUM ENZYMES Assessment/Plan IV abtx Admit to Telemetry, Serial CE ID consult Neurology consult Cardiology consult Pulmonary consult Neuro checks DVT prophylasis
--- NOTE | 2016-11-03 13:36 | CON.CARD ---
Consult Consult Specialty:: Cardiology for [place] - History of Present Illness History of Present Illness: Patient is a 76 year old female from [facility] with significant medical hx of Parkinsons, HLD, and HTN who is presenting to the ED with confusion and lethargy for three days. Patient was recently diagnosed with a UTI three days ago after being found lethargic at the residential. Since then shes had increased lethargy and had some confusion today, as per accompanying family members. Family members also report the patient has had intermittent fevers, diaphoresis, and cough that is occasionally productive. 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 Cardio/Vascular: Yes: HTN - Alcohol/Substance Use Hx Alcohol Use: Yes (OCCASIONALLY) - Smoking History Smoking history: Unknown if ever smoked Have you smoked in the past 12 months: No - Social History Usual Living Arrangement: [facility] ADL: Support Services History of Recent Travel: No Home Medications - Allergies Allergies/Adverse Reactions: Allergies Allergy/AdvReac Type Severity Reaction Status Date / Time No Known Drug Allergies Allergy Verified 11/02/16 20:54 - Home Medications Home Medications: Ambulatory Orders Amlodipine Besylate [Norvasc -] 2.5 mg PO DAILY 06/22/16 Aspirin [ASA -] 81 mg PO DAILY 06/22/16 Donepezil HCl [Aricept -] 10 mg PO DAILY 06/22/16 Duloxetine HCl 60 mg PO DAILY 06/22/16 Gabapentin [Neurontin -] 400 mg PO Q8H 06/22/16 Hydrochlorothiazide 25 mg PO DAILY 06/22/16 Latanoprost 0.005% Eye Drops [Xalatan 0.005% Eye Drops -] 1 drop OU HS 06/22/16 Mirtazapine [Remeron Soltab -] 15 mg PO DAILY 06/22/16 Sennosides/Docusate Sodium [Senna S Tablet] 1 each PO TID 06/22/16 Simvastatin 20 mg PO DAILY 06/22/16 Tolterodine Tartrate LA [Detrol LA -] 4 mg PO DAILY 06/22/16 Acetaminophen [Tylenol .Regular Strength -] 650 mg PO Q6H PRN #0 tablet Carbidopa/Levodopa 25/100 [Sinemet 25/100 -] 1 each PO DAILY@0600 tablet Polyethylene Glycol 3350 [Miralax 119 gm Btl -] 17 gm PO DAILY bottle 06/28/16 Carbidopa/Levodopa/Entacapone [Tjwenotwn-Adzrleqg-Poki 125 mg] 1 each PO TID 07/20 Albuterol Sulfate 0.5% [Ventolin 0.5% -] 1 amp NEB QID PRN 11/02/16 Ascorbate Calcium [Vitamin C] 500 mg PO DAILY 11/02/16 Buspirone HCl [Buspar -] 5 mg PO BID 11/02/16 Cholecalciferol (Vitamin D3) [Vitamin D3] 400 unit PO DAILY 11/02/16 Ferrous Sulfate [Feosol] 325 mg PO BID 11/02/16 Levofloxacin [Levaquin -] 500 mg PO DAILY 11/02/16 Rotigotine [Neupro] 1 each TD DAILY 11/02/16 Review of Systems - Review of Systems Constitutional: reports: No Symptoms Eyes: reports: No Symptoms HENT: reports: No Symptoms Neck: reports: No Symptoms Cardiovascular: reports: No Symptoms Gastrointestinal: reports: No Symptoms Genitourinary: reports: No Symptoms Breasts: reports: No Symptoms Reported Musculoskeletal: reports: No Symptoms Integumentary: reports: No Symptoms Neurological: reports: No Symptoms Endocrine: reports: No Symptoms Hematology/Lymphatic: reports: No Symptoms Psychiatric: reports: No Symptoms Vital Signs: Vital Signs Temperature 98.2 F 11/03/16 10:30 Pulse Rate 82 11/03/16 10:30 Respiratory Rate 14 11/03/16 10:30 Blood Pressure 124/68 11/03/16 10:30 O2 Sat by Pulse Oximetry (%) 96 11/03/16 10:30 Constitutional: Yes: Well Nourished, No Distress, Calm Eyes: Yes: WNL, Conjunctiva Clear, EOM Intact HENT: Yes: WNL, Atraumatic, Normocephalic Neck: Yes: WNL, Supple, Trachea Midline Respiratory: Yes: WNL, Regular, CTA Bilaterally Gastrointestinal: Yes: WNL, Normal Bowel Sounds Renal/: Yes: WNL Cardiovascular: Yes: WNL, Regular Rate and Rhythm Musculoskeletal: Yes: WNL Extremities: Yes: WNL Integumentary: Yes: WNL ...Motor Strength: WNL Psychiatric: Yes: WNL, Alert, Oriented - Other Data Labs, Other Data: CBC, BMP 11/03/16 06:00 11/03/16 06:00 INR, PTT INR 1.56 (0.82-1.09) H 11/02/16 21:38 Troponin, BNP 11/03/16 03:20 Troponin I 0.42 H Troponin, BNP 11/03/16 03:20 Troponin I 0.42 H Imaging - Results Chest X-ray: Image Reviewed (conggerstive changes) EKG: Image Reviewed (sr vpcs) Problem List - Problems (1) Altered mental state Code(s): R41.82 - ALTERED MENTAL STATUS, UNSPECIFIED (2) Anemia Code(s): D64.9 - ANEMIA, UNSPECIFIED (3) CVA (cerebral vascular accident) Code(s): I63.9 - CEREBRAL INFARCTION, UNSPECIFIED (4) Chest pain Code(s): R07.9 - CHEST PAIN, UNSPECIFIED (5) Elevated troponin I level Code(s): R74.8 - ABNORMAL LEVELS OF OTHER SERUM ENZYMES (6) HTN (hypertension) Code(s): I10 - ESSENTIAL (PRIMARY) HYPERTENSION (7) Hyperlipemia Code(s): E78.5 - HYPERLIPIDEMIA, UNSPECIFIED (8) Impaired gait Code(s): R26.9 - UNSPECIFIED ABNORMALITIES OF GAIT AND MOBILITY (9) NSTEMI (non-ST elevated myocardial infarction) Code(s): I21.4 - NON-ST ELEVATION (NSTEMI) MYOCARDIAL INFARCTION (10) Parkinson disease Code(s): G20 - PARKINSON'S DISEASE (11) Parkinsonian features Code(s): R25.9 - UNSPECIFIED ABNORMAL INVOLUNTARY MOVEMENTS (12) Pneumonia Code(s): J18.9 - PNEUMONIA, UNSPECIFIED ORGANISM (13) Pyelonephritis Code(s): N12 - TUBULO-INTERSTITIAL NEPHRITIS, NOT SPCF ACUTE OR CHRONIC (14) Sepsis Code(s): A41.9 - SEPSIS, UNSPECIFIED ORGANISM (15) UTI (urinary tract infection) Code(s): N39.0 - URINARY TRACT INFECTION, SITE NOT SPECIFIED (16) UTI (urinary tract infection) with pyuria Code(s): N39.0 - URINARY TRACT INFECTION, SITE NOT SPECIFIED (17) Contusion of head Code(s): S00.93XA - CONTUSION OF UNSPECIFIED PART OF HEAD, INITIAL ENCOUNTER (18) Fall at home Code(s): W19.XXXA - UNSPECIFIED FALL, INITIAL ENCOUNTER Y92.099 - UNSP PLACE IN OTH NON-INSTITUTIONAL RESIDENCE PLACE (19) Forehead laceration Code(s): S01.81XA - LACERATION W/O FOREIGN BODY OF OTH PART OF HEAD, INIT ENCNTR Qualifiers: Encounter type: initial encounter Qualified Code(s): S01.81XA - Laceration without foreign body of other part of head, initial encounter (20) Head injury Code(s): S09.90XA - UNSPECIFIED INJURY OF HEAD, INITIAL ENCOUNTER Qualifiers: Encounter type: initial encounter Qualified Code(s): S09.90XA - Unspecified injury of head, initial encounter (21) Laceration Code(s): T14.8 - OTHER INJURY OF UNSPECIFIED BODY REGION (22) Nasal bone fracture Code(s): S02.2XXA - FRACTURE OF NASAL BONES, INIT ENCNTR FOR CLOSED FRACTURE Assessment/Plan subacute left occipital/CARE COORDINATION MANAGER territory infarct. uti ?pna ?chf elevated PCI Plan abx supportive care doubt primary cardiac event. cont asa and lipitor
[2016-11-03] MEDS: TOLTERODINE TARTRATE LA 4 MG CAP.SR.24H (FP) PO SCH (14:43)
[2016-11-03] MEDS: CARBIDOPA PO SCH ×2 (14:44→21:10)
[2016-11-03] MEDS: ENTACAPONE PO SCH ×2 (14:44→21:10)
[2016-11-03] MEDS: [UNRECOGNIZED DRUG - OTHER] PO SCH ×2 (14:44→21:10)
[2016-11-03] MEDS: LEVODOPA PO SCH ×2 (14:44→21:10)
[2016-11-03] MEDS ORDERED: PT OWN MED DRAWER 7, Y5N ONE (14:46)
[2016-11-03] MEDS: ROTIGOTINE TD SCH (14:47)
--- NOTE | 2016-11-03 14:54 | EKG ---
Test Reason : Blood Pressure : / mmHG Vent. Rate : 078 BPM Atrial Rate : 078 BPM P-R Int : 144 ms QRS Dur : 114 ms QT Int : 398 ms P-R-T Axes : 070 -17 008 degrees QTc Int : 453 ms SINUS RHYTHM WITH OCCASIONAL PREMATURE VENTRICULAR COMPLEXES POSSIBLE LEFT ATRIAL ENLARGEMENT INCOMPLETE RIGHT BUNDLE BRANCH BLOCK BORDERLINE ECG WHEN COMPARED WITH ECG OF 22-JUN-2016 13:20, PREMATURE VENTRICULAR COMPLEXES ARE NOW PRESENT INCOMPLETE RIGHT BUNDLE BRANCH BLOCK IS NOW PRESENT Confirmed by GONZALEZ ONOFRE, TRISTAN ([id number]) on 11/03/2016 2:53:52 PM Referred By: Confirmed By:TRISTAN ROTH MD
--- NOTE | 2016-11-03 20:07 | CON.NEURO ---
Consult Consult Specialty:: Chris-Neurology - History of Present Illness Chief Complaint: Vision problem History of Present Illness: Chief Complaint: Confusion. Visual Changes History of Present Illness: Pt is a resident of [facility], noticed to have UTI yesterday and started on PO Levaqiune (UCX pending). In the evening pt couldn't see; she was sent to ER, found to be confused, abnormal Head CT scan (possible acute/ subacute stroke ), UTI, possible PNA. Pt was admitted, started on IV abtx; she was admitted to Telemetry secondary to elevated Trop I. Pt's health director of health care marketing (sister Annia) at bed side now, states that pt is improved in her MS, eye sight. Pt. reports she has had weakness in right arm for last 2 months but her caregiver reports it is more recent. 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, Other (Gait impairment Back pain [place]aucoma [place]) Cardio/Vascular: Yes: HTN, Hyperlipdemia - Alcohol/Substance Use Hx Alcohol Use: Yes (OCCASIONALLY) - Smoking History Smoking history: Unknown if ever smoked Have you smoked in the past 12 months: No - Social History Usual Living Arrangement: Alf ADL: Support Services History of Recent Travel: No Home Medications - Allergies Allergies/Adverse Reactions: Allergies Allergy/AdvReac Type Severity Reaction Status Date / Time No Known Drug Allergies Allergy Verified 11/02/16 20:54 - Home Medications Home Medications: Ambulatory Orders Amlodipine Besylate [Norvasc -] 2.5 mg PO DAILY 06/22/16 Aspirin [ASA -] 81 mg PO DAILY 06/22/16 Donepezil HCl [Aricept -] 10 mg PO DAILY 06/22/16 Duloxetine HCl 60 mg PO DAILY 06/22/16 Gabapentin [Neurontin -] 400 mg PO Q8H 06/22/16 Hydrochlorothiazide 25 mg PO DAILY 06/22/16 Latanoprost 0.005% Eye Drops [Xalatan 0.005% Eye Drops -] 1 drop OU HS 06/22/16 Mirtazapine [Remeron Soltab -] 15 mg PO DAILY 06/22/16 Sennosides/Docusate Sodium [Senna S Tablet] 1 each PO TID 06/22/16 Simvastatin 20 mg PO DAILY 06/22/16 Tolterodine Tartrate LA [Detrol LA -] 4 mg PO DAILY 06/22/16 Acetaminophen [Tylenol .Regular Strength -] 650 mg PO Q6H PRN #0 tablet Carbidopa/Levodopa 25/100 [Sinemet 25/100 -] 1 each PO DAILY@0600 tablet Polyethylene Glycol 3350 [Miralax 119 gm Btl -] 17 gm PO DAILY bottle 06/28/16 Carbidopa/Levodopa/Entacapone [Uoigtpmze-Ehyhommj-Dtvv 125 mg] 1 each PO TID 07/20 Albuterol Sulfate 0.5% [Ventolin 0.5% -] 1 amp NEB QID PRN 11/02/16 Ascorbate Calcium [Vitamin C] 500 mg PO DAILY 11/02/16 Buspirone HCl [Buspar -] 5 mg PO BID 11/02/16 Cholecalciferol (Vitamin D3) [Vitamin D3] 400 unit PO DAILY 11/02/16 Ferrous Sulfate [Feosol] 325 mg PO BID 11/02/16 Levofloxacin [Levaquin -] 500 mg PO DAILY 11/02/16 Rotigotine [Neupro] 1 each TD DAILY 11/02/16 Physical Exam-Neuro Vital Signs: Vital Signs Temperature 98.2 F 11/03/16 14:00 Pulse Rate 84 11/03/16 14:00 Respiratory Rate 18 11/03/16 14:00 Blood Pressure 125/63 11/03/16 14:00 O2 Sat by Pulse Oximetry (%) 96 11/03/16 10:30 Labs: CBC, BMP 11/03/16 06:00 11/03/16 06:00 INR, PTT INR 1.56 (0.82-1.09) H 11/02/16 21:38 - Neuro Exam Level Of Consciousness: Yes: Alert, Oriented to Person (Pt. is alert,follows simple commands, neglecting right side and tends to look to the left. Oriented to person only.), Oriented to Place, Oriented to Time Eyes: Yes: Right Hemianopsia, Other (Right pupil is 3mm-1mm, left is 3mm, fixed) Speech: Wernicke's Aphasia (Pt. makes phonemic paraphasic errors, has mild pauses and circumlocutions) Dominant Hand: Left Mini Mental Exam: Oriented to place only, is delirious-inattentive, distractible Cranial Nerves II-XII Intact: No (Right homonymous hemianopsia, right central facial) DTR's: 0 Left Achilles, 0 Right Achilles, 1+ Right Bicep, 1+ Left Tricep, 1+ Right Tricep, 1+ Right Brachioradialis, 2+ Left Bicep, 2+ Left Brachioradialis Babinski: Present (on right side) Response to light touch: Normal Response to pain prick: Normal Response to temperature: Abnormal (Not tested) Motor Strength: 4/5: Right Arm, Right Leg, 5/5: Left Arm, Left Leg Gait: Deferred (Pt. unable to stand ) NIH Stroke Scale - Total Score NIH Stroke Scale Score: 0 Imaging - Results Cat Scan: Report Reviewed (Reported with left acute/subacute occipital infarct.) Assessment/Plan Pt. with a hx. of Parkinsons disease, now presents with a left occipital/FUR DRY CLEANER territory infarct. It appears to be subacute. In addition is encephalopathic due to concurrent UTI. Suggest: 1) Add Plavix to [id number] daily. 2) MRI/MRA brain 3) Carotid doppler/transcranial doppler 4) Echocardiogram(if cardiology agrees) Thank you, Tye Perez MD [id number]
[2016-11-03] MEDS ORDERED: CLOPIDOGREL BISULFATE 75 MG TABLET (FP) PO ONE (21:09)
[2016-11-03] MEDS: LATANOPROST 0.005% OPHTH SOLN 2.5ML BOTTLE OU SCH (21:10)
[2016-11-03] MEDS: ATORVASTATIN CA 10 MG TABLET (FP) PO SCH (21:10)
[2016-11-04] MEDS: CARBIDOPA/LEVODOPA 25/100 TABLET (FP) PO SCH (06:12)
[2016-11-04] MEDS: SENNOSIDES/DOCUSATE COMBO (SENNA PLUS) TABLET (UD) PO SCH ×3 (06:12→21:50)
[2016-11-04] MEDS: [UNRECOGNIZED DRUG - OTHER] PO SCH ×3 (06:14→21:49)
[2016-11-04] MEDS: LEVODOPA PO SCH ×3 (06:14→21:49)
[2016-11-04] MEDS: CARBIDOPA PO SCH ×3 (06:14→21:49)
[2016-11-04] MEDS: ENTACAPONE PO SCH ×3 (06:14→21:49)
[2016-11-04 07:54] LABS: MCH 21.8 pg (25.7-33.7); MCHC 30.6 g/dl (32.0-36.0); MEAN CELL VOLUME 71.4 fl (80-96); MEAN PLT VOLUME 6.8 fl (7.5-11.1); PLATELET COUNT 569 K/MM3 (134-434); RDW 21.8 % (11.6-15.6); WHITE BLOOD COUNT 17.4 K/mm3 (4.0-10.0)
[2016-11-04 08:41] LABS: ALBUMIN 1.9 g/dl (3.4-5.0); ANION GAP 8 (8-16); BILIRUBIN,TOTAL 0.2 mg/dL (0.2-1.0); CO2 34 mmol/L (21-32); CREATININE 0.3 mg/dL (0.55-1.02); GLUCOSE,RANDOM 90 mg/dL (74-106); SGOT/AST 16 U/L (15-37); SGPT/ALT 7 U/L (12-78); TOT PROT 5.1 g/dl (6.4-8.2)
[2016-11-04 08:43] LABS: ALK PHOS 134 U/L (45-117)
[2016-11-04] MEDS: busPIRone HCL 5 MG TABLET PO SCH ×3 (09:01→21:49)
[2016-11-04] MEDS: DULoxetine HCL 30 MG CAPSULE.DR (FP) PO SCH (09:01)
[2016-11-04] MEDS: FERROUS SO4 325 MG TABLET (FP) PO SCH ×2 (09:01→17:35)
[2016-11-04] MEDS: amLODIPine BESYLATE 2.5 MG TABLET (FP) PO SCH (09:01)
[2016-11-04] MEDS: DONEPEZIL HCL 10 MG TABLET (FP) PO SCH (09:01)
[2016-11-04] MEDS: ASCORBIC ACID 500 MG TABLET (FP) PO SCH (09:01)
[2016-11-04] MEDS: ASPIRIN 81 MG CHEWABLE TABLETS PO SCH (09:01)
[2016-11-04] MEDS: POLYETHYLENE GLYCOL 3350 119 GM BTL PO SCH (09:06)
[2016-11-04] MEDS ORDERED: CEFTRIAXONE 50 ML IVPB SCH (10:00)
[2016-11-04] MEDS ORDERED: AZITHROMYCIN IVPB 250 ML IVPB ONE (10:55)
[2016-11-04] MEDS ORDERED: POTASSIUM CHLORIDE ORAL LIQUID 20 MEQ/15 ML PO ONE (11:00)
[2016-11-04 11:03] LABS: ANISOCYTOSIS 2+; HYPOCHROMIA 2+; MICROCYTOSIS 2+
--- NOTE | 2016-11-04 11:08 | PN ---
Progress Note, Physician Chief Complaint: ID Discussed with Dr Cynthia Watkins prominent Ceftriaxone day 2 Rx Never had fever - Current Medication List Current Medications: Active Medications Acetaminophen (Tylenol -) 650 mg PO Q6H PRN PRN Reason: BACK PAIN Last Admin: 11/03/16 10:49 Dose: 650 mg Albuterol Sulfate (Ventolin 0.5% -) 1 amp NEB Q6H PRN PRN Reason: SHORTNESS OF BREATH Last Admin: 11/03/16 05:42 Dose: 1 amp Amlodipine Besylate (Norvasc -) 2.5 mg PO DAILY [facility] Last Admin: 11/04/16 09:01 Dose: 2.5 mg Ascorbic Acid (Vitamin C -) 500 mg PO DAILY [facility] Last Admin: 11/04/16 09:01 Dose: 500 mg Aspirin (Asa -) 81 mg PO DAILY [facility] Last Admin: 11/04/16 09:01 Dose: 81 mg Atorvastatin Calcium (Lipitor -) 10 mg PO HS [facility] Last Admin: 11/03/16 21:10 Dose: 10 mg Buspirone HCl (Buspar -) 5 mg PO BID [facility] Last Admin: 11/04/16 09:01 Dose: 5 mg Carbidopa/Levodopa (Sinemet 25/100 -) 1 each PO DAILY@0600 [facility] Last Admin: 11/04/16 06:12 Dose: 1 each Donepezil HCl (Aricept -) 10 mg PO DAILY [facility] Last Admin: 11/04/16 09:01 Dose: 10 mg Duloxetine HCl (Cymbalta -) 60 mg PO DAILY [facility] Last Admin: 11/04/16 09:01 Dose: 60 mg Ferrous Sulfate (Feosol -) 325 mg PO BIDWM [facility] Last Admin: 11/04/16 09:01 Dose: 325 mg Ceftriaxone Sodium (Rocephin 1gm Ivpb (Pre-Docked)) 50 mls @ 100 mls/hr IVPB DAILY [facility] Last Admin: 11/04/16 09:01 Dose: 100 mls/hr Azithromycin 500 mg/ Dextrose 250 mls @ 250 mls/hr IVPB ONCE ONE Stop: 11/04/16 11:54 Lactobacillus Acidophilus (Bacid -) 1 tab PO BID [facility] Stop: 12/04/16 10:59 Latanoprost (Xalatan 0.005% Eye Drops -) 1 drop OU HS [facility] Last Admin: 11/03/16 21:10 Dose: 1 drop Non-Formulary Medication (Carbidopa/Levodopa/Entacapone [Carbidopa-Levodopa- Enta 125 Mg]) 1 each PO TID [facility] Last Admin: 11/04/16 06:14 Dose: 1 each Patient's Own Medication (Non- Formulary) ( Rotigotine [Neupro 6 Mg]1 Each) 1 each TD DAILY [facility] Last Admin: 11/03/16 14:47 Dose: 1 each Polyethylene Glycol (Miralax (For Daily Use) -) 17 gm PO DAILY [facility] Last Admin: 11/04/16 09:06 Dose: 17 gm Senna/Docusate Sodium (Pericolace -) 1 tablet PO TID [facility] Last Admin: 11/04/16 06:12 Dose: 1 tablet Tolterodine Tartrate (Detrol La -) 4 mg PO DAILY [facility] Last Admin: 11/03/16 14:43 Dose: 4 mg - Objective Vital Signs: Vital Signs Temperature 98.6 F 11/04/16 02:20 Pulse Rate 81 11/04/16 02:20 Respiratory Rate 18 11/04/16 02:20 Blood Pressure 115/91 11/04/16 02:20 O2 Sat by Pulse Oximetry (%) 96 11/03/16 20:51 Constitutional: Yes: No Distress, Other (Confused) Neck: Yes: WNL, Supple Cardiovascular: Yes: S1, S2 Respiratory: Yes: WNL, Regular, CTA Bilaterally Gastrointestinal: Yes: Soft. No: Tenderness Edema: No Labs: CBC, BMP 11/04/16 05:35 11/04/16 05:35 INR, PTT INR 1.56 (0.82-1.09) H 11/02/16 21:38 Problem List - Problems (1) UTI (urinary tract infection) with pyuria Code(s): N39.0 - URINARY TRACT INFECTION, SITE NOT SPECIFIED (2) Altered mental state Code(s): R41.82 - ALTERED MENTAL STATUS, UNSPECIFIED Assessment/Plan Microbiology 11/02/16 21:38 Blood - Peripheral Venous Blood Culture - Preliminary NO GROWTH OBTAINED AFTER 24 HOURS, INCUBATION TO CONTINUE FOR 4 DAYS. 11/02/16 21:16 Urine - Urine - Catheterized Urine Culture - Preliminary Non Lactose Fermenting Gnb Viridans Streptococcus Group 11/02/16 21:16 Blood - Peripheral Venous Blood Culture - Preliminary NO GROWTH OBTAINED AFTER 24 HOURS, INCUBATION TO CONTINUE FOR 4 DAYS. Laboratory Tests 11/02/16 11/03/16 11/04/16 21:38 06:00 05:35 WBC 27.0 H D 21.6 H 17.4 H Hgb 9.8 L Hct 32.2 L Plt Count 569 H Creatinine 11/04/16 05:35 WBC Hgb Hct Plt Count Creatinine 0.3 L D Assessment Stroke Urinary infection Pneumonia ? aspiration in setting of stroke Plan Broaden coverage to Zosyn 4.5 grs q 8H Grover ONOFRE
[2016-11-04] MEDS: ROTIGOTINE TD SCH (11:26)
--- NOTE | 2016-11-04 11:33 | PN ---
Progress Note, Physician History of Present Illness: Patient is a 76 year old female from [facility] with significant medical hx of Parkinsons, HLD, and HTN who is presenting to the ED with confusion and lethargy for three days. Patient was recently diagnosed with a UTI three days ago after being found lethargic at the [facility]. Since then shes had increased lethargy and had some confusion today, as per accompanying family members. Family members also report the patient has had intermittent fevers, diaphoresis, and cough that is occasionally productive. - Current Medication List Current Medications: Active Medications Acetaminophen (Tylenol -) 650 mg PO Q6H PRN PRN Reason: BACK PAIN Last Admin: 11/03/16 10:49 Dose: 650 mg Albuterol Sulfate (Ventolin 0.5% -) 1 amp NEB Q6H PRN PRN Reason: SHORTNESS OF BREATH Last Admin: 11/03/16 05:42 Dose: 1 amp Amlodipine Besylate (Norvasc -) 2.5 mg PO DAILY [facility] Last Admin: 11/04/16 09:01 Dose: 2.5 mg Ascorbic Acid (Vitamin C -) 500 mg PO DAILY [facility] Last Admin: 11/04/16 09:01 Dose: 500 mg Aspirin (Asa -) 81 mg PO DAILY [facility] Last Admin: 11/04/16 09:01 Dose: 81 mg Atorvastatin Calcium (Lipitor -) 10 mg PO HS [facility] Last Admin: 11/03/16 21:10 Dose: 10 mg Buspirone HCl (Buspar -) 5 mg PO BID [facility] Last Admin: 11/04/16 09:01 Dose: 5 mg Carbidopa/Levodopa (Sinemet 25/100 -) 1 each PO DAILY@0600 [facility] Last Admin: 11/04/16 06:12 Dose: 1 each Donepezil HCl (Aricept -) 10 mg PO DAILY [facility] Last Admin: 11/04/16 09:01 Dose: 10 mg Duloxetine HCl (Cymbalta -) 60 mg PO DAILY [facility] Last Admin: 11/04/16 09:01 Dose: 60 mg Ferrous Sulfate (Feosol -) 325 mg PO BIDWM [facility] Last Admin: 11/04/16 09:01 Dose: 325 mg Piperacillin Sod/Tazobactam Sod (Zosyn 4.5gm Ivpb (Pre-Docked)) 100 mls @ 200 mls/hr IVPB Q8H-IV [facility] PRN Reason: Protocol Potassium Chloride/Dextrose/Sod Cl (D5-1/2ns+10 Meq Kcl -) 1,000 mls @ 42 mls/ hr IV ASDIR [facility] Lactobacillus Acidophilus (Bacid -) 1 tab PO BID [facility] Stop: 12/04/16 10:59 Latanoprost (Xalatan 0.005% Eye Drops -) 1 drop OU HS [facility] Last Admin: 11/03/16 21:10 Dose: 1 drop Non-Formulary Medication (Carbidopa/Levodopa/Entacapone [Carbidopa-Levodopa- Enta 125 Mg]) 1 each PO TID [facility] Last Admin: 11/04/16 06:14 Dose: 1 each Patient's Own Medication (Non- Formulary) ( Rotigotine [Neupro 6 Mg]1 Each) 1 each TD DAILY [facility] Last Admin: 11/04/16 11:26 Dose: 1 each Polyethylene Glycol (Miralax (For Daily Use) -) 17 gm PO DAILY [facility] Last Admin: 11/04/16 09:06 Dose: 17 gm Senna/Docusate Sodium (Pericolace -) 1 tablet PO TID [facility] Last Admin: 11/04/16 06:12 Dose: 1 tablet Tolterodine Tartrate (Detrol La -) 4 mg PO DAILY [facility] Last Admin: 11/03/16 14:43 Dose: 4 mg - Objective Vital Signs: Vital Signs Temperature 98.6 F 11/04/16 02:20 Pulse Rate 81 11/04/16 02:20 Respiratory Rate 18 11/04/16 02:20 Blood Pressure 115/91 11/04/16 02:20 O2 Sat by Pulse Oximetry (%) 96 11/03/16 20:51 Eyes: Yes: WNL, Conjunctiva Clear, EOM Intact HENT: Yes: WNL, Atraumatic, Normocephalic Neck: Yes: WNL, Supple, Trachea Midline Cardiovascular: Yes: WNL, Regular Rate and Rhythm Respiratory: Yes: WNL, Regular, CTA Bilaterally Gastrointestinal: Yes: WNL, Normal Bowel Sounds Genitourinary: Yes: WNL Musculoskeletal: Yes: WNL Extremities: Yes: WNL Edema: No Integumentary: Yes: WNL ...Motor Strength: WNL Psychiatric: Yes: WNL Labs: CBC, BMP 11/04/16 05:35 11/04/16 05:35 INR, PTT INR 1.56 (0.82-1.09) H 11/02/16 21:38 Laboratory Tests 11/02/16 11/02/16 11/02/16 21:38 21:38 21:38 WBC 27.0 H D RBC 4.14 Hgb 8.8 L D Hct 30.0 L MCV 72.7 L MCHC 29.3 L RDW 21.5 H Plt Count 549 H D MPV 6.9 L Neutrophils % 84.0 H Lymphocytes % 7.0 L D Monocytes % 4.0 Band Neutrophils 5.0 Platelet Estimate Increased Platelet Comment No clotting detected Polychromasia 1+ Hypochromic-Microcytic 2+ Poikilocytosis 1+ Anisocytosis 2+ Microcytosis 1+ Macrocytosis INR 1.56 H PTT (Actin FS) 33.0 VBG pH POC VBG pCO2 POC VBG pO2 Mixed VBG HCO3 Sodium 141 Potassium 4.0 Chloride 100 Carbon Dioxide 31 Anion Gap 10 BUN 38 H D Creatinine 0.7 D Creat Clearance w eGFR > 60 Random Glucose 102 Lactic Acid Calcium 8.3 L Total Bilirubin 0.3 AST 18 D ALT < 6 L D Alkaline Phosphatase 139 H D Creatine Kinase 50 Troponin I 0.44 H Total Protein 5.6 L Albumin 2.2 L Urine Color Urine Appearance Urine pH Ur Specific Seco Urine Protein Urine Glucose (UA) Urine Ketones Urine Blood Urine Nitrite Urine Bilirubin Urine Urobilinogen Ur Leukocyte Esterase Urine RBC Urine WBC Ur Epithelial Cells Calcium Oxalate Crystal Urine Bacteria Hyaline Casts Urine Mucus Urine Yeast 11/02/16 11/02/16 11/02/16 21:38 22:00 22:48 WBC RBC Hgb Hct MCV MCHC RDW Plt Count MPV Neutrophils % Lymphocytes % Monocytes % Band Neutrophils Platelet Estimate Platelet Comment Polychromasia Hypochromic-Microcytic Poikilocytosis Anisocytosis Microcytosis Macrocytosis INR PTT (Actin FS) VBG pH 7.40 POC VBG pCO2 52.2 H POC VBG pO2 68.6 H Mixed VBG HCO3 32.0 H Sodium Potassium Chloride Carbon Dioxide Anion Gap BUN Creatinine Creat Clearance w eGFR Random Glucose Lactic Acid 1.0 Calcium Total Bilirubin AST ALT Alkaline Phosphatase Creatine Kinase Troponin I Total Protein Albumin Urine Color M[place] Urine Appearance Cloudy Urine pH 6.0 Ur Specific Seco 1.015 Urine Protein 1+ H Urine Glucose (UA) Negative Urine Ketones Trace H Urine Blood Negative Urine Nitrite Negative Urine Bilirubin Negative Urine Urobilinogen Negative Ur Leukocyte Esterase 3+ H Urine RBC 13 Urine WBC 664 Ur Epithelial Cells Rare Calcium Oxalate Crystal Few Urine Bacteria Moderate Hyaline Casts 11 Urine Mucus Rare Urine Yeast Few 11/02/16 11/03/16 11/03/16 23:57 03:20 06:00 WBC 21.6 H RBC 4.14 Hgb 9.0 L Hct 30.1 L MCV 72.8 L MCHC 29.9 L RDW 21.3 H Plt Count 576 H MPV 6.8 L Neutrophils % Lymphocytes % Monocytes % Band Neutrophils Platelet Estimate Platelet Comment Polychromasia Hypochromic-Microcytic Poikilocytosis Anisocytosis Microcytosis Macrocytosis INR PTT (Actin FS) VBG pH POC VBG pCO2 POC VBG pO2 Mixed VBG HCO3 Sodium Potassium Chloride Carbon Dioxide Anion Gap BUN Creatinine Creat Clearance w eGFR Random Glucose Lactic Acid 0.9 Calcium Total Bilirubin AST ALT Alkaline Phosphatase Creatine Kinase 60 Troponin I 0.42 H Total Protein Albumin Urine Color Urine Appearance Urine pH Ur Specific Seco Urine Protein Urine Glucose (UA) Urine Ketones Urine Blood Urine Nitrite Urine Bilirubin Urine Urobilinogen Ur Leukocyte Esterase Urine RBC Urine WBC Ur Epithelial Cells Calcium Oxalate Crystal Urine Bacteria Hyaline Casts Urine Mucus Urine Yeast 11/03/16 11/04/16 11/04/16 06:00 05:35 05:35 WBC 17.4 H RBC 4.50 Hgb 9.8 L Hct 32.2 L MCV 71.4 L MCHC 30.6 L RDW 21.8 H Plt Count 569 H MPV 6.8 L Neutrophils % Lymphocytes % Monocytes % Band Neutrophils Platelet Estimate Platelet Comment Polychromasia Hypochromic-Microcytic 2+ Poikilocytosis Anisocytosis 2+ Microcytosis 2+ Macrocytosis Few INR PTT (Actin FS) VBG pH POC VBG pCO2 POC VBG pO2 Mixed VBG HCO3 Sodium 142 144 Potassium 3.7 3.4 L Chloride 100 102 Carbon Dioxide 34 H 34 H Anion Gap 8 8 BUN 34 H 23 H D Creatinine 0.4 L D 0.3 L D Creat Clearance w eGFR > 60 > 60 Random Glucose 95 90 Lactic Acid Calcium 8.3 L 8.0 L Total Bilirubin 0.3 0.2 D AST 16 16 ALT < 6 L 7 L Alkaline Phosphatase 127 H 134 H Creatine Kinase 19 L Troponin I 0.20 H Total Protein 5.1 L 5.1 L Albumin 2.0 L 1.9 L Urine Color Urine Appearance Urine pH Ur Specific Seco Urine Protein Urine Glucose (UA) Urine Ketones Urine Blood Urine Nitrite Urine Bilirubin Urine Urobilinogen Ur Leukocyte Esterase Urine RBC Urine WBC Ur Epithelial Cells Calcium Oxalate Crystal Urine Bacteria Hyaline Casts Urine Mucus Urine Yeast 11/04/16 05:35 WBC RBC Hgb Hct MCV MCHC RDW Plt Count MPV Neutrophils % Lymphocytes % Monocytes % Band Neutrophils Platelet Estimate Platelet Comment Polychromasia Hypochromic-Microcytic Poikilocytosis Anisocytosis Microcytosis Macrocytosis INR PTT (Actin FS) VBG pH POC VBG pCO2 POC VBG pO2 Mixed VBG HCO3 Sodium Potassium Chloride Carbon Dioxide Anion Gap BUN Creatinine Creat Clearance w eGFR Random Glucose Lactic Acid Calcium Total Bilirubin AST ALT Alkaline Phosphatase Creatine Kinase Cancelled Troponin I Cancelled Total Protein Albumin Urine Color Urine Appearance Urine pH Ur Specific Seco Urine Protein Urine Glucose (UA) Urine Ketones Urine Blood Urine Nitrite Urine Bilirubin Urine Urobilinogen Ur Leukocyte Esterase Urine RBC Urine WBC Ur Epithelial Cells Calcium Oxalate Crystal Urine Bacteria Hyaline Casts Urine Mucus Urine Yeast Problem List - Problems (1) Altered mental state Code(s): R41.82 - ALTERED MENTAL STATUS, UNSPECIFIED (2) Anemia Code(s): D64.9 - ANEMIA, UNSPECIFIED (3) CVA (cerebral vascular accident) Code(s): I63.9 - CEREBRAL INFARCTION, UNSPECIFIED (4) Chest pain Code(s): R07.9 - CHEST PAIN, UNSPECIFIED (5) Elevated troponin I level Code(s): R74.8 - ABNORMAL LEVELS OF OTHER SERUM ENZYMES (6) HTN (hypertension) Code(s): I10 - ESSENTIAL (PRIMARY) HYPERTENSION (7) Hyperlipemia Code(s): E78.5 - HYPERLIPIDEMIA, UNSPECIFIED (8) Impaired gait Code(s): R26.9 - UNSPECIFIED ABNORMALITIES OF GAIT AND MOBILITY (9) NSTEMI (non-ST elevated myocardial infarction) Code(s): I21.4 - NON-ST ELEVATION (NSTEMI) MYOCARDIAL INFARCTION (10) Parkinson disease Code(s): G20 - PARKINSON'S DISEASE (11) Parkinsonian features Code(s): R25.9 - UNSPECIFIED ABNORMAL INVOLUNTARY MOVEMENTS (12) Pneumonia Code(s): J18.9 - PNEUMONIA, UNSPECIFIED ORGANISM (13) Pyelonephritis Code(s): N12 - TUBULO-INTERSTITIAL NEPHRITIS, NOT SPCF ACUTE OR CHRONIC (14) Sepsis Code(s): A41.9 - SEPSIS, UNSPECIFIED ORGANISM (15) UTI (urinary tract infection) Code(s): N39.0 - URINARY TRACT INFECTION, SITE NOT SPECIFIED (16) UTI (urinary tract infection) with pyuria Code(s): N39.0 - URINARY TRACT INFECTION, SITE NOT SPECIFIED (17) Contusion of head Code(s): S00.93XA - CONTUSION OF UNSPECIFIED PART OF HEAD, INITIAL ENCOUNTER (18) Fall at home Code(s): W19.XXXA - UNSPECIFIED FALL, INITIAL ENCOUNTER Y92.099 - UNSP PLACE IN OTH NON-INSTITUTIONAL RESIDENCE PLACE (19) Forehead laceration Code(s): S01.81XA - LACERATION W/O FOREIGN BODY OF OTH PART OF HEAD, INIT ENCNTR Qualifiers: Encounter type: initial encounter Qualified Code(s): S01.81XA - Laceration without foreign body of other part of head, initial encounter (20) Head injury Code(s): S09.90XA - UNSPECIFIED INJURY OF HEAD, INITIAL ENCOUNTER Qualifiers: Encounter type: initial encounter Qualified Code(s): S09.90XA - Unspecified injury of head, initial encounter (21) Laceration Code(s): T14.8 - OTHER INJURY OF UNSPECIFIED BODY REGION (22) Nasal bone fracture Code(s): S02.2XXA - FRACTURE OF NASAL BONES, INIT ENCNTR FOR CLOSED FRACTURE Assessment/Plan subacute left occipital/BUDGET CLERK territory infarct. uti ?pna ?chf elevated PCI Plan abx supportive care doubt primary cardiac event. cont asa and lipitor
--- NOTE | 2016-11-04 12:22 | PN ---
Progress Note (short form) - Note Progress Note: Pt. 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 MRI Brain/MRA requested. Cont. ASA/Plavix.
[2016-11-04] MEDS: LACTOBACILLUS ACIDOPHILUS 1 EACH TAB (FP) PO SCH ×2 (12:31→21:49)
[2016-11-04] MEDS: D5-1/2NS+10 MEQ KCL - 1,000 ML IV SCH (12:32)
--- NOTE | 2016-11-04 13:08 | CON.PULM ---
Consult Consult Specialty:: PULMONARY Referred by:: AVELINO Reason for Consultation:: ABN CXR - History of Present Illness Chief Complaint: COUGH History of Present Illness: Patient is a 76 year old female from [facility] with significant medical hx of Parkinsons, HLD, and HTN who is presenting to the ED with confusion and lethargy for three days. Patient was recently diagnosed with a UTI three days ago [facility] Since then shes had increased lethargy and had some confusion today, as per accompanying family members. Family members also report the patient has had intermittent fevers, diaphoresis, and cough that is occasionally productive. I have been asked to consult regarding an abnormal CXR. 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 Cardio/Vascular: Yes: HTN - Alcohol/Substance Use Hx Alcohol Use: Yes (OCCASIONALLY) - Smoking History Smoking history: Unknown if ever smoked Have you smoked in the past 12 months: No - Social History Usual Living Arrangement: Shelter ADL: Support Services History of Recent Travel: No Home Medications - Allergies Allergies/Adverse Reactions: Allergies Allergy/AdvReac Type Severity Reaction Status Date / Time No Known Drug Allergies Allergy Verified 11/02/16 20:54 - Home Medications Home Medications: Ambulatory Orders Amlodipine Besylate [Norvasc -] 2.5 mg PO DAILY 06/22/16 Aspirin [ASA -] 81 mg PO DAILY 06/22/16 Donepezil HCl [Aricept -] 10 mg PO DAILY 06/22/16 Duloxetine HCl 60 mg PO DAILY 06/22/16 Gabapentin [Neurontin -] 400 mg PO Q8H 06/22/16 Hydrochlorothiazide 25 mg PO DAILY 06/22/16 Latanoprost 0.005% Eye Drops [Xalatan 0.005% Eye Drops -] 1 drop OU HS 06/22/16 Mirtazapine [Remeron Soltab -] 15 mg PO DAILY 06/22/16 Sennosides/Docusate Sodium [Senna S Tablet] 1 each PO TID 06/22/16 Simvastatin 20 mg PO DAILY 06/22/16 Tolterodine Tartrate LA [Detrol LA -] 4 mg PO DAILY 06/22/16 Acetaminophen [Tylenol .Regular Strength -] 650 mg PO Q6H PRN #0 tablet Carbidopa/Levodopa 25/100 [Sinemet 25/100 -] 1 each PO DAILY@0600 tablet Polyethylene Glycol 3350 [Miralax 119 gm Btl -] 17 gm PO DAILY bottle 06/28/16 Carbidopa/Levodopa/Entacapone [Apnbxawtx-Kbsjphve-Kwsk 125 mg] 1 each PO TID 07/20 Albuterol Sulfate 0.5% [Ventolin 0.5% -] 1 amp NEB QID PRN 11/02/16 Ascorbate Calcium [Vitamin C] 500 mg PO DAILY 11/02/16 Buspirone HCl [Buspar -] 5 mg PO BID 11/02/16 Cholecalciferol (Vitamin D3) [Vitamin D3] 400 unit PO DAILY 11/02/16 Ferrous Sulfate [Feosol] 325 mg PO BID 11/02/16 Levofloxacin [Levaquin -] 500 mg PO DAILY 11/02/16 Rotigotine [Neupro] 1 each TD DAILY 11/02/16 Family Disease History - Family Disease History Family History: Unremarkable Review of Systems Unable to obtain ROS, reason: POOR INFORMANT Physical Exam Vital Sings: Vital Signs Temperature 98.6 F 11/04/16 02:20 Pulse Rate 81 11/04/16 02:20 Respiratory Rate 18 11/04/16 02:20 Blood Pressure 115/91 11/04/16 02:20 O2 Sat by Pulse Oximetry (%) 96 11/03/16 20:51 Constitutional: Yes: Anxious Eyes: Yes: EOM Intact HENT: Yes: Normocephalic Neck: Yes: Trachea Midline Cardiovascular: Yes: S1, S2 Respiratory: Yes: Diminished, Rhonchi Gastrointestinal: Yes: Soft Edema: No Labs: CBC, BMP 11/04/16 05:35 11/04/16 05:35 Imaging - Results Chest X-ray: Image Reviewed Problem List - Problems (1) Anemia Code(s): D64.9 - ANEMIA, UNSPECIFIED (2) CVA (cerebral vascular accident) Code(s): I63.9 - CEREBRAL INFARCTION, UNSPECIFIED (3) HTN (hypertension) Code(s): I10 - ESSENTIAL (PRIMARY) HYPERTENSION (4) Pneumonia due to aerobic bacteria Code(s): J15.8 - PNEUMONIA DUE TO OTHER SPECIFIED BACTERIA Assessment/Plan ABN CXR C/W WITH RIGHT LOWER PNEUMONIA UTI MULTIPLE CO-MORBID CONDITIONS LISTED AGREE WITH ANTIBIOTICS TO COVER ASPIRATION/O2 SUPPLEMENTATION/BRONCHODILATORS NEEDED WILL FOLLOW Nomi MCFARLANE MD
[2016-11-04] MEDS: TOLTERODINE TARTRATE LA 4 MG CAP.SR.24H (FP) PO SCH (13:24)
[2016-11-04] MEDS: PIPERACILLIN/TAZOB 4.5 GM 100 ML IVPB SCH (17:35)
--- NOTE | 2016-11-04 21:20 | PN ---
Progress Note, Physician History of Present Illness: Pt w/o fever, chills, cough, SOB, CP, palp., N, V. Pt is noticed to cough, tends to ignore right side visual field, still slightly confused but better than yesterday. Pt was seen in AM Pt condition was reviewed with pt's nurse; pt had large BM; pt to go this AM for Brain MRI Pt's [id number] at bed side. - Current Medication List Current Medications: Active Medications Acetaminophen (Tylenol -) 650 mg PO Q6H PRN PRN Reason: BACK PAIN Last Admin: 11/03/16 10:49 Dose: 650 mg Albuterol Sulfate (Ventolin 0.5% -) 1 amp NEB Q6H PRN PRN Reason: SHORTNESS OF BREATH Last Admin: 11/03/16 05:42 Dose: 1 amp Amlodipine Besylate (Norvasc -) 2.5 mg PO DAILY [facility] Last Admin: 11/04/16 09:01 Dose: 2.5 mg Ascorbic Acid (Vitamin C -) 500 mg PO DAILY [facility] Last Admin: 11/04/16 09:01 Dose: 500 mg Aspirin (Asa -) 81 mg PO DAILY [facility] Last Admin: 11/04/16 09:01 Dose: 81 mg Atorvastatin Calcium (Lipitor -) 10 mg PO HS [facility] Last Admin: 11/03/16 21:10 Dose: 10 mg Buspirone HCl (Buspar -) 5 mg PO BID [facility] Last Admin: 11/04/16 13:24 Dose: Not Given Carbidopa/Levodopa (Sinemet 25/100 -) 1 each PO DAILY@0600 [facility] Last Admin: 11/04/16 06:12 Dose: 1 each Donepezil HCl (Aricept -) 10 mg PO DAILY [facility] Last Admin: 11/04/16 09:01 Dose: 10 mg Duloxetine HCl (Cymbalta -) 60 mg PO DAILY [facility] Last Admin: 11/04/16 09:01 Dose: 60 mg Ferrous Sulfate (Feosol -) 325 mg PO BIDWM [facility] Last Admin: 11/04/16 17:35 Dose: 325 mg Piperacillin Sod/Tazobactam Sod (Zosyn 4.5gm Ivpb (Pre-Docked)) 100 mls @ 200 mls/hr IVPB Q8H-IV [facility] PRN Reason: Protocol Last Admin: 11/04/16 17:35 Dose: 200 mls/hr Potassium Chloride/Dextrose/Sod Cl (D5-1/2ns+10 Meq Kcl -) 1,000 mls @ 42 mls/ hr IV ASDIR [facility] Last Admin: 11/04/16 12:32 Dose: 42 mls/hr Lactobacillus Acidophilus (Bacid -) 1 tab PO BID [facility] Stop: 12/04/16 10:59 Last Admin: 11/04/16 12:31 Dose: 1 tab Latanoprost (Xalatan 0.005% Eye Drops -) 1 drop OU HS [facility] Last Admin: 11/03/16 21:10 Dose: 1 drop Non-Formulary Medication (Carbidopa/Levodopa/Entacapone [Carbidopa-Levodopa- Enta 125 Mg]) 1 each PO TID [facility] Last Admin: 11/04/16 13:22 Dose: 1 each Patient's Own Medication (Non- Formulary) ( Rotigotine [Neupro 6 Mg]1 Each) 1 each TD DAILY [facility] Last Admin: 11/04/16 11:26 Dose: 1 each Polyethylene Glycol (Miralax (For Daily Use) -) 17 gm PO DAILY [facility] Last Admin: 11/04/16 09:06 Dose: 17 gm Senna/Docusate Sodium (Pericolace -) 1 tablet PO TID [facility] Last Admin: 11/04/16 13:25 Dose: Not Given Tolterodine Tartrate (Detrol La -) 4 mg PO DAILY [facility] Last Admin: 11/04/16 13:24 Dose: Not Given - Objective Vital Signs: Vital Signs Temperature 98.4 F 11/04/16 20:09 Pulse Rate 77 11/04/16 20:09 Respiratory Rate 20 11/04/16 20:09 Blood Pressure 118/70 11/04/16 20:09 O2 Sat by Pulse Oximetry (%) 98 11/04/16 20:09 Constitutional: Yes: No Distress, Calm Cardiovascular: Yes: Regular Rate and Rhythm, S1, S2 Respiratory: Yes: Regular, Rhonchi (at bases), Other (coarse at bases) Gastrointestinal: Yes: Normal Bowel Sounds, Soft. No: Tenderness Edema: No Neurological: Yes: Alert, Confusion, Other (right side neglect motor and sensory evaluation symmetric in UE/ LE/ face) Labs: CBC, BMP 11/04/16 05:35 11/04/16 05:35 INR, PTT INR 1.56 (0.82-1.09) H 11/02/16 21:38 Problem List - Problems (1) Altered mental state Code(s): R41.82 - ALTERED MENTAL STATUS, UNSPECIFIED (2) Sepsis Code(s): A41.9 - SEPSIS, UNSPECIFIED ORGANISM (3) UTI (urinary tract infection) with pyuria Code(s): N39.0 - URINARY TRACT INFECTION, SITE NOT SPECIFIED (4) Pneumonia Code(s): J18.9 - PNEUMONIA, UNSPECIFIED ORGANISM (5) CVA (cerebral vascular accident) Code(s): I63.9 - CEREBRAL INFARCTION, UNSPECIFIED (6) Parkinson disease Code(s): G20 - PARKINSON'S DISEASE (7) Impaired gait Code(s): R26.9 - UNSPECIFIED ABNORMALITIES OF GAIT AND MOBILITY (8) Elevated troponin I level Assessment/Plan: now normal Code(s): R74.8 - ABNORMAL LEVELS OF OTHER SERUM ENZYMES (9) Encephalopathy Assessment/Plan: secondary to infection Code(s): G93.40 - ENCEPHALOPATHY, UNSPECIFIED Assessment/Plan IV abtx Admit to Telemetry, Serial CE ID consult appreciated; case was discussed with Dr. Ness- to change abtx ( start Zosyn) Neurology consult appreciated Cardiology consult aprreciated Pulmonary consult Neuro checks For Brain MRI today DVT prophylasis Case was reviewed with pt's brother (Ashkan); all questions were answered
[2016-11-04] MEDS: ATORVASTATIN CA 10 MG TABLET (FP) PO SCH (21:50)
[2016-11-04] MEDS: LATANOPROST 0.005% OPHTH SOLN 2.5ML BOTTLE OU SCH (21:50)
[2016-11-05] MEDS: PIPERACILLIN/TAZOB 4.5 GM 100 ML IVPB SCH ×3 (01:13→17:10)
[2016-11-05] MEDS: CARBIDOPA/LEVODOPA 25/100 TABLET (FP) PO SCH (06:29)
[2016-11-05] MEDS: SENNOSIDES/DOCUSATE COMBO (SENNA PLUS) TABLET (UD) PO SCH ×3 (06:29→21:53)
[2016-11-05] MEDS: ENTACAPONE PO SCH ×4 (06:30→22:12)
[2016-11-05] MEDS: [UNRECOGNIZED DRUG - OTHER] PO SCH ×4 (06:30→22:12)
[2016-11-05] MEDS: LEVODOPA PO SCH ×4 (06:30→22:12)
[2016-11-05] MEDS: CARBIDOPA PO SCH ×4 (06:30→22:12)
[2016-11-05 07:25] LABS: MCHC 30.3 g/dl (32.0-36.0); MEAN CELL VOLUME 72.6 fl (80-96); MEAN PLT VOLUME 6.6 fl (7.5-11.1); PLATELET COUNT 544 K/MM3 (134-434); RDW 22.1 % (11.6-15.6); WHITE BLOOD COUNT 12.4 K/mm3 (4.0-10.0)
[2016-11-05 07:46] LABS: ANION GAP 7 (8-16); CALCIUM 7.9 mg/dL (8.5-10.1); CO2 35 mmol/L (21-32); CREATININE 0.4 mg/dL (0.55-1.02); GLUCOSE,RANDOM 97 mg/dL (74-106)
[2016-11-05] MEDS: busPIRone HCL 5 MG TABLET PO SCH ×2 (09:01→21:54)
[2016-11-05] MEDS: amLODIPine BESYLATE 2.5 MG TABLET (FP) PO SCH (09:01)
[2016-11-05] MEDS: LACTOBACILLUS ACIDOPHILUS 1 EACH TAB (FP) PO SCH ×2 (09:01→21:54)
[2016-11-05] MEDS: ASCORBIC ACID 500 MG TABLET (FP) PO SCH (09:01)
[2016-11-05] MEDS: FERROUS SO4 325 MG TABLET (FP) PO SCH ×2 (09:01→17:08)
[2016-11-05] MEDS: ASPIRIN 81 MG CHEWABLE TABLETS PO SCH (09:01)
[2016-11-05] MEDS: DULoxetine HCL 30 MG CAPSULE.DR (FP) PO SCH (09:01)
[2016-11-05] MEDS: POLYETHYLENE GLYCOL 3350 119 GM BTL PO SCH (09:02)
--- NOTE | 2016-11-05 09:29 | PN ---
Progress Note, Physician History of Present Illness: seen and examined today in nad. sleeping but opens eyes to voice and communicates. able to answer questions appropriately. no overnight events. no new complaints. - Current Medication List Current Medications: Active Medications Acetaminophen (Tylenol -) 650 mg PO Q6H PRN PRN Reason: BACK PAIN Last Admin: 11/03/16 10:49 Dose: 650 mg Albuterol Sulfate (Ventolin 0.5% -) 1 amp NEB Q6H PRN PRN Reason: SHORTNESS OF BREATH Last Admin: 11/03/16 05:42 Dose: 1 amp Amlodipine Besylate (Norvasc -) 2.5 mg PO DAILY [facility] Last Admin: 11/05/16 09:01 Dose: 2.5 mg Ascorbic Acid (Vitamin C -) 500 mg PO DAILY [facility] Last Admin: 11/05/16 09:01 Dose: 500 mg Aspirin (Asa -) 81 mg PO DAILY [facility] Last Admin: 11/05/16 09:01 Dose: 81 mg Atorvastatin Calcium (Lipitor -) 10 mg PO HS [facility] Last Admin: 11/04/16 21:50 Dose: 10 mg Buspirone HCl (Buspar -) 5 mg PO BID [facility] Last Admin: 11/05/16 09:01 Dose: 5 mg Carbidopa/Levodopa (Sinemet 25/100 -) 1 each PO DAILY@0600 [facility] Last Admin: 11/05/16 06:29 Dose: 1 each Donepezil HCl (Aricept -) 10 mg PO DAILY [facility] Last Admin: 11/04/16 09:01 Dose: 10 mg Duloxetine HCl (Cymbalta -) 60 mg PO DAILY [facility] Last Admin: 11/05/16 09:01 Dose: 60 mg Ferrous Sulfate (Feosol -) 325 mg PO BIDWM [facility] Last Admin: 11/05/16 09:01 Dose: 325 mg Piperacillin Sod/Tazobactam Sod (Zosyn 4.5gm Ivpb (Pre-Docked)) 100 mls @ 200 mls/hr IVPB Q8H-IV [facility] PRN Reason: Protocol Last Admin: 11/05/16 09:01 Dose: 200 mls/hr Potassium Chloride/Dextrose/Sod Cl (D5-1/2ns+10 Meq Kcl -) 1,000 mls @ 42 mls/ hr IV ASDIR [facility] Last Admin: 11/04/16 12:32 Dose: 42 mls/hr Lactobacillus Acidophilus (Bacid -) 1 tab PO BID [facility] Stop: 12/04/16 10:59 Last Admin: 11/05/16 09:01 Dose: 1 tab Latanoprost (Xalatan 0.005% Eye Drops -) 1 drop OU HS [facility] Last Admin: 11/04/16 21:50 Dose: 1 drop Non-Formulary Medication (Carbidopa/Levodopa/Entacapone [Carbidopa-Levodopa- Enta 125 Mg]) 1 each PO TID [facility] Last Admin: 11/05/16 06:30 Dose: 1 each Patient's Own Medication (Non- Formulary) ( Rotigotine [Neupro 6 Mg]1 Each) 1 each TD DAILY [facility] Last Admin: 11/04/16 11:26 Dose: 1 each Polyethylene Glycol (Miralax (For Daily Use) -) 17 gm PO DAILY [facility] Last Admin: 11/05/16 09:02 Dose: Not Given Senna/Docusate Sodium (Pericolace -) 1 tablet PO TID [facility] Last Admin: 11/05/16 06:29 Dose: 1 tablet Tolterodine Tartrate (Detrol La -) 4 mg PO DAILY [facility] Last Admin: 11/04/16 13:24 Dose: Not Given - Objective Vital Signs: Vital Signs Temperature 98.6 F 11/05/16 06:00 Pulse Rate 64 11/05/16 06:00 Respiratory Rate 20 11/05/16 06:00 Blood Pressure 133/57 11/05/16 06:00 O2 Sat by Pulse Oximetry (%) 98 11/04/16 21:00 Constitutional: Yes: No Distress, Calm Eyes: Yes: Conjunctiva Clear, EOM Intact, PERRL HENT: Yes: Atraumatic, Normocephalic Neck: Yes: Supple, Trachea Midline Cardiovascular: Yes: Regular Rate and Rhythm, S1, S2. No: Bradycardia, Tachycardia, Pulse Irregular, Bruit, JVD, Gallop, Murmur, Rub, S3, S4, Varicosities Respiratory: Yes: Regular, CTA Bilaterally. No: Rales, Rhonchi, Wheezes Gastrointestinal: Yes: Normal Bowel Sounds, Soft. No: Distention, Tenderness Edema: No Peripheral Pulses WNL: Yes Peripheral Pulses: Left Doralis Pedis: 2+, Right Dorsalis Pedis: 2+ Neurological: Yes: Lethargy, Pre-Existing Deficit, Weakness Labs: CBC, BMP 11/05/16 05:35 11/05/16 05:35 INR, PTT INR 1.56 (0.82-1.09) H 11/02/16 21:38 - ....Imaging Chest X-ray: Report Reviewed, Image Reviewed EKG: Report Reviewed, Image Reviewed Other: Report Reviewed, Image Reviewed (tele-nsr, pvcs, apcs, no sig arrhythmias ) Assessment/Plan 75 year old woman with a history of HTN, HLD, Parkinsons, admitted with AMS, acute CVA, UTI. Elevated troponin-minimally elevated with normal CK level, unlikely Type I MA, maybe elevated secondary to infection vs CVA -troponin trended down -no ischemia on ekg -no sig arrhythmia on telemetry thus far -nuclear stress test 06/25/16 showed no ischemia, normal LVEF -echo 06/25/16 tech difficult study showed grossly mild to moderately reduced LV systolic function, unable to full assess valvular function -can repeat echo today to re-evaluate (hopefully better image quality) -cont ASA 81mg daily (Plavix recommended to be added for CVA treatment by Neurology) -Cont Lipitor -no additional ischemic work up needed during this admission CVA-acute vs subacute with superimposed UTI -cont anti-platelets as per Neuro reccs -cont statin -no arrhythmias on telemetry thus far -no sig carotid stenosis seen on MRA -can repeat echo as above HTN-well controlled -cont norvasc HLD -cont lipitor
[2016-11-05] MEDS: DONEPEZIL HCL 10 MG TABLET (FP) PO SCH (09:30)
[2016-11-05] MEDS: TOLTERODINE TARTRATE LA 4 MG CAP.SR.24H (FP) PO SCH (10:00)
--- NOTE | 2016-11-05 10:47 | PN ---
Progress Note, Physician Chief Complaint: ID Zosyn Alert confused - Current Medication List Current Medications: Active Medications Acetaminophen (Tylenol -) 650 mg PO Q6H PRN PRN Reason: BACK PAIN Last Admin: 11/03/16 10:49 Dose: 650 mg Albuterol Sulfate (Ventolin 0.5% -) 1 amp NEB Q6H PRN PRN Reason: SHORTNESS OF BREATH Last Admin: 11/03/16 05:42 Dose: 1 amp Amlodipine Besylate (Norvasc -) 2.5 mg PO DAILY [facility] Last Admin: 11/05/16 09:01 Dose: 2.5 mg Ascorbic Acid (Vitamin C -) 500 mg PO DAILY [facility] Last Admin: 11/05/16 09:01 Dose: 500 mg Aspirin (Asa -) 81 mg PO DAILY [facility] Last Admin: 11/05/16 09:01 Dose: 81 mg Atorvastatin Calcium (Lipitor -) 10 mg PO HS [facility] Last Admin: 11/04/16 21:50 Dose: 10 mg Buspirone HCl (Buspar -) 5 mg PO BID [facility] Last Admin: 11/05/16 09:01 Dose: 5 mg Carbidopa/Levodopa (Sinemet 25/100 -) 1 each PO DAILY@0600 [facility] Last Admin: 11/05/16 06:29 Dose: 1 each Donepezil HCl (Aricept -) 10 mg PO DAILY [facility] Last Admin: 11/04/16 09:01 Dose: 10 mg Duloxetine HCl (Cymbalta -) 60 mg PO DAILY [facility] Last Admin: 11/05/16 09:01 Dose: 60 mg Ferrous Sulfate (Feosol -) 325 mg PO BIDWM [facility] Last Admin: 11/05/16 09:01 Dose: 325 mg Piperacillin Sod/Tazobactam Sod (Zosyn 4.5gm Ivpb (Pre-Docked)) 100 mls @ 200 mls/hr IVPB Q8H-IV [facility] PRN Reason: Protocol Last Admin: 11/05/16 09:01 Dose: 200 mls/hr Potassium Chloride/Dextrose/Sod Cl (D5-1/2ns+10 Meq Kcl -) 1,000 mls @ 42 mls/ hr IV ASDIR [facility] Last Admin: 11/04/16 12:32 Dose: 42 mls/hr Lactobacillus Acidophilus (Bacid -) 1 tab PO BID [facility] Stop: 12/04/16 10:59 Last Admin: 11/05/16 09:01 Dose: 1 tab Latanoprost (Xalatan 0.005% Eye Drops -) 1 drop OU HS [facility] Last Admin: 11/04/16 21:50 Dose: 1 drop Non-Formulary Medication (Carbidopa/Levodopa/Entacapone [Carbidopa-Levodopa- Enta 125 Mg]) 1 each PO TID [facility] Last Admin: 11/05/16 06:30 Dose: 1 each Patient's Own Medication (Non- Formulary) ( Rotigotine [Neupro 6 Mg]1 Each) 1 each TD DAILY [facility] Last Admin: 11/04/16 11:26 Dose: 1 each Polyethylene Glycol (Miralax (For Daily Use) -) 17 gm PO DAILY [facility] Last Admin: 11/05/16 09:02 Dose: Not Given Senna/Docusate Sodium (Pericolace -) 1 tablet PO TID [facility] Last Admin: 11/05/16 06:29 Dose: 1 tablet Tolterodine Tartrate (Detrol La -) 4 mg PO DAILY [facility] Last Admin: 11/04/16 13:24 Dose: Not Given - Objective Vital Signs: Vital Signs Temperature 98.6 F 11/05/16 06:00 Pulse Rate 64 11/05/16 06:00 Respiratory Rate 20 11/05/16 06:00 Blood Pressure 133/57 11/05/16 06:00 O2 Sat by Pulse Oximetry (%) 98 11/04/16 21:00 Constitutional: Yes: No Distress Neck: Yes: WNL, Supple Cardiovascular: Yes: Regular Rate and Rhythm, S1, S2. No: Murmur Respiratory: Yes: WNL, Regular, CTA Bilaterally. No: Tachypnea, Wheezes Gastrointestinal: Yes: WNL, Normal Bowel Sounds, Soft. No: Tenderness, Tenderness, Epigastrium Edema: No Labs: CBC, BMP 11/05/16 05:35 11/05/16 05:35 INR, PTT INR 1.56 (0.82-1.09) H 11/02/16 21:38 Problem List - Problems (1) UTI (urinary tract infection) with pyuria Code(s): N39.0 - URINARY TRACT INFECTION, SITE NOT SPECIFIED (2) Altered mental state Code(s): R41.82 - ALTERED MENTAL STATUS, UNSPECIFIED Assessment/Plan Laboratory Tests 11/02/16 11/02/16 11/03/16 21:38 22:00 06:00 WBC 27.0 H D 21.6 H Hgb Hct Plt Count BUN Creatinine Ur Leukocyte Esterase 3+ H Urine RBC 13 Urine WBC 664 11/04/16 11/05/16 11/05/16 05:35 05:35 05:35 WBC 17.4 H 12.4 H Hgb 10.2 L Hct 33.7 Plt Count 544 H BUN 13 D Creatinine 0.4 L D Ur Leukocyte Esterase Urine RBC Urine WBC Assessment Acute stroke Pneumonia ? aspiration Proteus UTI Plan Continue current therapy as ordered Grover ONOFRE
--- NOTE | 2016-11-05 11:23 | PN ---
Progress Note, Physician History of Present Illness: pulmonary alert,nad,-congestion,-sob - Current Medication List Current Medications: Active Medications Acetaminophen (Tylenol -) 650 mg PO Q6H PRN PRN Reason: BACK PAIN Last Admin: 11/03/16 10:49 Dose: 650 mg Albuterol Sulfate (Ventolin 0.5% -) 1 amp NEB Q6H PRN PRN Reason: SHORTNESS OF BREATH Last Admin: 11/03/16 05:42 Dose: 1 amp Amlodipine Besylate (Norvasc -) 2.5 mg PO DAILY [facility] Last Admin: 11/05/16 09:01 Dose: 2.5 mg Ascorbic Acid (Vitamin C -) 500 mg PO DAILY [facility] Last Admin: 11/05/16 09:01 Dose: 500 mg Aspirin (Asa -) 81 mg PO DAILY [facility] Last Admin: 11/05/16 09:01 Dose: 81 mg Atorvastatin Calcium (Lipitor -) 10 mg PO HS [facility] Last Admin: 11/04/16 21:50 Dose: 10 mg Buspirone HCl (Buspar -) 5 mg PO BID [facility] Last Admin: 11/05/16 09:01 Dose: 5 mg Carbidopa/Levodopa (Sinemet 25/100 -) 1 each PO DAILY@0600 [facility] Last Admin: 11/05/16 06:29 Dose: 1 each Donepezil HCl (Aricept -) 10 mg PO DAILY [facility] Last Admin: 11/04/16 09:01 Dose: 10 mg Duloxetine HCl (Cymbalta -) 60 mg PO DAILY [facility] Last Admin: 11/05/16 09:01 Dose: 60 mg Ferrous Sulfate (Feosol -) 325 mg PO BIDWM [facility] Last Admin: 11/05/16 09:01 Dose: 325 mg Piperacillin Sod/Tazobactam Sod (Zosyn 4.5gm Ivpb (Pre-Docked)) 100 mls @ 200 mls/hr IVPB Q8H-IV [facility] PRN Reason: Protocol Last Admin: 11/05/16 09:01 Dose: 200 mls/hr Potassium Chloride/Dextrose/Sod Cl (D5-1/2ns+10 Meq Kcl -) 1,000 mls @ 42 mls/ hr IV ASDIR [facility] Last Admin: 11/04/16 12:32 Dose: 42 mls/hr Lactobacillus Acidophilus (Bacid -) 1 tab PO BID [facility] Stop: 12/04/16 10:59 Last Admin: 11/05/16 09:01 Dose: 1 tab Latanoprost (Xalatan 0.005% Eye Drops -) 1 drop OU HS [facility] Last Admin: 11/04/16 21:50 Dose: 1 drop Non-Formulary Medication (Carbidopa/Levodopa/Entacapone [Carbidopa-Levodopa- Enta 125 Mg]) 1 each PO TID [facility] Last Admin: 11/05/16 06:30 Dose: 1 each Patient's Own Medication (Non- Formulary) ( Rotigotine [Neupro 6 Mg]1 Each) 1 each TD DAILY [facility] Last Admin: 11/04/16 11:26 Dose: 1 each Polyethylene Glycol (Miralax (For Daily Use) -) 17 gm PO DAILY [facility] Last Admin: 11/05/16 09:02 Dose: Not Given Senna/Docusate Sodium (Pericolace -) 1 tablet PO TID [facility] Last Admin: 11/05/16 06:29 Dose: 1 tablet Tolterodine Tartrate (Detrol La -) 4 mg PO DAILY [facility] Last Admin: 11/04/16 13:24 Dose: Not Given - Objective Vital Signs: Vital Signs Temperature 98.6 F 11/05/16 06:00 Pulse Rate 62 11/05/16 11:06 Respiratory Rate 20 11/05/16 06:00 Blood Pressure 133/57 11/05/16 06:00 O2 Sat by Pulse Oximetry (%) 95 11/05/16 11:06 Constitutional: Yes: Well Nourished, Calm Eyes: Yes: WNL HENT: Yes: WNL Neck: Yes: WNL Cardiovascular: Yes: Regular Rate and Rhythm, S1, S2 Respiratory: Yes: Rales (few bibasilr rales) Gastrointestinal: Yes: Normal Bowel Sounds, Soft Extremities: Yes: WNL Edema: No Labs: CBC, BMP 11/05/16 05:35 11/05/16 05:35 INR 1.56 (0.82-1.09) H Assessment/Plan Problem List - Problems (1) Anemia Code(s): D64.9 - ANEMIA, UNSPECIFIED (2) CVA (cerebral vascular accident) Code(s): I63.9 - CEREBRAL INFARCTION, UNSPECIFIED (3) HTN (hypertension) Code(s): I10 - ESSENTIAL (PRIMARY) HYPERTENSION (4) Pneumonia due to aerobic bacteria Code(s): J15.8 - PNEUMONIA DUE TO OTHER SPECIFIED BACTERIA Assessment/Pl RIGHT LOWER PNEUMONIA UTI CVA HTN HLD PARKINSONS AGREE WITH ANTIBIOTICS TO COVER ASPIRATION O2 SUPPLEMENTATION INHALED BRONCHODILATORS F/U CHEST X-RAY DR KEATING
[2016-11-05] MEDS: D5-1/2NS+10 MEQ KCL - 1,000 ML IV SCH (11:25)
[2016-11-05] MEDS: ROTIGOTINE TD SCH (11:25)
--- NOTE | 2016-11-05 15:38 | PN ---
Progress Note, Physician History of Present Illness: Pt w/o fever, chills, cough, SOB, CP, palp., N, V. Pt condition was reviewed with pt's nurse. Pt's brother at bed side. - Current Medication List Current Medications: Active Medications Acetaminophen (Tylenol -) 650 mg PO Q6H PRN PRN Reason: BACK PAIN Last Admin: 11/03/16 10:49 Dose: 650 mg Albuterol Sulfate (Ventolin 0.5% -) 1 amp NEB Q6H PRN PRN Reason: SHORTNESS OF BREATH Last Admin: 11/03/16 05:42 Dose: 1 amp Amlodipine Besylate (Norvasc -) 2.5 mg PO DAILY [facility] Last Admin: 11/05/16 09:01 Dose: 2.5 mg Ascorbic Acid (Vitamin C -) 500 mg PO DAILY [facility] Last Admin: 11/05/16 09:01 Dose: 500 mg Aspirin (Asa -) 81 mg PO DAILY [facility] Last Admin: 11/05/16 09:01 Dose: 81 mg Atorvastatin Calcium (Lipitor -) 10 mg PO HS [facility] Last Admin: 11/04/16 21:50 Dose: 10 mg Buspirone HCl (Buspar -) 5 mg PO BID [facility] Last Admin: 11/05/16 09:01 Dose: 5 mg Carbidopa/Levodopa (Sinemet 25/100 -) 1 each PO DAILY@0600 [facility] Last Admin: 11/05/16 06:29 Dose: 1 each Donepezil HCl (Aricept -) 10 mg PO DAILY [facility] Last Admin: 11/04/16 09:01 Dose: 10 mg Duloxetine HCl (Cymbalta -) 60 mg PO DAILY [facility] Last Admin: 11/05/16 09:01 Dose: 60 mg Ferrous Sulfate (Feosol -) 325 mg PO BIDWM [facility] Last Admin: 11/05/16 09:01 Dose: 325 mg Piperacillin Sod/Tazobactam Sod (Zosyn 4.5gm Ivpb (Pre-Docked)) 100 mls @ 200 mls/hr IVPB Q8H-IV [facility] PRN Reason: Protocol Last Admin: 11/05/16 09:01 Dose: 200 mls/hr Potassium Chloride/Dextrose/Sod Cl (D5-1/2ns+10 Meq Kcl -) 1,000 mls @ 42 mls/ hr IV ASDIR [facility] Last Admin: 11/05/16 11:25 Dose: 42 mls/hr Lactobacillus Acidophilus (Bacid -) 1 tab PO BID [facility] Stop: 12/04/16 10:59 Last Admin: 11/05/16 09:01 Dose: 1 tab Latanoprost (Xalatan 0.005% Eye Drops -) 1 drop OU HS [facility] Last Admin: 11/04/16 21:50 Dose: 1 drop Non-Formulary Medication (Carbidopa/Levodopa/Entacapone [Carbidopa-Levodopa- Enta 125 Mg]) 1 each PO TID [facility] Last Admin: 11/05/16 06:30 Dose: 1 each Patient's Own Medication (Non- Formulary) ( Rotigotine [Neupro 6 Mg]1 Each) 1 each TD DAILY [facility] Last Admin: 11/05/16 11:25 Dose: 1 each Polyethylene Glycol (Miralax (For Daily Use) -) 17 gm PO DAILY [facility] Last Admin: 11/05/16 09:02 Dose: Not Given Senna/Docusate Sodium (Pericolace -) 1 tablet PO TID [facility] Last Admin: 11/05/16 06:29 Dose: 1 tablet Tolterodine Tartrate (Detrol La -) 4 mg PO DAILY [facility] Last Admin: 11/04/16 13:24 Dose: Not Given - Objective Vital Signs: Vital Signs Temperature 98.6 F 11/05/16 06:00 Pulse Rate 62 11/05/16 11:06 Respiratory Rate 20 11/05/16 06:00 Blood Pressure 133/57 11/05/16 06:00 O2 Sat by Pulse Oximetry (%) 95 11/05/16 11:06 Constitutional: Yes: No Distress, Calm Cardiovascular: Yes: Regular Rate and Rhythm, S1, S2 Respiratory: Yes: Regular, CTA Bilaterally, Rales (at bases) Gastrointestinal: Yes: Normal Bowel Sounds, Soft. No: Tenderness Edema: No Neurological: Yes: Alert, Confusion (minimal right side muscle weakness right side neglect- seems slightly improved) Labs: CBC, BMP 11/05/16 05:35 11/05/16 05:35 INR, PTT INR 1.56 (0.82-1.09) H 11/02/16 21:38 Problem List - Problems (1) Altered mental state Code(s): R41.82 - ALTERED MENTAL STATUS, UNSPECIFIED (2) Sepsis Code(s): A41.9 - SEPSIS, UNSPECIFIED ORGANISM (3) UTI (urinary tract infection) with pyuria Code(s): N39.0 - URINARY TRACT INFECTION, SITE NOT SPECIFIED (4) Pneumonia Code(s): J18.9 - PNEUMONIA, UNSPECIFIED ORGANISM (5) CVA (cerebral vascular accident) Assessment/Plan: multiple, different locations, unclear source Code(s): I63.9 - CEREBRAL INFARCTION, UNSPECIFIED (6) Parkinson disease Code(s): G20 - PARKINSON'S DISEASE (7) Impaired gait Code(s): R26.9 - UNSPECIFIED ABNORMALITIES OF GAIT AND MOBILITY (8) Elevated troponin I level Code(s): R74.8 - ABNORMAL LEVELS OF OTHER SERUM ENZYMES (9) Encephalopathy Code(s): G93.40 - ENCEPHALOPATHY, UNSPECIFIED Assessment/Plan IV abtx Admitted to Telemetry. ID consult appreciated; case was discussed with Dr. Ness- to change abtx ( start Zosyn) Neurology consult appreciated Cardiology consult aprreciated Pulmonary consult appreciated Neuro checks Brain MRI noted DVT prophylasis I ordered to repeate ECHO Case was reviewed with pt's brother (Ashkan); all questions were answered
--- NOTE | 2016-11-05 16:54 | CONSULT ---
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 Appropriate) Oral Expression Ability: Yes: Moderate Impairment - Speech Production Dysarthria: Yes: Flaccid Apraxia: No Able to Make Needs Known: Yes: Moderately Impaired (requires verbal prompting) Intelligibility: Yes: WNL (for short utterances and phrases.) - Speech Characteristics Voice Loudness: Normal Voice Pitch: Yes: Normal Voice Phonatory-based Quality: Yes: Normal Speech Pattern: Normal Speech Clarity: < 25% Nasal Resonance: Normal Articulation: Yes: Precise (for single words and short phrases.) Rate of Speech: Intact - Language/Auditory Comprehension Follows: Yes: 1 Stage Simple Commands (WFL), 2 Stage Simple Commands (WFL) Observation: Able to respond to yes/no queries: Yes, Yes/No Confusion: No, Comprehends Conversational Speech: Yes, Benefits from Slow Speech: Yes, Benefits from Repetiton: Yes, Benefits from Increased Volume of Speech: No - Language/Verbal Expression Able to Respond to Simple Queries: Yes: WNL Able to Communicate Wants and Needs: Yes: Mildly Impaired Aware of Errors: No Attempts to Correct Errors: No Use of Gestures: No Written Expression: not examined Reading Comprehension: not examined Calculations: not examined Attention: Yes: Mild Impairment - 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: 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 Impaired Short Term Memory: Yes: Mildly Impaired - Swallow Evaluation/Bedside Assessment Current Nutritional Intake: Soft, Thin Liquids Oral Secretions: Yes: WFL Tracheostomy Present: No Patient on Ventilator: No Dentition: Yes: Adequate, Missing Teeth Facial Symmetry at Rest: Symmetrical Facial Movement: Controlled Sensation: Normal Facial Comment: WFL for speech and swallowing purposes Jaw Position: Closed at Rest Against Resistance Opening: Normal Against Resistance Closing: Normal Pucker Lips: Normal Smile: Normal Lips, Comment: not examined Lingual Movement: Normal Lingual Speed of Movement: Reduced Lingual Movement Strgth Against Opposition: Reduced Lingual Movement Characteristics: Normal Lingual Comment: WFL for speech and swallowing purposes Soft Palate Description: Normal Color, Normal Arch Gag Reflex: Strong Bite Reflex: Present Velopharyngeal Movement: Normal Laryngeal Elevation: WFL Laryngeal Movement: Able to Palpate Needs Assistance: Yes Rate of Intake: Slow/Holding (slow) Bolus Size: WFL Sensation: Bite Reflex Labial Seal: WFL Chewing: WFL Oral Prep Time: WFL A-P Transit: WFL Pocketing: None Timing of Swallow: WFL Coughing/Throat Clear: No Change in Voice: No Other Findings/Remarks: 76 yo female seen at bedside for swallow eval to rule out dysphagia. Pt is verbal, cooperative and A&Ox2. Limited speech sample with most responses 1-3 words at a time. Pt admitted to [facility] for AMS confusion and visual changes. PMHX includes UTI PNA cerebral infarction PD. Pt given po trials of puree, soft solids with assistance revealed good acceptance, increased mastication time, bolus formation and transport. Pharyngeal swallows appears timely. No cough or changes in respiration during or after the swallow. Thin liquids trials with cup and straw with assistance were unremarkable for aspiration at this time. Recommendations - Speech Evaluation, Impression/Plan Impression: Pt is able to tolerate pureed, soft regular solids and thin liquids without s/s of aspiration at this time. Pt requires assistance for meals. [facility] Goals: tolerate the least restrictive diet consistency without s/s of aspiration. Short Term Goals: tolerate soft solids, purees and thin liquids without s/s of aspiration. - Dysphagia Impressions/Plan Swallowing Skills: Impaired (oral phase) Dysphagia Impressions: Minimal Impairment Dysphagia Treatment Plan: Small Bites, Safe Rate, Elevate HOB during feed, Other (Monitor nutritional intake and pulmonary status.) Dysphagia Evaluation Summary: Continue soft regular solids with thin liquids as tolerated. Observe standard aspiration precautions. Results given verbally to admission discharge rn Beena and to pcp via chart. - Recommendations Diet Consistency: Regular (soft solids) Medication Administration: Whole with water Liquids: Thin Liquids
[2016-11-05] MEDS: ATORVASTATIN CA 10 MG TABLET (FP) PO SCH (21:54)
[2016-11-05] MEDS: LATANOPROST 0.005% OPHTH SOLN 2.5ML BOTTLE OU SCH (21:57)
[2016-11-05] MEDS ORDERED: ALBUTEROL SO4 0.083% IH SOL 2.5 MG/3 ML VIAL.NEB. NEB ONE (22:05)
[2016-11-06] MEDS: PIPERACILLIN/TAZOB 4.5 GM 100 ML IVPB SCH ×3 (02:30→18:06)
[2016-11-06] MEDS: CARBIDOPA PO SCH ×3 (06:49→22:18)
[2016-11-06] MEDS: CARBIDOPA/LEVODOPA 25/100 TABLET (FP) PO SCH (06:49)
[2016-11-06] MEDS: LEVODOPA PO SCH ×3 (06:49→22:18)
[2016-11-06] MEDS: ENTACAPONE PO SCH ×3 (06:49→22:18)
[2016-11-06] MEDS: [UNRECOGNIZED DRUG - OTHER] PO SCH ×3 (06:49→22:18)
[2016-11-06] MEDS: SENNOSIDES/DOCUSATE COMBO (SENNA PLUS) TABLET (UD) PO SCH ×3 (06:49→22:11)
[2016-11-06 07:41] LABS: MCH 22.1 pg (25.7-33.7); MCHC 30.6 g/dl (32.0-36.0); MEAN CELL VOLUME 72.4 fl (80-96); MEAN PLT VOLUME 6.6 fl (7.5-11.1); PLATELET COUNT 494 K/MM3 (134-434); RDW 21.8 % (11.6-15.6); WHITE BLOOD COUNT 13.1 K/mm3 (4.0-10.0)
[2016-11-06 08:19] LABS: BILIRUBIN,TOTAL 0.3 mg/dL (0.2-1.0); SGPT/ALT < 6 U/L (12-78)
[2016-11-06 08:24] LABS: ALK PHOS 104 U/L (45-117); ANION GAP 6 (8-16); CALCIUM 7.6 mg/dL (8.5-10.1); CO2 31 mmol/L (21-32); CREATININE 0.4 mg/dL (0.55-1.02); GLUCOSE,RANDOM 91 mg/dL (74-106); SGOT/AST 13 U/L (15-37); TOT PROT 5.1 g/dl (6.4-8.2)
[2016-11-06] MEDS: D5-1/2NS+10 MEQ KCL - 1,000 ML IV SCH (09:05)
[2016-11-06] MEDS ORDERED: PT OWN MED DRAWER 7, Y5N ONE (09:32)
--- NOTE | 2016-11-06 09:45 | PN ---
Progress Note, Physician History of Present Illness: Patient is a 76 year old female from [facility] with significant medical hx of Parkinsons, HLD, and HTN who is presenting to the ED with confusion and lethargy for three days. Patient was recently diagnosed with a UTI three days ago after being found lethargic at the custodial. Since then shes had increased lethargy and had some confusion today, as per accompanying family members. Family members also report the patient has had intermittent fevers, diaphoresis, and cough that is occasionally productive. - Current Medication List Current Medications: Active Medications Acetaminophen (Tylenol -) 650 mg PO Q6H PRN PRN Reason: BACK PAIN Last Admin: 11/03/16 10:49 Dose: 650 mg Albuterol Sulfate (Ventolin 0.5% -) 1 amp NEB Q6H PRN PRN Reason: SHORTNESS OF BREATH Last Admin: 11/03/16 05:42 Dose: 1 amp Amlodipine Besylate (Norvasc -) 2.5 mg PO DAILY [facility] Last Admin: 11/05/16 09:01 Dose: 2.5 mg Ascorbic Acid (Vitamin C -) 500 mg PO DAILY [facility] Last Admin: 11/05/16 09:01 Dose: 500 mg Aspirin (Asa -) 81 mg PO DAILY [facility] Last Admin: 11/05/16 09:01 Dose: 81 mg Atorvastatin Calcium (Lipitor -) 10 mg PO HS [facility] Last Admin: 11/05/16 21:54 Dose: 10 mg Buspirone HCl (Buspar -) 5 mg PO BID [facility] Last Admin: 11/05/16 21:54 Dose: 5 mg Carbidopa/Levodopa (Sinemet 25/100 -) 1 each PO DAILY@0600 [facility] Last Admin: 11/06/16 06:49 Dose: 1 each Donepezil HCl (Aricept -) 10 mg PO DAILY [facility] Last Admin: 11/05/16 09:30 Dose: Not Given Duloxetine HCl (Cymbalta -) 60 mg PO DAILY [facility] Last Admin: 11/05/16 09:01 Dose: 60 mg Ferrous Sulfate (Feosol -) 325 mg PO BIDWM [facility] Last Admin: 11/05/16 17:08 Dose: Not Given Piperacillin Sod/Tazobactam Sod (Zosyn 4.5gm Ivpb (Pre-Docked)) 100 mls @ 200 mls/hr IVPB Q8H-IV [facility] PRN Reason: Protocol Last Admin: 11/06/16 02:30 Dose: 200 mls/hr Potassium Chloride/Dextrose/Sod Cl (D5-1/2ns+10 Meq Kcl -) 1,000 mls @ 42 mls/ hr IV ASDIR [facility] Last Admin: 11/05/16 11:25 Dose: 42 mls/hr Lactobacillus Acidophilus (Bacid -) 1 tab PO BID [facility] Stop: 12/04/16 10:59 Last Admin: 11/05/16 21:54 Dose: 1 tab Latanoprost (Xalatan 0.005% Eye Drops -) 1 drop OU HS [facility] Last Admin: 11/05/16 21:57 Dose: 1 drop Non-Formulary Medication (Carbidopa/Levodopa/Entacapone [Carbidopa-Levodopa- Enta 125 Mg]) 1 each PO TID [facility] Last Admin: 11/06/16 06:49 Dose: 1 each Patient's Own Medication (Non- Formulary) ( Rotigotine [Neupro 6 Mg]1 Each) 1 each TD DAILY [facility] Last Admin: 11/05/16 11:25 Dose: 1 each Polyethylene Glycol (Miralax (For Daily Use) -) 17 gm PO DAILY [facility] Last Admin: 11/05/16 09:02 Dose: Not Given Senna/Docusate Sodium (Pericolace -) 1 tablet PO TID [facility] Last Admin: 11/06/16 06:49 Dose: 1 tablet Tolterodine Tartrate (Detrol La -) 4 mg PO DAILY [facility] Last Admin: 11/05/16 10:00 Dose: Not Given - Objective Vital Signs: Vital Signs Temperature 99.1 F 11/06/16 05:54 Pulse Rate 66 11/06/16 05:54 Respiratory Rate 20 11/06/16 05:54 Blood Pressure 144/84 11/06/16 05:54 O2 Sat by Pulse Oximetry (%) 94 L 11/05/16 20:16 Eyes: Yes: WNL, Conjunctiva Clear, EOM Intact HENT: Yes: WNL, Atraumatic, Normocephalic Neck: Yes: WNL, Supple, Trachea Midline Cardiovascular: Yes: WNL, Regular Rate and Rhythm Respiratory: Yes: WNL, Regular, CTA Bilaterally Gastrointestinal: Yes: WNL, Normal Bowel Sounds Genitourinary: Yes: WNL Musculoskeletal: Yes: WNL Extremities: Yes: WNL Edema: No Integumentary: Yes: WNL Neurological: Yes: WNL, Alert, Oriented ...Motor Strength: WNL Psychiatric: Yes: WNL Labs: CBC, BMP 11/06/16 05:48 11/06/16 05:48 INR, PTT INR 1.56 (0.82-1.09) H 11/02/16 21:38 Problem List - Problems (1) Altered mental state Code(s): R41.82 - ALTERED MENTAL STATUS, UNSPECIFIED (2) Anemia Code(s): D64.9 - ANEMIA, UNSPECIFIED (3) CVA (cerebral vascular accident) Code(s): I63.9 - CEREBRAL INFARCTION, UNSPECIFIED (4) Chest pain Code(s): R07.9 - CHEST PAIN, UNSPECIFIED (5) Elevated troponin I level Code(s): R74.8 - ABNORMAL LEVELS OF OTHER SERUM ENZYMES (6) HTN (hypertension) Code(s): I10 - ESSENTIAL (PRIMARY) HYPERTENSION (7) Hyperlipemia Code(s): E78.5 - HYPERLIPIDEMIA, UNSPECIFIED (8) Impaired gait Code(s): R26.9 - UNSPECIFIED ABNORMALITIES OF GAIT AND MOBILITY (9) NSTEMI (non-ST elevated myocardial infarction) Code(s): I21.4 - NON-ST ELEVATION (NSTEMI) MYOCARDIAL INFARCTION (10) Parkinson disease Code(s): G20 - PARKINSON'S DISEASE (11) Parkinsonian features Code(s): R25.9 - UNSPECIFIED ABNORMAL INVOLUNTARY MOVEMENTS (12) Pneumonia Code(s): J18.9 - PNEUMONIA, UNSPECIFIED ORGANISM (13) Pyelonephritis Code(s): N12 - TUBULO-INTERSTITIAL NEPHRITIS, NOT SPCF ACUTE OR CHRONIC (14) Sepsis Code(s): A41.9 - SEPSIS, UNSPECIFIED ORGANISM (15) UTI (urinary tract infection) Code(s): N39.0 - URINARY TRACT INFECTION, SITE NOT SPECIFIED (16) UTI (urinary tract infection) with pyuria Code(s): N39.0 - URINARY TRACT INFECTION, SITE NOT SPECIFIED (17) Contusion of head Code(s): S00.93XA - CONTUSION OF UNSPECIFIED PART OF HEAD, INITIAL ENCOUNTER (18) Fall at home Code(s): W19.XXXA - UNSPECIFIED FALL, INITIAL ENCOUNTER Y92.099 - UNSP PLACE IN OTH NON-INSTITUTIONAL RESIDENCE PLACE (19) Forehead laceration Code(s): S01.81XA - LACERATION W/O FOREIGN BODY OF OTH PART OF HEAD, INIT ENCNTR Qualifiers: Encounter type: initial encounter Qualified Code(s): S01.81XA - Laceration without foreign body of other part of head, initial encounter (20) Head injury Code(s): S09.90XA - UNSPECIFIED INJURY OF HEAD, INITIAL ENCOUNTER Qualifiers: Encounter type: initial encounter Qualified Code(s): S09.90XA - Unspecified injury of head, initial encounter (21) Laceration Code(s): T14.8 - OTHER INJURY OF UNSPECIFIED BODY REGION (22) Nasal bone fracture Code(s): S02.2XXA - FRACTURE OF NASAL BONES, INIT ENCNTR FOR CLOSED FRACTURE Assessment/Plan 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 uti ?pna ?chf elevated PCI Plan abx supportive care doubt primary cardiac event. cont asa and lipitor
--- NOTE | 2016-11-06 09:53 | PN ---
Progress Note, Physician History of Present Illness: pulmonary alert,nad,-cp,-congestion - Current Medication List Current Medications: Active Medications Acetaminophen (Tylenol -) 650 mg PO Q6H PRN PRN Reason: BACK PAIN Last Admin: 11/03/16 10:49 Dose: 650 mg Albuterol Sulfate (Ventolin 0.5% -) 1 amp NEB Q6H PRN PRN Reason: SHORTNESS OF BREATH Last Admin: 11/03/16 05:42 Dose: 1 amp Amlodipine Besylate (Norvasc -) 2.5 mg PO DAILY [facility] Last Admin: 11/05/16 09:01 Dose: 2.5 mg Ascorbic Acid (Vitamin C -) 500 mg PO DAILY [facility] Last Admin: 11/05/16 09:01 Dose: 500 mg Aspirin (Asa -) 81 mg PO DAILY [facility] Last Admin: 11/05/16 09:01 Dose: 81 mg Atorvastatin Calcium (Lipitor -) 10 mg PO HS [facility] Last Admin: 11/05/16 21:54 Dose: 10 mg Buspirone HCl (Buspar -) 5 mg PO BID [facility] Last Admin: 11/05/16 21:54 Dose: 5 mg Carbidopa/Levodopa (Sinemet 25/100 -) 1 each PO DAILY@0600 [facility] Last Admin: 11/06/16 06:49 Dose: 1 each Donepezil HCl (Aricept -) 10 mg PO DAILY [facility] Last Admin: 11/05/16 09:30 Dose: Not Given Duloxetine HCl (Cymbalta -) 60 mg PO DAILY [facility] Last Admin: 11/05/16 09:01 Dose: 60 mg Ferrous Sulfate (Feosol -) 325 mg PO BIDWM [facility] Last Admin: 11/05/16 17:08 Dose: Not Given Piperacillin Sod/Tazobactam Sod (Zosyn 4.5gm Ivpb (Pre-Docked)) 100 mls @ 200 mls/hr IVPB Q8H-IV [facility] PRN Reason: Protocol Last Admin: 11/06/16 02:30 Dose: 200 mls/hr Potassium Chloride/Dextrose/Sod Cl (D5-1/2ns+10 Meq Kcl -) 1,000 mls @ 42 mls/ hr IV ASDIR [facility] Last Admin: 11/05/16 11:25 Dose: 42 mls/hr Lactobacillus Acidophilus (Bacid -) 1 tab PO BID [facility] Stop: 12/04/16 10:59 Last Admin: 11/05/16 21:54 Dose: 1 tab Latanoprost (Xalatan 0.005% Eye Drops -) 1 drop OU HS [facility] Last Admin: 11/05/16 21:57 Dose: 1 drop Non-Formulary Medication (Carbidopa/Levodopa/Entacapone [Carbidopa-Levodopa- Enta 125 Mg]) 1 each PO TID [facility] Last Admin: 11/06/16 06:49 Dose: 1 each Patient's Own Medication (Non- Formulary) ( Rotigotine [Neupro 6 Mg]1 Each) 1 each TD DAILY [facility] Last Admin: 11/05/16 11:25 Dose: 1 each Polyethylene Glycol (Miralax (For Daily Use) -) 17 gm PO DAILY [facility] Last Admin: 11/05/16 09:02 Dose: Not Given Senna/Docusate Sodium (Pericolace -) 1 tablet PO TID [facility] Last Admin: 11/06/16 06:49 Dose: 1 tablet Tolterodine Tartrate (Detrol La -) 4 mg PO DAILY [facility] Last Admin: 11/05/16 10:00 Dose: Not Given - Objective Vital Signs: Vital Signs Temperature 99.1 F 11/06/16 05:54 Pulse Rate 66 11/06/16 05:54 Respiratory Rate 20 11/06/16 05:54 Blood Pressure 144/84 11/06/16 05:54 O2 Sat by Pulse Oximetry (%) 94 L 11/05/16 20:16 Constitutional: Yes: Well Nourished, Calm Eyes: Yes: WNL HENT: Yes: WNL Neck: Yes: WNL Cardiovascular: Yes: Regular Rate and Rhythm, S1, S2 Respiratory: Yes: Rhonchi (few rhonchi) Gastrointestinal: Yes: Normal Bowel Sounds, Soft Extremities: Yes: WNL Edema: No Labs: CBC, BMP 11/06/16 05:48 11/06/16 05:48 INR, PTT INR 1.56 (0.82-1.09) H 11/02/16 21:38 Assessment/Plan Problem List - Problems (1) Anemia Code(s): D64.9 - ANEMIA, UNSPECIFIED (2) CVA (cerebral vascular accident) Code(s): I63.9 - CEREBRAL INFARCTION, UNSPECIFIED (3) HTN (hypertension) Code(s): I10 - ESSENTIAL (PRIMARY) HYPERTENSION (4) Pneumonia due to aerobic bacteria Code(s): J15.8 - PNEUMONIA DUE TO OTHER SPECIFIED BACTERIA Assessment/Pl RIGHT LOWER PNEUMONIA UTI CVA HTN HLD PARKINSONS CONTINUE ANTIBIOTICS O2 SUPPLEMENTATION INHALED BRONCHODILATORS F/U CHEST X-RAY IN AM DR KEAITNG
[2016-11-06] MEDS: ASPIRIN 81 MG CHEWABLE TABLETS PO SCH (09:59)
[2016-11-06] MEDS: DULoxetine HCL 30 MG CAPSULE.DR (FP) PO SCH (09:59)
[2016-11-06] MEDS: ASCORBIC ACID 500 MG TABLET (FP) PO SCH (09:59)
[2016-11-06] MEDS: TOLTERODINE TARTRATE LA 4 MG CAP.SR.24H (FP) PO SCH (09:59)
[2016-11-06] MEDS: busPIRone HCL 5 MG TABLET PO SCH ×2 (09:59→22:11)
[2016-11-06] MEDS: amLODIPine BESYLATE 2.5 MG TABLET (FP) PO SCH (09:59)
[2016-11-06] MEDS: DONEPEZIL HCL 10 MG TABLET (FP) PO SCH (10:00)
[2016-11-06] MEDS: FERROUS SO4 325 MG TABLET (FP) PO SCH ×2 (10:00→18:06)
[2016-11-06] MEDS: LACTOBACILLUS ACIDOPHILUS 1 EACH TAB (FP) PO SCH ×2 (10:00→22:11)
[2016-11-06] MEDS: POLYETHYLENE GLYCOL 3350 119 GM BTL PO SCH (10:04)
[2016-11-06] MEDS: ROTIGOTINE TD SCH ×2 (10:10→15:07)
--- NOTE | 2016-11-06 10:44 | PN ---
Progress Note (short form) - Note Progress Note: ID More alert NAD Nikunj still with dry couph Selected Entries 11/06/16 05:54 Temperature 99.1 F Pulse Rate 66 Respiratory 20 Rate Blood Pressure 144/84 Lung Clear Diminished BS Cor S1 S2 RR Abd Soft nontender Microbiology 11/02/16 21:16 Urine - Urine - Catheterized Urine Culture - Final Proteus Mirabilis Viridans Streptococcus Group 11/02/16 21:38 Blood - Peripheral Venous Blood Culture - Preliminary NO GROWTH OBTAINED AFTER 72 HOURS, INCUBATION TO CONTINUE FOR 2 DAYS. 11/02/16 21:16 Blood - Peripheral Venous Blood Culture - Preliminary NO GROWTH OBTAINED AFTER 72 HOURS, INCUBATION TO CONTINUE FOR 2 DAYS. Laboratory Tests 11/06/16 11/06/16 05:48 05:48 WBC 13.1 H Hgb 10.4 L Plt Count 494 H BUN 9 D Assessment Subacute stroke UTI Pneumonia ? aspiration Plan Continue current antibiotic Grover ONOFRE Problem List - Problems (1) UTI (urinary tract infection) with pyuria Code(s): N39.0 - URINARY TRACT INFECTION, SITE NOT SPECIFIED (2) Altered mental state Code(s): R41.82 - ALTERED MENTAL STATUS, UNSPECIFIED
--- NOTE | 2016-11-06 11:48 | PN ---
Progress Note, Physician History of Present Illness: Pt w/o fever, chills, cough, SOB, CP, palp., N, V. Pt condition was reviewed with pt's nurse. Pt's religion sisters at bedside. - Current Medication List Current Medications: Active Medications Acetaminophen (Tylenol -) 650 mg PO Q6H PRN PRN Reason: BACK PAIN Last Admin: 11/03/16 10:49 Dose: 650 mg Albuterol Sulfate (Ventolin 0.5% -) 1 amp NEB Q6H PRN PRN Reason: SHORTNESS OF BREATH Last Admin: 11/03/16 05:42 Dose: 1 amp Amlodipine Besylate (Norvasc -) 2.5 mg PO DAILY [facility] Last Admin: 11/06/16 09:59 Dose: 2.5 mg Ascorbic Acid (Vitamin C -) 500 mg PO DAILY [facility] Last Admin: 11/06/16 09:59 Dose: 500 mg Aspirin (Asa -) 81 mg PO DAILY [facility] Last Admin: 11/06/16 09:59 Dose: 81 mg Atorvastatin Calcium (Lipitor -) 10 mg PO HS [facility] Last Admin: 11/05/16 21:54 Dose: 10 mg Buspirone HCl (Buspar -) 5 mg PO BID [facility] Last Admin: 11/06/16 09:59 Dose: 5 mg Carbidopa/Levodopa (Sinemet 25/100 -) 1 each PO DAILY@0600 [facility] Last Admin: 11/06/16 06:49 Dose: 1 each Donepezil HCl (Aricept -) 10 mg PO DAILY [facility] Last Admin: 11/06/16 10:00 Dose: 10 mg Duloxetine HCl (Cymbalta -) 60 mg PO DAILY [facility] Last Admin: 11/06/16 09:59 Dose: 60 mg Ferrous Sulfate (Feosol -) 325 mg PO BIDWM [facility] Last Admin: 11/06/16 10:00 Dose: 325 mg Piperacillin Sod/Tazobactam Sod (Zosyn 4.5gm Ivpb (Pre-Docked)) 100 mls @ 200 mls/hr IVPB Q8H-IV [facility] PRN Reason: Protocol Last Admin: 11/06/16 10:08 Dose: 200 mls/hr Potassium Chloride/Dextrose/Sod Cl (D5-1/2ns+10 Meq Kcl -) 1,000 mls @ 42 mls/ hr IV ASDIR [facility] Last Admin: 11/05/16 11:25 Dose: 42 mls/hr Lactobacillus Acidophilus (Bacid -) 1 tab PO BID [facility] Stop: 12/04/16 10:59 Last Admin: 11/06/16 10:00 Dose: 1 tab Latanoprost (Xalatan 0.005% Eye Drops -) 1 drop OU HS [facility] Last Admin: 11/05/16 21:57 Dose: 1 drop Non-Formulary Medication (Carbidopa/Levodopa/Entacapone [Carbidopa-Levodopa- Enta 125 Mg]) 1 each PO TID [facility] Last Admin: 11/06/16 06:49 Dose: 1 each Patient's Own Medication (Non- Formulary) ( Rotigotine [Neupro 6 Mg]1 Each) 1 each TD DAILY [facility] Last Admin: 11/06/16 10:10 Dose: Not Given Polyethylene Glycol (Miralax (For Daily Use) -) 17 gm PO DAILY [facility] Last Admin: 11/06/16 10:04 Dose: 17 gm Senna/Docusate Sodium (Pericolace -) 1 tablet PO TID [facility] Last Admin: 11/06/16 06:49 Dose: 1 tablet Tolterodine Tartrate (Detrol La -) 4 mg PO DAILY [facility] Last Admin: 11/06/16 09:59 Dose: 4 mg - Objective Vital Signs: Vital Signs Temperature 99.1 F 11/06/16 05:54 Pulse Rate 66 11/06/16 05:54 Respiratory Rate 20 11/06/16 10:00 Blood Pressure 144/84 11/06/16 05:54 O2 Sat by Pulse Oximetry (%) 98 11/06/16 10:00 Constitutional: Yes: No Distress, Calm Cardiovascular: Yes: Regular Rate and Rhythm, S1, S2 Respiratory: Yes: Regular, Rhonchi (scaterred at bases) Gastrointestinal: Yes: Normal Bowel Sounds, Soft. No: Tenderness Edema: No Neurological: Yes: Alert, Oriented (improved Motor is slightly decreased on Right side (hand and leg)) Labs: CBC, BMP 11/06/16 05:48 11/06/16 05:48 INR, PTT INR 1.56 (0.82-1.09) H 11/02/16 21:38 Problem List - Problems (1) Altered mental state Assessment/Plan: improved Code(s): R41.82 - ALTERED MENTAL STATUS, UNSPECIFIED (2) Sepsis Code(s): A41.9 - SEPSIS, UNSPECIFIED ORGANISM (3) UTI (urinary tract infection) with pyuria Code(s): N39.0 - URINARY TRACT INFECTION, SITE NOT SPECIFIED (4) Pneumonia Code(s): J18.9 - PNEUMONIA, UNSPECIFIED ORGANISM (5) CVA (cerebral vascular accident) Assessment/Plan: multiple, different locations, unclear source ( emboli possible heart or aorta) ; ECHO is pending Code(s): I63.9 - CEREBRAL INFARCTION, UNSPECIFIED (6) Parkinson disease Code(s): G20 - PARKINSON'S DISEASE (7) Impaired gait Code(s): R26.9 - UNSPECIFIED ABNORMALITIES OF GAIT AND MOBILITY (8) Elevated troponin I level Code(s): R74.8 - ABNORMAL LEVELS OF OTHER SERUM ENZYMES (9) Encephalopathy Code(s): G93.40 - ENCEPHALOPATHY, UNSPECIFIED Assessment/Plan IV abtx Admitted to Telemetry. ID consult appreciated; case was discussed with Dr. Ness- to change abtx ( start Zosyn) Neurology consult appreciated Cardiology consult aprreciated Pulmonary consult appreciated Neuro checks Brain MRI noted DVT prophylasis I ordered to repeate ECHO Case was reviewed with pt's religion sister ( Annia)
[2016-11-06] MEDS: ALBUTEROL SO4 0.5 % INH SOLN 2.5 MG/0.5 ML VIAL.NEB. NEB PRN (18:00)
[2016-11-06] MEDS ORDERED: ALBUTEROL SO4 0.083% IH SOL 2.5 MG/3 ML VIAL.NEB. NEB ONE (18:10)
[2016-11-06] MEDS: ATORVASTATIN CA 10 MG TABLET (FP) PO SCH (22:11)
[2016-11-06] MEDS: LATANOPROST 0.005% OPHTH SOLN 2.5ML BOTTLE OU SCH (22:18)
[2016-11-07] MEDS: PIPERACILLIN/TAZOB 4.5 GM 100 ML IVPB SCH ×3 (03:10→17:55)
[2016-11-07] MEDS: ENTACAPONE PO SCH ×3 (06:22→21:32)
[2016-11-07] MEDS: [UNRECOGNIZED DRUG - OTHER] PO SCH ×3 (06:22→21:32)
[2016-11-07] MEDS: CARBIDOPA/LEVODOPA 25/100 TABLET (FP) PO SCH (06:22)
[2016-11-07] MEDS: SENNOSIDES/DOCUSATE COMBO (SENNA PLUS) TABLET (UD) PO SCH ×3 (06:22→21:32)
[2016-11-07] MEDS: CARBIDOPA PO SCH ×3 (06:22→21:32)
[2016-11-07] MEDS: LEVODOPA PO SCH ×3 (06:22→21:32)
[2016-11-07 06:56] LABS: MCH 22.2 pg (25.7-33.7); MCHC 30.5 g/dl (32.0-36.0); MEAN CELL VOLUME 72.8 fl (80-96); MEAN PLT VOLUME 6.6 fl (7.5-11.1); PLATELET COUNT 450 K/MM3 (134-434); RDW 22.5 % (11.6-15.6); WHITE BLOOD COUNT 12.9 K/mm3 (4.0-10.0)
[2016-11-07 07:20] LABS: ANION GAP 5 (8-16); CALCIUM 7.7 mg/dL (8.5-10.1); CO2 32 mmol/L (21-32); CREATININE 0.4 mg/dL (0.55-1.02); GLUCOSE,RANDOM 98 mg/dL (74-106)
[2016-11-07] MEDS ORDERED: PT OWN MED DRAWER 7, Y5N ONE ×3 (09:03→15:29)
--- NOTE | 2016-11-07 09:43 | PN ---
Progress Note, Physician Chief Complaint: seen and examined. TELE: reviewed. NSR with rare PVCs - Current Medication List Current Medications: Active Medications Acetaminophen (Tylenol -) 650 mg PO Q6H PRN PRN Reason: BACK PAIN Last Admin: 11/03/16 10:49 Dose: 650 mg Albuterol Sulfate (Ventolin 0.5% -) 1 amp NEB Q6H PRN PRN Reason: SHORTNESS OF BREATH Last Admin: 11/06/16 18:00 Dose: 1 amp Amlodipine Besylate (Norvasc -) 2.5 mg PO DAILY [facility] Last Admin: 11/06/16 09:59 Dose: 2.5 mg Ascorbic Acid (Vitamin C -) 500 mg PO DAILY [facility] Last Admin: 11/06/16 09:59 Dose: 500 mg Aspirin (Asa -) 81 mg PO DAILY [facility] Last Admin: 11/06/16 09:59 Dose: 81 mg Atorvastatin Calcium (Lipitor -) 10 mg PO HS [facility] Last Admin: 11/06/16 22:11 Dose: 10 mg Buspirone HCl (Buspar -) 5 mg PO BID [facility] Last Admin: 11/06/16 22:11 Dose: 5 mg Carbidopa/Levodopa (Sinemet 25/100 -) 1 each PO DAILY@0600 [facility] Last Admin: 11/07/16 06:22 Dose: 1 each Donepezil HCl (Aricept -) 10 mg PO DAILY [facility] Last Admin: 11/06/16 10:00 Dose: 10 mg Duloxetine HCl (Cymbalta -) 60 mg PO DAILY [facility] Last Admin: 11/06/16 09:59 Dose: 60 mg Ferrous Sulfate (Feosol -) 325 mg PO BIDWM [facility] Last Admin: 11/06/16 18:06 Dose: 325 mg Piperacillin Sod/Tazobactam Sod (Zosyn 4.5gm Ivpb (Pre-Docked)) 100 mls @ 200 mls/hr IVPB Q8H-IV [facility] PRN Reason: Protocol Last Admin: 11/07/16 03:10 Dose: 200 mls/hr Potassium Chloride/Dextrose/Sod Cl (D5-1/2ns+10 Meq Kcl -) 1,000 mls @ 42 mls/ hr IV ASDIR [facility] Last Admin: 11/06/16 09:05 Dose: 42 mls/hr Lactobacillus Acidophilus (Bacid -) 1 tab PO BID [facility] Stop: 12/04/16 10:59 Last Admin: 11/06/16 22:11 Dose: 1 tab Latanoprost (Xalatan 0.005% Eye Drops -) 1 drop OU HS [facility] Last Admin: 11/06/16 22:18 Dose: 1 drop Non-Formulary Medication (Carbidopa/Levodopa/Entacapone [Carbidopa-Levodopa- Enta 125 Mg]) 1 each PO TID [facility] Last Admin: 11/07/16 06:22 Dose: 1 each Patient's Own Medication (Non- Formulary) ( Rotigotine [Neupro 6 Mg]1 Each) 1 each TD DAILY [facility] Last Admin: 11/06/16 15:07 Dose: 1 each Polyethylene Glycol (Miralax (For Daily Use) -) 17 gm PO DAILY [facility] Last Admin: 11/06/16 10:04 Dose: 17 gm Senna/Docusate Sodium (Pericolace -) 1 tablet PO TID [facility] Last Admin: 11/07/16 06:22 Dose: 1 tablet Tolterodine Tartrate (Detrol La -) 4 mg PO DAILY [facility] Last Admin: 11/06/16 09:59 Dose: 4 mg - Objective Vital Signs: Vital Signs Temperature 97.8 F 11/07/16 05:06 Pulse Rate 70 11/07/16 08:52 Respiratory Rate 20 11/07/16 08:52 Blood Pressure 122/79 11/07/16 08:52 O2 Sat by Pulse Oximetry (%) 95 11/06/16 20:47 Constitutional: Yes: No Distress Cardiovascular: Yes: Regular Rate and Rhythm Respiratory: Yes: Other (= breath sounds bilaterally. no active wheezing.) Gastrointestinal: Yes: Soft Edema: No Peripheral Pulses WNL: Yes Neurological: Yes: Alert ...Motor Strength: WNL Labs: CBC, BMP 11/07/16 05:35 11/07/16 05:35 INR, PTT INR 1.56 (0.82-1.09) H 11/02/16 21:38 - ....Imaging Chest X-ray: Image Reviewed EKG: Image Reviewed Assessment/Plan Assessment/Plan 75 year old woman with a history of HTN, HLD, Parkinsons, admitted with AMS, acute CVA, UTI, possible aspiration PNA. Elevated troponin-minimally elevated with normal CK level, unlikely Type I TN, maybe elevated secondary to infection vs CVA -troponin trended down -no ischemia on ekg -no sig arrhythmia on telemetry thus far -nuclear stress test 06/25/16 showed no ischemia, normal LVEF -For repeat echo. -cont ASA 81mg daily (Plavix recommended to be added for CVA treatment by Neurology) -Cont Lipitor -no additional ischemic work up needed during this admission CVA-acute vs subacute with superimposed UTI -cont anti-platelets as per Neuro reccs -cont statin -no arrhythmias on telemetry thus far -no sig carotid stenosis seen on MRA -can repeat echo as above
[2016-11-07] MEDS: LACTOBACILLUS ACIDOPHILUS 1 EACH TAB (FP) PO SCH ×2 (10:21→21:32)
[2016-11-07] MEDS: amLODIPine BESYLATE 2.5 MG TABLET (FP) PO SCH (10:21)
[2016-11-07] MEDS: DONEPEZIL HCL 10 MG TABLET (FP) PO SCH (10:22)
[2016-11-07] MEDS: ASPIRIN 81 MG CHEWABLE TABLETS PO SCH (10:22)
--- NOTE | 2016-11-07 10:22 | PN ---
Progress Note (short form) - Note Progress Note: Pt is a resident of [facility], noticed to have UTI yesterday and started on PO Levaqiune (UCX pending). In the evening pt couldn't see; she was sent to ER, found to be confused, abnormal Head CT scan (possible acute/ subacute stroke ), UTI, possible PNA. Pt was admitted, started on IV abtx; she was admitted to Telemetry secondary to elevated Trop I. Pt's health home care companion (sister Annia) at bed side now, states that pt is improved in her MS, eye sight. Pt. reports she has had weakness in right arm for last 2 months but her caregiver reports it is more recent. She describes the visual difficulty as "blurred vision") History Source: Patient, Significant Other (Pt's health home care companion ( sister Annia)) FU : pt states she is doing better but poor HX, she unable to elaborate who has been treating her parkinsons she is not aware of her dyskenisias MRI scans reviewed-- + infarct in multiple vascular territories MRI IMPRESSION: Acute left occipital/temporal cortical infarct. Small acute right frontal and parietal cortical infarcts. MRA OF THE BRAIN without contrast Clinical information: left occipital infarct The exam was performed utilizing three-dimensional gradient echo imaging with [id number] technique. Individual partition images as well as projection images are reviewed. The vertebrobasilar and carotid circulations demonstrate no MRA evidence of large vessel stenosis or occlusion. No discrete aneurysm is seen. There is no extrinsic abnormality. IMPRESSION: No large vessel stenosis is identified. IMPRESSION: No large vessel stenosis is identified. 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: Parkinson's, Other (Gait impairment Back pain [place]) Cardio/Vascular: Yes: HTN, Hyperlipdemia - Alcohol/Substance Use Hx Alcohol Use: Yes (OCCASIONALLY) - Smoking History Smoking history: Unknown if ever smoked Have you smoked in the past 12 months: No - Social History Usual Living Arrangement: Alf ADL: Support Services History of Recent Travel: No Home Medications - Allergies Allergies/Adverse Reactions: Allergies Allergy/AdvReac Type Severity Reaction Status Date / Time No Known Drug Allergies Allergy Verified 11/02/16 20:54 - Home Medications Home Medications: Ambulatory Orders Amlodipine Besylate [Norvasc -] 2.5 mg PO DAILY 06/22/16 Aspirin [ASA -] 81 mg PO DAILY 06/22/16 Donepezil HCl [Aricept -] 10 mg PO DAILY 06/22/16 Duloxetine HCl 60 mg PO DAILY 06/22/16 Gabapentin [Neurontin -] 400 mg PO Q8H 06/22/16 Hydrochlorothiazide 25 mg PO DAILY 06/22/16 Latanoprost 0.005% Eye Drops [Xalatan 0.005% Eye Drops -] 1 drop OU HS 06/22/16 Mirtazapine [Remeron Soltab -] 15 mg PO DAILY 06/22/16 Sennosides/Docusate Sodium [Senna S Tablet] 1 each PO TID 06/22/16 Simvastatin 20 mg PO DAILY 06/22/16 Tolterodine Tartrate LA [Detrol LA -] 4 mg PO DAILY 06/22/16 Acetaminophen [Tylenol .Regular Strength -] 650 mg PO Q6H PRN #0 tablet Carbidopa/Levodopa 25/100 [Sinemet 25/100 -] 1 each PO DAILY@0600 tablet Polyethylene Glycol 3350 [Miralax 119 gm Btl -] 17 gm PO DAILY bottle 06/28/16 Carbidopa/Levodopa/Entacapone [Icgxiblvf-Ypxcetos-Pxgw 125 mg] 1 each PO TID 07/20 Albuterol Sulfate 0.5% [Ventolin 0.5% -] 1 amp NEB QID PRN 11/02/16 Ascorbate Calcium [Vitamin C] 500 mg PO DAILY 11/02/16 Buspirone HCl [Buspar -] 5 mg PO BID 11/02/16 Cholecalciferol (Vitamin D3) [Vitamin D3] 400 unit PO DAILY 11/02/16 Ferrous Sulfate [Feosol] 325 mg PO BID 11/02/16 Levofloxacin [Levaquin -] 500 mg PO DAILY 11/02/16 Rotigotine [Neupro] 1 each TD DAILY 11/02/16 Physical Exam-Neuro Vital Signs: Vital Signs Temperature 97.8 F 11/07/16 05:06 Pulse Rate 70 11/07/16 08:52 Respiratory Rate 20 11/07/16 08:52 Blood Pressure 122/79 11/07/16 08:52 O2 Sat by Pulse Oximetry (%) 95 11/06/16 20:47 Labs: \\ CBCD WBC 12.9 K/mm3 (4.0-10.0) H 11/07/16 05:35 RBC 4.46 M/mm3 (3.60-5.2) 11/07/16 05:35 Hgb 9.9 GM/dL (10.7-15.3) L 11/07/16 05:35 Hct 32.5 % (32.4-45.2) 11/07/16 05:35 MCV 72.8 fl (80-96) L 11/07/16 05:35 MCHC 30.5 g/dl (32.0-36.0) L 11/07/16 05:35 RDW 22.5 % (11.6-15.6) H 11/07/16 05:35 Plt Count 450 K/MM3 (134-434) H 11/07/16 05:35 MPV 6.6 fl (7.5-11.1) L 11/07/16 05:35 CMP Sodium 144 mmol/L (136-145) 11/07/16 05:35 Potassium 3.6 mmol/L (3.5-5.1) 11/07/16 05:35 Chloride 107 mmol/L (98-107) 11/07/16 05:35 Carbon Dioxide 32 mmol/L (21-32) 11/07/16 05:35 Anion Gap 5 (8-16) L 11/07/16 05:35 BUN 9 mg/dL (7-18) 11/07/16 05:35 Creatinine 0.4 mg/dL (0.55-1.02) L 11/07/16 05:35 Creat Clearance w eGFR > 60 (>60) 11/06/16 05:48 Calcium 7.7 mg/dL (8.5-10.1) L 11/07/16 05:35 Total Bilirubin 0.3 mg/dL (0.2-1.0) D 11/06/16 05:48 AST 13 U/L (15-37) L 11/06/16 05:48 ALT < 6 U/L (12-78) L 11/06/16 05:48 Alkaline Phosphatase 104 U/L (45-117) D 11/06/16 05:48 Total Protein 5.1 g/dl (6.4-8.2) L 11/06/16 05:48 Albumin 2.0 g/dl (3.4-5.0) L 11/06/16 05:48 - Neuro Exam Level Of Consciousness: Yes: Alert, Oriented to Person (Pt. is alert,follows simple commands, neglecting right side and tends to look to the left. Oriented to person only.), Oriented to Place, Oriented to Time Eyes: Yes: Right Hemianopsia, Other (Right pupil is 3mm-1mm, left is 3mm, fixed) Speech: Wernicke's Aphasia (Pt. makes phonemic paraphasic errors, has mild pauses and circumlocutions) Dominant Hand: Left Mini Mental Exam: Oriented to place only, is delirious-inattentive, distractible Cranial Nerves II-XII Intact: No (Right homonymous hemianopsia, right central facial) DTR's: 0 Left Achilles, 0 Right Achilles, 1+ Right Bicep, 1+ Left Tricep, 1+ Right Tricep, 1+ Right Brachioradialis, 2+ Left Bicep, 2+ Left Brachioradialis Babinski: Present (on right side) Response to light touch: Normal Response to pain prick: Normal Response to temperature: Abnormal (Not tested) Motor Strength: 4/5: Right Arm, Right Leg, 5/5: Left Arm, Left Leg Gait: Deferred (Pt. unable to stand ) NIH Stroke Scale - Total Score NIH Stroke Scale Score: 0 Imaging - Results Cat Scan: Report Reviewed (Reported with left acute/subacute occipital infarct.) Assessment/Plan Pt. with a hx. of Parkinsons disease, now presents with a mutiple infarcts in different vascular territories left occipital/PIANO PLAYER and right fronto-parietal-- highly suggestive of cardioembolic events 1) card FU, ECHO and would rec STEWART if possible, [place] [facility] holter would also be useful if no events captured in house can do ASA, plavix combination till this further clarified, though this should not be [place] [facility], a1c, TSH, B12 2) +extrapyrimadal disease, dyskinesias--suggesting over treament of parkinsons -- will consider tapering of stalevo--will clarify dose with nurse, for now -- dc 6pm dose of sinemet and reduce NEUPRO to 3mg patch QD -- (on 6 currently) 3) UTI-on ABX Dr Velez
[2016-11-07] MEDS: DULoxetine HCL 30 MG CAPSULE.DR (FP) PO SCH (10:23)
[2016-11-07] MEDS: busPIRone HCL 5 MG TABLET PO SCH ×2 (10:23→21:32)
[2016-11-07] MEDS: FERROUS SO4 325 MG TABLET (FP) PO SCH ×2 (10:24→17:54)
[2016-11-07] MEDS: ASCORBIC ACID 500 MG TABLET (FP) PO SCH (10:24)
--- NOTE | 2016-11-07 10:29 | PN ---
Progress Note, [employer] - Note Progress Note: Selected Entries 11/06/16 11/06/16 11/06/16 02:05 05:54 10:57 Breakfast 25% Lunch Supper Temperature 98.0 F 99.1 F 11/06/16 11/06/16 11/06/16 14:47 17:00 19:20 Breakfast Lunch 25% Supper 25% Temperature 98.0 F 11/06/16 11/07/16 11/07/16 20:54 02:00 05:06 Breakfast Lunch Supper Temperature 98.8 F 98.2 F 97.8 F 11/07/16 09:38 Breakfast 75% Lunch Supper Temperature Laboratory Tests 11/05/16 11/06/16 11/07/16 05:35 05:48 05:35 WBC 12.4 H 13.1 H 12.9 H CXR RLL PNA per pulmonary. Choreic movements. Swallowing overtly intact, however, silent aspiration can not be r/o at bedside. Seems brisk and timely. No cough or change in vocal quality. Impaired propositional speech, becomes distracted (?) after a couple of words and stops speaking. She said she forgets cwhat shew is saying. Good naming, repetition.Vague responses. Bilateral CVA's, now with PNA/UTI. O x [facility] November,, &*, sister, Ghada x 2 yrs,not rm no. Please feed pt. to improve PO intake. Monitor PO tolerance.
--- NOTE | 2016-11-07 11:43 | PN ---
Progress Note, Physician History of Present Illness: pulmonary alert,comfortable,nad,-cough,-congestion - Current Medication List Current Medications: Active Medications Acetaminophen (Tylenol -) 650 mg PO Q6H PRN PRN Reason: BACK PAIN Last Admin: 11/03/16 10:49 Dose: 650 mg Albuterol Sulfate (Ventolin 0.5% -) 1 amp NEB Q6H PRN PRN Reason: SHORTNESS OF BREATH Last Admin: 11/06/16 18:00 Dose: 1 amp Amlodipine Besylate (Norvasc -) 2.5 mg PO DAILY [facility] Last Admin: 11/07/16 10:21 Dose: 2.5 mg Ascorbic Acid (Vitamin C -) 500 mg PO DAILY [facility] Last Admin: 11/07/16 10:24 Dose: 500 mg Aspirin (Asa -) 81 mg PO DAILY [facility] Last Admin: 11/07/16 10:22 Dose: 81 mg Atorvastatin Calcium (Lipitor -) 10 mg PO HS [facility] Last Admin: 11/06/16 22:11 Dose: 10 mg Buspirone HCl (Buspar -) 5 mg PO BID [facility] Last Admin: 11/07/16 10:23 Dose: 5 mg Carbidopa/Levodopa (Sinemet 25/100 -) 1 each PO DAILY@0600 [facility] Last Admin: 11/07/16 06:22 Dose: 1 each Clopidogrel Bisulfate (Plavix -) 75 mg PO DAILY [facility] Donepezil HCl (Aricept -) 10 mg PO DAILY [facility] Last Admin: 11/07/16 10:22 Dose: 10 mg Duloxetine HCl (Cymbalta -) 60 mg PO DAILY [facility] Last Admin: 11/07/16 10:23 Dose: 60 mg Ferrous Sulfate (Feosol -) 325 mg PO BIDWM [facility] Last Admin: 11/07/16 10:24 Dose: 325 mg Piperacillin Sod/Tazobactam Sod (Zosyn 4.5gm Ivpb (Pre-Docked)) 100 mls @ 200 mls/hr IVPB Q8H-IV [facility] PRN Reason: Protocol Last Admin: 11/07/16 10:24 Dose: 200 mls/hr Potassium Chloride/Dextrose/Sod Cl (D5-1/2ns+10 Meq Kcl -) 1,000 mls @ 42 mls/ hr IV ASDIR [facility] Last Admin: 11/06/16 09:05 Dose: 42 mls/hr Lactobacillus Acidophilus (Bacid -) 1 tab PO BID [facility] Stop: 12/04/16 10:59 Last Admin: 11/07/16 10:21 Dose: 1 tab Latanoprost (Xalatan 0.005% Eye Drops -) 1 drop OU HS [facility] Last Admin: 11/06/16 22:18 Dose: 1 drop Non-Formulary Medication (Carbidopa/Levodopa/Entacapone [Carbidopa-Levodopa- Enta 125 Mg]) 1 each PO TID [facility] Last Admin: 11/07/16 06:22 Dose: 1 each Non-Formulary Medication (Rotigotine [Neupro]) 1 each TD DAILY [facility] Polyethylene Glycol (Miralax (For Daily Use) -) 17 gm PO DAILY [facility] Last Admin: 11/06/16 10:04 Dose: 17 gm Senna/Docusate Sodium (Pericolace -) 1 tablet PO TID [facility] Last Admin: 11/07/16 06:22 Dose: 1 tablet Tolterodine Tartrate (Detrol La -) 4 mg PO DAILY [facility] Last Admin: 11/06/16 09:59 Dose: 4 mg - Objective Vital Signs: Vital Signs Temperature 97.8 F 11/07/16 05:06 Pulse Rate 70 11/07/16 08:52 Respiratory Rate 20 11/07/16 08:52 Blood Pressure 122/79 11/07/16 08:52 O2 Sat by Pulse Oximetry (%) 95 11/06/16 20:47 Constitutional: Yes: Well Nourished, Calm Eyes: Yes: WNL HENT: Yes: WNL Neck: Yes: WNL Cardiovascular: Yes: Regular Rate and Rhythm, S1, S2 Respiratory: Yes: Rales (few bibasilar crackles) Gastrointestinal: Yes: Normal Bowel Sounds, Soft Extremities: Yes: WNL Edema: No Labs: CBC, BMP 11/07/16 05:35 11/07/16 05:35 INR, PTT INR 1.56 (0.82-1.09) H 11/02/16 21:38 Assessment/Plan Problem List - Problems (1) Anemia Code(s): D64.9 - ANEMIA, UNSPECIFIED (2) CVA (cerebral vascular accident) Code(s): I63.9 - CEREBRAL INFARCTION, UNSPECIFIED (3) HTN (hypertension) Code(s): I10 - ESSENTIAL (PRIMARY) HYPERTENSION (4) Pneumonia due to aerobic bacteria Code(s): J15.8 - PNEUMONIA DUE TO OTHER SPECIFIED BACTERIA Assessment/Pl RIGHT LOWER PNEUMONIA clinically improved UTI CVA ? ACUTE HTN HLD PARKINSONS CONTINUE ANTIBIOTICS O2 SUPPLEMENTATION INHALED BRONCHODILATORS F/U CHEST X-RAY ASA,PLAVIX ECHO DR KEATING
--- NOTE | 2016-11-07 12:09 | PN ---
Progress Note, Physician History of Present Illness: Pt w/o fever, chills, cough, SOB, CP, palp., N, V. Pt condition was reviewed with pt's nurse. - Current Medication List Current Medications: Active Medications Acetaminophen (Tylenol -) 650 mg PO Q6H PRN PRN Reason: BACK PAIN Last Admin: 11/03/16 10:49 Dose: 650 mg Albuterol Sulfate (Ventolin 0.5% -) 1 amp NEB Q6H PRN PRN Reason: SHORTNESS OF BREATH Last Admin: 11/06/16 18:00 Dose: 1 amp Amlodipine Besylate (Norvasc -) 2.5 mg PO DAILY [facility] Last Admin: 11/07/16 10:21 Dose: 2.5 mg Ascorbic Acid (Vitamin C -) 500 mg PO DAILY [facility] Last Admin: 11/07/16 10:24 Dose: 500 mg Aspirin (Asa -) 81 mg PO DAILY [facility] Last Admin: 11/07/16 10:22 Dose: 81 mg Atorvastatin Calcium (Lipitor -) 10 mg PO HS [facility] Last Admin: 11/06/16 22:11 Dose: 10 mg Buspirone HCl (Buspar -) 5 mg PO BID [facility] Last Admin: 11/07/16 10:23 Dose: 5 mg Carbidopa/Levodopa (Sinemet 25/100 -) 1 each PO DAILY@0600 [facility] Last Admin: 11/07/16 06:22 Dose: 1 each Clopidogrel Bisulfate (Plavix -) 75 mg PO DAILY [facility] Donepezil HCl (Aricept -) 10 mg PO DAILY [facility] Last Admin: 11/07/16 10:22 Dose: 10 mg Duloxetine HCl (Cymbalta -) 60 mg PO DAILY [facility] Last Admin: 11/07/16 10:23 Dose: 60 mg Ferrous Sulfate (Feosol -) 325 mg PO BIDWM [facility] Last Admin: 11/07/16 10:24 Dose: 325 mg Piperacillin Sod/Tazobactam Sod (Zosyn 4.5gm Ivpb (Pre-Docked)) 100 mls @ 200 mls/hr IVPB Q8H-IV [facility] PRN Reason: Protocol Last Admin: 11/07/16 10:24 Dose: 200 mls/hr Potassium Chloride/Dextrose/Sod Cl (D5-1/2ns+10 Meq Kcl -) 1,000 mls @ 42 mls/ hr IV ASDIR [facility] Last Admin: 11/06/16 09:05 Dose: 42 mls/hr Lactobacillus Acidophilus (Bacid -) 1 tab PO BID [facility] Stop: 12/04/16 10:59 Last Admin: 11/07/16 10:21 Dose: 1 tab Latanoprost (Xalatan 0.005% Eye Drops -) 1 drop OU HS [facility] Last Admin: 11/06/16 22:18 Dose: 1 drop Non-Formulary Medication (Carbidopa/Levodopa/Entacapone [Carbidopa-Levodopa- Enta 125 Mg]) 1 each PO TID [facility] Last Admin: 11/07/16 06:22 Dose: 1 each Non-Formulary Medication (Rotigotine [Neupro]) 1 each TD DAILY [facility] Polyethylene Glycol (Miralax (For Daily Use) -) 17 gm PO DAILY [facility] Last Admin: 11/06/16 10:04 Dose: 17 gm Senna/Docusate Sodium (Pericolace -) 1 tablet PO TID [facility] Last Admin: 11/07/16 06:22 Dose: 1 tablet Tolterodine Tartrate (Detrol La -) 4 mg PO DAILY [facility] Last Admin: 11/06/16 09:59 Dose: 4 mg - Objective Vital Signs: Vital Signs Temperature 97.8 F 11/07/16 05:06 Pulse Rate 70 11/07/16 08:52 Respiratory Rate 20 11/07/16 08:52 Blood Pressure 122/79 11/07/16 08:52 O2 Sat by Pulse Oximetry (%) 95 11/06/16 20:47 Constitutional: Yes: No Distress, Calm Cardiovascular: Yes: Regular Rate and Rhythm, S1, S2 Respiratory: Yes: Regular, Other (coarse at bases). No: Rales Gastrointestinal: Yes: Normal Bowel Sounds, Soft. No: Tenderness Edema: No Neurological: Yes: Alert, Oriented, Other (Motor in 5/5, weaker on the right side) Labs: CBC, BMP 11/07/16 05:35 11/07/16 05:35 INR, PTT INR 1.56 (0.82-1.09) H 11/02/16 21:38 Problem List - Problems (1) Altered mental state Assessment/Plan: improved Code(s): R41.82 - ALTERED MENTAL STATUS, UNSPECIFIED (2) Sepsis Code(s): A41.9 - SEPSIS, UNSPECIFIED ORGANISM (3) UTI (urinary tract infection) with pyuria Code(s): N39.0 - URINARY TRACT INFECTION, SITE NOT SPECIFIED (4) Pneumonia Code(s): J18.9 - PNEUMONIA, UNSPECIFIED ORGANISM (5) CVA (cerebral vascular accident) Assessment/Plan: multiple, different locations, unclear source ( emboli, possible source:heart or aorta); ECHO was taken, report is pending Code(s): I63.9 - CEREBRAL INFARCTION, UNSPECIFIED (6) Parkinson disease Code(s): G20 - PARKINSON'S DISEASE (7) Impaired gait Code(s): R26.9 - UNSPECIFIED ABNORMALITIES OF GAIT AND MOBILITY (8) Elevated troponin I level Code(s): R74.8 - ABNORMAL LEVELS OF OTHER SERUM ENZYMES (9) Encephalopathy Code(s): G93.40 - ENCEPHALOPATHY, UNSPECIFIED Assessment/Plan IV abtx Admitted to Telemetry. ID consult appreciated; case was discussed with Dr. Ness- to change abtx ( start Zosyn) Neurology consult appreciated Cardiology consult aprreciated; case was reviewed with Dr. Alonzo Pulmonary consult appreciated Neuro checks Brain MRI noted DVT prophylasis ECHO was taken, report is pending
[2016-11-07] MEDS: TOLTERODINE TARTRATE LA 4 MG CAP.SR.24H (FP) PO SCH (15:41)
[2016-11-07] MEDS: POLYETHYLENE GLYCOL 3350 119 GM BTL PO SCH (15:42)
[2016-11-07] MEDS: PATIENT'S OWN MEDICATION (NON-FORMULARY) (Rotigotine [Neupro] 1 EACH) TD SCH (15:43)
[2016-11-07] MEDS: ALBUTEROL SO4 0.5 % INH SOLN 2.5 MG/0.5 ML VIAL.NEB. NEB PRN (17:17)
[2016-11-07] MEDS: D5-1/2NS+10 MEQ KCL - 1,000 ML IV SCH (18:07)
[2016-11-07] MEDS: ATORVASTATIN CA 10 MG TABLET (FP) PO SCH (21:32)
[2016-11-07] MEDS: LATANOPROST 0.005% OPHTH SOLN 2.5ML BOTTLE OU SCH (21:43)
[2016-11-08] MEDS: CARBIDOPA/LEVODOPA 25/100 TABLET (FP) PO SCH (06:15)
[2016-11-08] MEDS: SENNOSIDES/DOCUSATE COMBO (SENNA PLUS) TABLET (UD) PO SCH ×3 (06:16→21:12)
[2016-11-08] MEDS: LEVODOPA PO SCH ×3 (06:16→21:15)
[2016-11-08] MEDS: [UNRECOGNIZED DRUG - OTHER] PO SCH ×3 (06:16→21:15)
[2016-11-08] MEDS: ENTACAPONE PO SCH ×3 (06:16→21:15)
[2016-11-08] MEDS: CARBIDOPA PO SCH ×3 (06:16→21:15)
[2016-11-08 08:15] LABS: ANION GAP 7 (8-16); CALCIUM 7.9 mg/dL (8.5-10.1); CO2 29 mmol/L (21-32); CREATININE 0.3 mg/dL (0.55-1.02); GLUCOSE,RANDOM 92 mg/dL (74-106)
[2016-11-08 08:29] LABS: THYROID STIMULATING HORMONE 2.44 uIU/ml (0.358-3.74)
--- NOTE | 2016-11-08 08:37 | PN ---
Progress Note, Physician Chief Complaint: TELE: NSR with PVCs - Current Medication List Current Medications: Active Medications Acetaminophen (Tylenol -) 650 mg PO Q6H PRN PRN Reason: BACK PAIN Last Admin: 11/03/16 10:49 Dose: 650 mg Albuterol Sulfate (Ventolin 0.5% -) 1 amp NEB Q6H PRN PRN Reason: SHORTNESS OF BREATH Last Admin: 11/07/16 17:17 Dose: 1 amp Amlodipine Besylate (Norvasc -) 2.5 mg PO DAILY [facility] Last Admin: 11/07/16 10:21 Dose: 2.5 mg Ascorbic Acid (Vitamin C -) 500 mg PO DAILY [facility] Last Admin: 11/07/16 10:24 Dose: 500 mg Aspirin (Asa -) 81 mg PO DAILY [facility] Last Admin: 11/07/16 10:22 Dose: 81 mg Atorvastatin Calcium (Lipitor -) 10 mg PO HS [facility] Last Admin: 11/07/16 21:32 Dose: 10 mg Buspirone HCl (Buspar -) 5 mg PO BID [facility] Last Admin: 11/07/16 21:32 Dose: 5 mg Carbidopa/Levodopa (Sinemet 25/100 -) 1 each PO DAILY@0600 [facility] Last Admin: 11/08/16 06:15 Dose: 1 each Clopidogrel Bisulfate (Plavix -) 75 mg PO DAILY [facility] Donepezil HCl (Aricept -) 10 mg PO DAILY [facility] Last Admin: 11/07/16 10:22 Dose: 10 mg Duloxetine HCl (Cymbalta -) 60 mg PO DAILY [facility] Last Admin: 11/07/16 10:23 Dose: 60 mg Ferrous Sulfate (Feosol -) 325 mg PO BIDWM [facility] Last Admin: 11/07/16 17:54 Dose: 325 mg Potassium Chloride/Dextrose/Sod Cl (D5-1/2ns+10 Meq Kcl -) 1,000 mls @ 42 mls/ hr IV ASDIR [facility] Last Admin: 11/07/16 18:07 Dose: 42 mls/hr Lactobacillus Acidophilus (Bacid -) 1 tab PO BID [facility] Stop: 12/04/16 10:59 Last Admin: 11/07/16 21:32 Dose: 1 tab Latanoprost (Xalatan 0.005% Eye Drops -) 1 drop OU HS [facility] Last Admin: 11/07/16 21:43 Dose: 1 drop Non-Formulary Medication (Carbidopa/Levodopa/Entacapone [Carbidopa-Levodopa- Enta 125 Mg]) 1 each PO TID [facility] Last Admin: 11/08/16 06:16 Dose: 1 each Non-Formulary Medication (Rotigotine [Neupro]) 1 each TD DAILY [facility] Last Admin: 11/07/16 15:43 Dose: 1 each Polyethylene Glycol (Miralax (For Daily Use) -) 17 gm PO DAILY [facility] Last Admin: 11/07/16 15:42 Dose: Not Given Senna/Docusate Sodium (Pericolace -) 1 tablet PO TID [facility] Last Admin: 11/08/16 06:16 Dose: 1 tablet Tolterodine Tartrate (Detrol La -) 4 mg PO DAILY [facility] Last Admin: 11/07/16 15:41 Dose: 4 mg - Objective Vital Signs: Vital Signs Temperature 98.6 F 11/08/16 05:42 Pulse Rate 69 11/08/16 05:42 Respiratory Rate 18 11/08/16 05:42 Blood Pressure 156/76 11/08/16 05:42 O2 Sat by Pulse Oximetry (%) 96 11/07/16 21:00 Constitutional: Yes: No Distress Cardiovascular: Yes: Regular Rate and Rhythm Respiratory: Yes: Other (decreased breath sounds at bases) Gastrointestinal: Yes: Soft Edema: No Labs: CBC, BMP 11/07/16 05:35 11/08/16 05:35 INR, PTT INR 1.56 (0.82-1.09) H 11/02/16 21:38 - ....Imaging EKG: Image Reviewed Assessment/Plan 75 year old woman with a history of HTN, HLD, Parkinsons, admitted with AMS, acute CVA, UTI, possible aspiration PNA. Elevated troponin-minimally elevated with normal CK level, unlikely Type I CA, maybe elevated secondary to infection vs CVA -troponin trended down -no ischemia on ekg -no sig arrhythmia on telemetry thus far -nuclear stress test 06/25/16 showed no ischemia, normal LVEF -Repeat echo TDS, mildly reduced LV function. -cont ASA, Plavix and Lipitor -no additional ischemic work up needed during this admission CVA-acute vs subacute with superimposed UTI -cont anti-platelets as per Neuro reccs -cont statin -no arrhythmias on telemetry thus far -no sig carotid stenosis seen on MRA -Discussed STEWART with patient. At this time, she is not in optimal medical condition to undergo STEWART (PNA, mild volume overload). Recommend medical optimization with abx and diuresis, and STEWART can be performed electively as outpatient. Patient also strongly prefers to begin rehab program when able and have the STEWART done An extended outpatient holter would also be helpful to r/o occult AF
[2016-11-08] MEDS: FERROUS SO4 325 MG TABLET (FP) PO SCH ×2 (09:55→17:27)
[2016-11-08] MEDS: ASCORBIC ACID 500 MG TABLET (FP) PO SCH (09:55)
[2016-11-08] MEDS: DULoxetine HCL 30 MG CAPSULE.DR (FP) PO SCH (09:55)
[2016-11-08] MEDS: DONEPEZIL HCL 10 MG TABLET (FP) PO SCH (09:55)
[2016-11-08] MEDS: amLODIPine BESYLATE 2.5 MG TABLET (FP) PO SCH (09:55)
[2016-11-08] MEDS: busPIRone HCL 5 MG TABLET PO SCH ×2 (09:55→21:12)
[2016-11-08] MEDS: FUROSEMIDE 40 MG TABLET (FP) PO SCH (09:55)
[2016-11-08] MEDS: CLOPIDOGREL BISULFATE 75 MG TABLET (FP) PO SCH (09:55)
[2016-11-08] MEDS: ASPIRIN 81 MG CHEWABLE TABLETS PO SCH (09:55)
[2016-11-08] MEDS: LACTOBACILLUS ACIDOPHILUS 1 EACH TAB (FP) PO SCH ×2 (09:55→21:12)
[2016-11-08] MEDS: TOLTERODINE TARTRATE LA 4 MG CAP.SR.24H (FP) PO SCH (09:55)
[2016-11-08] MEDS: POLYETHYLENE GLYCOL 3350 119 GM BTL PO SCH (09:56)
[2016-11-08] MEDS: PATIENT'S OWN MEDICATION (NON-FORMULARY) (Rotigotine [Neupro] 1 EACH) TD SCH (11:00)
[2016-11-08] MEDS: D5-1/2NS+10 MEQ KCL - 1,000 ML IV SCH (11:36)
--- NOTE | 2016-11-08 12:50 | PN ---
Progress Note (short form) - Note Progress Note: PULMONARY Breathing improving. +nonproductive cough. No fevers or chills. Last Vital Signs Temp Pulse Resp BP Pulse Ox 98.2 F 79 16 126/74 97 11/08/16 08:15 11/08/16 09:44 11/08/16 08:15 11/08/16 08:15 11/08/16 09:44 Gen: NAD at rest Heart: RRR Lung: basilar rales Abd: soft, nontender Ext: no edema CBC, BMP 11/07/16 05:35 11/08/16 05:35 Active Medications Acetaminophen (Tylenol -) 650 mg PO Q6H PRN PRN Reason: BACK PAIN Last Admin: 11/03/16 10:49 Dose: 650 mg Albuterol Sulfate (Ventolin 0.5% -) 1 amp NEB Q6H PRN PRN Reason: SHORTNESS OF BREATH Last Admin: 11/07/16 17:17 Dose: 1 amp Amlodipine Besylate (Norvasc -) 2.5 mg PO DAILY [facility] Last Admin: 11/08/16 09:55 Dose: 2.5 mg Ascorbic Acid (Vitamin C -) 500 mg PO DAILY [facility] Last Admin: 11/08/16 09:55 Dose: 500 mg Aspirin (Asa -) 81 mg PO DAILY [facility] Last Admin: 11/08/16 09:55 Dose: 81 mg Atorvastatin Calcium (Lipitor -) 10 mg PO HS [facility] Last Admin: 11/07/16 21:32 Dose: 10 mg Buspirone HCl (Buspar -) 5 mg PO BID [facility] Last Admin: 11/08/16 09:55 Dose: 5 mg Carbidopa/Levodopa (Sinemet 25/100 -) 1 each PO DAILY@0600 [facility] Last Admin: 11/08/16 06:15 Dose: 1 each Clopidogrel Bisulfate (Plavix -) 75 mg PO DAILY [facility] Last Admin: 11/08/16 09:55 Dose: 75 mg Donepezil HCl (Aricept -) 10 mg PO DAILY [facility] Last Admin: 11/08/16 09:55 Dose: 10 mg Duloxetine HCl (Cymbalta -) 60 mg PO DAILY [facility] Last Admin: 11/08/16 09:55 Dose: 60 mg Ferrous Sulfate ([facility]ol -) [facility] Last Admin: 11/08/16 09:55 Dose: 325 mg Furosemide (Lasix -) 40 mg PO DAILY [facility] Last Admin: 11/08/16 09:55 Dose: 40 mg Potassium Chloride/Dextrose/Sod Cl (D5-1/2ns+10 Meq Kcl -) 1,000 mls @ 42 mls/ hr IV ASDIR [facility] Last Admin: 11/07/16 18:07 Dose: 42 mls/hr Piperacillin Sod/Tazobactam Sod (Zosyn 3.375gm Ivpb (Pre-Docked)) 50 mls @ 100 mls/hr IVPB Q8H-IV [facility] PRN Reason: Protocol Lactobacillus Acidophilus (Bacid -) 1 tab PO BID [facility] Stop: 12/04/16 10:59 Last Admin: 11/08/16 09:55 Dose: 1 tab Latanoprost (Xalatan 0.005% Eye Drops -) 1 drop OU HS [facility] Last Admin: 11/07/16 21:43 Dose: 1 drop Non-Formulary Medication (Carbidopa/Levodopa/Entacapone [Carbidopa-Levodopa- Enta 125 Mg]) 1 each PO TID [facility] Last Admin: 11/08/16 06:16 Dose: 1 each Non-Formulary Medication (Rotigotine [Neupro]) 1 each TD DAILY [facility] Last Admin: 11/07/16 15:43 Dose: 1 each Polyethylene Glycol (Miralax (For Daily Use) -) 17 gm PO DAILY [facility] Last Admin: 11/08/16 09:56 Dose: Not Given Senna/Docusate Sodium (Pericolace -) 1 tablet PO TID [facility] Last Admin: 11/08/16 06:16 Dose: 1 tablet Tolterodine Tartrate (Detrol La -) 4 mg PO DAILY [facility] Last Admin: 11/08/16 09:55 Dose: 4 mg A/P Pneumonia UTI HTN Hyperlipidemia Parkinsons - complete antibiotics - O2 as needed - inhaled bronchodilators - aspiration precautions - DVT prophylaxis
[2016-11-08] MEDS ORDERED: ALBUTEROL SO4 0.083% IH SOL 2.5 MG/3 ML VIAL.NEB. NEB ONE (13:29)
[2016-11-08] MEDS: ALBUTEROL SO4 0.5 % INH SOLN 2.5 MG/0.5 ML VIAL.NEB. NEB PRN (13:38)
[2016-11-08] MEDS: PIPERACILLIN/TAZOB 3.375 GM 50 ML IVPB SCH ×2 (14:00→17:26)
[2016-11-08] MEDS ORDERED: PT OWN MED DRAWER 7, Y5N ONE (14:38)
--- NOTE | 2016-11-08 14:56 | PN ---
Progress Note, Physician Chief Complaint: ID Nikunj Afebrile - Current Medication List Current Medications: Active Medications Acetaminophen (Tylenol -) 650 mg PO Q6H PRN PRN Reason: BACK PAIN Last Admin: 11/03/16 10:49 Dose: 650 mg Albuterol Sulfate (Ventolin 0.5% -) 1 amp NEB Q6H PRN PRN Reason: SHORTNESS OF BREATH Last Admin: 11/08/16 13:38 Dose: 1 amp Amlodipine Besylate (Norvasc -) 2.5 mg PO DAILY [facility] Last Admin: 11/08/16 09:55 Dose: 2.5 mg Ascorbic Acid (Vitamin C -) 500 mg PO DAILY [facility] Last Admin: 11/08/16 09:55 Dose: 500 mg Aspirin (Asa -) 81 mg PO DAILY [facility] Last Admin: 11/08/16 09:55 Dose: 81 mg Atorvastatin Calcium (Lipitor -) 10 mg PO HS [facility] Last Admin: 11/07/16 21:32 Dose: 10 mg Buspirone HCl (Buspar -) 5 mg PO BID [facility] Last Admin: 11/08/16 09:55 Dose: 5 mg Carbidopa/Levodopa (Sinemet 25/100 -) 1 each PO DAILY@0600 [facility] Last Admin: 11/08/16 06:15 Dose: 1 each Clopidogrel Bisulfate (Plavix -) 75 mg PO DAILY [facility] Last Admin: 11/08/16 09:55 Dose: 75 mg Donepezil HCl (Aricept -) 10 mg PO DAILY [facility] Last Admin: 11/08/16 09:55 Dose: 10 mg Duloxetine HCl (Cymbalta -) 60 mg PO DAILY [facility] Last Admin: 11/08/16 09:55 Dose: 60 mg Ferrous Sulfate (Feosol -) 325 mg PO BIDWM [facility] Last Admin: 11/08/16 09:55 Dose: 325 mg Furosemide (Lasix -) 40 mg PO DAILY [facility] Last Admin: 11/08/16 09:55 Dose: 40 mg Potassium Chloride/Dextrose/Sod Cl (D5-1/2ns+10 Meq Kcl -) 1,000 mls @ 42 mls/ hr IV ASDIR [facility] Last Admin: 11/08/16 11:36 Dose: Not Given Piperacillin Sod/Tazobactam Sod (Zosyn 3.375gm Ivpb (Pre-Docked)) 50 mls @ 100 mls/hr IVPB Q8H-IV [facility] PRN Reason: Protocol Lactobacillus Acidophilus (Bacid -) 1 tab PO BID [facility] Stop: 12/04/16 10:59 Last Admin: 11/08/16 09:55 Dose: 1 tab Latanoprost (Xalatan 0.005% Eye Drops -) 1 drop OU HS [facility] Last Admin: 11/07/16 21:43 Dose: 1 drop Non-Formulary Medication (Carbidopa/Levodopa/Entacapone [Carbidopa-Levodopa- Enta 125 Mg]) 1 each PO TID [facility] Last Admin: 11/08/16 14:35 Dose: 1 each Non-Formulary Medication (Rotigotine [Neupro]) 1 each TD DAILY [facility] Last Admin: 11/08/16 11:00 Dose: 1 each Polyethylene Glycol (Miralax (For Daily Use) -) 17 gm PO DAILY [facility] Last Admin: 11/08/16 09:56 Dose: Not Given Senna/Docusate Sodium (Pericolace -) 1 tablet PO TID [facility] Last Admin: 11/08/16 14:35 Dose: Not Given Tolterodine Tartrate (Detrol La -) 4 mg PO DAILY [facility] Last Admin: 11/08/16 09:55 Dose: 4 mg - Objective Vital Signs: Vital Signs Temperature 98.8 F 11/08/16 13:24 Pulse Rate 67 11/08/16 13:24 Respiratory Rate 16 11/08/16 13:24 Blood Pressure 121/58 11/08/16 13:24 O2 Sat by Pulse Oximetry (%) 97 11/08/16 09:44 HENT: Yes: WNL, Atraumatic Neck: Yes: WNL, Supple Respiratory: Yes: WNL, Regular, CTA Bilaterally Gastrointestinal: Yes: WNL, Normal Bowel Sounds, Soft Labs: CBC, BMP 11/07/16 05:35 11/08/16 05:35 INR, PTT INR 1.56 (0.82-1.09) H 11/02/16 21:38 Problem List - Problems (1) UTI (urinary tract infection) with pyuria Code(s): N39.0 - URINARY TRACT INFECTION, SITE NOT SPECIFIED (2) Altered mental state Code(s): R41.82 - ALTERED MENTAL STATUS, UNSPECIFIED Assessment/Plan Microbiology 11/02/16 21:16 Urine - Urine - Catheterized Urine Culture - Final Proteus Mirabilis Viridans Streptococcus Group Laboratory Tests 11/07/16 11/08/16 05:35 05:35 WBC 12.9 H Hgb 9.9 L Plt Count 450 H BUN 8 Creatinine 0.3 L D Asessment Pneumonia UTI Proteus Stroke Plan As discussed with Dr Marie could consider switch Augmentin susp bid for 5 days Grover ONOFRE
[2016-11-08] MEDS: LATANOPROST 0.005% OPHTH SOLN 2.5ML BOTTLE OU SCH (21:12)
[2016-11-08] MEDS: ATORVASTATIN CA 10 MG TABLET (FP) PO SCH (21:12)
--- NOTE | 2016-11-08 23:20 | PN ---
Progress Note, Physician History of Present Illness: Pt w/o fever, chills, cough, SOB, CP, palp., N, V. Pt condition was reviewed with pt's nurse. - Current Medication List Current Medications: Active Medications Acetaminophen (Tylenol -) 650 mg PO Q6H PRN PRN Reason: BACK PAIN Last Admin: 11/03/16 10:49 Dose: 650 mg Albuterol Sulfate (Ventolin 0.5% -) 1 amp NEB Q6H PRN PRN Reason: SHORTNESS OF BREATH Last Admin: 11/08/16 13:38 Dose: 1 amp Amlodipine Besylate (Norvasc -) 2.5 mg PO DAILY [facility] Last Admin: 11/08/16 09:55 Dose: 2.5 mg Ascorbic Acid (Vitamin C -) 500 mg PO DAILY [facility] Last Admin: 11/08/16 09:55 Dose: 500 mg Aspirin (Asa -) 81 mg PO DAILY [facility] Last Admin: 11/08/16 09:55 Dose: 81 mg Atorvastatin Calcium (Lipitor -) 10 mg PO HS [facility] Last Admin: 11/08/16 21:12 Dose: 10 mg Buspirone HCl (Buspar -) 5 mg PO BID [facility] Last Admin: 11/08/16 21:12 Dose: 5 mg Carbidopa/Levodopa (Sinemet 25/100 -) 1 each PO DAILY@0600 [facility] Last Admin: 11/08/16 06:15 Dose: 1 each Clopidogrel Bisulfate (Plavix -) 75 mg PO DAILY [facility] Last Admin: 11/08/16 09:55 Dose: 75 mg Donepezil HCl (Aricept -) 10 mg PO DAILY [facility] Last Admin: 11/08/16 09:55 Dose: 10 mg Duloxetine HCl (Cymbalta -) 60 mg PO DAILY [facility] Last Admin: 11/08/16 09:55 Dose: 60 mg Ferrous Sulfate (Feosol -) 325 mg PO BIDWM [facility] Last Admin: 11/08/16 17:27 Dose: 325 mg Furosemide (Lasix -) 40 mg PO DAILY [facility] Last Admin: 11/08/16 09:55 Dose: 40 mg Potassium Chloride/Dextrose/Sod Cl (D5-1/2ns+10 Meq Kcl -) 1,000 mls @ 42 mls/ hr IV ASDIR [facility] Last Admin: 11/08/16 11:36 Dose: Not Given Piperacillin Sod/Tazobactam Sod (Zosyn 3.375gm Ivpb (Pre-Docked)) 50 mls @ 100 mls/hr IVPB Q8H-IV [facility] PRN Reason: Protocol Last Admin: 11/08/16 17:26 Dose: 100 mls/hr Lactobacillus Acidophilus (Bacid -) 1 tab PO BID [facility] Stop: 12/04/16 10:59 Last Admin: 11/08/16 21:12 Dose: 1 tab Latanoprost (Xalatan 0.005% Eye Drops -) 1 drop OU HS [facility] Last Admin: 11/08/16 21:12 Dose: 1 drop Non-Formulary Medication (Carbidopa/Levodopa/Entacapone [Carbidopa-Levodopa- Enta 125 Mg]) 1 each PO TID [facility] Last Admin: 11/08/16 21:15 Dose: 1 each Non-Formulary Medication (Rotigotine [Neupro]) 1 each TD DAILY [facility] Last Admin: 11/08/16 11:00 Dose: 1 each Polyethylene Glycol (Miralax (For Daily Use) -) 17 gm PO DAILY [facility] Last Admin: 11/08/16 09:56 Dose: Not Given Senna/Docusate Sodium (Pericolace -) 1 tablet PO TID [facility] Last Admin: 11/08/16 21:12 Dose: 1 tablet Tolterodine Tartrate (Detrol La -) 4 mg PO DAILY [facility] Last Admin: 11/08/16 09:55 Dose: 4 mg - Objective Vital Signs: Vital Signs Temperature 98.8 F 11/08/16 17:00 Pulse Rate 80 11/08/16 17:00 Respiratory Rate 18 11/08/16 21:00 Blood Pressure 130/57 11/08/16 17:00 O2 Sat by Pulse Oximetry (%) 97 11/08/16 21:00 Constitutional: Yes: No Distress, Calm Cardiovascular: Yes: Regular Rate and Rhythm, S1, S2 Respiratory: Yes: Regular, Other (coarse at bases) Gastrointestinal: Yes: Normal Bowel Sounds, Soft. No: Tenderness Edema: No Neurological: Yes: Alert, Oriented, Other (motor is 5/5 in UE/ LE on left side. motor is 4-5/5 in UE/ LE on right side.) Psychiatric: Yes: Alert, Oriented (place, person) Labs: CBC, BMP 11/07/16 05:35 11/08/16 05:35 INR, PTT INR 1.56 (0.82-1.09) H 11/02/16 21:38 - ....Imaging Other: Report Reviewed (Echo) Problem List - Problems (1) Altered mental state Assessment/Plan: improved Code(s): R41.82 - ALTERED MENTAL STATUS, UNSPECIFIED (2) Sepsis Code(s): A41.9 - SEPSIS, UNSPECIFIED ORGANISM (3) UTI (urinary tract infection) with pyuria Code(s): N39.0 - URINARY TRACT INFECTION, SITE NOT SPECIFIED (4) Pneumonia Code(s): J18.9 - PNEUMONIA, UNSPECIFIED ORGANISM (5) CVA (cerebral vascular accident) Assessment/Plan: multiple, different locations, unclear source ( emboli, possible source:heart or aorta); Code(s): I63.9 - CEREBRAL INFARCTION, UNSPECIFIED (6) Parkinson disease Code(s): G20 - PARKINSON'S DISEASE (7) Impaired gait Code(s): R26.9 - UNSPECIFIED ABNORMALITIES OF GAIT AND MOBILITY (8) Elevated troponin I level Code(s): R74.8 - ABNORMAL LEVELS OF OTHER SERUM ENZYMES (9) Encephalopathy Assessment/Plan: secondary to infection; improving Code(s): G93.40 - ENCEPHALOPATHY, UNSPECIFIED Assessment/Plan IV abtx Admitted to Telemetry. ID consult appreciated; case was discussed with Dr. Ness- to change abtx to PO staring AM Neurology consult appreciated Cardiology consult aprreciated; case was reviewed with Dr. Alonzo Pulmonary consult appreciated Neuro checks Brain MRI noted DVT prophylasis s/p 2-nd Echo- non revealing Consider DC to [facility] in AM
[2016-11-09] MEDS: PIPERACILLIN/TAZOB 3.375 GM 50 ML IVPB SCH ×2 (02:12→10:03)
[2016-11-09] MEDS: SENNOSIDES/DOCUSATE COMBO (SENNA PLUS) TABLET (UD) PO SCH ×2 (06:12→13:20)
[2016-11-09] MEDS: CARBIDOPA/LEVODOPA 25/100 TABLET (FP) PO SCH (06:12)
[2016-11-09] MEDS: [UNRECOGNIZED DRUG - OTHER] PO SCH ×2 (06:15→13:20)
[2016-11-09] MEDS: LEVODOPA PO SCH ×2 (06:15→13:20)
[2016-11-09] MEDS: ENTACAPONE PO SCH ×2 (06:15→13:20)
[2016-11-09] MEDS: CARBIDOPA PO SCH ×2 (06:15→13:20)
--- NOTE | 2016-11-09 08:13 | PN ---
Progress Note, Physician Chief Complaint: feeling better Less SOB - Current Medication List Current Medications: Active Medications Acetaminophen (Tylenol -) 650 mg PO Q6H PRN PRN Reason: BACK PAIN Last Admin: 11/03/16 10:49 Dose: 650 mg Albuterol Sulfate (Ventolin 0.5% -) 1 amp NEB Q6H PRN PRN Reason: SHORTNESS OF BREATH Last Admin: 11/08/16 13:38 Dose: 1 amp Amlodipine Besylate (Norvasc -) 2.5 mg PO DAILY [facility] Last Admin: 11/08/16 09:55 Dose: 2.5 mg Ascorbic Acid (Vitamin C -) 500 mg PO DAILY [facility] Last Admin: 11/08/16 09:55 Dose: 500 mg Aspirin (Asa -) 81 mg PO DAILY [facility] Last Admin: 11/08/16 09:55 Dose: 81 mg Atorvastatin Calcium (Lipitor -) 10 mg PO HS [facility] Last Admin: 11/08/16 21:12 Dose: 10 mg Buspirone HCl (Buspar -) 5 mg PO BID [facility] Last Admin: 11/08/16 21:12 Dose: 5 mg Carbidopa/Levodopa (Sinemet 25/100 -) 1 each PO DAILY@0600 [facility] Last Admin: 11/09/16 06:12 Dose: 1 each Clopidogrel Bisulfate (Plavix -) 75 mg PO DAILY [facility] Last Admin: 11/08/16 09:55 Dose: 75 mg Donepezil HCl (Aricept -) 10 mg PO DAILY [facility] Last Admin: 11/08/16 09:55 Dose: 10 mg Duloxetine HCl (Cymbalta -) 60 mg PO DAILY [facility] Last Admin: 11/08/16 09:55 Dose: 60 mg Ferrous Sulfate (Feosol -) 325 mg PO BIDWM [facility] Last Admin: 11/08/16 17:27 Dose: 325 mg Furosemide (Lasix -) 40 mg PO DAILY [facility] Last Admin: 11/08/16 09:55 Dose: 40 mg Potassium Chloride/Dextrose/Sod Cl (D5-1/2ns+10 Meq Kcl -) 1,000 mls @ 42 mls/ hr IV ASDIR [facility] Last Admin: 11/08/16 11:36 Dose: Not Given Piperacillin Sod/Tazobactam Sod (Zosyn 3.375gm Ivpb (Pre-Docked)) 50 mls @ 100 mls/hr IVPB Q8H-IV [facility] PRN Reason: Protocol Last Admin: 11/09/16 02:12 Dose: 100 mls/hr Lactobacillus Acidophilus (Bacid -) 1 tab PO BID [facility] Stop: 12/04/16 10:59 Last Admin: 11/08/16 21:12 Dose: 1 tab Latanoprost (Xalatan 0.005% Eye Drops -) 1 drop OU HS [facility] Last Admin: 11/08/16 21:12 Dose: 1 drop Non-Formulary Medication (Carbidopa/Levodopa/Entacapone [Carbidopa-Levodopa- Enta 125 Mg]) 1 each PO TID [facility] Last Admin: 11/09/16 06:15 Dose: 1 each Non-Formulary Medication (Rotigotine [Neupro]) 1 each TD DAILY [facility] Last Admin: 11/08/16 11:00 Dose: 1 each Polyethylene Glycol (Miralax (For Daily Use) -) 17 gm PO DAILY [facility] Last Admin: 11/08/16 09:56 Dose: Not Given Senna/Docusate Sodium (Pericolace -) 1 tablet PO TID [facility] Last Admin: 11/09/16 06:12 Dose: 1 tablet Tolterodine Tartrate (Detrol La -) 4 mg PO DAILY [facility] Last Admin: 11/08/16 09:55 Dose: 4 mg - Objective Vital Signs: Vital Signs Temperature 97.5 F L 11/09/16 06:00 Pulse Rate 66 11/09/16 06:00 Respiratory Rate 22 11/09/16 06:00 Blood Pressure 133/67 11/09/16 06:00 O2 Sat by Pulse Oximetry (%) 97 11/08/16 21:00 Constitutional: Yes: No Distress Cardiovascular: Yes: Regular Rate and Rhythm Respiratory: Yes: Other (decreased breath sounds at bases) Gastrointestinal: Yes: Soft Edema: Yes Edema: LLE: Trace, RLE: Trace Neurological: Yes: Alert, Oriented Labs: CBC, BMP 11/07/16 05:35 11/08/16 05:35 INR, PTT INR 1.56 (0.82-1.09) H 11/02/16 21:38 Laboratory Tests 11/07/16 11/08/16 05:35 05:35 WBC 12.9 H Hgb 9.9 L Plt Count 450 H Sodium 143 Potassium 3.8 BUN 8 Creatinine 0.3 L D - ....Imaging EKG: Image Reviewed (TELE: NSR w/ rare PVC) Assessment/Plan Assessment/Plan 75 year old woman with a history of HTN, HLD, Parkinsons, admitted with AMS, acute CVA, UTI, possible aspiration PNA. Elevated troponin-minimally elevated with normal CK level, unlikely Type I [place], maybe elevated secondary to infection vs CVA -troponin trended down -no ischemia on ekg -no sig arrhythmia on telemetry thus far -nuclear stress test 06/25/16 showed no ischemia, normal LVEF -Repeat echo TDS, mildly reduced LV function. -cont ASA, Plavix and Lipitor -no additional ischemic work up needed during this admission CVA-acute vs subacute with superimposed UTI -cont anti-platelets as per Neuro reccs -cont statin -no arrhythmias on telemetry thus far -no sig carotid stenosis seen on MRA -Discussed STEWART with patient. At this time, she is not in optimal medical condition to undergo STEWART (PNA, mild volume overload). Recommend medical optimization with abx and diuresis, and STEWART can be performed electively as outpatient. Patient also strongly prefers to begin rehab program when able. She will consider the STEWART and and if agrees, wishes it done on outpatient basis. An extended outpatient holter would also be helpful to r/o occult AF
--- NOTE | 2016-11-09 08:46 | PN ---
Progress Note (short form) - Note Progress Note: HPI admission : Pt is a resident of [facility], noticed to have UTI yesterday and started on PO Levaqiune (UCX pending). In the evening pt couldn't see; she was sent to ER, found to be confused, abnormal Head CT scan (possible acute/ subacute stroke), UTI, possible PNA. Pt was admitted, started on IV abtx ; she was admitted to Telemetry secondary to elevated Trop I. 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 Pt. reports she has had weakness in right arm for last 2 months but her caregiver reports it is more recent. She describes the visual difficulty as "blurred vision") History Source: Patient, Significant Other (Pt's health child day care center worker ( sister Annia)) FU : much more awake and conversive, dyskinesias continue card note reviewed , ECHO- noted; holding STEWART till medically optimized MRI scans reviewed-- + infarct in multiple vascular territories MRI IMPRESSION: Acute left occipital/temporal cortical infarct. Small acute right frontal and parietal cortical infarcts. MRA OF THE BRAIN without contrast Clinical information: left occipital infarct The exam was performed utilizing three-dimensional gradient echo imaging with [id number]-[id number]-[id number] technique. Individual partition images as well as projection images are reviewed. The vertebrobasilar and carotid circulations demonstrate no MRA evidence of large vessel stenosis or occlusion. No discrete aneurysm is seen. There is no extrinsic abnormality. IMPRESSION: No large vessel stenosis is identified. IMPRESSION: No large vessel stenosis is identified. - Past Medical History CASE RESOURCE MANAGER: Yes: Parkinson's, Other (Gait impairment Back pain [place]) Cardio/Vascular: Yes: HTN, Hyperlipdemia - Alcohol/Substance Use Hx Alcohol Use: Yes (OCCASIONALLY) - Smoking History Smoking history: Unknown if ever smoked Have you smoked in the past 12 months: No - Social History Usual Living Arrangement: Retirement ADL: Support Services History of Recent Travel: No Home Medications - Allergies Allergies/Adverse Reactions: Allergies Allergy/AdvReac Type Severity Reaction Status Date / Time No Known Drug Allergies Allergy Verified 11/02/16 20:54 - Home Medications Home Medications: Ambulatory Orders Amlodipine Besylate [Norvasc -] 2.5 mg PO DAILY 06/22/16 Aspirin [ASA -] 81 mg PO DAILY 06/22/16 Donepezil HCl [Aricept -] 10 mg PO DAILY 06/22/16 Duloxetine HCl 60 mg PO DAILY 06/22/16 Gabapentin [Neurontin -] 400 mg PO Q8H 06/22/16 Hydrochlorothiazide 25 mg PO DAILY 06/22/16 Latanoprost 0.005% Eye Drops [Xalatan 0.005% Eye Drops -] 1 drop OU HS 06/22/16 Mirtazapine [Remeron Soltab -] 15 mg PO DAILY 06/22/16 Sennosides/Docusate Sodium [Senna S Tablet] 1 each PO TID 06/22/16 Simvastatin 20 mg PO DAILY 06/22/16 Tolterodine Tartrate LA [Detrol LA -] 4 mg PO DAILY 06/22/16 Acetaminophen [Tylenol .Regular Strength -] 650 mg PO Q6H PRN #0 tablet Carbidopa/Levodopa 25/100 [Sinemet 25/100 -] 1 each PO DAILY@0600 tablet Polyethylene Glycol 3350 [Miralax 119 gm Btl -] 17 gm PO DAILY bottle 06/28/16 Carbidopa/Levodopa/Entacapone [Vywlpilna-Nfiusibt-Lohg 125 mg] 1 each PO TID 07/20 Albuterol Sulfate 0.5% [Ventolin 0.5% -] 1 amp NEB QID PRN 11/02/16 Ascorbate Calcium [Vitamin C] 500 mg PO DAILY 11/02/16 Buspirone HCl [Buspar -] 5 mg PO BID 11/02/16 Cholecalciferol (Vitamin D3) [Vitamin D3] 400 unit PO DAILY 11/02/16 Ferrous Sulfate [Feosol] 325 mg PO BID 11/02/16 Levofloxacin [Levaquin -] 500 mg PO DAILY 11/02/16 Rotigotine [Neupro] 1 each TD DAILY 11/02/16 Physical Exam-Neuro Vital Signs: Vital Signs Temperature 97.5 F L 11/09/16 06:00 Pulse Rate 66 11/09/16 06:00 Respiratory Rate 22 11/09/16 06:00 Blood Pressure 133/67 11/09/16 06:00 O2 Sat by Pulse Oximetry (%) 97 11/08/16 21:00 Labs: \\ CBCD WBC 12.9 K/mm3 (4.0-10.0) H 11/07/16 05:35 RBC 4.46 M/mm3 (3.60-5.2) 11/07/16 05:35 Hgb 9.9 GM/dL (10.7-15.3) L 11/07/16 05:35 Hct 32.5 % (32.4-45.2) 11/07/16 05:35 MCV 72.8 fl (80-96) L 11/07/16 05:35 MCHC 30.5 g/dl (32.0-36.0) L 11/07/16 05:35 RDW 22.5 % (11.6-15.6) H 11/07/16 05:35 Plt Count 450 K/MM3 (134-434) H 11/07/16 05:35 MPV 6.6 fl (7.5-11.1) L 11/07/16 05:35 CMP Sodium 143 mmol/L (136-145) 11/08/16 05:35 Potassium 3.8 mmol/L (3.5-5.1) 11/08/16 05:35 Chloride 106 mmol/L (98-107) 11/08/16 05:35 Carbon Dioxide 29 mmol/L (21-32) 11/08/16 05:35 Anion Gap 7 (8-16) L 11/08/16 05:35 BUN 8 mg/dL (7-18) 11/08/16 05:35 Creatinine 0.3 mg/dL (0.55-1.02) L D 11/08/16 05:35 Creat Clearance w eGFR > 60 (>60) 11/06/16 05:48 Calcium 7.9 mg/dL (8.5-10.1) L 11/08/16 05:35 Total Bilirubin 0.3 mg/dL (0.2-1.0) D 11/06/16 05:48 AST 13 U/L (15-37) L 11/06/16 05:48 ALT < 6 U/L (12-78) L 11/06/16 05:48 Alkaline Phosphatase 104 U/L (45-117) D 11/06/16 05:48 Total Protein 5.1 g/dl (6.4-8.2) L 11/06/16 05:48 Albumin 2.0 g/dl (3.4-5.0) L 11/06/16 05:48 - Neuro Exam Level Of Consciousness: Yes: Alert, Oriented to Person (Pt. is alert,follows simple commands, neglecting right side and tends to look to the left. Oriented to person only.), Oriented to Place, Oriented to Time Eyes: Yes: Right Hemianopsia, Other (Right pupil is 3mm-1mm, left is 3mm, fixed ) dense R field CUT Speech: Dominant Hand: Left Mini Mental Exam: Oriented to place only, is delirious-inattentive, distractible Cranial Nerves II-XII Intact: No (Right homonymous hemianopsia, right central facial) DTR's: 0 Left Achilles, 0 Right Achilles, 1+ Right Bicep, 1+ Left Tricep, 1+ Right Tricep, 1+ Right Brachioradialis, 2+ Left Bicep, 2+ Left Brachioradialis Babinski: Present (on right side) Response to light touch: Normal Response to pain prick: Normal Response to temperature: Abnormal (Not tested) Motor Strength: 4/5: Right Arm, Right Leg, 5/5: Left Arm, Left Leg Gait: Deferred (Pt. unable to stand ) NIH Stroke Scale - Total Score NIH Stroke Scale Score: 0 Imaging - Results Cat Scan: Report Reviewed (Reported with left acute/subacute occipital infarct.) Assessment/Plan Pt. with a hx. of Parkinsons disease, now presents with a multiple infarcts in different vascular territories left occipital/EQUAL OPPORTUNITY REPRESENTATIVE and right fronto-parietal-- dense R field cut highly suggestive of cardioembolic events 1) card FU,outpt STEWART and prolonged holter await Doppler , check ESR, XOCHILT , Anticardiolipin , ANTI DS DNA (doubt vasculitis ) can do ASA, plavix combination x 3 months, then revert to one AP 2) +extrapyrimadal disease, dyskinesias--suggesting over treament of parkinsons -- cont stalevo, mainatin neupro 3mg /qd and cogentin to help with dyskiensias 3) UTI-on ABX Dr Velez
[2016-11-09] MEDS ORDERED: BENZTROPINE MESYLATE 0.5 MG TABLET (FP) PO SCH (10:00)
[2016-11-09] MEDS: FERROUS SO4 325 MG TABLET (FP) PO SCH (10:03)
[2016-11-09] MEDS: ASCORBIC ACID 500 MG TABLET (FP) PO SCH (10:03)
[2016-11-09] MEDS: amLODIPine BESYLATE 2.5 MG TABLET (FP) PO SCH (10:04)
[2016-11-09] MEDS: ASPIRIN 81 MG CHEWABLE TABLETS PO SCH (10:04)
[2016-11-09] MEDS: CLOPIDOGREL BISULFATE 75 MG TABLET (FP) PO SCH (10:04)
[2016-11-09] MEDS: DONEPEZIL HCL 10 MG TABLET (FP) PO SCH (10:04)
[2016-11-09] MEDS: busPIRone HCL 5 MG TABLET PO SCH (10:04)
[2016-11-09] MEDS: DULoxetine HCL 30 MG CAPSULE.DR (FP) PO SCH (10:04)
[2016-11-09] MEDS: FUROSEMIDE 40 MG TABLET (FP) PO SCH (10:04)
[2016-11-09] MEDS: LACTOBACILLUS ACIDOPHILUS 1 EACH TAB (FP) PO SCH (10:04)
[2016-11-09] MEDS: POLYETHYLENE GLYCOL 3350 119 GM BTL PO SCH (10:05)
[2016-11-09] MEDS: PATIENT'S OWN MEDICATION (NON-FORMULARY) (Rotigotine [Neupro] 1 EACH) TD SCH (10:06)
--- NOTE | 2016-11-09 10:33 | DS ---
Physical Examination Vital Signs: Vital Signs Temperature 98.2 F 11/09/16 08:15 Pulse Rate 68 11/09/16 09:15 Respiratory Rate 16 11/09/16 08:15 Blood Pressure 124/68 11/09/16 08:15 O2 Sat by Pulse Oximetry (%) 96 11/09/16 09:15 Findings/Remarks: PT w/o fever, chills, SOB, CP, Constitutional: Yes: No Distress, Calm Cardiovascular: Yes: Regular Rate and Rhythm, S1, S2 Respiratory: Yes: Regular, Stridor, Other (coarsre BS at bases) Gastrointestinal: Yes: Normal Bowel Sounds, Soft. No: Tenderness Edema: No Neurological: Yes: Alert, Oriented (place, person) Labs: CBC, BMP 11/07/16 05:35 11/08/16 05:35 Discharge Summary Reason For Visit: PYELONEPHRITIS, PNEUMONIA, (NSTEMI) Current Active Problems Altered mental state (Acute) Anemia (Acute) CVA (cerebral vascular accident) (Acute) Chest pain (Acute) Elevated troponin I level (Acute) Encephalopathy (Acute) HTN (hypertension) (Acute) Hyperlipemia (Acute) Impaired gait (Acute) NSTEMI (non-ST elevated myocardial infarction) (Acute) Parkinson disease (Acute) Parkinsonian features (Acute) Pneumonia (Acute) Pneumonia due to aerobic bacteria (Acute) Pyelonephritis (Acute) Sepsis (Acute) UTI (urinary tract infection) (Acute) UTI (urinary tract infection) with pyuria (Acute) Procedures: Principal: Brain MRI, MRA. Brain CT scan. ECHO. Carotid US ( pending report) Hospital Course: Pt came from [facility] with visual loss, in it was noticed to have PNA< UTI ( already started on abtx ant [facility]), acute stroke. Brain MRI is consistant with acute left occipital, acute right frontal and right parietal infarcts. MRA and ECHO (X2) failed to shows source of emboli. Pt responded well to abtx. Pt to be DC'ed to [facility]. Condition: Fair - Instructions Diet, Activity, Other Instructions: resume DIet Referrals: Tate Alonzo MD [Staff Physician] - (Please call doctor for f/u) Cristhian Velez DO [Staff Physician] - (in 1 to 2 weeks) Disposition: [facility] FACILITY - Home Medications Comprehensive Discharge Medication List: Ambulatory Orders Amlodipine Besylate [Norvasc -] 2.5 mg PO DAILY 06/22/16 Aspirin [ASA -] 81 mg PO DAILY 06/22/16 Donepezil HCl [Aricept -] 10 mg PO DAILY 06/22/16 Duloxetine HCl 60 mg PO DAILY 06/22/16 Gabapentin [Neurontin -] 400 mg PO Q8H 06/22/16 Hydrochlorothiazide 25 mg PO DAILY 06/22/16 Latanoprost 0.005% Eye Drops [Xalatan 0.005% Eye Drops -] 1 drop OU HS 06/22/16 Mirtazapine [Remeron Soltab -] 15 mg PO DAILY 06/22/16 Sennosides/Docusate Sodium [Senna S Tablet] 1 each PO TID 06/22/16 Simvastatin 20 mg PO DAILY 06/22/16 Tolterodine Tartrate LA [Detrol LA -] 4 mg PO DAILY 06/22/16 Acetaminophen [Tylenol .Regular Strength -] 650 mg PO Q6H PRN #0 tablet Carbidopa/Levodopa 25/100 [Sinemet 25/100 -] 1 each PO DAILY@0600 tablet Polyethylene Glycol 3350 [Miralax 119 gm Btl -] 17 gm PO DAILY bottle 06/28/16 Carbidopa/Levodopa/Entacapone [Ebvupajic-Fwbcupoh-Qcas 125 mg] 1 each PO TID 07/20 Albuterol Sulfate 0.5% [Ventolin 0.5% -] 1 amp NEB QID PRN 11/02/16 Ascorbate Calcium [Vitamin C] 500 mg PO DAILY 11/02/16 Buspirone HCl [Buspar -] 5 mg PO BID 11/02/16 Cholecalciferol (Vitamin D3) [Vitamin D3] 400 unit PO DAILY 11/02/16 Ferrous Sulfate [Feosol] 325 mg PO BID 11/02/16 Levofloxacin [Levaquin -] 500 mg PO DAILY 11/02/16 Rotigotine [Neupro] 1 each TD DAILY 11/02/16
--- NOTE | 2016-11-09 11:33 | PN ---
Progress Note, TECHNICIAN ASSISTANT - Note Progress Note: Selected Entries 11/06/16 11/06/16 11/06/16 02:05 05:54 10:57 Breakfast 25% Lunch Supper Temperature 98.0 F 99.1 F 11/06/16 11/06/16 11/06/16 14:47 17:00 19:20 Breakfast Lunch 25% Supper 25% Temperature 98.0 F 11/06/16 11/07/16 11/07/16 20:54 02:00 05:06 Breakfast Lunch Supper Temperature 98.8 F 98.2 F 97.8 F 11/07/16 09:38 Breakfast 75% Lunch Supper Temperature Laboratory Tests 11/05/16 11/06/16 11/07/16 05:35 05:48 05:35 WBC 12.4 H 13.1 H 12.9 H Pt went down to radiology for carotid U/S. . Swallowing overtly intact. No cough or change in vocal quality. Impaired propositional speech, becomes distracted (?) after a couple of words and stops speaking. She said she forgets what shew is saying. Good naming, repetition.Vague responses. Bilateral CVA's, now with PNA/UTI. O x [facility] November,, &*, sister, Ghada x 2 yrs,not rm no. MRI IMPRESSION: Acute left occipital/temporal cortical infarct. Small acute right frontal and parietal cortical infarcts. MRA OF THE BRAIN without contrast Clinical information: left occipital infarct The exam was performed utilizing three-dimensional gradient echo imaging with [id number]-[id number] technique. Individual partition images as well as projection images are reviewed. The vertebrobasilar and carotid circulations demonstrate no MRA evidence of large vessel stenosis or occlusion. No discrete aneurysm is seen. There is no extrinsic abnormality. IMPRESSION: No large vessel stenosis is identified. Please feed pt. to improve PO intake. Monitor PO tolerance. Pending d/c back to [facility]. Suggest sp/sw eval and tx at [place].
[2016-11-09] MEDS: D5-1/2NS+10 MEQ KCL - 1,000 ML IV SCH (13:13)
[2016-11-09] MEDS: TOLTERODINE TARTRATE LA 4 MG CAP.SR.24H (FP) PO SCH (13:20)
[2016-11-09 14:18] VITALS: BP 147/70; PULSE 70; TEMP 97.4
[2016-11-09] MEDS ORDERED: AMOX TR/POT CLAV 875MG/125MG TABLETS (FP) PO SCH (22:00)
== END 2016-11-09 14:56 | DRG 871 ==
LOC: JER 20:41 → JERBED 11-03 00:01 → UNDOADMIN 11-03 00:20 → J4W 11-03 09:17
PROVIDERS: ADMIT Specialist; ATTEND Specialist
DX: A41.9 Sepsis, unspecified organism (principal); I63.9 Cerebral infarction, unspecified; G93.40 Encephalopathy, unspecified; J69.0 Pneumonitis due to inhalation of food and vomit; N39.0 Urinary tract infection, site not specified; G81.91 Hemiplegia, unspecified affecting right dominant side; E78.5 Hyperlipidemia, unspecified; I10 Essential (primary) hypertension; G20 Parkinson's disease; D64.9 Anemia, unspecified; F80.2 Mixed receptive-expressive language disorder; B96.4 Proteus (mirabilis) (morganii) as the cause of diseases classified elsewhere; R29.700 NIHSS score 0; G24.9 Dystonia, unspecified
CPT/HCPCS: 36415; 70450-TC; 70544-TC; 70551-TC; 71010-TC; 80048; 80053; 81003; 81015; 82550; 82607; 82803; 83036; 83605; 84443; 84484; 85025; 85027; 85610; 85730; 87040; 87077; 87086; 87186; 93005; 93010; 93306-TC; 93880-TC; 94640; 97116-GP; 97161-GP; 99285-25

== ENCOUNTER 2017-07-23 20:47 | Emergency (ER) | payer OTHER ==
--- NOTE | 2017-07-23 21:56 | PDOC ---
History of Present Illness - General History Source: Patient Exam Limitations: No Limitations - History of Present Illness Initial Comments: 07/23/17 22:02 The patient is a 77 year old female with significant history of hypertension, hyperlipidemia, asthma/COPD, anemia, CAD, CHF, sent to the ED from [facility] for head trauma s/p mechanical fall prior to ED arrival. The patient reports she was ambulating in her wheelchair when she tripped and fell forward, hitting the right side of her forehead. The patient denies any other trauma or injury. She states she is experiencing right knee pain, but this is chronic for her. No blurred vision, numbness or tingling. No nausea, vomiting, or diarrhea. No hip, back, or neck pain. PCP: Dr. Marie <Melvina Harris - Last Filed: 07/24/17 00:07> <Yvonne Parish - Last Filed: 07/24/17 00:18> - General Stated Complaint: fall Time Seen by Provider: 07/23/17 21:50 Past History <Melvina Harris - Last Filed: 07/24/17 00:07> - Past Medical History Anemia: No Asthma: No Cancer: No Cardiac Disorders: No CVA: No COPD: No CHF: No Dementia: Yes Diabetes: No GI Disorders: Yes Disorders: No HTN: Yes Hypercholesterolemia: Yes Liver Disease: No Seizures: No Thyroid Disease: No - Surgical History Abdominal Surgery: No Appendectomy: No Cardiac Surgery: No Cholecystectomy: No Lung Surgery: No Neurologic Surgery: No Orthopedic Surgery: No - Immunization History Immunization Up to Date: Yes - Suicide/Smoking/Psychosocial Hx Smoking History: Unknown if ever smoked Have you smoked in the past 12 months: No 'Breaking Loose' booklet given: 11/03/16 Hx Alcohol Use: Yes (OCCASIONALLY) Drug/Substance Use Hx: No Substance Use Type: Alcohol <Yvonne Parish - Last Filed: 07/24/17 00:18> - Past Medical History Allergies/Adverse Reactions: Allergies Allergy/AdvReac Type Severity Reaction Status Date / Time No Known Drug Allergies Allergy Verified 11/02/16 20:54 Home Medications: Ambulatory Orders Amlodipine Besylate [Norvasc -] 2.5 mg PO DAILY 06/22/16 Aspirin [ASA -] 81 mg PO DAILY 06/22/16 Donepezil HCl [Aricept -] 10 mg PO DAILY 06/22/16 Duloxetine HCl 60 mg PO DAILY 06/22/16 Gabapentin [Neurontin -] 400 mg PO Q8H 06/22/16 Latanoprost 0.005% Eye Drops [Xalatan 0.005% Eye Drops -] 1 drop OU HS 06/22/16 Mirtazapine [Remeron Soltab -] 15 mg PO DAILY 06/22/16 Sennosides/Docusate Sodium [Senna S Tablet] 1 each PO TID 06/22/16 Simvastatin 20 mg PO DAILY 06/22/16 Tolterodine Tartrate LA [Detrol LA -] 4 mg PO DAILY 06/22/16 Acetaminophen [Tylenol .Regular Strength -] 650 mg PO Q6H PRN #0 tablet Carbidopa/Levodopa 25/100 [Sinemet 25/100 -] 1 each PO DAILY@0600 tablet Polyethylene Glycol 3350 [Miralax 119 gm Btl -] 17 gm PO DAILY bottle 06/28/16 Carbidopa/Levodopa/Entacapone [Cplnkoptx-Txliylrx-Mjah 125 mg] 1 each PO TID 07/20 Albuterol Sulfate 0.5% [Ventolin 0.5% Nebulizing Soln. -] 1 amp NEB QID PRN Ascorbate Calcium [Vitamin C] 500 mg PO DAILY 11/02/16 Buspirone HCl [Buspar -] 5 mg PO BID 11/02/16 Cholecalciferol (Vitamin D3) [Vitamin D3] 400 unit PO DAILY 11/02/16 Ferrous Sulfate [Feosol] 325 mg PO BID 11/02/16 Rotigotine [Neupro] 1 each TD DAILY 11/02/16 Amox-Tr/K Cl [Augmentin 875-125mg Tablet -] 1 tab PO BID #10 tablet MDD 2 Benztropine Mesylate [Cogentin -] 0.5 mg PO BID tablet 11/09/16 Clopidogrel Bisulfate [Plavix -] 75 mg PO DAILY tablet 11/09/16 Furosemide [Lasix -] 40 mg PO DAILY tablet 11/09/16 Lactobacillus Acidophilus [Bacid -] 1 tab PO BID 30 Days tab 07/07/17 Trauma Specific PMHX - Complaint Specific PMHX Neck Injury: No <Yvonne Parish - Last Filed: 07/24/17 00:18> Review of Systems - Review of Systems Able to Perform ROS?: Yes Comments:: 07/23/17 22:13 GENERAL/CONSTITUTIONAL: No fever or chills. No weakness. HEAD, EYES, EARS, NOSE AND THROAT: +Right forehead pain and swelling. No change in vision. No ear pain or discharge. No sore throat. CARDIOVASCULAR: No chest pain or shortness of breath. RESPIRATORY: No cough, wheezing, or hemoptysis. GASTROINTESTINAL: No nausea, vomiting, diarrhea or constipation. GENITOURINARY: No dysuria, frequency, or change in urination. MUSCULOSKELETAL: +Chronic right knee pain. No neck or back pain. SKIN: No rash. Swelling as noted in HEENT. Chronic right hand bruising. NEUROLOGIC: No vertigo, loss of consciousness, or change in strength/sensation. ENDOCRINE: No increased thirst. No abnormal weight change. ALLERGIC/IMMUNOLOGIC: No hives or skin allergy. <Melvina Harris - Last Filed: 07/24/17 00:07> *Physical Exam - Physical Exam Comments: 07/23/17 22:16 GENERAL: Awake, alert, and fully oriented, in no acute distress HEAD: 4 cm hematoma to the right forehead with superficial abrasion, no laceration. No raccoon eyes. EYES: PERRLA, EOMI, sclera anicteric, conjunctiva clear ENT: Auricles normal inspection, nares patent. Moist mucosa. No septal hematoma. NECK: Normal ROM, supple, no JVD, or masses. No cervical spinal tenderness. LUNGS: Breath sounds equal, clear to auscultation bilaterally. No wheezes, and no crackles HEART: Regular rate and rhythm, normal S1 and S2, no murmurs, rubs or gallops ABDOMEN: Soft, nontender, normoactive bowel sounds. No guarding, no rebound. No masses BACK: No lumbar or thoracic midline or paraspinal tenderness. EXTREMITIES: Hips are stable. Normal range of motion, no edema. No clubbing or cyanosis. No cords, erythema, or tenderness NEUROLOGICAL: Alert and oriented x 3. Moves all extremities. Face is symmetric. SKIN: Warm, Dry, normal turgor. Hematoma as noted in HEAD. Chronic right hand ecchymosis. <Melvina Harris - Last Filed: 07/24/17 00:07> Medical Decision Making - Medical Decision Making 07/24/17 00:[address], read and reviewed by Dr. Love, reveals no evidence of acute fracture or acute pathology. Head CT, read and reviewed by Dr. Love, returns negative for acute pathology Cervical spine CT, read and reviewed by Dr. Love, demonstrative degenerative arthritic changes but no acute fracture or dislocation. <Melvina Harris - Last Filed: 07/24/17 00:07> - Medical Decision Making 07/24/17 00:13 I called [facility] [phone] and spoke to the nurse Melvina who was on 3 N. I told her that there were no acute findings on the CAT scan. I did discuss the possibility of a delayed bleed and to be watchful for any change in mental status or increased lethargy over the next 10-14 days. If there was any such changes patient should be transported back immediately for repeat CAT scan <Yvonne Parish - Last Filed: 07/24/17 00:18> *DC/Admit/Observation/Transfer - Attestations Scribe Attestion: 07/23/17 22:19 Documentation prepared by Melvina Harris, acting as medical billing coder for Yvonne Parish MD. <Melvina Harris - Last Filed: 07/24/17 00:07> <Yvonne Parish - Last Filed: 07/24/17 00:18> Diagnosis at time of Disposition: Head injury Qualifiers: Encounter type: initial encounter Qualified Code(s): S09.90XA - Unspecified injury of head, initial encounter Traumatic hematoma of forehead Qualifiers: Encounter type: initial encounter Qualified Code(s): S00.83XA - Contusion of other part of head, initial encounter - Discharge Dispostion Disposition: HOME Condition at time of disposition: Stable - Referrals Referrals: Jake Marie MD [Primary Care Provider] - - Patient Instructions Printed Discharge Instructions: DI for Closed Head Injury Additional Instructions: The CT SCANS toniught of the facial bones,brain and neck were NEGATIVE for any fracture or bleed. HOWEVER, in the elderly there is a risk for delayed brain bleeds following head trauma . Please watch for any altered mental status including confusion or lethargy and if there are such changes, please call 911 and transport the patient back to the ER for repeat imaging studies - Post Discharge Activity
[2017-07-23 22:03] VITALS: BP 102/58; PULSE 66; TEMP 98; BMI 25.8
== END 2017-07-24 00:55 | disposition home or self-care (01) ==
LOC: JER 20:47
DX: S00.83XA Contusion of other part of head, initial encounter (principal); M25.561 Pain in right knee; W05.0XXA Fall from non-moving wheelchair, initial encounter; Y93.89 Activity, other specified; Y92.128 Other place in nursing home as the place of occurrence of the external cause; I25.10 Atherosclerotic heart disease of native coronary artery without angina pectoris; I11.0 Hypertensive heart disease with heart failure; E78.00 Pure hypercholesterolemia, unspecified; J45.909 Unspecified asthma, uncomplicated; J44.9 Chronic obstructive pulmonary disease, unspecified
CPT/HCPCS: 70450-TC; 70486-TC; 72125-TC; 99281-25

== ENCOUNTER 2017-08-26 10:59 | Inpatient (IN) | payer OTHER | END 2017-09-02 17:38 | DRG 871 | LOC: JER 10:59 → JERBED 12:52 → J6S 14:11 → JICU 16:28 → J6S 08-28 04:52 | PROVIDERS: ADMIT Specialist | CPT/HCPCS: 36415; 71045-TC-FY; 80053; 81003; 81015; 82550; 82553; 82803; 83605; 83735; 84100; 84484; 85025; 85027; 85610; 85730; 87040; 87086; 87186; 93005; 93010; 93306-TC; 97116-GP; 97161-GP; 99285-25; J1644; J7030 ==

== ENCOUNTER 2018-04-29 08:45 | Inpatient (IN) | payer OTHER ==
--- NOTE | 2018-04-29 08:59 | PDOC ---
History of Present Illness - General Chief Complaint: Injury Stated Complaint: FALL Time Seen by Provider: 04/29/18 08:55 History Source: Patient Exam Limitations: No Limitations - History of Present Illness Initial Comments: 04/29/18 08:57 77 year old resident from [facility] with a history of Parkinson's, CHF, HTN, HLD, baseline bowel and bladder incontinence who presents 4 days after a mechanical fall from her wheelchair and landing on her hands. She was on the ground for approx 1 hour before she was found by another resident. The patient reports pain in the small of her back and describes it as a "scratching" sensation. She denies radiation of the back to legs or upper back. Since the fall the patient has been bed bound and has not been moved. The patient got an XR at [facility] that showed a L femur per friend at bedside, however PCP Cynthia recommended that patient come to ED this AM. The patient denies numbness, tingling in the legs bilaterally. The patient has not taken her Parkinson medications this morning and subsequently is having difficulty moving. The patient denies facial or upper extremity trauma, denies head or facial trauma, denies abdominal pain, chest pain or shortness of breath. Patient took Tylenol 3 just prior to arrival. Past History - Past Medical History Allergies/Adverse Reactions: Allergies Allergy/AdvReac Type Severity Reaction Status Date / Time No Known Drug Allergies Allergy Verified 04/29/18 08:59 Home Medications: Ambulatory Orders Amlodipine Besylate [Norvasc -] 2.5 mg PO DAILY 06/22/16 Aspirin [ASA -] 81 mg PO DAILY 06/22/16 Donepezil HCl [Aricept -] 10 mg PO DAILY 06/22/16 Duloxetine HCl 60 mg PO DAILY 06/22/16 Gabapentin [Neurontin -] 400 mg PO BID 06/22/16 Latanoprost 0.005% Eye Drops [Xalatan 0.005% Eye Drops -] 1 drop OU HS 06/22/16 Mirtazapine [Remeron Soltab -] 15 mg PO HS 06/22/16 Sennosides/Docusate Sodium [Senna-S Tablet] 1 each PO TID 06/22/16 Simvastatin 20 mg PO HS 06/22/16 Tolterodine Tartrate LA [Detrol LA -] 4 mg PO DAILY 06/22/16 Acetaminophen [Tylenol .Regular Strength -] 650 mg PO Q6H PRN #0 tablet Carbidopa/Levodopa/Entacapone [Carbidopa-Levodopa 125 mg-Enta] 1 each PO TID 07/20 Ascorbate Calcium [Vitamin C] 500 mg PO DAILY 11/02/16 Buspirone HCl [Buspar -] 10 mg PO TID 11/02/16 Cholecalciferol (Vitamin D3) [Vitamin D3] 400 unit PO 1700 11/02/16 Ferrous Sulfate [Feosol] 325 mg PO BID 11/02/16 Rotigotine [Neupro] 1 each TD DAILY 11/02/16 Clopidogrel Bisulfate [Plavix -] 75 mg PO DAILY tablet 11/09/16 Furosemide [Lasix -] 40 mg PO DAILY tablet 11/09/16 Acetylcyst/Ngswwga79/Levomefol [Metafolbic Plus Caplet] 1 each PO DAILY Dextran 70/Hypromellose [Artificial Tears Eye Drops] 1 drop OS TID 08/26/17 Docusate Sodium [Colace -] 100 mg PO DAILY 08/26/17 Fluoride (Sodium) [Denta 5000 Plus] 51 gm DT BID 08/26/17 Lidocaine 0 gm TP BID 08/26/17 Multivit-Min/Iron Fum/Folic AC [Qpzxk-Djeefdd-Nneghoqk Tablet] 1 each PO DAILY 08/26/17 Neomycin/Polymyxin B/Dexametha [Jggubn-Lvkbw-Xznchkg Eye Ointm] 3.5 gm OD BID Polyethylene Glycol 3350 [Miralax 119 gm Btl -] 17 gm PO HS 08/26/17 Cephalexin [Keflex] 500 mg PO BID #14 capsule MDD 2 09/02/17 Heparin - 5,000 unit SQ BID vial 09/02/17 Anemia: No Asthma: No Cancer: No Cardiac Disorders: No CVA: No COPD: No CHF: No Dementia: Yes Diabetes: No GI Disorders: Yes Disorders: No HTN: Yes Hypercholesterolemia: Yes Liver Disease: No Seizures: No Thyroid Disease: No - Surgical History Abdominal Surgery: No Appendectomy: No Cardiac Surgery: No Cholecystectomy: No Lung Surgery: No Neurologic Surgery: No Orthopedic Surgery: No - Immunization History Immunization Up to Date: Yes - Suicide/Smoking/Psychosocial Hx Smoking History: Never smoked Have you smoked in the past 12 months: No 'Breaking Loose' booklet given: 11/03/16 Hx Alcohol Use: Yes (OCCASIONALLY) Drug/Substance Use Hx: No Substance Use Type: Alcohol Review of Systems - Review of Systems Able to Perform ROS?: Yes Is the patient limited Turkmen proficient: No Constitutional: No: Chills, Diaphoresis, Fever HEENTM: No: Blurred Vision, Tinnitus Respiratory: No: Cough, Orthopnea, Shortness of Breath Cardiac (ROS): No: Chest Pain, Lightheadedness, Palpitations, Syncope ABD/GI: No: Constipated, Diarrhea, Nausea, Vomiting : No: Burning, Dysuria, Hematuria, Incontinence Musculoskeletal: No: Back Pain, Muscle Weakness, Neck Pain Neurological: No: Headache, Numbness, Tingling *Physical Exam - Physical Exam Comments: 04/29/18 09:41 GENERAL: Awake, alert, and fully oriented, in no acute distress HEAD: No signs of trauma, normocephalic, atraumatic EYES: EOMI, sclera anicteric, conjunctiva clear ENT: oropharynx clear without exudates. Moist mucosa NECK: Normal ROM, supple LUNGS: No distress, speaks full sentences, + expiratory wheeze in all lobes HEART: Regular rate and rhythm, normal S1 and S2, no murmurs, rubs or gallops, peripheral pulses normal and equal bilaterally. ABDOMEN: Soft, nontender, normoactive bowel sounds. No guarding, no rebound. No masses EXTREMITIES :L leg externally rotated and shortened, palpable pulses bilaterally , no neurological deficit in the limbs. no edema. No clubbing or cyanosis. NEUROLOGICAL: Cranial nerves II through XII grossly intact. Normal speech, normal gait, no focal sensorimotor deficits SKIN: Warm, Dry, 1cm stage 1 sacral ulcer, normal turgor ED Treatment Course - LABORATORY CBC & Chemistry Diagram: 05/01/18 07:00 05/01/18 07:00 Medical Decision Making - Medical Decision Making 04/29/18 09:42 77 year old resident from [facility] with a history of Parkinson's, CHF, HTN, HLD, baseline bowel and bladder incontinence who presents 4 days after a mechanical fall from her wheelchair and landing on her hands. She was on the ground for approx 1 hour before she was found by another resident. The patient reports pain in the small of her back and describes it as a "scratching" sensation. She denies radiation of the back to legs or upper back. Since the fall the patient has been bed bound and has not been moved. The patient got an XR at [facility] that showed a L femur per friend at bedside, however PCP Cynthia recommended that patient come to ED this AM. ED Course: dislocation vs fracture vs msk Patient with acute L femoral intertrochanter fracture. PCP at bedside with patient. Ortho made aware of patient. cbc, cmp, ptt, pt/inr - all within normal limits. Patient pain controlled as took Tylenol 3 just prior to arrival. Will manage pain as necessary. Patient admitted to medicine for further workup, evaluation and surgical treatment. *DC/Admit/Observation/Transfer Diagnosis at time of Disposition: Femur fracture, left - Discharge Dispostion Condition at time of disposition: Stable Decision to Admit order: Yes - Referrals - Patient Instructions - Post Discharge Activity
[2018-04-29] MEDS ORDERED: ACETAMINOPHEN 325 MG TABLET (FP) PO PRN (10:33)
--- NOTE | 2018-04-29 10:43 | PDOC ---
Attending Attestation - Resident Resident Name: BrunoClark jamesie - ED Attending Attestation I have performed the following: I have examined & evaluated the patient, The case was reviewed & discussed with the resident, I agree w/resident's findings & plan, Exceptions are as noted - HPI HPI: 04/29/18 10:37 The patient is a 77-year-old female with a past medical history significant for CVA, Parkinsons, CHF, HTN, HLD present to the emergency department from [facility] s/p a fall 4 days ago. The patient reportedly had a mechanical fall out of her wheelchair, landing on her hands. The patient reports she was down for approximately 1 hour before she was assisted up by another resident. Since then, pt has had difficulty getting out of bed. She endorses pain in her lower back but denies CORNEJO/neck pain. Denies CP/SOB. Denies abdominal pain. Denies numbness in her extremities. X ray done today at [facility] showed L femur fx. Allergies: NKDA PCP: Dr. Kelle Marie. - Physicial Exam PE: 04/29/18 10:46 "GENERAL: Awake, alert, in no acute distress. HEAD: No signs of trauma EYES: PERRLA, EOMI, sclera anicteric, conjunctiva clear ENT: Auricles normal inspection, hearing grossly normal, nares patent, oropharynx clear without exudates. Moist mucosa NECK: Nontender, no stepoffs, Normal ROM, supple, no lymphadenopathy, JVD, or masses LUNGS: Breath sounds equal, clear to auscultation bilaterally. No wheezes, and no crackles HEART: Regular rate and rhythm, normal S1 and S2, no murmurs, rubs or gallops ABDOMEN: Soft, nontender, normoactive bowel sounds. No guarding, no rebound. No masses BACK: + L spine TTP, no stepoffs EXTREMITIES: + L hip TTP, LLE shortened and externally rotated, RLE wnl NEUROLOGICAL: Cranial nerves II through XII intact. 5/5 strength and sensation in all extremities, Normal speech, normal gait, normal cerebellar function SKIN: Warm, Dry, normal turgor, no rashes or lesions noted." - Medical Decision Making 04/29/18 10:47 77 F with fall 4 days ago, found to have L femur fx after mechanical fall. Will perform full trauma survey. - CT head/c-spine/chest - CT pelvis/LLE/L-spine - Hold AC - Ortho c/s - Admit 04/29/18 12:33 CTs show comminuted fx of L femur. Will consult ortho Pt admitted to Dr. Marie
[2018-04-29] MEDS ORDERED: CLOPIDOGREL BISULFATE 75 MG TABLET (FP) PO SCH (10:45)
[2018-04-29] MEDS ORDERED: HEPARIN NA (PORCINE) 5,000 UNITS/ML 1ML VIAL SQ SCH (10:45)
[2018-04-29] MEDS ORDERED: ASPIRIN 81 MG CHEWABLE TABLETS PO SCH (10:45)
--- NOTE | 2018-04-29 10:56 | HP ---
Admitting History and Physical - Primary Care Physician PCP: Jake Marie - Admission Chief Complaint: Left femural Fracture History of Present Illness: Pt is a resident of [facility] with significant Hx/o ?CAD, CHF, Parkinson Ds that fell (slid down from the wheelchair) 2 days ago, yesterday she c/o left leg pain and an XR was taken; last night XR was reported + for femural Fx. History Source: Patient, Friend ( Annia, at bedside), Significant Other ([place] staff) - Past Medical History HAND SPLITTER: Yes: CVA, Parkinson's Cardiovascular: Yes: CAD, CHF, HTN, Hyperlipdemia Musculoskeletal: Yes: Other (gait impairment) - Smoking History Smoking history: Never smoked Have you smoked in the past 12 months: No - Alcohol/Substance Use Hx Alcohol Use: Yes (OCCASIONALLY) - Social History ADL: Support Services History of Recent Travel: No Home Medications - Allergies Allergies/Adverse Reactions: Allergies Allergy/AdvReac Type Severity Reaction Status Date / Time No Known Drug Allergies Allergy Verified 04/29/18 08:59 - Home Medications Home Medications: Ambulatory Orders Amlodipine Besylate [Norvasc -] 2.5 mg PO DAILY 06/22/16 Aspirin [ASA -] 81 mg PO DAILY 06/22/16 Donepezil HCl [Aricept -] 10 mg PO DAILY 06/22/16 Duloxetine HCl 60 mg PO DAILY 06/22/16 Gabapentin [Neurontin -] 400 mg PO BID 06/22/16 Latanoprost 0.005% Eye Drops [Xalatan 0.005% Eye Drops -] 1 drop OU HS 06/22/16 Mirtazapine [Remeron Soltab -] 15 mg PO HS 06/22/16 Sennosides/Docusate Sodium [Senna-S Tablet] 1 each PO TID 06/22/16 Simvastatin 20 mg PO HS 06/22/16 Tolterodine Tartrate LA [Detrol LA -] 4 mg PO DAILY 06/22/16 Acetaminophen [Tylenol .Regular Strength -] 650 mg PO Q6H PRN #0 tablet Carbidopa/Levodopa/Entacapone [Carbidopa-Levodopa 125 mg-Enta] 1 each PO TID 07/20 Ascorbate Calcium [Vitamin C] 500 mg PO DAILY 11/02/16 Buspirone HCl [Buspar -] 10 mg PO TID 11/02/16 Cholecalciferol (Vitamin D3) [Vitamin D3] 400 unit PO 1700 11/02/16 Ferrous Sulfate [Feosol] 325 mg PO BID 11/02/16 Rotigotine [Neupro] 1 each TD DAILY 11/02/16 Clopidogrel Bisulfate [Plavix -] 75 mg PO DAILY tablet 11/09/16 Furosemide [Lasix -] 40 mg PO DAILY tablet 11/09/16 Acetylcyst/Ullnnor37/Levomefol [Metafolbic Plus Caplet] 1 each PO DAILY Dextran 70/Hypromellose [Artificial Tears Eye Drops] 1 drop OS TID 08/26/17 Docusate Sodium [Colace -] 100 mg PO DAILY 08/26/17 Fluoride (Sodium) [Denta 5000 Plus] 51 gm DT BID 08/26/17 Lidocaine 0 gm TP BID 08/26/17 Multivit-Min/Iron Fum/Folic AC [Fxkle-Lqdwehs-Tzarqeea Tablet] 1 each PO DAILY 08/26/17 Neomycin/Polymyxin B/Dexametha [Zngrhv-Lraop-Kdyekaf Eye Ointm] 3.5 gm OD BID Polyethylene Glycol 3350 [Miralax 119 gm Btl -] 17 gm PO HS 08/26/17 Cephalexin [Keflex] 500 mg PO BID #14 capsule MDD 2 09/02/17 Heparin - 5,000 unit SQ BID vial 09/02/17 Review of Systems - Review of Systems Constitutional: denies: Chills, Fever Eyes: denies: Blurred Vision, Recent Change in Vision HENT: denies: Ear Discharge, Ear Pain, Nasal Congestion, Throat Pain Neck: denies: Pain on Movement, Stiffness Cardiovascular: denies: Chest Pain, Edema, Palpitations Respiratory: denies: Cough, SOB, Wheezing Gastrointestinal: denies: Abdominal Pain, Nausea, Vomiting Genitourinary: denies: Burning, Dysuria Musculoskeletal: reports: Other (L leg pain occasionally). denies: Back Pain, Joint Swelling Integumentary: denies: Bruising, Eczema Neurological: denies: Change in LOC, Change in Speech, Confusion Endocrine: denies: Excessive Sweating, Intolerance to Cold Hematology/Lymphatic: denies: Easily Bruised, Excessive Bleeding Psychiatric: denies: Anxiety, Depression Physical Examination Vital Signs: Vital Signs Temperature 98.3 F 04/29/18 08:45 Pulse Rate 79 04/29/18 08:45 Respiratory Rate 16 04/29/18 08:45 Blood Pressure 139/82 04/29/18 08:45 O2 Sat by Pulse Oximetry (%) 100 04/29/18 08:45 Constitutional: Yes: No Distress, Calm Eyes: Yes: Conjunctiva Clear, EOM Intact HENT: No: Drooling, Epistaxis, Pharyngeal Erythema, Rhinnorhea Neck: Yes: Trachea Midline. No: Lymphadenopathy Cardiovascular: Yes: Regular Rate and Rhythm, S1, S2 Respiratory: Yes: Regular, CTA Bilaterally. No: Rales Gastrointestinal: Yes: Normal Bowel Sounds, Soft. No: Tenderness ...Rectal Exam: Yes: Deferred Renal/: No: CVA Tenderness - Left, CVA Tenderness - Right Breast(s): Yes: Other (deferred) Musculoskeletal: No: Back Pain, Joint Swelling Extremities: Yes: Other (left leg in nrotated internally). No: Cold, Cool Edema: No Integumentary: No: Bruising, Erythema Neurological: Yes: Alert, Oriented, Other (sensory and motor exm is symmetric in UE/LE/ face except decreased motor in Left leg) Labs: pending Imaging - Results Chest X-ray: Pending X-ray: Pending Cat Scan: Pending Problem List - Problems (1) Femur fracture, left Code(s): S72.92XA - UNSP FRACTURE OF LEFT FEMUR, INIT ENCNTR FOR CLOSED FRACTURE (2) Fracture due to fall Code(s): YKM3840 - (3) Fall Code(s): W19.XXXA - UNSPECIFIED FALL, INITIAL ENCOUNTER (4) CVA (cerebral vascular accident) Code(s): I63.9 - CEREBRAL INFARCTION, UNSPECIFIED (5) HTN (hypertension) Code(s): I10 - ESSENTIAL (PRIMARY) HYPERTENSION (6) Hyperlipemia Code(s): E78.5 - HYPERLIPIDEMIA, UNSPECIFIED (7) Impaired gait Code(s): R26.9 - UNSPECIFIED ABNORMALITIES OF GAIT AND MOBILITY Assessment/Plan [place] consult Cardio consult for clearance Pain controlled DVT proph AM labs Case was d/w Sister Annia, at bedside, and pt's Brother, Dr. Hodges (over the phone); all questions were answered. Case was d/w pt's nurse.
[2018-04-29 11:01] LABS: BASO % 0.8 % (0-2.0); EOS % 3.5 % (0-4.5); HEMATOCRIT 38.4 % (32.4-45.2); MCH 28.6 pg (25.7-33.7); MCHC 33.8 g/dl (32.0-36.0); MEAN CELL VOLUME 84.6 fl (80-96); MEAN PLT VOLUME 7.5 fl (7.5-11.1); MONO % 4.9 % (3.8-10.2); NEUT % 72.8 % (42.8-82.8); PLATELET COUNT 222 K/MM3 (134-434); RBC 4.54 M/mm3 (3.60-5.2); RDW 18.1 % (11.6-15.6)
[2018-04-29 11:14] LABS: INR 1.23 (0.83-1.09); PROTHROMBIN TIME (PATIENT) 14.6 SEC (9.7-13.0)
[2018-04-29 11:17] LABS: ACTIVATED PTT 27.2 SECONDS (25.2-36.5)
--- NOTE | 2018-04-29 11:20 | CON.CARD ---
Consult Consult Specialty:: cardiology Reason for Consultation:: pre-op - History of Present Illness History of Present Illness: 72-year-old female with PMHx HTN, Parkinson's disease, memory lapses, now presents to the ED status post fall. [facility], landing on her face and both knees. Patient now complains of facial pain with cervical tenderness. Patient denies LOC and was able to ambulate after injury. Patient states currently takes baby aspirin and clopidogrel daily. Patient denies headache, visual changes, difficulty breathing , chest pain, shortness of breath. Patient history of Parkinson's requires supervision with ambulation. 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 Cardio/Vascular: Yes: CAD, CHF, HTN, Hyperlipdemia Musculoskeletal: Yes: Other (gait impairment) - Alcohol/Substance Use Hx Alcohol Use: Yes (OCCASIONALLY) - Smoking History Smoking history: Never smoked Have you smoked in the past 12 months: No - Social History Usual Living Arrangement: Shelter ADL: Support Services History of Recent Travel: No Home Medications - Allergies Allergies/Adverse Reactions: Allergies Allergy/AdvReac Type Severity Reaction Status Date / Time No Known Drug Allergies Allergy Verified 04/29/18 08:59 - Home Medications Home Medications: Ambulatory Orders Amlodipine Besylate [Norvasc -] 2.5 mg PO DAILY 06/22/16 Aspirin [ASA -] 81 mg PO DAILY 06/22/16 Donepezil HCl [Aricept -] 10 mg PO DAILY 06/22/16 Duloxetine HCl 60 mg PO DAILY 06/22/16 Gabapentin [Neurontin -] 400 mg PO BID 06/22/16 Latanoprost 0.005% Eye Drops [Xalatan 0.005% Eye Drops -] 1 drop OU HS 06/22/16 Mirtazapine [Remeron Soltab -] 15 mg PO HS 06/22/16 Sennosides/Docusate Sodium [Senna-S Tablet] 1 each PO TID 06/22/16 Simvastatin 20 mg PO HS 06/22/16 Tolterodine Tartrate LA [Detrol LA -] 4 mg PO DAILY 06/22/16 Acetaminophen [Tylenol .Regular Strength -] 650 mg PO Q6H PRN #0 tablet Carbidopa/Levodopa/Entacapone [Carbidopa-Levodopa 125 mg-Enta] 1 each PO TID 07/20 Ascorbate Calcium [Vitamin C] 500 mg PO DAILY 11/02/16 Buspirone HCl [Buspar -] 10 mg PO TID 11/02/16 Cholecalciferol (Vitamin D3) [Vitamin D3] 400 unit PO 1700 11/02/16 Ferrous Sulfate [Feosol] 325 mg PO BID 11/02/16 Rotigotine [Neupro] 1 each TD DAILY 11/02/16 Clopidogrel Bisulfate [Plavix -] 75 mg PO DAILY tablet 11/09/16 Furosemide [Lasix -] 40 mg PO DAILY tablet 11/09/16 Acetylcyst/Xzkdxiy23/Levomefol [Metafolbic Plus Caplet] 1 each PO DAILY Dextran 70/Hypromellose [Artificial Tears Eye Drops] 1 drop OS TID 08/26/17 Docusate Sodium [Colace -] 100 mg PO DAILY 08/26/17 Fluoride (Sodium) [Denta 5000 Plus] 51 gm DT BID 08/26/17 Lidocaine 0 gm TP BID 08/26/17 Multivit-Min/Iron Fum/Folic AC [Ivnsy-Kqvhasf-Dgvporhr Tablet] 1 each PO DAILY 08/26/17 Neomycin/Polymyxin B/Dexametha [Wkiixs-Nqjzm-Fqsasmj Eye Ointm] 3.5 gm OD BID Polyethylene Glycol 3350 [Miralax 119 gm Btl -] 17 gm PO HS 08/26/17 Cephalexin [Keflex] 500 mg PO BID #14 capsule MDD 2 09/02/17 Heparin - 5,000 unit SQ BID vial 09/02/17 - Risk Factors Known Risk Factors: Yes: Age, Hypertension Vital Signs: Vital Signs Temperature 98.3 F 04/29/18 08:45 Pulse Rate 79 04/29/18 08:45 Respiratory Rate 16 04/29/18 08:45 Blood Pressure 139/82 04/29/18 08:45 O2 Sat by Pulse Oximetry (%) 100 04/29/18 08:45 - Other Data Labs, Other Data: CBC, BMP 04/29/18 10:51 INR, PTT INR 1.23 (0.83-1.09) H 12/25/18 10:51 Problem List - Problems (1) Fracture due to fall Assessment/Plan: Stress MIBI 06/2016: no myocardial ischemia. ECHO 08/2017: normal LVEF. EKG 08/2017: normal sinus rhythm; normal study. Pt denies chest pain or dyspnea. Pt is cleared from a cardiac perspective for surgical repair of left hip fracture. Code(s): OBQ7218 - (2) Diastolic CHF Assessment/Plan: On furosemide and amlodipine. ECHO: normal LVEF; abnormal diastolic compliance. Elevated BNP; no acute pathology on CxR. No JVP. F/u BUn/Cfr, electrolyes, daily weight, Is and Os. Code(s): I50.30 - UNSPECIFIED DIASTOLIC (CONGESTIVE) HEART FAILURE (3) HTN (hypertension) Assessment/Plan: On amlodipiine and furosemide. Code(s): I10 - ESSENTIAL (PRIMARY) HYPERTENSION (4) Hyperlipemia Assessment/Plan: On statin. F/u lipid profile. Code(s): E78.5 - HYPERLIPIDEMIA, UNSPECIFIED (5) Memory change Assessment/Plan: on medications; f/u with PMD, neurologist. Code(s): R41.3 - OTHER AMNESIA (6) Parkinson disease Assessment/Plan: On levodopa/carbidopa. Code(s): G20 - PARKINSON'S DISEASE
[2018-04-29 11:28] LABS: ALK PHOS 138 U/L (45-117); ANION GAP 9 MMOL/L (8-16); BILIRUBIN,TOTAL 0.6 mg/dL (0.2-1); BLOOD UREA NITROGEN 14 mg/dL (7-18); CALCIUM 8.5 mg/dL (8.5-10.1); CHLORIDE 110 mmol/L (98-107); CO2 24 mmol/L (21-32); CREATININE 0.6 mg/dL (0.55-1.3); GLUCOSE,RANDOM 95 mg/dL (74-106); POTASSIUM 3.9 mmol/L (3.5-5.1); SGOT/AST 20 U/L (15-37); SGPT/ALT 18 U/L (13-61); SODIUM 143 mmol/L (136-145); TOT PROT 6.5 g/dl (6.4-8.2)
[2018-04-29 11:38] LABS: N-TERMINAL BNP 3601.4 pg/ml (5-450)
[2018-04-29] MEDS: DOCUSATE SODIUM 100 MG CAPSULE (FP) PO SCH (12:34)
[2018-04-29] MEDS: DONEPEZIL HCL 10 MG TABLET (FP) PO SCH (12:35)
[2018-04-29] MEDS: FUROSEMIDE 40 MG TABLET (FP) PO SCH (12:35)
[2018-04-29] MEDS: amLODIPine BESYLATE 2.5 MG TABLET (FP) PO SCH (12:35)
[2018-04-29] MEDS: GABAPENTIN 400 MG CAPSULE (FP) PO SCH ×2 (12:36→21:06)
[2018-04-29] MEDS: ASCORBIC ACID 500 MG TABLET (FP) PO SCH (12:36)
[2018-04-29] MEDS: DULoxetine HCL 30 MG CAPSULE.DR (FP) PO SCH (12:36)
[2018-04-29] MEDS: TOLTERODINE TARTRATE LA 4 MG CAP.SR.24H (FP) PO SCH (12:36)
[2018-04-29] MEDS ORDERED: HEPARIN NA (PORCINE) 5,000 UNITS/ML 1ML VIAL ONE (12:37)
--- NOTE | 2018-04-29 15:13 | CONSULT ---
Consult - text type - Consultation Consultation Note: ORTHOPEDIC SURGERY CONSULTATION NOTE Department of Orthopedic Surgery HISTORY OF PRESENT ILLNESS Radha Hodges is a 77 year old female who presents to [facility] with left hip pain after a fall. The orthopedic service was consulted for left hip fracture. The injury occurred 2 days ago. The patient was in her wheelchair when she fell forward. She lives in an assisted living facility and they sent her to the ED today after she complained of persistent pain and inability to move the leg. She has been unable to move her leg since the fall. She denies any other injuries. Denies numbness, tingling or other constitutional complaints. The patient lives in [facility] and uses a wheelchair at baseline. She uses her legs to move the wheelchair. She has a PMH of Parkinson Disease, HTN, CAD, hyperlipidemia, and CHF. She also has a history of CVA with residual right upper extremity weakness. She is currently on Plavix. She is here today with her health care proxy Sr. Milner ([phone]). Her brother is a Psychiatrist in [place] ([phone]). FAMILY HISTORY REVIEW OF SYMPTOMS A twelve-point review of systems was performed and was negative except as noted in HPI. 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 Cardio/Vascular CAD,CHF,HTN,Hyperlipdemia Social History Smoking history Never smoked Hx Alcohol Use Yes: OCCASIONALLY Usual Living Arrangement Intermediate ADL Support Services History of Recent Travel No Allergies Allergy/AdvReac Type Severity Reaction Status Date / Time No Known Drug Allergies Allergy Verified 04/29/18 08:59 Active Medications Generic Name Dose Route Start Last Admin Trade Name Freq PRN Reason Stop Dose Admin Acetaminophen 650 mg 04/29/18 10:33 Tylenol - PO Q6H PRN BACK PAIN Amlodipine Besylate 2.5 mg 04/29/18 10:45 04/29/18 12:35 Norvasc - PO 2.5 mg DAILY ARCHIE Administration Artificial Tears 1 drop 04/29/18 22:00 Artificial Tears OS TID ARCHIE Ascorbic Acid 500 mg 04/29/18 11:30 04/29/18 12:36 Vitamin C - PO 500 mg DAILY ARCHIE Administration Atorvastatin Calcium 10 mg 04/29/18 22:00 Lipitor - PO HS ARCHIE Buspirone HCl 10 mg 04/29/18 14:00 Buspar - PO TID ARCHIE Cholecalciferol 400 unit 04/29/18 17:00 Vitamin D3 - PO DAILY@1700 ARCHIE Docusate Sodium 100 mg 04/29/18 10:45 04/29/18 12:34 Colace - PO 100 mg DAILY ARCHIE Administration Donepezil HCl 10 mg 04/29/18 11:30 04/29/18 12:35 Aricept - PO 10 mg DAILY ARCHIE Administration Duloxetine HCl 60 mg 04/29/18 11:30 04/29/18 12:36 Cymbalta - PO 60 mg DAILY ARCHIE Administration Ferrous Sulfate 325 mg 04/29/18 22:00 Feosol - PO BID ARCHIE Furosemide 40 mg 04/29/18 10:45 04/29/18 12:35 Lasix - PO 40 mg DAILY ARCHIE Administration Gabapentin 400 mg 04/29/18 11:30 04/29/18 12:36 Neurontin - PO 400 mg BID ARCHIE Administration Latanoprost 1 drop 04/29/18 22:00 Xalatan 0.005% Eye Drops - OU HS ARCHIE Mirtazapine 15 mg 04/29/18 22:00 Remeron - PO HS ARCHIE Neomycin/Polymyxin/Dexamethasone 1 applic 04/29/18 22:00 Maxitrol Eye Ointment - OD BID [facility] Non-Formulary Medication 1 each 04/29/18 10:45 Acetylcyst/Kkjfhte77/Levomefol [Metafolbic Plus Caplet] PO DAILY ARCHIE Non-Formulary Medication 1 each 04/29/18 14:00 Carbidopa/Levodopa/Entacapone [Carbidopa-Levodopa 125 Mg-Enta] PO TID ARCHIE Non-Formulary Medication 1 each 04/29/18 10:45 Rotigotine [Neupro] TD DAILY [facility] Polyethylene Glycol 17 gm 04/29/18 22:00 Miralax (For Daily Use) - PO HS ARCHIE Senna/Docusate Sodium 1 tablet 04/29/18 14:00 Pericolace - PO TID ARCHIE Tolterodine Tartrate 4 mg 04/29/18 11:30 04/29/18 12:36 Detrol La - PO 4 mg DAILY ARCHIE Administration PHYSICAL EXAM Constitutional: Alert and oriented to person, place, and time. Appears well- developed and well-nourished. No acute distress, appropriate mood and affect. HEENT: Normocephalic, atraumatic Cardiovascular: Regular rate and rhythm, extremities warm, no cyanosis. Pulmonary: Breathing comfortably, normal air movement, no audible wheezing. Right Upper Extremity: No tenderness to palpation. Full passive ROM, free from pain. Decreased active shoulder motion. M/R/U/MSK/AX motor intact; SILT distally ; 2+ radial pulses; Cap refill brisk. Tone and reflexes normal. Left Upper Extremity: No tenderness to palpation. Full passive and active ROM, free from pain. M/R/U/MSK/AX motor intact; SILT distally; 2+ radial pulses; Cap refill brisk. Tone and reflexes normal. Right Lower Extremity: No tenderness to palpation. Flexion contracture of the knee. Painless ROM. EHL/TA/GS motor intact; SILT distally; 2+ DP pulses; Cap refill brisk. Tone and reflexes normal. Left Lower Extremity: Extremity shortened and externally rotated. Skin warm, dry , and intact; no lesions, rashes or ulcers noted. Muscle mass equal and symmetric to contralateral side. No masses or effusions noted. + Log Roll. Nontender throughout rest of extremity. No cords or calf tenderness. No significant calf/ankle edema. Flexion contracture of the knee. Painless ROM knee and ankle. EHL/TA/GS motor intact; SILT distally; 2+ DP pulses; Cap refill brisk. Vital Signs (last) Temp Pulse Resp BP Pulse Ox 98.3 F 79 16 139/82 98 04/29/18 08:45 04/29/18 08:45 04/29/18 08:45 04/29/18 08:45 04/29/18 09:00 Intake and Output 04/27/18 04/28/18 04/29/18 23:59 23:59 23:59 Other: Voiding Method Diaper Weight 180 lb Height 5 ft 5 in Body Mass Index (BMI) 29.9 Laboratory 04/29/18 10:51 04/29/18 10:51 PT with INR 14.60 SEC (9.7-13.0) H 04/29/18 10:51 PTT (Actin FS) 27.2 SECONDS (25.2-36.5) 04/29/18 10:51 IMAGING I personally reviewed all radiographs, CT, and other imaging. They demonstrate a basicervical femoral neck fracture. There is some comminution at the base of the neck which extends into the intertrochanteric region. ASSESSMENT AND PLAN Radha Hodges is a 77 year old female presenting status post fall 2 days ago with a left sided basicervical femoral neck fracture. We have reviewed the imaging and clinical findings in detail, as well as their potential implications. This is an operative fracture. Patient will need medical/cardiology clearance Plan for left hip intramedullary nail tomorrow. Hold Plavix for now, will restart after surgery. NPO after midnight except meds Hold Heparin past midnight Venous dopplers bilateral lower extremities to rule out DVT. Patient has been bed bound for the past few days. NWB LLE Type and Screen/2 units PRBC on hold - Calix LR 84cc/hr UA All questions were answered. Case was discussed with her HCP (Sister Annia Sesay) and via the phone with her brother (Dr. Ashkan Hodges). Thank you for involving our team in the care of this patient. Please call us at with questions
[2018-04-29] MEDS: SENNOSIDES/DOCUSATE COMBO (SENNA PLUS) TABLET (UD) PO SCH ×2 (16:44→21:06)
[2018-04-29] MEDS ORDERED: CHOLECALCIFEROL (VITAMIN D3) 400 UNIT TABLET (FP) PO SCH (17:00)
[2018-04-29] MEDS: busPIRone HCL 10 MG TABLET (FP) PO SCH ×2 (19:30→21:05)
[2018-04-29] MEDS: [UNRECOGNIZED DRUG - OTHER] PO SCH ×2 (19:30→21:05)
[2018-04-29] MEDS: [UNRECOGNIZED DRUG - OTHER] TD SCH (19:32)
[2018-04-29] MEDS ORDERED: PT OWN MED DRAWER 7, Y5N ONE (19:50)
[2018-04-29] MEDS: ARTIFICIAL TEARS (POLYVINYL ALCOHOL) OPTH DROPS OS SCH (21:04)
[2018-04-29] MEDS: FERROUS SO4 325 MG TABLET (FP) PO SCH (21:05)
[2018-04-29] MEDS: NEO/POLYMYX B SULF/DEXAMETH OPHTHALMIC OINTMENT 3.5 GM OD SCH (21:06)
[2018-04-29] MEDS ORDERED: LATANOPROST 0.005% OPHTH SOLN 2.5ML BOTTLE OU SCH (22:00)
[2018-04-29] MEDS ORDERED: MIRTAZAPINE 15 MG TABLET (FP) PO SCH (22:00)
[2018-04-29] MEDS ORDERED: AMANTADINE PO SCH (22:00)
[2018-04-29] MEDS ORDERED: ATORVASTATIN CA 10 MG TABLET (FP) PO SCH (22:00)
[2018-04-29] MEDS ORDERED: POLYETHYLENE GLYCOL 3350 119 GM BTL PO SCH (22:00)
[2018-04-30] MEDS: [UNRECOGNIZED DRUG - OTHER] PO SCH (06:09)
[2018-04-30] MEDS: ARTIFICIAL TEARS (POLYVINYL ALCOHOL) OPTH DROPS OS SCH ×3 (06:09→22:41)
[2018-04-30] MEDS: busPIRone HCL 10 MG TABLET (FP) PO SCH ×3 (06:09→22:31)
[2018-04-30] MEDS: SENNOSIDES/DOCUSATE COMBO (SENNA PLUS) TABLET (UD) PO SCH ×3 (06:10→22:34)
[2018-04-30 07:39] LABS: HEMATOCRIT 36.6 % (32.4-45.2); HEMOGLOBIN 11.6 GM/dL (10.7-15.3); MCH 26.8 pg (25.7-33.7); MCHC 31.6 g/dl (32.0-36.0); MEAN CELL VOLUME 84.9 fl (80-96); MEAN PLT VOLUME 7.6 fl (7.5-11.1); PLATELET COUNT 228 K/MM3 (134-434); RBC 4.31 M/mm3 (3.60-5.2); RDW 17.9 % (11.6-15.6); WHITE BLOOD COUNT 9.2 K/mm3 (4.0-10.0)
[2018-04-30 08:35] LABS: ALBUMIN 2.8 g/dl (3.4-5.0); ALK PHOS 125 U/L (45-117); ANION GAP 9 MMOL/L (8-16); BILIRUBIN,TOTAL 0.6 mg/dL (0.2-1); BLOOD UREA NITROGEN 21 mg/dL (7-18); CALCIUM 8.2 mg/dL (8.5-10.1); CHLORIDE 108 mmol/L (98-107); CO2 25 mmol/L (21-32); CREATININE 0.6 mg/dL (0.55-1.3); GLUCOSE,RANDOM 98 mg/dL (74-106); POTASSIUM 3.5 mmol/L (3.5-5.1); SGOT/AST 13 U/L (15-37); SGPT/ALT 8 U/L (13-61); SODIUM 142 mmol/L (136-145); TOT PROT 6.1 g/dl (6.4-8.2)
[2018-04-30 08:42] LABS: INR 1.25 (0.83-1.09); PROTHROMBIN TIME (PATIENT) 14.8 SEC (9.7-13.0)
[2018-04-30] MEDS: TOLTERODINE TARTRATE LA 4 MG CAP.SR.24H (FP) PO SCH (10:36)
[2018-04-30] MEDS: DOCUSATE SODIUM 100 MG CAPSULE (FP) PO SCH (10:36)
[2018-04-30] MEDS: DONEPEZIL HCL 10 MG TABLET (FP) PO SCH (10:36)
[2018-04-30] MEDS: DULoxetine HCL 30 MG CAPSULE.DR (FP) PO SCH (10:36)
[2018-04-30] MEDS: FERROUS SO4 325 MG TABLET (FP) PO SCH ×2 (10:36→22:32)
[2018-04-30] MEDS: FUROSEMIDE 40 MG TABLET (FP) PO SCH (10:36)
[2018-04-30] MEDS: [UNRECOGNIZED DRUG - OTHER] TD SCH (10:38)
[2018-04-30] MEDS: ASCORBIC ACID 500 MG TABLET (FP) PO SCH (10:38)
[2018-04-30] MEDS: amLODIPine BESYLATE 2.5 MG TABLET (FP) PO SCH (10:38)
[2018-04-30] MEDS: GABAPENTIN 400 MG CAPSULE (FP) PO SCH ×2 (10:38→22:33)
--- NOTE | 2018-04-30 10:38 | PN ---
Progress Note, Physician History of Present Illness: Pt w/o SOB, CP, palpitations, Abd pain. Pt with left leg pain when moved. Sr. Milner at bedside. - Current Medication List Current Medications: Active Medications Acetaminophen (Tylenol -) 650 mg PO Q6H PRN PRN Reason: BACK PAIN Last Admin: 04/29/18 16:44 Dose: 650 mg Amlodipine Besylate (Norvasc -) 2.5 mg PO DAILY [facility] Last Admin: 04/29/18 12:35 Dose: 2.5 mg Artificial Tears (Artificial Tears) 1 drop OS TID [facility] Last Admin: 04/30/18 06:09 Dose: Not Given Ascorbic Acid (Vitamin C -) 500 mg PO DAILY [facility] Last Admin: 04/29/18 12:36 Dose: 500 mg Atorvastatin Calcium (Lipitor -) 10 mg PO HS [facility] Last Admin: 04/29/18 21:06 Dose: 10 mg Buspirone HCl (Buspar -) 10 mg PO TID [facility] Last Admin: 04/30/18 06:09 Dose: 10 mg Cholecalciferol (Vitamin D3 -) 400 unit PO DAILY@1700 [facility] Last Admin: 04/29/18 16:44 Dose: 400 unit Docusate Sodium (Colace -) 100 mg PO DAILY [facility] Last Admin: 04/29/18 12:34 Dose: 100 mg Donepezil HCl (Aricept -) 10 mg PO DAILY [facility] Last Admin: 04/29/18 12:35 Dose: 10 mg Duloxetine HCl (Cymbalta -) 60 mg PO DAILY [facility] Last Admin: 04/29/18 12:36 Dose: 60 mg Ferrous Sulfate (Feosol -) 325 mg PO BID [facility] Last Admin: 04/29/18 21:05 Dose: 325 mg Furosemide (Lasix -) 40 mg PO DAILY [facility] Last Admin: 04/29/18 12:35 Dose: 40 mg Gabapentin (Neurontin -) 400 mg PO BID [facility] Last Admin: 04/29/18 21:06 Dose: 400 mg Latanoprost (Xalatan 0.005% Eye Drops -) 1 drop OU HS [facility] Last Admin: 04/29/18 21:07 Dose: Not Given Mirtazapine (Remeron -) 15 mg PO HS [facility] Last Admin: 04/29/18 21:06 Dose: 15 mg Neomycin/Polymyxin/Dexamethasone (Maxitrol Eye Ointment -) 1 applic OD BID [facility] Last Admin: 04/29/18 21:06 Dose: Not Given Non-Formulary Medication (Acetylcyst/Mphdnqq06/Levomefol [Metafolbic Plus Caplet ]) 1 each PO DAILY ARCHIE Ptnt's Own Med( Carbidopa/Levodopa/Entacapone) (Stalevo 125) 1 each PO TID ARCHIE Last Admin: 04/30/18 06:09 Dose: 1 each Ptnt's Own Med( Rotigotine [Neupro] 1 Each) 1 each TD DAILY [facility] Last Admin: 04/29/18 19:32 Dose: 1 each Non-Formulary Med_Pt 's Own Med_Gocovri 137mg Cap 1 each PO HS [facility] Last Admin: 04/29/18 21:54 Dose: Not Given Polyethylene Glycol (Miralax (For Daily Use) -) 17 gm PO HS [facility] Last Admin: 04/29/18 21:06 Dose: 17 gm Senna/Docusate Sodium (Pericolace -) 1 tablet PO TID [facility] Last Admin: 04/30/18 06:10 Dose: 1 tablet Tolterodine Tartrate (Detrol La -) 4 mg PO DAILY [facility] Last Admin: 04/29/18 12:36 Dose: 4 mg - Objective Vital Signs: Vital Signs Temperature 98.3 F 04/30/18 09:00 Pulse Rate 89 04/30/18 09:00 Respiratory Rate 20 04/30/18 09:00 Blood Pressure 131/64 04/30/18 09:00 O2 Sat by Pulse Oximetry (%) 94 L 04/30/18 09:00 Constitutional: Yes: No Distress, Calm Cardiovascular: Yes: Regular Rate and Rhythm, S1, S2 Respiratory: Yes: Regular, CTA Bilaterally Gastrointestinal: Yes: Normal Bowel Sounds, Soft. No: Tenderness Edema: No Neurological: Yes: Alert, Oriented (to persons) Labs: CBC, BMP 04/30/18 06:30 04/30/18 06:30 INR, PTT INR 1.25 (0.83-1.09) H 04/30/18 07:30 Problem List - Problems (1) Femur fracture, left Code(s): S72.92XA - UNSP FRACTURE OF LEFT FEMUR, INIT ENCNTR FOR CLOSED FRACTURE (2) Fracture due to fall Code(s): EYS1755 - (3) Fall Code(s): W19.XXXA - UNSPECIFIED FALL, INITIAL ENCOUNTER (4) CVA (cerebral vascular accident) Code(s): I63.9 - CEREBRAL INFARCTION, UNSPECIFIED (5) HTN (hypertension) Code(s): I10 - ESSENTIAL (PRIMARY) HYPERTENSION (6) Hyperlipemia Code(s): E78.5 - HYPERLIPIDEMIA, UNSPECIFIED (7) Impaired gait Code(s): R26.9 - UNSPECIFIED ABNORMALITIES OF GAIT AND MOBILITY Assessment/Plan Ortho consult and Cardio consult are appreciated. Pain controlled Dr. Chopra and Dr. Mcmahon at bedside; Dr. Chopra to take over the case DVT proph AM labs Case was d/w Sister Annia, at bedside; all questions were answered. Case was d/w pt's nurse. Pt for OR today
[2018-04-30] MEDS: NEO/POLYMYX B SULF/DEXAMETH OPHTHALMIC OINTMENT 3.5 GM OD SCH ×2 (10:39→22:42)
[2018-04-30] MEDS ORDERED: MIDAZOLAM HCL 2 MG/2 ML SINGLE DOSE VIAL ONE (10:53)
[2018-04-30] MEDS ORDERED: ETOMIDATE 20 MG/10 ML AMPUL IVPUSH ONE (10:53)
[2018-04-30] MEDS ORDERED: ceFAZolin SODIUM 1 GM VIAL ONE (10:53)
[2018-04-30] MEDS ORDERED: PROPOFOL 20 ML ONE (10:53)
--- NOTE | 2018-04-30 11:03 | PN ---
Progress Note (short form) - Note Progress Note: ORTHOPEDIC SURGERY PROGRESS NOTE Department of Orthopedic Surgery SUBJECTIVE No acute events overnight. Denies chest pain, shortness of breath, or calf pain. No nausea or vomiting. Tolerating oral intake. Pain controlled. Intake & Output 04/28/18 04/29/18 04/30/18 23:59 23:59 23:59 Intake Total 400 100 Output Total 300 200 Balance 100 -100 Intake: Oral 400 100 Output: Urine 300 200 Calix 300 200 Other: Voiding Method Incontinent Indwelling Catheter Bowel Movement No Weight 170 lb 3 oz Height 5 ft 8 in Body Mass Index (BMI) 25.9 Weight Measurement Method [facility] Active Medications Generic Name Dose Route Start Last Admin Trade Name Freq PRN Reason Stop Dose Admin Acetaminophen 650 mg 04/29/18 10:33 04/29/18 16:44 Tylenol - PO 650 mg Q6H PRN Administration BACK PAIN Amlodipine Besylate 2.5 mg 04/29/18 10:45 04/30/18 10:38 Norvasc - PO Not Given DAILY [facility] Artificial Tears 1 drop 04/29/18 22:00 04/30/18 06:09 Artificial Tears OS Not Given TID [facility] Ascorbic Acid 500 mg 04/29/18 11:30 04/30/18 10:38 Vitamin C - PO Not Given DAILY [facility] Atorvastatin Calcium 10 mg 04/29/18 22:00 04/29/18 21:06 Lipitor - PO 10 mg HS [facility] Administration Buspirone HCl 10 mg 04/29/18 14:00 04/30/18 06:09 Buspar - PO 10 mg TID [facility] Administration Cholecalciferol 400 unit 04/29/18 17:00 04/29/18 16:44 Vitamin D3 - PO 400 unit DAILY@1700 [facility] Administration Docusate Sodium 100 mg 04/29/18 10:45 04/30/18 10:36 Colace - PO Not Given DAILY [facility] Donepezil HCl 10 mg 04/29/18 11:30 04/30/18 10:36 Aricept - PO Not Given DAILY [facility] Duloxetine HCl 60 mg 04/29/18 11:30 04/30/18 10:36 Cymbalta - PO Not Given DAILY [facility] Ferrous Sulfate 325 mg 04/29/18 22:00 04/30/18 10:36 Feosol - PO Not Given BID [facility] Furosemide 40 mg 04/29/18 10:45 04/30/18 10:36 Lasix - PO Not Given DAILY [facility] Gabapentin 400 mg 04/29/18 11:30 04/30/18 10:38 Neurontin - PO Not Given BID [facility] Latanoprost 1 drop 04/29/18 22:00 04/29/18 21:07 Xalatan 0.005% Eye Drops - OU Not Given HS [facility] Mirtazapine 15 mg 04/29/18 22:00 04/29/18 21:06 Remeron - PO 15 mg HS [facility] Administration Neomycin/Polymyxin/Dexamethasone 1 applic 04/29/18 22:00 04/30/18 10:39 Maxitrol Eye Ointment - OD Not Given BID [facility] Non-Formulary Medication 1 each 04/29/18 10:45 Acetylcyst/Rhwmzgg56/Levomefol [Metafolbic Plus Caplet] PO DAILY [facility] Ptnt's Own Med( 1 each 04/29/18 16:30 04/30/18 06:09 Carbidopa/Levodopa/ PO 1 each Entacapone) (Stalevo TID [facility] Administration 125) Ptnt's Own Med( 1 each 04/29/18 16:30 04/30/18 10:38 Rotigotine [Neupro] TD Not Given 1 Each) DAILY [facility] Non-Formulary Med_Pt 1 each 04/29/18 22:00 04/29/18 21:54 's Own Med_Gocovri PO Not Given 137mg Cap HS [facility] Polyethylene Glycol 17 gm 04/29/18 22:00 04/29/18 21:06 Miralax (For Daily Use) - PO 17 gm HS [facility] Administration Senna/Docusate Sodium 1 tablet 04/29/18 14:00 04/30/18 06:10 Pericolace - PO 1 tablet TID [facility] Administration Tolterodine Tartrate 4 mg 04/29/18 11:30 04/30/18 10:36 Detrol La - PO Not Given DAILY [facility] Vital Signs (last) Temp Pulse Resp BP Pulse Ox 98.3 F 89 20 131/64 94 L 04/30/18 09:00 04/30/18 09:00 04/30/18 09:00 04/30/18 09:00 04/30/18 09:00 PHYSICAL EXAMINATION General: Alert, cooperative and no distress. Lower Extremity: LLE shortened and ER. Muscle mass equal and symmetric to contralateral side. No atrophy noted. No masses or effusions noted. EHL/TA/GS motor intact; SILT distally; 2+ DP pulses; Cap refill brisk. DVT Exam: No evidence of DVT seen on physical exam; No cords or calf tenderness ; No significant calf/ankle edema. Laboratory (coagulation) PT with INR 14.80 SEC (9.7-13.0) H 04/30/18 07:30 Laboratory 04/30/18 06:30 04/30/18 06:30 IMAGING AP Pelvis and Left hip/femur radiographs show a displaced left basicervical femoral neck fracture. ASSESSMENT AND PLAN Radha Taylor is a 77 year old female with a left basicervical femoral neck fracture. - I discussed the case and plan with Dr. Marie (Admitting Attending) and Dr. Mario Chopra (Chief of Orthopedic Surgery). The patient is a current patient of Dr. Chopra and Dr. Chopra is available this morning to perform the surgery. He will proceed to the OR with the case now. Dr. Chopra spoke to the patient and family and everyone is in agreement with the plan. Further management and care of Ms. Taylor will be with Dr. Chopra. Thank you for involving me in this case. You can contact me with any questions at [phone]. Hadley Barton, DO Orthopedic Surgery
[2018-04-30] MEDS ORDERED: ceFAZolin SODIUM 1 GM VIAL IVPB ONE (11:10)
[2018-04-30] MEDS ORDERED: DEXAMETHASONE SOD PHOSPHATE 4 MG/1 ML VIAL ONE (11:19)
--- NOTE | 2018-04-30 11:40 | OP ---
Operative Note - Note: Operative Date: 04/30/18 Pre-Operative Diagnosis: L IT HIP FX Operation: L GAMMA NAIL Post-Operative Diagnosis: Same as Pre-op Surgeon: Mario Chopra Anesthesia: General Operative Report Dictated: Yes
--- NOTE | 2018-04-30 11:40 | CONSULT ---
Consult - text type - Consultation Consultation Note: FULL CONSULT DICTATED IMP: L IT HIP FX PLAN: L GAMMA NAIL
[2018-04-30] MEDS ORDERED: LACTATED RINGERS SOLUTION 1,000 ML IV SCH (11:45)
[2018-04-30] MEDS ORDERED: ONDANSETRON 4 MG/2 ML VIAL IVPUSH PRN (11:47)
[2018-04-30] MEDS ORDERED: ACETAMINOPHEN 1000 MG/100 ML VIAL (NON FORMULARY) IVPB PRN (11:48)
--- NOTE | 2018-04-30 12:56 | CONS ---
DATE OF CONSULTATION: 04/30/2018 ORTHOPEDIC CONSULTATION/[facility] The patient is a 77-year-old female, well known to my service, with known Parkinson's and marginal, if any, ambulator. Patient presents to the emergency room status post fall, complaining of pain in the left hip. On physical exam, she has marked pain with any range of motion of the left hip. Left lower extremity is shortened and externally rotated. She has significant stiffness in both her knees and ankles bilaterally, but no tenderness in these regions. Calves are soft, nontender, neurovascularly intact. X-rays and CAT scan show a left intertrochanteric hip fracture. IMPRESSION: Left intertrochanteric hip fracture. PLAN: Risks, benefits, alternatives discussed with patient and with son. Patient will go for a gamma nail today. Patient is medically cleared by her medical doctor and her ict support and test engineers. Patient is on Plavix, may encounter some increased bleeding, which may require transfusion, but we will proceed with the surgery today. LUC SCRUGGS M.D. LELE/[id number]
[2018-04-30] MEDS ORDERED: ACETAMINOPHEN INJECTION 100 ML IVPB ONE (13:07)
[2018-04-30] MEDS ORDERED: ACETAMINOPHEN 1000 MG/100 ML VIAL (NON FORMULARY) IVPB ONE (13:09)
[2018-04-30] MEDS: LACTATED RINGERS SOLUTION 1,000 ML IV SCH (14:30)
--- NOTE | 2018-04-30 14:30 | SPEC ---
DATE OF OPERATION: 04/30/2018 PREOPERATIVE DIAGNOSIS: Left intertrochanteric hip fracture. POSTOPERATIVE DIAGNOSIS: Left intertrochanteric hip fracture. PROCEDURE: Left Gamma nailing. SURGICAL ATTENDING: Mario Chopra MD CYANIDE FURNACE OPERATOR: LANG Rodarte ANESTHESIA: General with LMA. CLOSURE: A short Gamma nail with appropriate interlocking screws, 0 Vicryl fascia, 2-0 subcutaneous, jumana to skin. ESTIMATED BLOOD LOSS: 100 mL COMPLICATIONS: None. CONDITION: To Recovery in stable condition. DESCRIPTION OF THE PROCEDURE: The patient was taken to the operating room on April 30, 2018. IV Kefzol was administered prophylactically prior to the case. Anesthesia was administered by the anesthesiologist. The patient was then fastened to the fracture table with all prominences well padded. Excellent reduction of the fracture was confirmed in AP and lateral plane by use of fluoroscopy. The left hip area was then prepped and draped in the usual sterile fashion by use of a shower curtain. A small 2-cm longitudinal incision over the tip of the greater trochanter was incised, hemostasis achieved using Bovie cautery. Sharp dissection was carried through the fascia. A guidewire was drilled from the tip of the greater trochanter into the intramedullary canal past the fracture. This was directed by fluoroscopy in both the AP and lateral plane. This was overreamed with a proximal reamer. A short Gamma nail was then malleted down into place. Using the outrigger and a small stab incision laterally, a guidewire was drilled from the lateral aspect of the femur, through the fly, through the neck into the femoral head. Proper placement was confirmed in the AP and lateral plane by using the image intensifier. The guidewire was measured for length, reamed with a triple reamer, and then screwed with the appropriate-sized lag screw. With the traction removed, the compression device was used to compress the fracture. A set screw was placed from above in the dynamic fashion. Again using the outrigger and through a small stab incision distally, a distal hole was drilled, depth gauged and screwed with the appropriate length locking screw in the static hole. The outrigger was removed. The x-rays in the AP and lateral plane revealed excellent position of the hardware with excellent reduction of the fracture. All incisions were irrigated out with copious amounts of irrigation. The fascia was closed in 0 Vicryl, 2-0 subcutaneous, and jumana to the skin. Sterile pressure dressing was applied, patient awakened from anesthesia and transferred to Recovery in stable condition. No complications. Estimated blood loss negligible. Maral GRAMAJO/[id number]
[2018-04-30] MEDS: [UNRECOGNIZED DRUG - OTHER] PO SCH ×2 (14:40→22:32)
[2018-04-30] MEDS: CARBIDOPA PO SCH ×2 (14:40→22:32)
[2018-04-30] MEDS: LEVODOPA PO SCH ×2 (14:40→22:32)
[2018-04-30] MEDS: ENTACAPONE PO SCH ×2 (14:40→22:32)
[2018-04-30] MEDS: CHOLECALCIFEROL (VITAMIN D3) 400 UNIT TABLET (FP) PO SCH (16:27)
[2018-04-30] MEDS ORDERED: CEFAZOLIN 1 GM/D5W 1 GM/50 ML BAG IVPB SCH (18:00)
[2018-04-30] MEDS: CEFAZOLIN 1 GM/D5W 1 GM/50 ML BAG IVPB SCH (18:10)
[2018-04-30] MEDS ORDERED: PT OWN MED DRAWER 7, Y5N ONE (20:32)
[2018-04-30] MEDS: NON-FORMULARY MED PO SCH (22:00)
[2018-04-30] MEDS: ATORVASTATIN CA 10 MG TABLET (FP) PO SCH (22:33)
[2018-04-30] MEDS: POLYETHYLENE GLYCOL 3350 119 GM BTL PO SCH (22:33)
[2018-04-30] MEDS: MIRTAZAPINE 15 MG TABLET (FP) PO SCH (22:35)
[2018-04-30] MEDS: LATANOPROST 0.005% OPHTH SOLN 2.5ML BOTTLE OU SCH (22:42)
[2018-05-01] MEDS: CEFAZOLIN 1 GM/D5W 1 GM/50 ML BAG IVPB SCH (01:14)
[2018-05-01] MEDS ORDERED: PT OWN MED DRAWER 7, Y5N ONE ×4 (05:21→21:52)
[2018-05-01] MEDS: busPIRone HCL 10 MG TABLET (FP) PO SCH ×3 (05:31→21:55)
[2018-05-01] MEDS: SENNOSIDES/DOCUSATE COMBO (SENNA PLUS) TABLET (UD) PO SCH ×3 (05:34→21:55)
[2018-05-01] MEDS: ENTACAPONE PO SCH ×3 (05:44→22:02)
[2018-05-01] MEDS: ARTIFICIAL TEARS (POLYVINYL ALCOHOL) OPTH DROPS OS SCH ×3 (05:44→23:01)
[2018-05-01] MEDS: LEVODOPA PO SCH ×3 (05:44→22:02)
[2018-05-01] MEDS: [UNRECOGNIZED DRUG - OTHER] PO SCH ×3 (05:44→22:02)
[2018-05-01] MEDS: CARBIDOPA PO SCH ×3 (05:44→22:02)
[2018-05-01 08:09] LABS: HEMATOCRIT 33.3 % (32.4-45.2); HEMOGLOBIN 10.3 GM/dL (10.7-15.3); MCH 26.6 pg (25.7-33.7); MCHC 30.9 g/dl (32.0-36.0); MEAN CELL VOLUME 86.1 fl (80-96); MEAN PLT VOLUME 7.3 fl (7.5-11.1); PLATELET COUNT 206 K/MM3 (134-434); RBC 3.87 M/mm3 (3.60-5.2); RDW 17.7 % (11.6-15.6); WHITE BLOOD COUNT 8.1 K/mm3 (4.0-10.0)
--- NOTE | 2018-05-01 08:38 | PN ---
Progress Note (short form) - Note Progress Note: Ortho Pt seen and examined s/p left IM gamma nail Selected Entries 05/01/18 06:19 Temperature 98.1 F Pulse Rate 80 Respiratory 19 Rate Blood Pressure 140/86 Laboratory Tests 05/01/18 07:00 WBC 8.1 Hgb 10.3 L Hct 33.3 Plt Count 206 dressing c/d/i, calf soft, nt nvi a/p PT wbat dvt ppx pain control d/c planning
[2018-05-01 08:48] LABS: ANION GAP 7 MMOL/L (8-16); BLOOD UREA NITROGEN 25 mg/dL (7-18); CALCIUM 7.8 mg/dL (8.5-10.1); CHLORIDE 108 mmol/L (98-107); CO2 28 mmol/L (21-32); CREATININE 0.5 mg/dL (0.55-1.3); GLUCOSE,RANDOM 94 mg/dL (74-106); POTASSIUM 3.7 mmol/L (3.5-5.1); SODIUM 143 mmol/L (136-145)
[2018-05-01] MEDS ORDERED: ENOXAPARIN NA (PORCINE) 40 MG/0.4 ML DISP.SYRIN SQ SCH (10:00)
[2018-05-01] MEDS: DULoxetine HCL 30 MG CAPSULE.DR (FP) PO SCH (10:39)
[2018-05-01] MEDS: GABAPENTIN 400 MG CAPSULE (FP) PO SCH ×2 (10:40→21:54)
[2018-05-01] MEDS: ASCORBIC ACID 500 MG TABLET (FP) PO SCH (10:40)
[2018-05-01] MEDS: amLODIPine BESYLATE 2.5 MG TABLET (FP) PO SCH (10:40)
[2018-05-01] MEDS: DOCUSATE SODIUM 100 MG CAPSULE (FP) PO SCH (10:40)
[2018-05-01] MEDS: FUROSEMIDE 40 MG TABLET (FP) PO SCH (10:40)
[2018-05-01] MEDS: FERROUS SO4 325 MG TABLET (FP) PO SCH ×2 (10:41→21:55)
[2018-05-01] MEDS: TOLTERODINE TARTRATE LA 4 MG CAP.SR.24H (FP) PO SCH (10:41)
[2018-05-01] MEDS: PATIENT'S OWN MEDICATION (NON-FORMULARY) (Rotigotine [Neupro] 1 EACH) TD SCH (10:43)
[2018-05-01] MEDS: NEO/POLYMYX B SULF/DEXAMETH OPHTHALMIC OINTMENT 3.5 GM OD SCH ×3 (10:50→21:54)
[2018-05-01] MEDS: ENOXAPARIN NA (PORCINE) 40 MG/0.4 ML DISP.SYRIN SQ SCH ×2 (10:50→13:56)
[2018-05-01] MEDS: ACETAMINOPHEN 325 MG TABLET (FP) PO PRN (11:08)
--- NOTE | 2018-05-01 12:04 | PN ---
Progress Note, Physician Chief Complaint: day 1 s/p gamma nail - Current Medication List Current Medications: Active Medications Acetaminophen (Ofirmev Injection -) 1,000 mg IVPB ONCE PRN PRN Reason: PAIN LEVEL 1 - 3 Last Admin: 04/30/18 16:26 Dose: 1,000 mg Acetaminophen (Tylenol -) 650 mg PO Q6H PRN PRN Reason: BACK PAIN Last Admin: 05/01/18 11:08 Dose: 650 mg Amlodipine Besylate (Norvasc -) 2.5 mg PO DAILY [facility] Last Admin: 05/01/18 10:40 Dose: 2.5 mg Artificial Tears (Artificial Tears) 1 drop OS TID [facility] Last Admin: 05/01/18 05:44 Dose: Not Given Ascorbic Acid (Vitamin C -) 500 mg PO DAILY [facility] Last Admin: 05/01/18 10:40 Dose: 500 mg Atorvastatin Calcium (Lipitor -) 10 mg PO HS [facility] Last Admin: 04/30/18 22:33 Dose: 10 mg Buspirone HCl (Buspar -) 10 mg PO TID [facility] Last Admin: 05/01/18 05:31 Dose: 10 mg Cholecalciferol (Vitamin D3 -) 400 unit PO DAILY@1700 [facility] Last Admin: 04/30/18 16:27 Dose: 400 unit Docusate Sodium (Colace -) 100 mg PO DAILY [facility] Last Admin: 05/01/18 10:40 Dose: 100 mg Donepezil HCl (Aricept -) 10 mg PO [facility] Duloxetine HCl (Cymbalta -) 60 mg PO DAILY [facility] Last Admin: 05/01/18 10:39 Dose: 60 mg Enoxaparin Sodium (Lovenox -) 40 mg SQ DAILY [facility] Last Admin: 05/01/18 10:50 Dose: Not Given Fentanyl (Sublimaze Injection -) 25 mcg IVPUSH [id number] PRN PRN Reason: PAIN-PACU ORDER X 4 DOSES ONLY Ferrous Sulfate (Feosol -) 325 mg PO BID [facility] Last Admin: 05/01/18 10:41 Dose: 325 mg Furosemide (Lasix -) 40 mg PO DAILY [facility] Last Admin: 05/01/18 10:40 Dose: 40 mg Gabapentin (Neurontin -) 400 mg PO BID [facility] Last Admin: 05/01/18 10:40 Dose: 400 mg Lactated Ringer's (Lactated Ringers Solution) 1,000 mls @ 75 mls/hr IV ASDIR [facility] Last Admin: 04/30/18 14:30 Dose: 75 mls/hr Latanoprost (Xalatan 0.005% Eye Drops -) 1 drop OU HS [facility] Last Admin: 04/30/18 22:42 Dose: Not Given Mirtazapine (Remeron -) 15 mg PO HS [facility] Last Admin: 04/30/18 22:35 Dose: 15 mg Neomycin/Polymyxin/Dexamethasone (Maxitrol Eye Ointment -) 1 applic OD BID [facility] Last Admin: 05/01/18 10:50 Dose: Not Given Non-Formulary Medication (Acetylcyst/Rewhfde17/Levomefol [Metafolbic Plus Caplet ]) 1 each PO DAILY [facility] Non-Formulary Medication (Carbidopa/Levodopa/Entacapone [Carbidopa-Levodopa 125 Mg-Enta]) 1 each PO TID [facility] Last Admin: 05/01/18 05:44 Dose: 1 each Non-Formulary Medication (Non-Formulary Med) 1 each PO HS [facility] Last Admin: 04/30/18 22:00 Dose: 1 each Non-Formulary Medication (Rotigotine [Neupro]) 1 each TD DAILY [facility] Last Admin: 05/01/18 10:43 Dose: 1 each Ondansetron HCl (Zofran Injection) 4 mg IVPUSH Q6H PRN PRN Reason: NAUSEA AND/OR VOMITING Polyethylene Glycol (Miralax (For Daily Use) -) 17 gm PO HS [facility] Last Admin: 04/30/18 22:33 Dose: Not Given Senna/Docusate Sodium (Pericolace -) 1 tablet PO TID [facility] Last Admin: 05/01/18 05:34 Dose: 1 tablet Tolterodine Tartrate (Detrol La -) 4 mg PO DAILY [facility] Last Admin: 05/01/18 10:41 Dose: 4 mg - Objective Vital Signs: Vital Signs Temperature 98.5 F 05/01/18 10:00 Pulse Rate 83 05/01/18 10:00 Respiratory Rate 20 05/01/18 10:00 Blood Pressure 132/57 L 05/01/18 10:00 O2 Sat by Pulse Oximetry (%) 97 04/30/18 21:00 Labs: CBC, BMP 05/01/18 07:00 05/01/18 07:00 INR, PTT INR 1.25 (0.83-1.09) H 04/30/18 07:30 Assessment/Plan Pt is s/p GA for left hip gamma nail yesterday. No anesthetic issues/ complications; pt back to baseline status.
[2018-05-01 12:59] VITALS: BMI 25.8
[2018-05-01] MEDS: LACTATED RINGERS SOLUTION 1,000 ML IV SCH (13:56)
[2018-05-01] MEDS: oxyCODONE HCL 5 MG TABLET PO PRN ×2 (15:29→21:57)
--- NOTE | 2018-05-01 17:18 | PN ---
Progress Note, Physician History of Present Illness: Pt w/o SOB, CP, palpitations, Abd pain. Pt with left leg pain occasionally. Sr. Milner at bedside. - Current Medication List Current Medications: Active Medications Acetaminophen (Tylenol -) 650 mg PO Q6H PRN PRN Reason: BACK PAIN Last Admin: 05/01/18 11:08 Dose: 650 mg Amlodipine Besylate (Norvasc -) 2.5 mg PO DAILY [facility] Last Admin: 05/01/18 10:40 Dose: 2.5 mg Artificial Tears (Artificial Tears) 1 drop OS TID [facility] Last Admin: 05/01/18 14:12 Dose: Not Given Ascorbic Acid (Vitamin C -) 500 mg PO DAILY [facility] Last Admin: 05/01/18 10:40 Dose: 500 mg Atorvastatin Calcium (Lipitor -) 10 mg PO HS [facility] Last Admin: 04/30/18 22:33 Dose: 10 mg Buspirone HCl (Buspar -) 10 mg PO TID [facility] Last Admin: 05/01/18 13:56 Dose: 10 mg Cholecalciferol (Vitamin D3 -) 400 unit PO DAILY@1700 [facility] Last Admin: 04/30/18 16:27 Dose: 400 unit Docusate Sodium (Colace -) 100 mg PO DAILY [facility] Last Admin: 05/01/18 10:40 Dose: 100 mg Donepezil HCl (Aricept -) 10 mg PO [facility] Duloxetine HCl (Cymbalta -) 60 mg PO DAILY [facility] Last Admin: 05/01/18 10:39 Dose: 60 mg Enoxaparin Sodium (Lovenox -) 40 mg SQ DAILY [facility] Last Admin: 05/01/18 13:56 Dose: 40 mg Fentanyl (Sublimaze Injection -) 25 mcg IVPUSH [id number] PRN PRN Reason: PAIN-PACU ORDER X 4 DOSES ONLY Ferrous Sulfate (Feosol -) 325 mg PO BID [facility] Last Admin: 05/01/18 10:41 Dose: 325 mg Furosemide (Lasix -) 40 mg PO DAILY [facility] Last Admin: 05/01/18 10:40 Dose: 40 mg Gabapentin (Neurontin -) 400 mg PO BID [facility] Last Admin: 05/01/18 10:40 Dose: 400 mg Lactated Ringer's (Lactated Ringers Solution) 1,000 mls @ 75 mls/hr IV ASDIR [facility] Last Admin: 05/01/18 13:56 Dose: Not Given Latanoprost (Xalatan 0.005% Eye Drops -) 1 drop OU [facility] Last Admin: 04/30/18 22:42 Dose: Not Given Mirtazapine (Remeron -) 15 mg PO HS [facility] Last Admin: 04/30/18 22:35 Dose: 15 mg Neomycin/Polymyxin/Dexamethasone (Maxitrol Eye Ointment -) 1 applic OD BID [facility] Last Admin: 05/01/18 14:06 Dose: 1 applic Non-Formulary Medication (Acetylcyst/Megeufb81/Levomefol [Metafolbic Plus Caplet ]) 1 each PO DAILY [facility] Non-Formulary Medication (Carbidopa/Levodopa/Entacapone [Carbidopa-Levodopa 125 Mg-Enta]) 1 each PO TID [facility] Last Admin: 05/01/18 14:12 Dose: 1 each Non-Formulary Medication (Non-Formulary Med) 1 each PO HS [facility] Last Admin: 04/30/18 22:00 Dose: 1 each Non-Formulary Medication (Rotigotine [Neupro]) 1 each TD DAILY [facility] Last Admin: 05/01/18 10:43 Dose: 1 each Ondansetron HCl (Zofran Injection) 4 mg IVPUSH Q6H PRN PRN Reason: NAUSEA AND/OR VOMITING Oxycodone HCl (Roxicodone -) 5 mg PO Q6H PRN PRN Reason: PAIN LEVEL 4 - 6 Last Admin: 05/01/18 15:29 Dose: 5 mg Polyethylene Glycol (Miralax (For Daily Use) -) 17 gm PO [facility] Last Admin: 04/30/18 22:33 Dose: Not Given Senna/Docusate Sodium (Pericolace -) 1 tablet PO TID [facility] Last Admin: 05/01/18 13:56 Dose: 1 tablet Tolterodine Tartrate (Detrol La -) 4 mg PO DAILY [facility] Last Admin: 05/01/18 10:41 Dose: 4 mg - Objective Vital Signs: Vital Signs Temperature 97.2 F L 05/01/18 14:33 Pulse Rate 82 05/01/18 14:33 Respiratory Rate 20 05/01/18 10:00 Blood Pressure 140/77 05/01/18 14:33 O2 Sat by Pulse Oximetry (%) 98 05/01/18 11:47 Constitutional: Yes: No Distress, Calm Cardiovascular: Yes: Regular Rate and Rhythm, S1, S2 Respiratory: Yes: Regular, CTA Bilaterally, Diminished Gastrointestinal: Yes: Normal Bowel Sounds, Soft. No: Tenderness Neurological: Yes: Alert, Oriented (person) Labs: CBC, BMP 05/01/18 07:00 05/01/18 07:00 INR, PTT INR 1.25 (0.83-1.09) H 04/30/18 07:30 Problem List - Problems (1) Femur fracture, left Code(s): S72.92XA - UNSP FRACTURE OF LEFT FEMUR, INIT ENCNTR FOR CLOSED FRACTURE (2) Fracture due to fall Code(s): AVQ1013 - (3) Fall Code(s): W19.XXXA - UNSPECIFIED FALL, INITIAL ENCOUNTER (4) CVA (cerebral vascular accident) Code(s): I63.9 - CEREBRAL INFARCTION, UNSPECIFIED (5) HTN (hypertension) Code(s): I10 - ESSENTIAL (PRIMARY) HYPERTENSION (6) Hyperlipemia Code(s): E78.5 - HYPERLIPIDEMIA, UNSPECIFIED (7) Impaired gait Code(s): R26.9 - UNSPECIFIED ABNORMALITIES OF GAIT AND MOBILITY Assessment/Plan POD # 1 Ortho consult and Cardio consult are appreciated. Pain controlled DVT proph AM labs PT Case was d/w Sister Annia, at bedside; all questions were answered. Case was d/w pt's nurse.
[2018-05-01] MEDS: CHOLECALCIFEROL (VITAMIN D3) 400 UNIT TABLET (FP) PO SCH (17:44)
[2018-05-01] MEDS: ATORVASTATIN CA 10 MG TABLET (FP) PO SCH (21:55)
[2018-05-01] MEDS: MIRTAZAPINE 15 MG TABLET (FP) PO SCH (21:55)
[2018-05-01] MEDS: NON-FORMULARY MED PO SCH (21:59)
[2018-05-01] MEDS: POLYETHYLENE GLYCOL 3350 119 GM BTL PO SCH (22:01)
[2018-05-01] MEDS: DONEPEZIL HCL 10 MG TABLET (FP) PO SCH (22:02)
[2018-05-01] MEDS: LATANOPROST 0.005% OPHTH SOLN 2.5ML BOTTLE OU SCH (23:00)
--- NOTE | 2018-05-02 02:43 | PN ---
Progress Note, Physician Chief Complaint: Pt c/o pain at LE surgical site. History of Present Illness: 72-year-old white female with PMHx HTN, Parkinson's disease, memory lapses, now presents to the ED status post fall. Patient states was ambulating outside of [facility] when she tripped, landing on her face and both knees. Patient now complains of facial pain with cervical tenderness, LE pain. Patient denies LOC and was able to ambulate after injury. Patient states currently takes baby aspirin and clopidogrel daily. Patient denies headache, visual changes, difficulty breathing, chest pain, shortness of breath. Patient history of Parkinson's requires supervision with ambulation. - Current Medication List Current Medications: Active Medications Acetaminophen (Tylenol -) 650 mg PO Q6H PRN PRN Reason: BACK PAIN Last Admin: 05/01/18 11:08 Dose: 650 mg Amlodipine Besylate (Norvasc -) 2.5 mg PO DAILY [facility] Last Admin: 05/01/18 10:40 Dose: 2.5 mg Artificial Tears (Artificial Tears) 1 drop OS TID [facility] Last Admin: 05/01/18 23:01 Dose: 1 drop Ascorbic Acid (Vitamin C -) 500 mg PO DAILY [facility] Last Admin: 05/01/18 10:40 Dose: 500 mg Atorvastatin Calcium (Lipitor -) 10 mg PO HS [facility] Last Admin: 05/01/18 21:55 Dose: 10 mg Buspirone HCl (Buspar -) 10 mg PO TID [facility] Last Admin: 05/01/18 21:55 Dose: 10 mg Cholecalciferol (Vitamin D3 -) 400 unit PO DAILY@1700 [facility] Last Admin: 05/01/18 17:44 Dose: 400 unit Docusate Sodium (Colace -) 100 mg PO DAILY [facility] Last Admin: 05/01/18 10:40 Dose: 100 mg Donepezil HCl (Aricept -) 10 mg PO HS [facility] Last Admin: 05/01/18 22:02 Dose: 10 mg Duloxetine HCl (Cymbalta -) 60 mg PO DAILY [facility] Last Admin: 05/01/18 10:39 Dose: 60 mg Enoxaparin Sodium (Lovenox -) 40 mg SQ DAILY [facility] Last Admin: 05/01/18 13:56 Dose: 40 mg Fentanyl (Sublimaze Injection -) 25 mcg IVPUSH [id number] PRN PRN Reason: PAIN-PACU ORDER X 4 DOSES ONLY Ferrous Sulfate (Feosol -) 325 mg PO BID [facility] Last Admin: 05/01/18 21:55 Dose: 325 mg Furosemide (Lasix -) 40 mg PO DAILY [facility] Last Admin: 05/01/18 10:40 Dose: 40 mg Gabapentin (Neurontin -) 400 mg PO BID [facility] Last Admin: 05/01/18 21:54 Dose: 400 mg Lactated Ringer's (Lactated Ringers Solution) 1,000 mls @ 75 mls/hr IV ASDIR [facility] Last Admin: 05/01/18 13:56 Dose: Not Given Latanoprost (Xalatan 0.005% Eye Drops -) 1 drop OU HS [facility] Last Admin: 05/01/18 23:00 Dose: 1 drop Mirtazapine (Remeron -) 15 mg PO HS [facility] Last Admin: 05/01/18 21:55 Dose: 15 mg Neomycin/Polymyxin/Dexamethasone (Maxitrol Eye Ointment -) 1 applic OD BID [facility] Last Admin: 05/01/18 21:54 Dose: 1 applic Non-Formulary Medication (Acetylcyst/Vsikoww98/Levomefol [Metafolbic Plus Caplet ]) 1 each PO DAILY [facility] Non-Formulary Medication (Carbidopa/Levodopa/Entacapone [Carbidopa-Levodopa 125 Mg-Enta]) 1 each PO TID [facility] Last Admin: 05/01/18 22:02 Dose: 1 each Non-Formulary Medication (Non-Formulary Med) 1 each PO HS [facility] Last Admin: 05/01/18 21:59 Dose: 1 each Non-Formulary Medication (Rotigotine [Neupro]) 1 each TD DAILY [facility] Last Admin: 05/01/18 10:43 Dose: 1 each Ondansetron HCl (Zofran Injection) 4 mg IVPUSH Q6H PRN PRN Reason: NAUSEA AND/OR VOMITING Oxycodone HCl (Roxicodone -) 5 mg PO Q6H PRN PRN Reason: PAIN LEVEL 4 - 6 Last Admin: 05/01/18 21:57 Dose: 5 mg Polyethylene Glycol (Miralax (For Daily Use) -) 17 gm PO [facility] Last Admin: 05/01/18 22:01 Dose: 17 grams Senna/Docusate Sodium (Pericolace -) 1 tablet PO TID [facility] Last Admin: 05/01/18 21:55 Dose: 1 tablet Tolterodine Tartrate (Detrol La -) 4 mg PO DAILY [facility] Last Admin: 05/01/18 10:41 Dose: 4 mg - Objective Vital Signs: Vital Signs Temperature 99.3 F 05/01/18 22:00 Pulse Rate 79 05/01/18 22:00 Respiratory Rate 20 05/01/18 22:00 Blood Pressure 127/80 05/01/18 22:00 O2 Sat by Pulse Oximetry (%) 98 05/01/18 21:00 Constitutional: Yes: Anxious, Moderate Distress Eyes: Yes: WNL HENT: Yes: WNL Neck: Yes: WNL Cardiovascular: Yes: S1, S2, S4 Respiratory: Yes: WNL Gastrointestinal: Yes: Soft ...Rectal Exam: Yes: Deferred Genitourinary: Yes: Anuria Breast(s): Yes: WNL Musculoskeletal: Yes: Joint Stiffness Extremities: Yes: Other Edema: No Peripheral Pulses WNL: Yes Integumentary: Yes: Other Wound/Incision: Yes: Clean/Dry Neurological: Yes: Alert, Weakness Psychiatric: Yes: Other (anxiety) Labs: CBC, BMP 05/01/18 07:00 05/01/18 07:00 INR, PTT INR 1.25 (0.83-1.09) H 04/30/18 07:30 Abnormal Lab Results 05/01/18 05/01/18 07:00 07:00 Hgb 10.3 L MCHC 30.9 L RDW 17.7 H MPV 7.3 L Chloride 108 H Anion Gap 7 L BUN 25 H Creatinine 0.5 L Calcium 7.8 L Problem List - Problems (1) Fracture due to fall Assessment/Plan: s/p left hip repair (nail) POD #1. Pain management; physical therapy. Code(s): LFL9785 - (2) Diastolic CHF Assessment/Plan: On furosemide and amlodipine. ECHO: normal LVEF; abnormal diastolic compliance. Elevated BNP; no acute pathology on CxR. No JVP. F/u BUn/Cr, electrolyes, daily weight, Is and Os. Code(s): I50.30 - UNSPECIFIED DIASTOLIC (CONGESTIVE) HEART FAILURE (3) HTN (hypertension) Assessment/Plan: On amlodipiine and furosemide. Code(s): I10 - ESSENTIAL (PRIMARY) HYPERTENSION (4) Hyperlipemia Assessment/Plan: On statin. F/u lipid profile. Code(s): E78.5 - HYPERLIPIDEMIA, UNSPECIFIED (5) Memory change Assessment/Plan: on medications; f/u with PMD, neurologist. Code(s): R41.3 - OTHER AMNESIA (6) Parkinson disease Assessment/Plan: On levodopa/carbidopa. Code(s): G20 - PARKINSON'S DISEASE
--- NOTE | 2018-05-02 02:51 | PN ---
Progress Note, Physician Chief Complaint: Pt denies chest pain; left hip pain. History of Present Illness: 72-year-old white female with PMHx HTN, Parkinson's disease, memory lapses, now presents to the ED status post fall. Patient states was ambulating outside of [facility] when she tripped, landing on her face and both knees. Patient now complains of facial pain with cervical tenderness, LE pain. Patient denies LOC and was able to ambulate after injury. Patient states currently takes baby aspirin and clopidogrel daily. Patient denies headache, visual changes, difficulty breathing, chest pain, shortness of breath. Patient history of Parkinson's requires supervision with ambulation. - Current Medication List Current Medications: Active Medications Acetaminophen (Tylenol -) 650 mg PO Q6H PRN PRN Reason: BACK PAIN Last Admin: 05/01/18 11:08 Dose: 650 mg Amlodipine Besylate (Norvasc -) 2.5 mg PO DAILY [facility] Last Admin: 05/01/18 10:40 Dose: 2.5 mg Artificial Tears (Artificial Tears) 1 drop OS TID [facility] Last Admin: 05/01/18 23:01 Dose: 1 drop Ascorbic Acid (Vitamin C -) 500 mg PO DAILY [facility] Last Admin: 05/01/18 10:40 Dose: 500 mg Atorvastatin Calcium (Lipitor -) 10 mg PO HS [facility] Last Admin: 05/01/18 21:55 Dose: 10 mg Buspirone HCl (Buspar -) 10 mg PO TID [facility] Last Admin: 05/01/18 21:55 Dose: 10 mg Cholecalciferol (Vitamin D3 -) 400 unit PO DAILY@1700 [facility] Last Admin: 05/01/18 17:44 Dose: 400 unit Docusate Sodium (Colace -) 100 mg PO DAILY [facility] Last Admin: 05/01/18 10:40 Dose: 100 mg Donepezil HCl (Aricept -) 10 mg PO HS [facility] Last Admin: 05/01/18 22:02 Dose: 10 mg Duloxetine HCl (Cymbalta -) 60 mg PO DAILY [facility] Last Admin: 05/01/18 10:39 Dose: 60 mg Enoxaparin Sodium (Lovenox -) 40 mg SQ DAILY [facility] Last Admin: 05/01/18 13:56 Dose: 40 mg Fentanyl (Sublimaze Injection -) 25 mcg IVPUSH [id number] PRN PRN Reason: PAIN-PACU ORDER X 4 DOSES ONLY Ferrous Sulfate (Feosol -) 325 mg PO BID [facility] Last Admin: 05/01/18 21:55 Dose: 325 mg Furosemide (Lasix -) 40 mg PO DAILY [facility] Last Admin: 05/01/18 10:40 Dose: 40 mg Gabapentin (Neurontin -) 400 mg PO BID [facility] Last Admin: 05/01/18 21:54 Dose: 400 mg Lactated Ringer's (Lactated Ringers Solution) 1,000 mls @ 75 mls/hr IV ASDIR [facility] Last Admin: 05/01/18 13:56 Dose: Not Given Latanoprost (Xalatan 0.005% Eye Drops -) 1 drop OU HS [facility] Last Admin: 05/01/18 23:00 Dose: 1 drop Mirtazapine (Remeron -) 15 mg PO HS [facility] Last Admin: 05/01/18 21:55 Dose: 15 mg Neomycin/Polymyxin/Dexamethasone (Maxitrol Eye Ointment -) 1 applic OD BID [facility] Last Admin: 05/01/18 21:54 Dose: 1 applic Non-Formulary Medication (Acetylcyst/Ciupczh05/Levomefol [Metafolbic Plus Caplet ]) 1 each PO DAILY [facility] Non-Formulary Medication (Carbidopa/Levodopa/Entacapone [Carbidopa-Levodopa 125 Mg-Enta]) 1 each PO TID [facility] Last Admin: 05/01/18 22:02 Dose: 1 each Non-Formulary Medication (Non-Formulary Med) 1 each PO HS [facility] Last Admin: 05/01/18 21:59 Dose: 1 each Non-Formulary Medication (Rotigotine [Neupro]) 1 each TD DAILY [facility] Last Admin: 05/01/18 10:43 Dose: 1 each Ondansetron HCl (Zofran Injection) 4 mg IVPUSH Q6H PRN PRN Reason: NAUSEA AND/OR VOMITING Oxycodone HCl (Roxicodone -) 5 mg PO Q6H PRN PRN Reason: PAIN LEVEL 4 - 6 Last Admin: 05/01/18 21:57 Dose: 5 mg Polyethylene Glycol (Miralax (For Daily Use) -) 17 gm PO [facility] Last Admin: 05/01/18 22:01 Dose: 17 grams Senna/Docusate Sodium (Pericolace -) 1 tablet PO TID [facility] Last Admin: 05/01/18 21:55 Dose: 1 tablet Tolterodine Tartrate (Detrol La -) 4 mg PO DAILY [facility] Last Admin: 05/01/18 10:41 Dose: 4 mg - Objective Vital Signs: Vital Signs Temperature 99.3 F 05/01/18 22:00 Pulse Rate 79 05/01/18 22:00 Respiratory Rate 20 05/01/18 22:00 Blood Pressure 127/80 05/01/18 22:00 O2 Sat by Pulse Oximetry (%) 98 05/01/18 21:00 Constitutional: Yes: Anxious, Mild Distress Eyes: Yes: WNL HENT: Yes: WNL Neck: Yes: WNL Cardiovascular: Yes: Regular Rate and Rhythm Respiratory: Yes: WNL Gastrointestinal: Yes: Soft ...Rectal Exam: Yes: Deferred Genitourinary: No: Anuria Breast(s): Yes: WNL Musculoskeletal: Yes: Muscle Weakness Extremities: Yes: External Rotation Edema: No Peripheral Pulses WNL: Yes Integumentary: Yes: Bruising Neurological: Yes: Alert, Weakness Psychiatric: Yes: Other Labs: CBC, BMP 05/01/18 07:00 05/01/18 07:00 INR, PTT INR 1.25 (0.83-1.09) H 04/30/18 07:30 Problem List - Problems (1) Fracture due to fall Assessment/Plan: For left hip repair. Code(s): SKI7145 - (2) Diastolic CHF Assessment/Plan: On furosemide and amlodipine. ECHO: normal LVEF; abnormal diastolic compliance. Elevated BNP; no acute pathology on CxR. No JVP. F/u BUn/Cr, electrolyes, daily weight, Is and Os. Code(s): I50.30 - UNSPECIFIED DIASTOLIC (CONGESTIVE) HEART FAILURE (3) HTN (hypertension) Assessment/Plan: On amlodipiine and furosemide. Code(s): I10 - ESSENTIAL (PRIMARY) HYPERTENSION (4) Hyperlipemia Assessment/Plan: On statin. F/u lipid profile. Code(s): E78.5 - HYPERLIPIDEMIA, UNSPECIFIED (5) Memory change Assessment/Plan: on medications; f/u with PMD, neurologist. Code(s): R41.3 - OTHER AMNESIA (6) Parkinson disease Assessment/Plan: On levodopa/carbidopa. Code(s): G20 - PARKINSON'S DISEASE (7) Osteoporosis Assessment/Plan: decreased harris density. Code(s): M81.0 - AGE-RELATED OSTEOPOROSIS W/O CURRENT PATHOLOGICAL FRACTURE
[2018-05-02] MEDS ORDERED: PT OWN MED DRAWER 7, Y5N ONE ×4 (05:57→20:57)
[2018-05-02] MEDS: oxyCODONE HCL 5 MG TABLET PO PRN (05:59)
[2018-05-02] MEDS: ENTACAPONE PO SCH ×3 (06:00→22:29)
[2018-05-02] MEDS: SENNOSIDES/DOCUSATE COMBO (SENNA PLUS) TABLET (UD) PO SCH ×3 (06:00→22:26)
[2018-05-02] MEDS: CARBIDOPA PO SCH ×3 (06:00→22:29)
[2018-05-02] MEDS: ACETAMINOPHEN 325 MG TABLET (FP) PO PRN ×2 (06:00→22:25)
[2018-05-02] MEDS: [UNRECOGNIZED DRUG - OTHER] PO SCH ×3 (06:00→22:29)
[2018-05-02] MEDS: LEVODOPA PO SCH ×3 (06:00→22:29)
[2018-05-02] MEDS: busPIRone HCL 10 MG TABLET (FP) PO SCH ×3 (06:00→22:27)
[2018-05-02] MEDS: ARTIFICIAL TEARS (POLYVINYL ALCOHOL) OPTH DROPS OS SCH ×3 (06:07→22:31)
[2018-05-02 08:03] LABS: HEMATOCRIT 31.3 % (32.4-45.2); HEMOGLOBIN 9.8 GM/dL (10.7-15.3); MCH 26.9 pg (25.7-33.7); MCHC 31.3 g/dl (32.0-36.0); MEAN CELL VOLUME 86.1 fl (80-96); MEAN PLT VOLUME 7.5 fl (7.5-11.1); PLATELET COUNT 193 K/MM3 (134-434); RBC 3.63 M/mm3 (3.60-5.2); RDW 17.7 % (11.6-15.6); WHITE BLOOD COUNT 7.1 K/mm3 (4.0-10.0)
[2018-05-02 08:32] LABS: ANION GAP 9 MMOL/L (8-16); BLOOD UREA NITROGEN 19 mg/dL (7-18); CALCIUM 7.4 mg/dL (8.5-10.1); CHLORIDE 107 mmol/L (98-107); CO2 27 mmol/L (21-32); CREATININE 0.3 mg/dL (0.55-1.3); GLUCOSE,RANDOM 92 mg/dL (74-106); POTASSIUM 3.8 mmol/L (3.5-5.1); SODIUM 143 mmol/L (136-145)
[2018-05-02] MEDS: PATIENT'S OWN MEDICATION (NON-FORMULARY) (Rotigotine [Neupro] 1 EACH) TD SCH (09:14)
[2018-05-02] MEDS: TOLTERODINE TARTRATE LA 4 MG CAP.SR.24H (FP) PO SCH (09:15)
[2018-05-02] MEDS: DULoxetine HCL 30 MG CAPSULE.DR (FP) PO SCH (09:15)
[2018-05-02] MEDS: FUROSEMIDE 40 MG TABLET (FP) PO SCH (09:15)
[2018-05-02] MEDS: DOCUSATE SODIUM 100 MG CAPSULE (FP) PO SCH (09:15)
[2018-05-02] MEDS: ENOXAPARIN NA (PORCINE) 40 MG/0.4 ML DISP.SYRIN SQ SCH (09:16)
[2018-05-02] MEDS: GABAPENTIN 400 MG CAPSULE (FP) PO SCH ×2 (09:16→22:26)
[2018-05-02] MEDS: amLODIPine BESYLATE 2.5 MG TABLET (FP) PO SCH (09:16)
[2018-05-02] MEDS: ASCORBIC ACID 500 MG TABLET (FP) PO SCH (09:16)
[2018-05-02] MEDS: FERROUS SO4 325 MG TABLET (FP) PO SCH ×2 (09:16→22:26)
[2018-05-02] MEDS: NEO/POLYMYX B SULF/DEXAMETH OPHTHALMIC OINTMENT 3.5 GM OD SCH ×2 (09:17→22:31)
--- NOTE | 2018-05-02 09:44 | PN ---
Progress Note, Physician History of Present Illness: Pt w/o SOB, CP, palpitations, abd pain. Pt with left leg pain occasionally. Sr. Milner at bedside. - Current Medication List Current Medications: Active Medications Acetaminophen (Tylenol -) 650 mg PO Q6H PRN PRN Reason: BACK PAIN Last Admin: 05/02/18 06:00 Dose: 650 mg Amlodipine Besylate (Norvasc -) 2.5 mg PO DAILY [facility] Last Admin: 05/02/18 09:16 Dose: 2.5 mg Artificial Tears (Artificial Tears) 1 drop OS TID [facility] Last Admin: 05/02/18 06:07 Dose: 1 drop Ascorbic Acid (Vitamin C -) 500 mg PO DAILY [facility] Last Admin: 05/02/18 09:16 Dose: 500 mg Atorvastatin Calcium (Lipitor -) 10 mg PO [facility] Last Admin: 05/01/18 21:55 Dose: 10 mg Buspirone HCl (Buspar -) 10 mg PO TID [facility] Last Admin: 05/02/18 06:00 Dose: 10 mg Cholecalciferol (Vitamin D3 -) 400 unit PO DAILY@1700 [facility] Last Admin: 05/01/18 17:44 Dose: 400 unit Docusate Sodium (Colace -) 100 mg PO DAILY [facility] Last Admin: 05/02/18 09:15 Dose: 100 mg Donepezil HCl (Aricept -) 10 mg PO HS [facility] Last Admin: 05/01/18 22:02 Dose: 10 mg Duloxetine HCl (Cymbalta -) 60 mg PO DAILY [facility] Last Admin: 05/02/18 09:15 Dose: 60 mg Enoxaparin Sodium (Lovenox -) 40 mg SQ DAILY [facility] Last Admin: 05/02/18 09:16 Dose: 40 mg Fentanyl (Sublimaze Injection -) 25 mcg IVPUSH [id number] PRN PRN Reason: PAIN-PACU ORDER X 4 DOSES ONLY Ferrous Sulfate (Feosol -) 325 mg PO BID [facility] Last Admin: 05/02/18 09:16 Dose: 325 mg Furosemide (Lasix -) 40 mg PO DAILY [facility] Last Admin: 05/02/18 09:15 Dose: 40 mg Gabapentin (Neurontin -) 400 mg PO BID [facility] Last Admin: 05/02/18 09:16 Dose: 400 mg Lactated Ringer's (Lactated Ringers Solution) 1,000 mls @ 75 mls/hr IV ASDIR [facility] Last Admin: 05/01/18 13:56 Dose: Not Given Latanoprost (Xalatan 0.005% Eye Drops -) 1 drop OU [facility] Last Admin: 05/01/18 23:00 Dose: 1 drop Mirtazapine (Remeron -) 15 mg PO [facility] Last Admin: 05/01/18 21:55 Dose: 15 mg Neomycin/Polymyxin/Dexamethasone (Maxitrol Eye Ointment -) 1 applic OD BID [facility] Last Admin: 05/02/18 09:17 Dose: 1 applic Non-Formulary Medication (Acetylcyst/Uhxbslc06/Levomefol [Metafolbic Plus Caplet ]) 1 each PO DAILY [facility] Non-Formulary Medication (Carbidopa/Levodopa/Entacapone [Carbidopa-Levodopa 125 Mg-Enta]) 1 each PO TID [facility] Last Admin: 05/02/18 06:00 Dose: 1 each Non-Formulary Medication (Non-Formulary Med) 1 each PO HS [facility] Last Admin: 05/01/18 21:59 Dose: 1 each Non-Formulary Medication (Rotigotine [Neupro]) 1 each TD DAILY [facility] Last Admin: 05/02/18 09:14 Dose: 1 each Ondansetron HCl (Zofran Injection) 4 mg IVPUSH Q6H PRN PRN Reason: NAUSEA AND/OR VOMITING Oxycodone HCl (Roxicodone -) 5 mg PO Q6H PRN PRN Reason: PAIN LEVEL 4 - 6 Last Admin: 05/02/18 05:59 Dose: 5 mg Polyethylene Glycol (Miralax (For Daily Use) -) 17 gm PO [facility] Last Admin: 05/01/18 22:01 Dose: 17 grams Senna/Docusate Sodium (Pericolace -) 1 tablet PO TID [facility] Last Admin: 05/02/18 06:00 Dose: 1 tablet Tolterodine Tartrate (Detrol La -) 4 mg PO DAILY [facility] Last Admin: 05/02/18 09:15 Dose: 4 mg - Objective Vital Signs: Vital Signs Temperature 98.2 F 05/02/18 05:49 Pulse Rate 75 05/02/18 05:49 Respiratory Rate 20 05/02/18 05:49 Blood Pressure 119/62 05/02/18 05:49 O2 Sat by Pulse Oximetry (%) 98 05/01/18 21:00 Constitutional: Yes: No Distress, Calm, Other (Pt is more alert this AM) Cardiovascular: Yes: Regular Rate and Rhythm, S1, S2 Respiratory: Yes: Regular, CTA Bilaterally. No: Rales Gastrointestinal: Yes: Normal Bowel Sounds, Soft. No: Tenderness Edema: No Neurological: Yes: Alert, Oriented (to person) Labs: CBC, BMP 05/02/18 07:00 05/02/18 07:00 INR, PTT INR 1.25 (0.83-1.09) H 04/30/18 07:30 Problem List - Problems (1) Femur fracture, left Code(s): S72.92XA - UNSP FRACTURE OF LEFT FEMUR, INIT ENCNTR FOR CLOSED FRACTURE (2) Fracture due to fall Code(s): DSI6680 - (3) Fall Code(s): W19.XXXA - UNSPECIFIED FALL, INITIAL ENCOUNTER (4) CVA (cerebral vascular accident) Code(s): I63.9 - CEREBRAL INFARCTION, UNSPECIFIED (5) HTN (hypertension) Code(s): I10 - ESSENTIAL (PRIMARY) HYPERTENSION (6) Hyperlipemia Code(s): E78.5 - HYPERLIPIDEMIA, UNSPECIFIED (7) Impaired gait Code(s): R26.9 - UNSPECIFIED ABNORMALITIES OF GAIT AND MOBILITY Assessment/Plan POD # 2 Ortho consult and Cardio consults are appreciated. Pain controlled DVT proph AM labs Continue PT Case was d/w Sister Annia, at bedside; all questions were answered; consider DC back to [facility] Case was d/w pt's nurse.
--- NOTE | 2018-05-02 09:44 | EKG ---
Test Reason : Blood Pressure : / mmHG Vent. Rate : 079 BPM Atrial Rate : 079 BPM P-R Int : 158 ms QRS Dur : 112 ms QT Int : 394 ms P-R-T Axes : 071 -36 020 degrees QTc Int : 451 ms NORMAL SINUS RHYTHM LEFT AXIS DEVIATION NONSPECIFIC ST ABNORMALITY ABNORMAL ECG WHEN COMPARED WITH ECG OF 26-AUG-2017 15:13, NO SIGNIFICANT CHANGE WAS FOUND Confirmed by GONZALEZ ONOFRE, TRISTAN ([id number]) on 05/02/2018 9:43:49 AM Referred By: Confirmed By:TRITSAN ROTH MD
[2018-05-02] MEDS: LACTATED RINGERS SOLUTION 1,000 ML IV SCH ×2 (11:03→14:26)
--- NOTE | 2018-05-02 14:18 | PN ---
Progress Note (short form) - Note Progress Note: Ortho Pt seen and examined s/p left IM gamma nail Selected Entries 05/02/18 10:00 Temperature 98.2 F Pulse Rate 69 Respiratory 20 Rate Blood Pressure 122/63 Laboratory Tests 05/02/18 07:00 WBC 7.1 Hgb 9.8 L Hct 31.3 L Plt Count 193 dressing c/d/i, calf soft, nt nvi a/p PT wbat dvt ppx pain control d/c planning
[2018-05-02] MEDS: CHOLECALCIFEROL (VITAMIN D3) 400 UNIT TABLET (FP) PO SCH (17:08)
[2018-05-02 22:23] LABS: CHOLESTEROL 109 mg/dL (50-200); HDL CHOLESTEROL 30 mg/dL (40-60); TRIGLYCERIDES 115 mg/dL (0-150)
[2018-05-02] MEDS: MIRTAZAPINE 15 MG TABLET (FP) PO SCH (22:25)
[2018-05-02] MEDS: ATORVASTATIN CA 10 MG TABLET (FP) PO SCH (22:26)
[2018-05-02] MEDS: DONEPEZIL HCL 10 MG TABLET (FP) PO SCH (22:27)
[2018-05-02] MEDS: NON-FORMULARY MED PO SCH (22:29)
[2018-05-02] MEDS: LATANOPROST 0.005% OPHTH SOLN 2.5ML BOTTLE OU SCH (22:30)
[2018-05-02] MEDS: POLYETHYLENE GLYCOL 3350 119 GM BTL PO SCH (22:32)
--- NOTE | 2018-05-02 23:38 | PN ---
Progress Note, Physician Chief Complaint: Pt denies chest pain; left hip pain is less than yesterday. History of Present Illness: 72-year-old white female with PMHx HTN, Parkinson's disease, memory lapses, now presents to the ED status post fall. [facility], landing on her face and both knees. Patient now complains of facial pain with cervical tenderness, LE pain. Patient denies LOC and was able to ambulate after injury. Patient states currently takes baby aspirin and clopidogrel daily. Patient denies headache, visual changes, difficulty breathing, chest pain, shortness of breath. Patient history of Parkinson's requires supervision with ambulation. - Current Medication List Current Medications: Active Medications Acetaminophen (Tylenol -) 650 mg PO Q6H PRN PRN Reason: BACK PAIN Last Admin: 05/02/18 22:25 Dose: 650 mg Amlodipine Besylate (Norvasc -) 2.5 mg PO DAILY [facility] Last Admin: 05/02/18 09:16 Dose: 2.5 mg Artificial Tears (Artificial Tears) 1 drop OS TID [facility] Last Admin: 05/02/18 22:31 Dose: 1 drop Ascorbic Acid (Vitamin C -) 500 mg PO DAILY [facility] Last Admin: 05/02/18 09:16 Dose: 500 mg Atorvastatin Calcium (Lipitor -) 10 mg PO HS [facility] Last Admin: 05/02/18 22:26 Dose: 10 mg Buspirone HCl (Buspar -) 10 mg PO TID [facility] Last Admin: 05/02/18 22:27 Dose: 10 mg Cholecalciferol (Vitamin D3 -) 400 unit PO DAILY@1700 [facility] Last Admin: 05/02/18 17:08 Dose: 400 unit Docusate Sodium (Colace -) 100 mg PO DAILY [facility] Last Admin: 05/02/18 09:15 Dose: 100 mg Donepezil HCl (Aricept -) 10 mg PO HS [facility] Last Admin: 05/02/18 22:27 Dose: 10 mg Duloxetine HCl (Cymbalta -) 60 mg PO DAILY [facility] Last Admin: 05/02/18 09:15 Dose: 60 mg Enoxaparin Sodium (Lovenox -) 40 mg SQ DAILY [facility] Last Admin: 05/02/18 09:16 Dose: 40 mg Fentanyl (Sublimaze Injection -) 25 mcg IVPUSH [id number] PRN PRN Reason: PAIN-PACU ORDER X 4 DOSES ONLY Ferrous Sulfate (Feosol -) 325 mg PO BID [facility] Last Admin: 05/02/18 22:26 Dose: 325 mg Furosemide (Lasix -) 40 mg PO DAILY [facility] Last Admin: 05/02/18 09:15 Dose: 40 mg Gabapentin (Neurontin -) 400 mg PO BID [facility] Last Admin: 05/02/18 22:26 Dose: 400 mg Lactated Ringer's (Lactated Ringers Solution) 1,000 mls @ 75 mls/hr IV ASDIR [facility] Last Admin: 05/02/18 14:26 Dose: Not Given Latanoprost (Xalatan 0.005% Eye Drops -) 1 drop OU [facility] Last Admin: 05/02/18 22:30 Dose: 1 drop Mirtazapine (Remeron -) 15 mg PO HS [facility] Last Admin: 05/02/18 22:25 Dose: 15 mg Neomycin/Polymyxin/Dexamethasone (Maxitrol Eye Ointment -) 1 applic OD BID [facility] Last Admin: 05/02/18 22:31 Dose: 1 applic Non-Formulary Medication (Acetylcyst/Ycchjia21/Levomefol [Metafolbic Plus Caplet ]) 1 each PO DAILY [facility] Non-Formulary Medication (Carbidopa/Levodopa/Entacapone [Carbidopa-Levodopa 125 Mg-Enta]) 1 each PO TID [facility] Last Admin: 05/02/18 22:29 Dose: 1 each Non-Formulary Medication (Non-Formulary Med) 1 each PO HS [facility] Last Admin: 05/02/18 22:29 Dose: 1 each Non-Formulary Medication (Rotigotine [Neupro]) 1 each TD DAILY [facility] Last Admin: 05/02/18 09:14 Dose: 1 each Ondansetron HCl (Zofran Injection) 4 mg IVPUSH Q6H PRN PRN Reason: NAUSEA AND/OR VOMITING Oxycodone HCl (Roxicodone -) 5 mg PO Q6H PRN PRN Reason: PAIN LEVEL 4 - 6 Last Admin: 05/02/18 05:59 Dose: 5 mg Polyethylene Glycol (Miralax (For Daily Use) -) 17 gm PO [facility] Last Admin: 05/02/18 22:32 Dose: 17 grams Senna/Docusate Sodium (Pericolace -) 1 tablet PO TID [facility] Last Admin: 05/02/18 22:26 Dose: 1 tablet Tolterodine Tartrate (Detrol La -) 4 mg PO DAILY [facility] Last Admin: 05/02/18 09:15 Dose: 4 mg - Objective Vital Signs: Vital Signs Temperature 98.2 F 05/02/18 10:00 Pulse Rate 69 05/02/18 10:00 Respiratory Rate 20 05/02/18 10:00 Blood Pressure 122/63 05/02/18 10:00 O2 Sat by Pulse Oximetry (%) 99 05/02/18 09:00 Constitutional: Yes: Calm Eyes: Yes: WNL HENT: Yes: WNL Neck: Yes: WNL Cardiovascular: Yes: S1, S2 Respiratory: Yes: WNL Gastrointestinal: Yes: Soft ...Rectal Exam: Yes: Deferred Genitourinary: No: Anuria Breast(s): Yes: WNL Musculoskeletal: Yes: Muscle Weakness Extremities: Yes: Cool Edema: No Peripheral Pulses WNL: Yes Integumentary: Yes: Incision Wound/Incision: Yes: Clean/Dry Neurological: Yes: Alert, Oriented, Weakness Psychiatric: Yes: WNL Labs: CBC, BMP 05/02/18 07:00 05/02/18 07:00 INR, PTT INR 1.25 (0.83-1.09) H 04/30/18 07:30 Abnormal Lab Results 05/02/18 05/02/18 05/02/18 07:00 07:00 14:19 Hgb 9.8 L Hct 31.3 L MCHC 31.3 L RDW 17.7 H BUN 19 H Creatinine 0.3 L Calcium 7.4 L HDL Cholesterol 30 L Problem List - Problems (1) Fracture due to fall Assessment/Plan: s/p left hip fracture repair. F/u with surgeon. pain management; physical therapy. Code(s): [id number] - (2) Diastolic CHF Assessment/Plan: On furosemide and amlodipine. ECHO: normal LVEF; abnormal diastolic compliance. Elevated BNP; no acute pathology on CXR. No JVP. F/u BUn/Cr, electrolyes, daily weight, Is and Os. Code(s): I50.30 - UNSPECIFIED DIASTOLIC (CONGESTIVE) HEART FAILURE (3) HTN (hypertension) Assessment/Plan: On amlodipiine and furosemide. Code(s): I10 - ESSENTIAL (PRIMARY) HYPERTENSION (4) Hyperlipemia Assessment/Plan: On statin. F/u lipid profile. Code(s): E78.5 - HYPERLIPIDEMIA, UNSPECIFIED (5) Memory change Assessment/Plan: on medications; f/u with PMD, neurologist. Code(s): R41.3 - OTHER AMNESIA (6) Parkinson disease Assessment/Plan: On levodopa/carbidopa. Code(s): G20 - PARKINSON'S DISEASE (7) Osteoporosis Assessment/Plan: decreased bone density. On Vitamin D. Code(s): M81.0 - AGE-RELATED OSTEOPOROSIS W/O CURRENT PATHOLOGICAL FRACTURE
[2018-05-03] MEDS: ACETAMINOPHEN 325 MG TABLET (FP) PO PRN (06:14)
[2018-05-03] MEDS: SENNOSIDES/DOCUSATE COMBO (SENNA PLUS) TABLET (UD) PO SCH ×3 (06:14→22:44)
[2018-05-03] MEDS: busPIRone HCL 10 MG TABLET (FP) PO SCH ×3 (06:14→22:43)
[2018-05-03] MEDS: ENTACAPONE PO SCH ×3 (06:15→22:43)
[2018-05-03] MEDS: LEVODOPA PO SCH ×3 (06:15→22:43)
[2018-05-03] MEDS: [UNRECOGNIZED DRUG - OTHER] PO SCH ×3 (06:15→22:43)
[2018-05-03] MEDS: CARBIDOPA PO SCH ×3 (06:15→22:43)
[2018-05-03] MEDS: ARTIFICIAL TEARS (POLYVINYL ALCOHOL) OPTH DROPS OS SCH ×3 (06:16→22:47)
[2018-05-03] MEDS: LACTATED RINGERS SOLUTION 1,000 ML IV SCH (06:16)
[2018-05-03] MEDS ORDERED: PT OWN MED DRAWER 7, Y5N ONE ×3 (06:31→22:41)
[2018-05-03] MEDS: GABAPENTIN 400 MG CAPSULE (FP) PO SCH ×2 (10:28→22:44)
[2018-05-03] MEDS: DULoxetine HCL 30 MG CAPSULE.DR (FP) PO SCH (10:28)
[2018-05-03] MEDS: amLODIPine BESYLATE 2.5 MG TABLET (FP) PO SCH (10:28)
[2018-05-03] MEDS: ENOXAPARIN NA (PORCINE) 40 MG/0.4 ML DISP.SYRIN SQ SCH (10:29)
[2018-05-03] MEDS: ASCORBIC ACID 500 MG TABLET (FP) PO SCH (10:29)
[2018-05-03] MEDS: FUROSEMIDE 40 MG TABLET (FP) PO SCH (10:29)
[2018-05-03] MEDS: DOCUSATE SODIUM 100 MG CAPSULE (FP) PO SCH (10:29)
[2018-05-03] MEDS: FERROUS SO4 325 MG TABLET (FP) PO SCH ×2 (10:29→22:45)
[2018-05-03] MEDS: TOLTERODINE TARTRATE LA 4 MG CAP.SR.24H (FP) PO SCH (10:30)
[2018-05-03] MEDS: PATIENT'S OWN MEDICATION (NON-FORMULARY) (Rotigotine [Neupro] 1 EACH) TD SCH (10:31)
[2018-05-03] MEDS: NEO/POLYMYX B SULF/DEXAMETH OPHTHALMIC OINTMENT 3.5 GM OD SCH ×2 (10:35→22:47)
[2018-05-03] MEDS: oxyCODONE HCL 5 MG TABLET PO PRN ×2 (13:11→22:43)
--- NOTE | 2018-05-03 14:06 | PN ---
Progress Note, Physician History of Present Illness: Pt w/o SOB, CP, palpitations, abd pain. Pt with left leg pain occasionally. Pt also with buttock pain - Current Medication List Current Medications: Active Medications Acetaminophen (Tylenol -) 650 mg PO Q6H PRN PRN Reason: BACK PAIN Last Admin: 05/03/18 06:14 Dose: 650 mg Amlodipine Besylate (Norvasc -) 2.5 mg PO DAILY [facility] Last Admin: 05/03/18 10:28 Dose: 2.5 mg Artificial Tears (Artificial Tears) 1 drop OS TID [facility] Last Admin: 05/03/18 13:12 Dose: 1 drop Ascorbic Acid (Vitamin C -) 500 mg PO DAILY [facility] Last Admin: 05/03/18 10:29 Dose: 500 mg Atorvastatin Calcium (Lipitor -) 10 mg PO HS [facility] Last Admin: 05/02/18 22:26 Dose: 10 mg Buspirone HCl (Buspar -) 10 mg PO TID [facility] Last Admin: 05/03/18 13:12 Dose: 10 mg Cholecalciferol (Vitamin D3 -) 400 unit PO DAILY@1700 [facility] Last Admin: 05/02/18 17:08 Dose: 400 unit Docusate Sodium (Colace -) 100 mg PO DAILY [facility] Last Admin: 05/03/18 10:29 Dose: 100 mg Donepezil HCl (Aricept -) 10 mg PO HS [facility] Last Admin: 05/02/18 22:27 Dose: 10 mg Duloxetine HCl (Cymbalta -) 60 mg PO DAILY [facility] Last Admin: 05/03/18 10:28 Dose: 60 mg Enoxaparin Sodium (Lovenox -) 40 mg SQ DAILY [facility] Last Admin: 05/03/18 10:29 Dose: 40 mg Fentanyl (Sublimaze Injection -) 25 mcg IVPUSH [id number] PRN PRN Reason: PAIN-PACU ORDER X 4 DOSES ONLY Ferrous Sulfate (Feosol -) 325 mg PO BID [facility] Last Admin: 05/03/18 10:29 Dose: 325 mg Furosemide (Lasix -) 40 mg PO DAILY [facility] Last Admin: 05/03/18 10:29 Dose: 40 mg Gabapentin (Neurontin -) 400 mg PO BID [facility] Last Admin: 05/03/18 10:28 Dose: 400 mg Lactated Ringer's (Lactated Ringers Solution) 1,000 mls @ 75 mls/hr IV [facility] Last Admin: 05/03/18 06:16 Dose: 75 mls/hr Latanoprost (Xalatan 0.005% Eye Drops -) 1 drop OU HS [facility] Last Admin: 05/02/18 22:30 Dose: 1 drop Mirtazapine (Remeron -) 15 mg PO HS [facility] Last Admin: 05/02/18 22:25 Dose: 15 mg Neomycin/Polymyxin/Dexamethasone (Maxitrol Eye Ointment -) 1 applic OD BID [facility] Last Admin: 05/03/18 10:35 Dose: 1 applic Non-Formulary Medication (Acetylcyst/Cygjlat82/Levomefol [Metafolbic Plus Caplet ]) 1 each PO DAILY [facility] Non-Formulary Medication (Carbidopa/Levodopa/Entacapone [Carbidopa-Levodopa 125 Mg-Enta]) 1 each PO TID [facility] Last Admin: 05/03/18 13:13 Dose: 1 each Non-Formulary Medication (Non-Formulary Med) 1 each PO HS [facility] Last Admin: 05/02/18 22:29 Dose: 1 each Non-Formulary Medication (Rotigotine [Neupro]) 1 each TD DAILY [facility] Last Admin: 05/03/18 10:31 Dose: 1 each Ondansetron HCl (Zofran Injection) 4 mg IVPUSH Q6H PRN PRN Reason: NAUSEA AND/OR VOMITING Oxycodone HCl (Roxicodone -) 5 mg PO Q6H PRN PRN Reason: PAIN LEVEL 4 - 6 Last Admin: 05/03/18 13:11 Dose: 5 mg Polyethylene Glycol (Miralax (For Daily Use) -) 17 gm PO HS [facility] Last Admin: 05/02/18 22:32 Dose: 17 grams Senna/Docusate Sodium (Pericolace -) 1 tablet PO TID [facility] Last Admin: 05/03/18 13:11 Dose: 1 tablet Silver Sulfadiazine (Silvadene -) 1 applic TP BID [facility] Tolterodine Tartrate (Detrol La -) 4 mg PO DAILY [facility] Last Admin: 05/03/18 10:30 Dose: 4 mg - Objective Vital Signs: Vital Signs Temperature 98.2 F 05/03/18 08:19 Pulse Rate 71 05/03/18 08:19 Respiratory Rate 16 05/03/18 08:19 Blood Pressure 118/60 05/03/18 08:19 O2 Sat by Pulse Oximetry (%) 99 05/03/18 09:00 Constitutional: Yes: No Distress, Calm Cardiovascular: Yes: Regular Rate and Rhythm, S1, S2 Respiratory: Yes: Regular, CTA Bilaterally. No: Rales Gastrointestinal: Yes: Normal Bowel Sounds, Soft. No: Tenderness Edema: No Integumentary: Yes: Other (Pt with coccyx (4 X 2 cm), sacral X2 (1 X 0.5 cm) and left buttock (1.5 cm diameter) stage 2 ulcers and erythema, no calor, no oozing, no pus) Neurological: Yes: Alert, Oriented Labs: CBC, BMP 05/02/18 07:00 05/02/18 07:00 INR, PTT INR 1.25 (0.83-1.09) H 04/30/18 07:30 Problem List - Problems (1) Femur fracture, left Code(s): S72.92XA - UNSP FRACTURE OF LEFT FEMUR, INIT ENCNTR FOR CLOSED FRACTURE (2) Fracture due to fall Code(s): EPG3115 - (3) Fall Code(s): W19.XXXA - UNSPECIFIED FALL, INITIAL ENCOUNTER (4) CVA (cerebral vascular accident) Code(s): I63.9 - CEREBRAL INFARCTION, UNSPECIFIED (5) HTN (hypertension) Code(s): I10 - ESSENTIAL (PRIMARY) HYPERTENSION (6) Hyperlipemia Code(s): E78.5 - HYPERLIPIDEMIA, UNSPECIFIED (7) Impaired gait Code(s): R26.9 - UNSPECIFIED ABNORMALITIES OF GAIT AND MOBILITY (8) Sacral decubitus ulcer, stage II Code(s): L89.152 - PRESSURE ULCER OF SACRAL REGION, STAGE 2 (9) Decubitus ulcer of left buttock, stage 2 Code(s): L89.322 - PRESSURE ULCER OF LEFT BUTTOCK, STAGE 2 (10) Decubitus ulcer of coccyx, stage 2 Code(s): L89.152 - PRESSURE ULCER OF SACRAL REGION, STAGE 2 Assessment/Plan POD # 3 Ortho consult and Cardio consults are appreciated. Local ulcer care, frequent body turning for off loading; add Silvadene Pain controlled DVT proph DC IVF Continue PT, pending Case was d/w pt's nurse.
[2018-05-03] MEDS: SILVER SULFADIAZINE 1% TOP CREAM 50 GM JAR TP SCH ×2 (15:45→22:46)
[2018-05-03] MEDS: CHOLECALCIFEROL (VITAMIN D3) 400 UNIT TABLET (FP) PO SCH (17:16)
[2018-05-03] MEDS: AMINO ACIDS/PROTEIN HYDROLYS 30 ML LIQUID.PKT PO SCH (17:16)
--- NOTE | 2018-05-03 19:41 | PN ---
Progress Note (short form) - Note Progress Note: AVSS COMFORTABLE BANDFAGES DRY AND INTACT CALF SOFT AND NT NVI HCT STABLE IMP: DOING WELL PLAN: OOB PT WBAT DC PLANNING
[2018-05-03] MEDS: POLYETHYLENE GLYCOL 3350 119 GM BTL PO SCH (22:44)
[2018-05-03] MEDS: ATORVASTATIN CA 10 MG TABLET (FP) PO SCH (22:44)
[2018-05-03] MEDS: MIRTAZAPINE 15 MG TABLET (FP) PO SCH (22:44)
[2018-05-03] MEDS: DONEPEZIL HCL 10 MG TABLET (FP) PO SCH (22:45)
[2018-05-03] MEDS: NON-FORMULARY MED PO SCH (22:45)
[2018-05-03] MEDS: LATANOPROST 0.005% OPHTH SOLN 2.5ML BOTTLE OU SCH (22:48)
[2018-05-04] MEDS: ARTIFICIAL TEARS (POLYVINYL ALCOHOL) OPTH DROPS OS SCH ×3 (06:10→23:35)
[2018-05-04] MEDS: busPIRone HCL 10 MG TABLET (FP) PO SCH ×3 (06:11→23:29)
[2018-05-04] MEDS: SENNOSIDES/DOCUSATE COMBO (SENNA PLUS) TABLET (UD) PO SCH ×3 (06:11→23:30)
[2018-05-04] MEDS: CARBIDOPA PO SCH ×3 (06:11→23:29)
[2018-05-04] MEDS: LEVODOPA PO SCH ×3 (06:11→23:29)
[2018-05-04] MEDS: [UNRECOGNIZED DRUG - OTHER] PO SCH ×3 (06:11→23:29)
[2018-05-04] MEDS: ENTACAPONE PO SCH ×3 (06:11→23:29)
[2018-05-04] MEDS: oxyCODONE HCL 5 MG TABLET PO PRN ×2 (06:15→11:38)
[2018-05-04] MEDS: AMINO ACIDS/PROTEIN HYDROLYS 30 ML LIQUID.PKT PO SCH ×2 (08:25→17:29)
[2018-05-04] MEDS: TOLTERODINE TARTRATE LA 4 MG CAP.SR.24H (FP) PO SCH ×2 (09:18→11:25)
[2018-05-04] MEDS: PATIENT'S OWN MEDICATION (NON-FORMULARY) (Rotigotine [Neupro] 1 EACH) TD SCH (10:17)
[2018-05-04] MEDS ORDERED: PT OWN MED DRAWER 7, Y5N ONE ×3 (11:03→15:15)
[2018-05-04] MEDS: ASCORBIC ACID 500 MG TABLET (FP) PO SCH (11:18)
[2018-05-04] MEDS: DULoxetine HCL 30 MG CAPSULE.DR (FP) PO SCH (11:18)
[2018-05-04] MEDS: FUROSEMIDE 40 MG TABLET (FP) PO SCH (11:18)
[2018-05-04] MEDS: amLODIPine BESYLATE 2.5 MG TABLET (FP) PO SCH (11:18)
[2018-05-04] MEDS: GABAPENTIN 400 MG CAPSULE (FP) PO SCH ×2 (11:18→23:31)
[2018-05-04] MEDS: DOCUSATE SODIUM 100 MG CAPSULE (FP) PO SCH (11:19)
[2018-05-04] MEDS: FERROUS SO4 325 MG TABLET (FP) PO SCH ×2 (11:19→23:31)
[2018-05-04] MEDS: ENOXAPARIN NA (PORCINE) 40 MG/0.4 ML DISP.SYRIN SQ SCH (11:19)
[2018-05-04] MEDS: SILVER SULFADIAZINE 1% TOP CREAM 50 GM JAR TP SCH ×2 (11:26→23:34)
[2018-05-04] MEDS: NEO/POLYMYX B SULF/DEXAMETH OPHTHALMIC OINTMENT 3.5 GM OD SCH ×2 (11:26→23:34)
[2018-05-04] MEDS: ACETAMINOPHEN 325 MG TABLET (FP) PO PRN ×2 (11:39→23:28)
--- NOTE | 2018-05-04 12:30 | PN ---
Progress Note, Physician History of Present Illness: Pt w/o SOB, CP, palpitations, abd pain. Pt with left leg pain occasionally. - Current Medication List Current Medications: Active Medications Acetaminophen (Tylenol -) 650 mg PO Q6H PRN PRN Reason: BACK PAIN Last Admin: 05/04/18 11:39 Dose: 650 mg Amino Acids (Prosource No Carb Liquid Pkt) 30 ml PO BID@0800,1730 [facility] Last Admin: 05/04/18 08:25 Dose: 30 ml Amlodipine Besylate (Norvasc -) 2.5 mg PO DAILY [facility] Last Admin: 05/04/18 11:18 Dose: 2.5 mg Artificial Tears (Artificial Tears) 1 drop OS TID [facility] Last Admin: 05/04/18 06:10 Dose: 1 drop Ascorbic Acid (Vitamin C -) 500 mg PO DAILY [facility] Last Admin: 05/04/18 11:18 Dose: 500 mg Atorvastatin Calcium (Lipitor -) 10 mg PO [facility] Last Admin: 05/03/18 22:44 Dose: 10 mg Buspirone HCl (Buspar -) 10 mg PO TID [facility] Last Admin: 05/04/18 06:11 Dose: 10 mg Cholecalciferol (Vitamin D3 -) 400 unit PO DAILY@1700 [facility] Last Admin: 05/03/18 17:16 Dose: 400 unit Docusate Sodium (Colace -) 100 mg PO DAILY [facility] Last Admin: 05/04/18 11:19 Dose: 100 mg Donepezil HCl (Aricept -) 10 mg PO HS [facility] Last Admin: 05/03/18 22:45 Dose: 10 mg Duloxetine HCl (Cymbalta -) 60 mg PO DAILY [facility] Last Admin: 05/04/18 11:18 Dose: 60 mg Enoxaparin Sodium (Lovenox -) 40 mg SQ DAILY [facility] Last Admin: 05/04/18 11:19 Dose: 40 mg Fentanyl (Sublimaze Injection -) 25 mcg IVPUSH [id number] PRN PRN Reason: PAIN-PACU ORDER X 4 DOSES ONLY Ferrous Sulfate (Feosol -) 325 mg PO BID [facility] Last Admin: 05/04/18 11:19 Dose: 325 mg Furosemide (Lasix -) 40 mg PO DAILY [facility] Last Admin: 05/04/18 11:18 Dose: 40 mg Gabapentin (Neurontin -) 400 mg PO BID [facility] Last Admin: 05/04/18 11:18 Dose: 400 mg Latanoprost (Xalatan 0.005% Eye Drops -) 1 drop OU [facility] Last Admin: 05/03/18 22:48 Dose: 1 drop Mirtazapine (Remeron -) 15 mg PO HS [facility] Last Admin: 05/03/18 22:44 Dose: 15 mg Neomycin/Polymyxin/Dexamethasone (Maxitrol Eye Ointment -) 1 applic OD BID [facility] Last Admin: 05/04/18 11:26 Dose: 1 applic Non-Formulary Medication (Acetylcyst/Xlulrrm30/Levomefol [Metafolbic Plus Caplet ]) 1 each PO DAILY [facility] Non-Formulary Medication (Carbidopa/Levodopa/Entacapone [Carbidopa-Levodopa 125 Mg-Enta]) 1 each PO TID [facility] Last Admin: 05/04/18 06:11 Dose: 1 each Non-Formulary Medication (Non-Formulary Med) 1 each PO HS [facility] Last Admin: 05/03/18 22:45 Dose: 1 each Non-Formulary Medication (Rotigotine [Neupro]) 1 each TD DAILY [facility] Last Admin: 05/04/18 10:17 Dose: 1 each Ondansetron HCl (Zofran Injection) 4 mg IVPUSH Q6H PRN PRN Reason: NAUSEA AND/OR VOMITING Oxycodone HCl (Roxicodone -) 5 mg PO Q6H PRN PRN Reason: PAIN LEVEL 4 - 6 Last Admin: 05/04/18 11:38 Dose: 5 mg Polyethylene Glycol (Miralax (For Daily Use) -) 17 gm PO [facility] Last Admin: 05/03/18 22:44 Dose: 17 grams Senna/Docusate Sodium (Pericolace -) 1 tablet PO TID [facility] Last Admin: 05/04/18 06:11 Dose: 1 tablet Silver Sulfadiazine (Silvadene -) 1 applic TP BID [facility] Last Admin: 05/04/18 11:26 Dose: 1 applic Tolterodine Tartrate (Detrol La -) 4 mg PO DAILY [facility] Last Admin: 05/04/18 11:25 Dose: Not Given - Objective Vital Signs: Vital Signs Temperature 98.1 F 05/04/18 09:10 Pulse Rate 79 05/04/18 09:10 Respiratory Rate 20 05/04/18 09:10 Blood Pressure 104/54 L 05/04/18 09:10 O2 Sat by Pulse Oximetry (%) 99 05/03/18 21:00 Constitutional: Yes: No Distress, Other (Per pt's nurse right leg is rotated externally, pt has left heel blister) Cardiovascular: Yes: Regular Rate and Rhythm, S1, S2 Respiratory: Yes: Regular, CTA Bilaterally. No: Rales Gastrointestinal: Yes: Normal Bowel Sounds, Soft. No: Tenderness Extremities: Yes: Other (right leg is rotated externally, no leg movements even when asked, no pain.) Edema: No Integumentary: Yes: Other (left heel blister) Labs: CBC, BMP 05/02/18 07:00 05/02/18 07:00 INR, PTT INR 1.25 (0.83-1.09) H 04/30/18 07:30 Problem List - Problems (1) Femur fracture, left Code(s): S72.92XA - UNSP FRACTURE OF LEFT FEMUR, INIT ENCNTR FOR CLOSED FRACTURE (2) Fracture due to fall Code(s): WYL3442 - (3) Fall Code(s): W19.XXXA - UNSPECIFIED FALL, INITIAL ENCOUNTER (4) CVA (cerebral vascular accident) Code(s): I63.9 - CEREBRAL INFARCTION, UNSPECIFIED (5) HTN (hypertension) Code(s): I10 - ESSENTIAL (PRIMARY) HYPERTENSION (6) Hyperlipemia Code(s): E78.5 - HYPERLIPIDEMIA, UNSPECIFIED (7) Impaired gait Code(s): R26.9 - UNSPECIFIED ABNORMALITIES OF GAIT AND MOBILITY (8) Sacral decubitus ulcer, stage II Code(s): L89.152 - PRESSURE ULCER OF SACRAL REGION, STAGE 2 (9) Decubitus ulcer of left buttock, stage 2 Code(s): L89.322 - PRESSURE ULCER OF LEFT BUTTOCK, STAGE 2 (10) Decubitus ulcer of coccyx, stage 2 Code(s): L89.152 - PRESSURE ULCER OF SACRAL REGION, STAGE 2 Assessment/Plan POD # 4 Ortho consult and Cardio consults are appreciated. Off loading of left heel Local ulcer care, frequent body turning for off loading; Silvadene to sacral area. Right leg XR -hold on DC back to [facility]. Pain controlled DVT proph Continue PT, pending Case was d/w pt's nurse.
--- NOTE | 2018-05-04 17:09 | DS ---
Physical Examination Vital Signs: Vital Signs Temperature 98.1 F 05/04/18 09:10 Pulse Rate 79 05/04/18 09:10 Respiratory Rate 20 05/04/18 09:10 Blood Pressure 104/54 L 05/04/18 09:10 O2 Sat by Pulse Oximetry (%) 99 05/04/18 09:00 Findings/Remarks: See Progress note for ROS, PE, Plan Labs: CBC, BMP 05/02/18 07:00 05/02/18 07:00 Discharge Summary Reason For Visit: FRACTURE OF LEFT FEMUR Current Active Problems Decubitus ulcer of coccyx, stage 2 (Acute) Decubitus ulcer of left buttock, stage 2 (Acute) Diastolic CHF (Acute) Fall (Acute) Femur fracture, left (Acute) Fracture due to fall (Acute) Memory change (Acute) Osteoporosis (Acute) Sacral decubitus ulcer, stage II (Acute) Other Procedures: Hips and femurs XR's Hospital Course: Pt came to ER s/p fall, noticed to have left femural Fx, went to OR for gamma nail fixation with Dr Chopra. Pt sacral ulcer gat worse and added left buttock ulcer and coccyx ulcer; pt also with left heel blister. Pt to be DC'ed to back to [facility] and start Rehab. Condition: Stable - Instructions Diet, Activity, Other Instructions: Resume diet. Off loading of left Heel Frequent body repositioning. Continue Calix for now. Referrals: Jake Marie MD [Primary Care Provider] - Disposition: [facility] FACILITY - Home Medications Comprehensive Discharge Medication List: Ambulatory Orders See DC instructions
[2018-05-04] MEDS: CHOLECALCIFEROL (VITAMIN D3) 400 UNIT TABLET (FP) PO SCH (17:29)
[2018-05-04] MEDS: MIRTAZAPINE 15 MG TABLET (FP) PO SCH (23:30)
[2018-05-04] MEDS: ATORVASTATIN CA 10 MG TABLET (FP) PO SCH (23:31)
[2018-05-04] MEDS: DONEPEZIL HCL 10 MG TABLET (FP) PO SCH (23:31)
[2018-05-04] MEDS: NON-FORMULARY MED PO SCH (23:32)
[2018-05-04] MEDS: POLYETHYLENE GLYCOL 3350 119 GM BTL PO SCH (23:32)
[2018-05-04] MEDS: LATANOPROST 0.005% OPHTH SOLN 2.5ML BOTTLE OU SCH (23:34)
[2018-05-05 06:15] VITALS: TEMP 97.9
[2018-05-05] MEDS: ACETAMINOPHEN 325 MG TABLET (FP) PO PRN (06:42)
[2018-05-05] MEDS: SENNOSIDES/DOCUSATE COMBO (SENNA PLUS) TABLET (UD) PO SCH ×2 (06:42→14:10)
[2018-05-05] MEDS: CARBIDOPA PO SCH ×2 (06:42→14:10)
[2018-05-05] MEDS: ENTACAPONE PO SCH ×2 (06:42→14:10)
[2018-05-05] MEDS: LEVODOPA PO SCH ×2 (06:42→14:10)
[2018-05-05] MEDS: [UNRECOGNIZED DRUG - OTHER] PO SCH ×2 (06:42→14:10)
[2018-05-05] MEDS: busPIRone HCL 10 MG TABLET (FP) PO SCH ×2 (06:43→14:10)
[2018-05-05] MEDS: ARTIFICIAL TEARS (POLYVINYL ALCOHOL) OPTH DROPS OS SCH ×2 (06:48→14:17)
[2018-05-05] MEDS ORDERED: PT OWN MED DRAWER 7, Y5N ONE ×3 (06:53→14:29)
[2018-05-05] MEDS: AMINO ACIDS/PROTEIN HYDROLYS 30 ML LIQUID.PKT PO SCH (09:21)
--- NOTE | 2018-05-05 09:50 | PN ---
Progress Note, Physician History of Present Illness: Pt w/o SOB, CP, palpitations, abd pain. Pt with pain in her back. Pt's rastafari sister, Sr. Milner, and her Brother at bedside. - Current Medication List Current Medications: Active Medications Acetaminophen (Tylenol -) 650 mg PO Q6H PRN PRN Reason: BACK PAIN Last Admin: 05/05/18 06:42 Dose: 650 mg Amino Acids (Prosource No Carb Liquid Pkt) 30 ml PO BID@0800,1730 [facility] Last Admin: 05/05/18 09:21 Dose: 30 ml Amlodipine Besylate (Norvasc -) 2.5 mg PO DAILY [facility] Last Admin: 05/04/18 11:18 Dose: 2.5 mg Artificial Tears (Artificial Tears) 1 drop OS TID [facility] Last Admin: 05/05/18 06:48 Dose: 1 drop Ascorbic Acid (Vitamin C -) 500 mg PO DAILY [facility] Last Admin: 05/04/18 11:18 Dose: 500 mg Atorvastatin Calcium (Lipitor -) 10 mg PO HS [facility] Last Admin: 05/04/18 23:31 Dose: 10 mg Buspirone HCl (Buspar -) 10 mg PO TID [facility] Last Admin: 05/05/18 06:43 Dose: 10 mg Cholecalciferol (Vitamin D3 -) 400 unit PO DAILY@1700 [facility] Last Admin: 05/04/18 17:29 Dose: 400 unit Docusate Sodium (Colace -) 100 mg PO DAILY [facility] Last Admin: 05/04/18 11:19 Dose: 100 mg Donepezil HCl (Aricept -) 10 mg PO HS [facility] Last Admin: 05/04/18 23:31 Dose: 10 mg Duloxetine HCl (Cymbalta -) 60 mg PO DAILY [facility] Last Admin: 05/04/18 11:18 Dose: 60 mg Enoxaparin Sodium (Lovenox -) 40 mg SQ DAILY [facility] Last Admin: 05/04/18 11:19 Dose: 40 mg Fentanyl (Sublimaze Injection -) 25 mcg IVPUSH [id number] PRN PRN Reason: PAIN-PACU ORDER X 4 DOSES ONLY Ferrous Sulfate (Feosol -) 325 mg PO BID [facility] Last Admin: 05/04/18 23:31 Dose: 325 mg Furosemide (Lasix -) 40 mg PO DAILY [facility] Last Admin: 05/04/18 11:18 Dose: 40 mg Gabapentin (Neurontin -) 400 mg PO BID [facility] Last Admin: 05/04/18 23:31 Dose: 400 mg Latanoprost (Xalatan 0.005% Eye Drops -) 1 drop OU HS [facility] Last Admin: 05/04/18 23:34 Dose: 1 drop Mirtazapine (Remeron -) 15 mg PO HS [facility] Last Admin: 05/04/18 23:30 Dose: 15 mg Neomycin/Polymyxin/Dexamethasone (Maxitrol Eye Ointment -) 1 applic OD BID [facility] Last Admin: 05/04/18 23:34 Dose: 1 applic Non-Formulary Medication (Acetylcyst/Ffbbgql05/Levomefol [Metafolbic Plus Caplet ]) 1 each PO DAILY [facility] Non-Formulary Medication (Carbidopa/Levodopa/Entacapone [Carbidopa-Levodopa 125 Mg-Enta]) 1 each PO TID [facility] Last Admin: 05/05/18 06:42 Dose: 1 each Non-Formulary Medication (Non-Formulary Med) 1 each PO HS [facility] Last Admin: 05/04/18 23:32 Dose: 1 each Non-Formulary Medication (Rotigotine [Neupro]) 1 each TD DAILY [facility] Last Admin: 05/04/18 10:17 Dose: 1 each Ondansetron HCl (Zofran Injection) 4 mg IVPUSH Q6H PRN PRN Reason: NAUSEA AND/OR VOMITING Polyethylene Glycol (Miralax (For Daily Use) -) 17 gm PO HS [facility] Last Admin: 05/04/18 23:32 Dose: 17 grams Senna/Docusate Sodium (Pericolace -) 1 tablet PO TID [facility] Last Admin: 05/05/18 06:42 Dose: 1 tablet Silver Sulfadiazine (Silvadene -) 1 applic TP BID [facility] Last Admin: 05/04/18 23:34 Dose: 1 applic Tolterodine Tartrate (Detrol La -) 4 mg PO DAILY [facility] Last Admin: 05/04/18 09:18 Dose: 4 mg - Objective Vital Signs: Vital Signs Temperature 97.9 F 05/05/18 06:14 Pulse Rate 71 05/05/18 06:14 Respiratory Rate 18 05/05/18 06:14 Blood Pressure 120/63 05/05/18 06:14 O2 Sat by Pulse Oximetry (%) 99 05/04/18 21:00 Constitutional: Yes: No Distress, Calm Cardiovascular: Yes: Regular Rate and Rhythm, S1, S2 Respiratory: Yes: Regular, CTA Bilaterally. No: Rales Gastrointestinal: Yes: Normal Bowel Sounds, Soft. No: Tenderness Edema: No Neurological: Yes: Alert, Oriented (persons) Labs: CBC, BMP 05/02/18 07:00 05/02/18 07:00 INR, PTT INR 1.25 (0.83-1.09) H 04/30/18 07:30 Problem List - Problems (1) Femur fracture, left Code(s): S72.92XA - UNSP FRACTURE OF LEFT FEMUR, INIT ENCNTR FOR CLOSED FRACTURE (2) Fracture due to fall Code(s): EDP2005 - (3) Fall Code(s): W19.XXXA - UNSPECIFIED FALL, INITIAL ENCOUNTER (4) CVA (cerebral vascular accident) Code(s): I63.9 - CEREBRAL INFARCTION, UNSPECIFIED (5) HTN (hypertension) Code(s): I10 - ESSENTIAL (PRIMARY) HYPERTENSION (6) Hyperlipemia Code(s): E78.5 - HYPERLIPIDEMIA, UNSPECIFIED (7) Impaired gait Code(s): R26.9 - UNSPECIFIED ABNORMALITIES OF GAIT AND MOBILITY (8) Sacral decubitus ulcer, stage II Code(s): L89.152 - PRESSURE ULCER OF SACRAL REGION, STAGE 2 (9) Decubitus ulcer of left buttock, stage 2 Code(s): L89.322 - PRESSURE ULCER OF LEFT BUTTOCK, STAGE 2 (10) Decubitus ulcer of coccyx, stage 2 Code(s): L89.152 - PRESSURE ULCER OF SACRAL REGION, STAGE 2 Assessment/Plan POD # 5 Ortho consult and Cardio consults are appreciated. Off loading of left heel Local ulcer care, frequent body turning for off loading; Silvadene to sacral area. Right leg XR w/o abnormalities Pain controlled DVT proph Pt's condition was reviewed with pt's rastafari sister, Sr. Milner, and her brother at bedside; all questions were answered. Case was d/w pt's nurse. Pt to be DC'ed to MD.
[2018-05-05] MEDS: amLODIPine BESYLATE 2.5 MG TABLET (FP) PO SCH (10:06)
[2018-05-05] MEDS: ENOXAPARIN NA (PORCINE) 40 MG/0.4 ML DISP.SYRIN SQ SCH (10:06)
[2018-05-05] MEDS: DOCUSATE SODIUM 100 MG CAPSULE (FP) PO SCH (10:07)
[2018-05-05] MEDS: DULoxetine HCL 30 MG CAPSULE.DR (FP) PO SCH (10:07)
[2018-05-05] MEDS: FUROSEMIDE 40 MG TABLET (FP) PO SCH (10:07)
[2018-05-05] MEDS: TOLTERODINE TARTRATE LA 4 MG CAP.SR.24H (FP) PO SCH (10:07)
[2018-05-05] MEDS: ASCORBIC ACID 500 MG TABLET (FP) PO SCH (10:07)
[2018-05-05] MEDS: FERROUS SO4 325 MG TABLET (FP) PO SCH (10:07)
[2018-05-05] MEDS: GABAPENTIN 400 MG CAPSULE (FP) PO SCH (10:07)
[2018-05-05] MEDS: PATIENT'S OWN MEDICATION (NON-FORMULARY) (Rotigotine [Neupro] 1 EACH) TD SCH (10:11)
[2018-05-05] MEDS: NEO/POLYMYX B SULF/DEXAMETH OPHTHALMIC OINTMENT 3.5 GM OD SCH (10:12)
[2018-05-05] MEDS: SILVER SULFADIAZINE 1% TOP CREAM 50 GM JAR TP SCH (10:12)
[2018-05-05 13:19] VITALS: BP 129/73; PULSE 77
== END 2018-05-05 14:42 | DRG 481 ==
LOC: JER 08:45 → JERBED 12:34 → J6S 15:15
PROVIDERS: ADMIT Specialist; ATTEND Specialist
PROC: 0QS706Z Reposition Left Upper Femur with Intramedullary Internal Fixation Device, Open Approach (ICD-10-PCS; principal; 2018-04-30 10:00)
DX: S72.142A Displaced intertrochanteric fracture of left femur, initial encounter for closed fracture (principal); I50.30 Unspecified diastolic (congestive) heart failure; I11.0 Hypertensive heart disease with heart failure; G20 Parkinson's disease; L89.152 Pressure ulcer of sacral region, stage 2; L89.322 Pressure ulcer of left buttock, stage 2; M81.0 Age-related osteoporosis without current pathological fracture; E78.5 Hyperlipidemia, unspecified; W19.XXXA Unspecified fall, initial encounter; Y93.9 Activity, unspecified; Y92.89 Other specified places as the place of occurrence of the external cause; Y99.9 Unspecified external cause status; R41.3 Other amnesia
CPT/HCPCS: 36415; 70450-TC; 71250-TC; 72125-TC; 72131-TC; 72170-TC-FY; 72192-TC; 73523-TC-FY; 73552-TC-LT-FY; 73552-TC-RT-FY; 73700-TC-RT; 76000-TC-FY; 80048; 80053; 80061; 82550; 83721; 83880; 85025; 85027; 85610; 85730; 86850; 86900; 86901; 87077; 87086; 87186; 93005; 93010; 94760; 97116-GP; 97161-GP; 99282-25; J0131; J1644